=== PATIENT | male | born 1945 | race Caucasian/White ===

== ENCOUNTER → 2017-03-14 15:48 | Outpatient (POV) | payer MEDICARE, BC, SELFPAY | PROVIDERS: Family Provider Internal Medicine; Visit Provider Internal Medicine | DX: Z00.00 Encounter for general adult medical examination without abnormal findings (principal) ==

== ENCOUNTER 2017-03-29 03:33 | Emergency (ER) | payer MEDICARE, BC, SELFPAY ==
[2017-03-29 03:37] VITALS: BP 152/87; PULSE 91; RESP 24; TEMP 36.6; O2SAT 95; BMI 22.8
--- NOTE | 2017-03-29 03:47 | XR_ITS ---
XR chest portable HISTORY: Shortness of air ITS.REASON: SOA ORDERING PHYSICIAN: Fracisco Castro MD PATIENT AGE: 71 years COMPARISON: 01/16/2017 FINDINGS: The cardiomediastinal silhouette and pulmonary vascularity are within normal limits. Chronic obstructive pulmonary disease noted with chronic coarsening of bronchovascular markings. There is a vague 19 mm area of increased density in the left lower lobe laterally overlying eighth rib laterally. This could be due to summation artifact, developing nodule, patchy infiltrate, or sclerotic rib lesion. Follow-up upright PA and lateral chest suggested. The remaining lungs are clear. Previous chest CT does show some sclerosis of the rib at this area probably related to an old fracture. No lobar consolidation or collapse. IMPRESSION: 1. No acute finding. 2. Slight increased density left lung base laterally possibly related to an old rib fracture. Consider follow-up PA and lateral chest for confirmation
--- NOTE | 2017-03-29 04:00 | HMH.EDSOB ---
ED Disposition Clinical Impression: Acute exacerbation of chronic obstructive airways disease Disposition: Home, Self-Care Condition on Discharge: Good Instructions: DI for Chronic Obstructive Pulmonary Disease Additional Instructions: call pcp for follow up Prescriptions: predniSONE [Prednisone 20mg Tab] 20 mg PO DAILY #10 tab Referrals: Provider,Referral, [Primary Care Provider] - - Critical Care Critical Care Time: No Attestation: On 03/29/17, the high probability of a clinically significant, sudden or life threatening deterioration of the following system(s) required my full and direct attention, intervention and personal management. The time I documented below is in addition to time spent performing reported procedures but includes the following listed in this critical care notation. Medical Decision Making - Medical Records Medical records reviewed: Yes: I reviewed the patient's medical records. Vital Signs: 03/29/17 03:37 03/29/17 04:22 03/29/17 04:23 Temperature 97.8 F Temperature Source Oral Pulse Rate 83 88 Pulse Rate [Right Brachial] 91 H Respiratory Rate 24 Blood Pressure [Right Arm] 152/87 Blood Pressure Mean [Right Arm] 108 Blood Pressure Source [Right Arm] Automatic Cuff Blood Pressure Position [Right Arm] Sitting 02 Sat by Pulse Oximetry 95 Oxygen Delivery Method Nasal Cannula Oxygen Flow Rate (LPM) 2 03/29/17 05:20 Temperature Temperature Source Pulse Rate Pulse Rate [Right Brachial] 92 H Respiratory Rate 18 Blood Pressure [Right Arm] 140/88 Blood Pressure Mean [Right Arm] 105 Blood Pressure Source [Right Arm] Blood Pressure Position [Right Arm] 02 Sat by Pulse Oximetry 97 Oxygen Delivery Method Nasal Cannula Oxygen Flow Rate (LPM) 2 - Lab Data Lab results reviewed: Yes: I reviewed the patient's lab results. Lab Results 03/29/17 03:55: WBC 10.8, RBC 4.85, Hgb 13.3 L, Hct 41.0 L, MCV 84.6, MCH 27.4, MCHC 32.4, RDW 15.0, Plt Count 232, MPV 6.5 L, Neut % (Auto) 80.3 H, Lymph % (Auto) 11.1, [place] % (Auto) 7.4, Eos % (Auto) 1.2, Baso % (Auto) 0.1, Neut # (Auto) 8.7 H, Lymph # (Auto) 1.2, [place] # (Auto) 0.8, Eos # (Auto) 0.1, Baso # (Auto) 0.0 03/29/17 03:55: Sodium 142, Potassium 3.6, Chloride 104, Carbon Dioxide 31, Anion Gap 10.6, BUN 25 H, Creatinine 1.20, Estimated Creat Clear 51, Estimated GFR 60, Est GFR ( Amer) 72, Glucose 106, Calcium 8.4 L, Total Bilirubin 0.2, AST 13 L, ALT 23, Alkaline Phosphatase 118 H, Total Creatine Kinase 87, CK-MB (CK-2) 3.4, CK-MB (CK-2) Rel Index 3.9, Troponin I < 0.02, Total Protein 5.9 L, Albumin 3.2 L, Globulin 2.7, Albumin/Globulin Ratio 1.2 03/29/17 04:10: ABG pH 7.42, ABG pCO2 47.1 H, ABG pO2 92.8, ABG HCO3 30.1 H, ABG Total CO2 31.5 H, ABG O2 Saturation 97, ABG Base Excess 5.6 H Result diagrams: 03/29/17 03:55 03/29/17 03:55 Orders (Tests/Meds): ED MEDICATIONS Discontinued Medications Generic Name Dose Route Start Last Admin Trade Name Freq PRN Reason Stop Dose Admin Methylprednisolone Sodium Succinate 125 mg 03/29/17 04:17 03/29/17 04:20 Solu-Medrol 125mg/2ml Vial IV 03/29/17 04:18 125 mg ONCE ONE Administration ORDERS Category Date Time Status ABG [Arterial Blood Gas] Stat RT 03/29/17 03:59 Ordered ABG [Arterial Blood Gas] Stat RT 03/29/17 04:01 Ordered 12-lead EKG Request [ECG Request by /Aramis] Stat Y 03/29/17 03:49 Ordered - Radiology Data #1 Image(s): Chest Image Reviewed: Yes I reviewed the patient's radiology image Preliminary Findings: Abnormal (patchy changes ) - ECG Data Tracing #1 I reviewed this ECG and interpreted as documented below: Normal Sinus Rhythm: Yes Ischemic changes: non-specific ST-T wave changes - Jermain Inquiry Pt receiving controlled substance: No Resp/SOB HPI - General Chief Complaint: Shortness of Breath/Dyspnea Stated Complaint: SOA Time Seen by Provider: 03/29/17 04:00 Mode of Arrival: Ambulatory
--- NOTE | 2017-03-29 04:03 | ED_ITS ---
ED Disposition Clinical Impression: Acute exacerbation of chronic obstructive airways disease Disposition: Home, Self-Care Condition on Discharge: Good Instructions: DI for Chronic Obstructive Pulmonary Disease Additional Instructions: call pcp for follow up Prescriptions: predniSONE [Prednisone 20mg Tab] 20 mg PO DAILY #10 tab Referrals: Provider,Referral, [Primary Care Provider] - - Critical Care Critical Care Time: No Attestation: On 03/29/17, the high probability of a clinically significant, sudden or life threatening deterioration of the following system(s) required my full and direct attention, intervention and personal management. The time I documented below is in addition to time spent performing reported procedures but includes the following listed in this critical care notation. Medical Decision Making - Medical Records Medical records reviewed: Yes: I reviewed the patient's medical records. Vital Signs: 03/29/17 03:37 03/29/17 04:22 03/29/17 04:23 Temperature 97.8 F Temperature Source Oral Pulse Rate 83 88 Pulse Rate [Right Brachial] 91 H Respiratory Rate 24 Blood Pressure [Right Arm] 152/87 Blood Pressure Mean [Right Arm] 108 Blood Pressure Source [Right Arm] Automatic Cuff Blood Pressure Position [Right Arm] Sitting 02 Sat by Pulse Oximetry 95 Oxygen Delivery Method Nasal Cannula Oxygen Flow Rate (LPM) 2 03/29/17 05:20 Temperature Temperature Source Pulse Rate Pulse Rate [Right Brachial] 92 H Respiratory Rate 18 Blood Pressure [Right Arm] 140/88 Blood Pressure Mean [Right Arm] 105 Blood Pressure Source [Right Arm] Blood Pressure Position [Right Arm] 02 Sat by Pulse Oximetry 97 Oxygen Delivery Method Nasal Cannula Oxygen Flow Rate (LPM) 2 - Lab Data Lab results reviewed: Yes: I reviewed the patient's lab results. Lab Results 03/29/17 03:55: WBC 10.8, RBC 4.85, Hgb 13.3 L, Hct 41.0 L, MCV 84.6, MCH 27.4, MCHC 32.4, RDW 15.0, Plt Count 232, MPV 6.5 L, Neut % (Auto) 80.3 H, Lymph % ( Auto) 11.1, [place] % (Auto) 7.4, Eos % (Auto) 1.2, Baso % (Auto) 0.1, Neut # (Auto ) 8.7 H, Lymph # (Auto) 1.2, [place] # (Auto) 0.8, Eos # (Auto) 0.1, Baso # (Auto) 0.0 03/29/17 03:55: Sodium 142, Potassium 3.6, Chloride 104, Carbon Dioxide 31, Anion Gap 10.6, BUN 25 H, Creatinine 1.20, Estimated Creat Clear 51, Estimated GFR 60, Est GFR ( Amer) 72, Glucose 106, Calcium 8.4 L, Total Bilirubin 0.2, AST 13 L, ALT 23, Alkaline Phosphatase 118 H, Total Creatine Kinase 87, CK- MB (CK-2) 3.4, CK-MB (CK-2) Rel Index 3.9, Troponin I < 0.02, Total Protein 5.9 L, Albumin 3.2 L, Globulin 2.7, Albumin/Globulin Ratio 1.2 03/29/17 04:10: ABG pH 7.42, ABG pCO2 47.1 H, ABG pO2 92.8, ABG HCO3 30.1 H, ABG Total CO2 31.5 H, ABG O2 Saturation 97, ABG Base Excess 5.6 H Result diagrams: 03/29/17 03:55 03/29/17 03:55 Orders (Tests/Meds): ED MEDICATIONS Discontinued Medications Generic Name Dose Route Start Last Admin Trade Name Freq PRN Reason Stop Dose Admin Methylprednisolone Sodium Succinate 125 mg 03/29/17 04:17 03/29/17 04:20 Solu-Medrol 125mg/2ml Vial IV 03/29/17 04:18 125 mg ONCE ONE Administration ORDERS Category Date Time Status ABG [Arterial Blood Gas] Stat RT
[2017-03-29 04:07] LABS: Basophils % 0.1 % (0.1-2.0); Eosinophils # 0.1 K/mm3 (0.0-0.4); Eosinophils % 1.2 % (0.1-12.0); Hemoglobin 13.3 g/dL (14.1-18.0); Lymphocytes # 1.2 K/mm3 (0.7-4.5); Lymphocytes % 11.1 K/mm3 (10-50); Mean Corpuscular HGB Conc 32.4 g/dL (31.8-35.4); Mean Corpuscular Hemoglobin 27.4 pg (27.0-31.2); Mean Corpuscular Volume 84.6 fl (80-94); Mean Platelet Volume 6.5 fl (7.4-10.4); Monocytes # 0.8 K/mm3 (0.1-1.0); Monocytes % 7.4 % (1.7-9.3); Neutrophils # 8.7 K/mm3 (1.8-7.8); Neutrophils % 80.3 % (37.0-80.0); Platelet Count 232 K/mm3 (142-424); Red Blood Count 4.85 M/mm3 (4.60-6.20); White Blood Count 10.8 K/mm3 (4.8-10.8)
[2017-03-29 04:12] LABS: ABG Base Excess 5.6 mmol/L (-2.4-2.3); ABG HCO3 30.1 mmhg (22.0-26.0); ABG Oxygen Saturation 97 % (90-100); ABG PCO2 47.1 mmhg (35.0-45.0); ABG PH 7.42 mmol/L (7.35-7.45); ABG PO2 92.8 mmhg (80-100); ABG TCO2 31.5 mmhg (23-27)
[2017-03-29 04:22] VITALS: PULSE 83
[2017-03-29 04:23] VITALS: PULSE 88
[2017-03-29 04:44] LABS: Alanine Aminotransferase 23 U/L (12-78); Albumin Level 3.2 gm/dL (3.4-5.0); Albumin/Globulin Ratio 1.2 (1.1-1.8); Alkaline Phosphatase 118 U/L (46-116); Anion Gap 10.6 mEq/L (5-15); Aspartate Amino Transferase 13 U/L (15-37); Bilirubin,Total 0.2 mg/dL (0.2-1.0); Blood Urea Nitrogen 25 mg/dL (7-18); CKMB Relative Index 3.9 U/L (0-4.0); Calcium 8.4 mg/dL (8.5-10.1); Carbon Dioxide 31 mmol/L (21.0-32.0); Chloride 104 mmol/L (98-107); Creatine Kinase 87 U/L (39-308); Creatine Kinase MB 3.4 mg/ml (0.0-3.6); Creatinine Clearance Estimated 51 mL/min (0-300); Estimated Glomerular Filt Rate 60 ml/min (>60); GFR (African American) 72 ML/MIN (>60); Globulin 2.7 gm/dl (1.3-3.2); Glucose 106 mg/dL (74-106); Potassium 3.6 mmoL/L (3.5-5.1); Sodium 142 mmol/L (136-145); Total Protein,Serum 5.9 gm/dL (6.4-8.2); Troponin I < 0.02 ng/ml (0.00-0.06)
[2017-03-29 05:20] VITALS: BP 140/88; PULSE 92; RESP 18; O2SAT 97
[2017-03-29 06:17] VITALS: BP 140/88; PULSE 92; RESP 18; TEMP 36.6
== END 2017-03-29 06:18 | disposition home or self-care (01) ==
PROVIDERS: Emergency Provider Emergency Medicine; Family Provider Internal Medicine
DX: J44.1 Chronic obstructive pulmonary disease with (acute) exacerbation (principal); Z79.899 Other long term (current) drug therapy
CPT/HCPCS: 71045; 80053; 82550; 82553; 82803; 84484; 85025; 93005; 93041; 96374; 99284

== ENCOUNTER → 2017-09-19 10:40 | Outpatient (POV) | payer MEDICARE, BC, SELFPAY | PROVIDERS: Family Provider Internal Medicine; PCP Internal Medicine; Visit Provider Internal Medicine | DX: Z00.00 Encounter for general adult medical examination without abnormal findings (principal) ==

== ENCOUNTER → 2017-12-01 09:58 | Outpatient (CLI) | payer MEDICARE, BC, SELFPAY ==
[2017-12-01 10:29] LABS: Troponin I < 0.02 ng/ml (0.00-0.06)
== END ==
PROVIDERS: PCP Internal Medicine; Visit Provider Internal Medicine
DX: R07.9 Chest pain, unspecified (principal); I25.10 Atherosclerotic heart disease of native coronary artery without angina pectoris
CPT/HCPCS: 36415; 84484; 93005

== ENCOUNTER → 2017-12-15 08:48 | Outpatient (CLI) | payer MEDICARE, BC, SELFPAY ==
--- NOTE | 2017-12-15 08:50 | CA_ITS ---
PROCEDURE: 2-D M-mode and color Doppler study INDICATIONS FOR THE TEST: Chest pain+ COPD+ Heart Murmur Tobacco Smoking Palpitations Fatigue+ Syncope Edema+ Hypertension+Diabetes Mellitus Rheumatic Fever SOB+TIM+Obesity Hyperlipidemia+ Family History HD Additional History cad, angina, karen,hx stents 2016 PATIENT INFORMATION HEIGHT: 66 WEIGHT:139 GENDER: Male B/P:130/73 2-D/M-MODE INTERPRETATION: 2-D MEASUREMENTS OBSERVED VALUES IN CMS Right Ventricular Dimension (RVDd) 1.5 Interventricular Septum (Thickness)(IVsd) 0.6 Left Ventricular Internal Dimensions(LVIDd) 5.0 Left Ventricular Posterior Wall (Thickness)(LVPWd) 1.0 Aortic Root 2.1 Aortic Cusp Separation 1.4 Left Atrial Dimensions (LAD) 2.2 2D 1. Left atrium is mildly enlarged, left ventricle is normal size, mild concentric left ventricular hypertrophy, visually estimated ejection fraction 55% with no regional wall motion abnormality. 2. The right atrium and right ventricle are normal size and contractility. 3. The aortic valve is minimally thickened and fibrosed. 4. The mitral valve has mitral annular calcification, there is no mitral stenosis. 5. The tricuspid valve is grossly normal 6. The pulmonic valve is poorly visualized. 7. No significant pericardial effusion noted. DOPPLER INTERROGATION: Doppler interrogation of the aortic, mitral and tricuspid valvular presence of mild mitral and tricuspid regurgitation, tricuspid regurgitation jet velocity is inadequate for calculation of the right ventricular systolic pressure, grade 1 diastolic dysfunction seen without tissue Doppler evidence of raised left atrial pressure, inferior vena cava is normal size with normal contractility. CONCLUSION: 1. Mildly enlarged left atrium, normal left ventricular size, mild concentric left ventricular hypertrophy, visually estimated ejection fraction 55% with no regional wall motion abnormality, grade 1 diastolic dysfunction seen without tissue Doppler evidence of raised left atrial pressure. 2. Mild mitral and tricuspid regurgitation 3. No significant pericardial effusion noted.
== END ==
PROVIDERS: PCP Internal Medicine; Visit Provider Internal Medicine
DX: R06.02 Shortness of breath
CPT/HCPCS: 93306

== ENCOUNTER → 2017-12-26 09:36 | Outpatient (CLI) | payer MEDICARE, BC, SELFPAY ==
--- NOTE | 2017-12-26 09:39 | CI_ITS ---
Cerebrovascular Exam Indications: 780.4 Dizziness and giddiness. IMPRESSIONS 1. The bilateral vertebral arteries are patent with normal antegrade flow. 2. Study suggests less than 20% stenosis involving the right internal carotid artery. No change from the study of 27-Dec-2003. 3. Study suggests less than 20% stenosis involving the left internal carotid artery. No change from the study of 27-Dec-2003. Carotid duplex study. Complete study and Doppler flow study including spectral analysis, color and sarmiento scale imaging. Height: Height: 167.6cm. Height: 66in. Weight: Weight: 62.6kg. Weight: 137.7lb. Body mass index: BMI: 22.3kg/m^2. Body surface area: BSA: 1.71m^2. Location: Vascular laboratory. Patient status: Outpatient. Tables: Arterial flow: + +--------+--------+ Location V sys V ed + +--------+--------+ Right CCA - proximal 95.1cm/s 19.6cm/s + +--------+--------+ Right CCA - distal 85.6cm/s 19.6cm/s + +--------+--------+ Right ECA 83.3cm/s 15.7cm/s + +--------+--------+ Right ICA - proximal 68.4cm/s 19.6cm/s + +--------+--------+ Right ICA - mid 90.4cm/s 29.9cm/s + +--------+--------+ Right ICA - distal 102cm/s 31.4cm/s + +--------+--------+ Right vertebral 47.9cm/s 11.8cm/s + +--------+--------+ Left CCA - proximal 87.2cm/s 21.2cm/s + +--------+--------+ Left CCA - distal 99cm/s 26.7cm/s + +--------+--------+ Left ECA 77.8cm/s 13.4cm/s + +--------+--------+ Left ICA - proximal 74.6cm/s 21.2cm/s + +--------+--------+ Left ICA - mid 95.1cm/s 30.6cm/s + +--------+--------+ Left ICA - distal 93.5cm/s 30.6cm/s + +--------+--------+ Left vertebral 39.3cm/s 11cm/s + +--------+--------+ Velocity ratios: + + + + + + Right, V sys Right, V ed Left, V sys Left, V ed + + + + + + Max ICA/dist CCA 1.19 1.6 0.96 1.15 + + + + + + (Report amended ) Electronically signed by: Jamarcus Iraheta [id number]
[2017-12-26 11:00] LABS: Alanine Aminotransferase 22 U/L (12-78); Albumin Level 3.5 gm/dL (3.4-5.0); Alkaline Phosphatase 136 U/L (46-116); Anion Gap 10.2 mEq/L (5-15); Aspartate Amino Transferase 14 U/L (15-37); Bilirubin,Direct 0.1 mg/dL (0.0-0.2); Bilirubin,Indirect 0.2 mg/dL (0.0-0.9); Bilirubin,Total 0.3 mg/dL (0.2-1.0); Blood Urea Nitrogen 20 mg/dL (7-18); Calcium 8.6 mg/dL (8.5-10.1); Carbon Dioxide 33 mmol/L (21.0-32.0); Chloride 101 mmol/L (98-107); Creatinine,Serum 1.08 mg/dL (0.70-1.30); Estimated Glomerular Filt Rate 67 ml/min (>60); GFR (African American) 81 ML/MIN (>60); Glucose 144 mg/dL (74-106); Potassium 4.2 mmoL/L (3.5-5.1); Sodium 140 mmol/L (136-145)
--- NOTE | 2017-12-26 11:05 | CT_ITS ---
CT head/brain wo/w con HISTORY: Ataxia, dizziness, lightheaded ITS.REASON: dizziness, blurry vision, off balance ORDERING PHYSICIAN: CIARRA Broderick PATIENT AGE: 72 years COMPARISON: 05/06/2015 TECHNIQUE: Axial images obtained without contrast. Brain and bone windows reviewed. All CT scans at the facility use one or more dose reduction, viz: automated exposure control, ma/kV adjustment per patient size (including targeted exams where dose is matched to indication, i.e. head), or iterative reconstruction technique. FINDINGS: No midline shift, mass effect, intracranial hemorrhage, hydrocephalus, or extra-axial fluid collection is evident. No enhancing lesions are evident. No evidence of cortical infarction The calvarium has an unremarkable appearance. No mastoid effusion. There is moderate opacification of the ethmoid air cells on both sides, opacification in the left frontal sinus, and mucosal thickening of the maxillary sinuses. Minimal mucosal thickening involves the sphenoid sinus.. IMPRESSION: 1. No acute intracranial findings. 2. Sinusitis
== END ==
PROVIDERS: Urology; PCP Internal Medicine; Visit Provider Physician Assistant
DX: G47.33 Obstructive sleep apnea (adult) (pediatric) (principal); H53.8 Other visual disturbances; I11.9 Hypertensive heart disease without heart failure; I25.10 Atherosclerotic heart disease of native coronary artery without angina pectoris; J43.9 Emphysema, unspecified; R06.02 Shortness of breath; R42 Dizziness and giddiness; Z87.891 Personal history of nicotine dependence; Z99.89 Dependence on other enabling machines and devices
CPT/HCPCS: 36415; 70470; 80048; 80076; 93880

== ENCOUNTER → 2017-12-26 10:18 | Outpatient (CLI) | payer MEDICARE, BC, SELFPAY | PROVIDERS: Visit Provider Urology | DX: R42 Dizziness and giddiness; R06.02 Shortness of breath; I25.10 Atherosclerotic heart disease of native coronary artery without angina pectoris; I11.9 Hypertensive heart disease without heart failure; E78.49 Other hyperlipidemia; J43.9 Emphysema, unspecified; H53.8 Other visual disturbances; Z87.891 Personal history of nicotine dependence; Z99.89 Dependence on other enabling machines and devices | CPT/HCPCS: 36415; 70470; 80048; 80076; 93880 ==

== ENCOUNTER → 2018-01-05 07:08 | Outpatient (CLI) | payer MEDICARE, BC, SELFPAY ==
--- NOTE | 2018-01-05 07:11 | NM_ITS ---
History and Indications: Coronary artery disease, he, family history, chest pain, shortness of breath, palpitations and fatigue Procedure: Patient received a 0.4 mg of intravenous Lexiscan, resting heart rate was 76 bpm, resting blood pressure 123/78, with Lexiscan maximum heart rate achieved was 97 bpm which is less than 85% of the maximum predicted heart rate and a blood pressure was 130/79. With Lexiscan patient, shortness of breath and lightheadedness. Electrocardiogram: Resting electrocardiogram showed sinus rhythm, with Lexiscan there is less than 1.[address] segment depression from the baseline EKG. The EKG portion of the Lexiscan Myoview is nondiagnostic. Cardiac stress and resting SPECT images: Cardiac stress and rest SPECT images were obtained using technetium 99 Myoview 32.4 mCi stress and 10.9. Millicuries at rest. Gated SPECT further analysis of segmental wall motion and calculation of ejection cardiac stress and rest SPECT images show a fixed defect involving the inferior wall with normal contractility in the gated SPECT is likely secondary to soft tissue attenuation from diaphragm, no reversible ischemia seen. Computer derived ejection fraction is over 65% with no regional wall motion abnormality, right ventricle is normal size and contractility. Conclusion: 1. The EKG portion of the Lexiscan Myoview is nondiagnostic. 2. No scintigraphic evidence of reversible ischemia seen, computer derived ejection fraction is over 65% with no regional wall motion abnormality, right ventricle is normal size and contractility. 3. Normal Lexiscan Myoview study.
--- NOTE | 2018-01-05 09:49 | HMH.ITSHM ---
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 []atorvastatin amoxicillin phenyton ferrous amlodipine pantoprazole trazodone prednisone aSA CARVEDILOL
== END ==
PROVIDERS: PCP Internal Medicine; Visit Provider Internal Medicine Cardiovascular Disease
DX: I20.8 Other forms of angina pectoris; R06.00 Dyspnea, unspecified; E78.49 Other hyperlipidemia; G47.33 Obstructive sleep apnea (adult) (pediatric); H53.8 Other visual disturbances; I11.9 Hypertensive heart disease without heart failure; J43.9 Emphysema, unspecified; R42 Dizziness and giddiness; Z87.891 Personal history of nicotine dependence; Z99.89 Dependence on other enabling machines and devices
CPT/HCPCS: 78452; 93017; A9502; J2785

== ENCOUNTER → 2018-02-26 09:42 | Outpatient (CLI) | payer MEDICARE, BC, SELFPAY ==
[2018-02-26 11:15] VITALS: PULSE 79; PULSE 82
== END ==
PROVIDERS: PCP Internal Medicine; Visit Provider Thoracic Surgery (Cardiothoracic Vascular Surgery)
DX: J43.9 Emphysema, unspecified (principal); R06.02 Shortness of breath
CPT/HCPCS: 94060; 94640; 94727; 94729

== ENCOUNTER → 2018-04-10 08:46 | Outpatient (POV) | payer MEDICARE, BC, SELFPAY | PROVIDERS: Visit Provider Internal Medicine | DX: Z00.00 Encounter for general adult medical examination without abnormal findings (principal) ==

== ENCOUNTER 2018-05-22 09:48 | Outpatient (RCR) | payer MEDICARE, BC, SELFPAY | END 2018-06-25 12:51 | disposition home or self-care (01) | LOC: PT 09:48 | PROVIDERS: Visit Provider Thoracic Surgery (Cardiothoracic Vascular Surgery) | DX: Z95.1 Presence of aortocoronary bypass graft (principal) ==

== ENCOUNTER 2018-06-05 10:52 | Outpatient (CLI) | payer MEDICARE, BC, SELFPAY ==
[2018-06-05 13:22] LABS: PHA INR Fingerstick 2.4 (0.9-1.1)
== END 2018-06-05 13:38 | disposition home or self-care (01) ==
PROVIDERS: PCP Internal Medicine; Visit Provider Internal Medicine
DX: Z51.81 Encounter for therapeutic drug level monitoring (principal); Z79.01 Long term (current) use of anticoagulants
CPT/HCPCS: 85610; 99211; G0463

== ENCOUNTER 2018-06-12 10:36 | Outpatient (CLI) | payer MEDICARE, BC, SELFPAY ==
[2018-06-12 11:32] LABS: PHA INR Fingerstick 3.6 (0.9-1.1)
== END 2018-06-12 12:02 | disposition home or self-care (01) ==
LOC: ACC 10:37
PROVIDERS: PCP Internal Medicine; Visit Provider Internal Medicine
DX: Z51.81 Encounter for therapeutic drug level monitoring (principal); Z79.01 Long term (current) use of anticoagulants; I82.409 Acute embolism and thrombosis of unspecified deep veins of unspecified lower extremity
CPT/HCPCS: 85610; 99211; G0463

== ENCOUNTER 2018-06-22 10:20 | Outpatient (CLI) | payer MEDICARE, BC, SELFPAY ==
[2018-06-22 11:38] LABS: Prothrombin Time 48.2 seconds (9.4-11.8)
[2018-06-22 16:08] LABS: PHA INR Fingerstick 4.5 (0.9-1.1)
== END 2018-06-22 16:11 | disposition home or self-care (01) ==
LOC: ACC 10:22
PROVIDERS: PCP Internal Medicine; Visit Provider Internal Medicine
DX: Z51.81 Encounter for therapeutic drug level monitoring (principal); Z79.01 Long term (current) use of anticoagulants; I82.409 Acute embolism and thrombosis of unspecified deep veins of unspecified lower extremity
CPT/HCPCS: 36415; 85610; 99211; G0463

== ENCOUNTER 2018-07-04 10:59 | Outpatient (CLI) | payer MEDICARE, BC, SELFPAY ==
[2018-07-05 13:59] LABS: PHA INR Fingerstick 1.8 (0.9-1.1)
== END 2018-07-04 15:10 | disposition home or self-care (01) ==
PROVIDERS: PCP Internal Medicine; Visit Provider Internal Medicine
DX: Z51.81 Encounter for therapeutic drug level monitoring (principal); Z79.01 Long term (current) use of anticoagulants; I82.409 Acute embolism and thrombosis of unspecified deep veins of unspecified lower extremity
CPT/HCPCS: 85610; 99211; G0463

== ENCOUNTER 2018-07-13 10:15 | Outpatient (CLI) | payer MEDICARE, BC, SELFPAY ==
[2018-07-13 14:10] LABS: PHA INR Fingerstick 2.2 (0.9-1.1)
== END 2018-07-13 14:12 | disposition home or self-care (01) ==
LOC: ACC 10:16
PROVIDERS: PCP Internal Medicine; Visit Provider Internal Medicine
DX: Z79.01 Long term (current) use of anticoagulants (principal)
CPT/HCPCS: 85610

== ENCOUNTER → 2018-07-17 10:32 | Outpatient (POV) | payer MEDICARE, BC, SELFPAY | PROVIDERS: Visit Provider Internal Medicine | DX: Z00.00 Encounter for general adult medical examination without abnormal findings (principal) ==

== ENCOUNTER 2018-08-03 09:34 | Outpatient (CLI) | payer MEDICARE, BC, SELFPAY ==
[2018-08-03 11:03] LABS: PHA INR Fingerstick 2.9 (0.9-1.1)
== END 2018-08-03 11:20 | disposition home or self-care (01) ==
LOC: ACC 09:35
PROVIDERS: PCP Internal Medicine; Visit Provider Internal Medicine
DX: Z51.81 Encounter for therapeutic drug level monitoring (principal); Z79.01 Long term (current) use of anticoagulants
CPT/HCPCS: 85610; 99211; G0463

== ENCOUNTER 2018-08-22 09:24 | Outpatient (CLI) | payer MEDICARE, BC, SELFPAY ==
[2018-08-22 12:05] LABS: PHA INR Fingerstick 1.8 (0.9-1.1)
== END 2018-08-22 12:11 | disposition home or self-care (01) ==
LOC: ACC 09:25
PROVIDERS: PCP Internal Medicine; Visit Provider Internal Medicine
DX: Z51.81 Encounter for therapeutic drug level monitoring (principal); Z79.01 Long term (current) use of anticoagulants
CPT/HCPCS: 85610; 99211; G0463

== ENCOUNTER 2018-09-24 10:11 | Outpatient (CLI) | payer MEDICARE, BC, SELFPAY ==
[2018-09-24 11:58] LABS: PHA INR Fingerstick 1.5 (0.9-1.1)
== END 2018-09-24 12:25 | disposition home or self-care (01) ==
LOC: ACC 10:12
PROVIDERS: PCP Internal Medicine; Visit Provider Internal Medicine
DX: Z79.01 Long term (current) use of anticoagulants (principal)
CPT/HCPCS: 85610; 99211; G0463

== ENCOUNTER → 2018-09-24 14:02 | Outpatient (CLI) | payer MEDICARE, BC, SELFPAY ==
--- NOTE | 2018-09-24 14:09 | US_ITS ---
US Arterial Lower Ext Rest History: Claudication, previous smoker ORDERING PHYSICIAN: CIARRA Broderick PATIENT AGE: 73 years TECHNIQUE: Segmental pressures obtained of both right and left leg. These are compared to brachial blood pressure to yield index at each level sampled including summary FARHAD. The data sheets from the procedure are available in PACS FINDINGS Rest study only performed today No prior studies available for comparison. Blood pressures reported are in millimeters mercury. RIGHT LEG FARHAD = 1.2. RIGHT LEG TBI=.9 Brachial BP: 110 Thigh BP: 127 Calf BP: 134 Ankle PT: 133 Ankle DP : 128 Digit =100 LEFT LEG FARHAD = 1.2 LEFT LEG TBI= .9 Brachial BPD: 112 Thigh BP: 145 Calf BP: 127 Ankle PT:133 Ankle DP: 130 Digit = 97 Pulses and waveforms: Normal IMPRESSION: The ABIs as reported above are within normal limits. Waveforms and pulses are also unremarkable.
== END ==
PROVIDERS: Visit Provider Physician Assistant
DX: I70.213 Atherosclerosis of native arteries of extremities with intermittent claudication, bilateral legs (principal)
CPT/HCPCS: 85610; 93923; 99211; G0463

== ENCOUNTER 2018-10-15 08:50 | Outpatient (CLI) | payer MEDICARE, BC, SELFPAY | END 2018-10-15 11:27 | disposition home or self-care (01) | LOC: ACC 08:51 | PROVIDERS: PCP Internal Medicine; Visit Provider Internal Medicine | DX: Z51.81 Encounter for therapeutic drug level monitoring (principal); Z79.01 Long term (current) use of anticoagulants | CPT/HCPCS: 85610; 99211; G0463 ==

== ENCOUNTER → 2018-11-06 09:42 | Outpatient (POV) | payer MEDICARE, BC, SELFPAY ==
--- NOTE | 2018-11-06 10:31 | XR_ITS ---
PROCEDURE: XR LUMBAR SPINE MIN 4V CLINICAL INDICATION: LOW BACK PAIN COMPARISON: [id number] LUMBAR SPINE-2 TO 3 VIEWS from 09/12/2014 FINDINGS: There is chronic wedge compression changes involving L1 with mild retropulsion of the posterior inferior aspect of L1 by approximately 4 mm not significantly changed. Degenerative disc disease is present at T12-L1 and L1-L2. No acute fracture or dislocation is evident. There is a fusiform abdominal aortic aneurysm which on the lateral view measures [address] a of the abdomen for more thorough evaluation. There is diffuse vascular calcification. IMPRESSION: 1. Chronic compression changes of L1 2. Abdominal aortic aneurysm measuring 5 cm on the lateral view. CTA of the abdomen suggested for further evaluation Dictated by: Jamarcus Iraheta MD 11/06/2018 10:45 Electronically signed by Jamarcus Iraheta MD in [place] 11/06/2018 10:45
== END ==
LOC: SC 09:47 → RAD 10:27
PROVIDERS: PCP Internal Medicine; Visit Provider Internal Medicine
DX: M54.5 Low back pain (principal)
CPT/HCPCS: 72110

== ENCOUNTER 2018-11-26 08:52 | Outpatient (CLI) | payer MEDICARE, BC, SELFPAY ==
[2018-11-26 14:55] LABS: PHA INR Fingerstick 1.5 (0.9-1.1)
== END 2018-11-26 14:59 | disposition home or self-care (01) ==
LOC: ACC 08:53
PROVIDERS: PCP Internal Medicine; Visit Provider Internal Medicine
DX: Z51.81 Encounter for therapeutic drug level monitoring (principal); Z79.01 Long term (current) use of anticoagulants
CPT/HCPCS: 85610; 99211; G0463

== ENCOUNTER → 2018-11-29 08:30 | Outpatient (CLI) | payer MEDICARE, BC, SELFPAY ==
[2018-11-29 08:52] LABS: Blood Urea Nitrogen 21 mg/dL (7-18); Creatinine,Serum 1.01 mg/dL (0.70-1.30); Estimated Glomerular Filt Rate 72 ml/min (>60); GFR (African American) 88 ML/MIN (>60)
--- NOTE | 2018-11-29 10:32 | CT_ITS ---
Procedure: CT ANGIO ABDOMEN CLINICAL HISTORY: AAA Abdominal aortic aneurysm COMPARISON: ABDPELW/O CT ABD PELVIS W/O CONTRAST from 11/15/2013 TECHNIQUE: IV Contrast: 100ml Optiray 350 Axial images obtained with sagittal and coronal reformats. All CT scans at the facility use one or more dose reduction, viz: automated exposure control, ma/kV adjustment per patient size (including targeted exams where dose is matched to indication, i.e. head), or iterative reconstruction technique. FINDINGS: There is a fusiform infrarenal abdominal aortic aneurysm. The aneurysm begins 2.4 cm below the level of the renal arteries and contains a moderate amount of intramural thrombus and measures up to 4.4 cm AP and 4.1 cm transverse. The aneurysm ends just above the bifurcation. The aneurysm does not involve the iliac arteries. There is no evidence of retroperitoneal hemorrhage. Mild atheromatous changes are present within the renal arteries without significant stenosis there 1 renal artery to each kidney. Calcific plaque is present at the ostium of the celiac artery a with approximately 50 percent stenosis suspected. The SMA has an unremarkable appearance. The inferior mesenteric artery is patent. Non angiographic prior CABG with COPD. There is some increased density of the gallbladder which could be related to vicarious excretion of contrast. There is gallstone present. The small liver, spleen, adrenal glands, pancreas, and kidneys have an unremarkable appearance. No intestinal obstruction or free air. Unremarkable appendix. There are scattered diverticula within the sigmoid colon but no evidence of diverticulitis. There wedge compression changes involving L1 with loss of height centrally of greater than 50 percent and mild bowing of the posterior aspect of the L1 vertebral body. This was present on the previous study. IMPRESSION: 1. Infrarenal abdominal aortic aneurysm measuring 4.4 x 4.1 cm previously measuring 3.4 x 3.4 cm on 11/15/2013. There is moderate intramural thrombus. Please see above for detailed description. No evidence of retroperitoneal hemorrhage 2. Cholelithiasis Dictated by: Jamarcus Iraheta MD 11/30/2018 07:09 Electronically signed by Jamarcus Iraheta MD in [place] 12/01/2018 05:32
== END ==
PROVIDERS: PCP Internal Medicine; Visit Provider Internal Medicine
DX: I71.4 Abdominal aortic aneurysm, without rupture (principal)
CPT/HCPCS: 36415; 74175; 82565; 84520; Q9967

== ENCOUNTER 2018-12-31 08:54 | Outpatient (CLI) | payer MEDICARE, BC, SELFPAY ==
[2018-12-31 09:51] LABS: PHA INR Fingerstick 1.7 (0.9-1.1)
== END 2018-12-31 09:52 | disposition home or self-care (01) ==
LOC: ACC 08:55
PROVIDERS: PCP Internal Medicine; Visit Provider Internal Medicine
DX: Z51.81 Encounter for therapeutic drug level monitoring (principal); Z79.01 Long term (current) use of anticoagulants
CPT/HCPCS: 85610; 99211; G0463

== ENCOUNTER 2019-02-15 12:00 | Emergency (ER) | payer MEDICARE, BC, SELFPAY ==
[2019-02-15 12:32] VITALS: BMI 25.8
--- NOTE | 2019-02-15 12:33 | XR_ITS ---
PROCEDURE: XR CHEST 2V CLINICAL HISTORY: soa COMPARISON: [facility] CT CHEST W/O CONTRAST from 09/20/2016 CXR1VP XR chest portable from 03/29/2017 CXR1VP XR chest portable from 08/06/2017 XR CHEST 2V from 02/13/2019 FINDINGS: The cardiomediastinal silhouette and pulmonary vascularity are within normal limits. There is a retrocardiac 3 millimeter benign calcified nodule. Lung borrero are otherwise clear. There is no pleural effusion or pneumothorax. No acute bony abnormalities. IMPRESSION: No acute findings. Dictated by: Juan José Henry 02/15/2019 16:17 Electronically signed by Juan José Henry in [place] 02/15/2019 16:17
[2019-02-15 12:34] VITALS: BP 132/89; PULSE 89; RESP 20; TEMP 37.2; O2SAT 96; BMI 25.8
--- NOTE | 2019-02-15 12:48 | HMH.EDSOB ---
ED Disposition Clinical Impression: COPD exacerbation, Dehydration Disposition: Home, Self-Care Condition on Discharge: Fair Instructions: DI for Chronic Obstructive Pulmonary Disease Additional Instructions: Follow-up with your primary care provider on Monday morning for reevaluation. Return to the emergency department immediately if symptoms are worse. Prescriptions: Ipratropium/Albuterol Sulfate [Duoneb 3mL neb] 3 ml IH Q4H 3 Days #20 neb Transmission Status: Pending to [id number] levoFLOXacin [Levaquin 500mg tab] 500 mg PO DAILY #7 tab Transmission Status: Pending to [id number] Referrals: Ham Weldon [Primary Care Provider] - Time of Disposition: 16:49 - Critical Care Critical Care Time: No Attestation: On 02/15/19, the high probability of a clinically significant, sudden or life threatening deterioration of the following system(s) required my full and direct attention, intervention and personal management. The time I documented below is in addition to time spent performing reported procedures but includes the following listed in this critical care notation. Medical Decision Making - Medical Records Medical records reviewed: Yes: I reviewed the patient's medical records. - Jermain Inquiry Pt receiving controlled substance: No Vital Signs: 02/15/19 12:34 02/15/19 13:46 Temperature 98.9 F Temperature Source Oral Pulse Rate [Right Radial] 89 Respiratory Rate 20 Blood Pressure [Right Arm] 132/89 Blood Pressure Mean [Right Arm] 103 Blood Pressure Source [Right Arm] Automatic Cuff Blood Pressure Position [Right Arm] Sitting 02 Sat by Pulse Oximetry 96 Oxygen Delivery Method Nasal Cannula Nasal Cannula Oxygen Flow Rate (LPM) 2 2 - Lab Data Lab results reviewed: Yes: I reviewed the patient's lab results. Lab Results 02/15/19 12:36: WBC 9.7, RBC 5.30, Hgb 15.6, Hct 47.3, MCV 89.3, MCH 29.4, MCHC 32.9, RDW 15.3, Plt Count 201, MPV 7.5, Neut % (Auto) 89.7 H, Lymph % (Auto) 3.8 L, [place] % (Auto) 5.2, Eos % (Auto) 1.1, Baso % (Auto) 0.2, Neut # (Auto) 8.7 H, Lymph # (Auto) 0.4 L, [place] # (Auto) 0.5, Eos # (Auto) 0.1, Baso # (Auto) 0.0, Total Counted 100, Neutrophils % (Manual) 78 H, Band Neutrophils % 5.0, Lymphocytes % (Manual) 10, Monocytes % (Manual) 6, Eosinophils % (Manual) 1, Platelet Estimate Normal, RBC Morphology Normal 02/15/19 12:36: Lactate 1.6 02/15/19 12:36: Influenza Type A Ag Negative, Influenza Type B Ag Negative 02/15/19 12:57: Sodium 135 L, Potassium 4.1, Chloride 96 L, Carbon Dioxide 32, Anion Gap 11.1, BUN 55 H D, Creatinine 1.07, Estimated Creat Clear 69, Estimated GFR 68, Est GFR ( Amer) 82, Glucose 189 H, Calcium 8.5, Total Bilirubin 0.6, AST 13 L D, ALT 41 D, Alkaline Phosphatase 100, Total Protein 6.0 L, Albumin 2.6 L, Globulin 3.4 H, Albumin/Globulin Ratio 0.8 L 02/15/19 12:57: Troponin I < 0.02 02/15/19 12:57: B-Natriuretic Peptide 150 H 02/15/19 13:20: Specimen Source Right radial, O2 % 2lpm nc, ABG pH 7.45, ABG pCO2 44.5, ABG pO2 101.9 H, ABG HCO3 30.2 H, ABG Total CO2 31.5 H, ABG O2 Saturation 98, ABG Base Excess 6.2 H, Jamarcus Test Acceptable Result diagrams: 02/15/19 12:36 02/15/19 12:57 Orders (Tests/Meds): ED MEDICATIONS Discontinued Medications Generic Name Dose Route Start Last Admin Trade Name Freq PRN Reason Stop Dose Admin Albuterol/Ipratropium 3 ml 02/15/19 12:54 02/15/19 13:45 Duoneb 3ml [facility] 02/15/19 12:55 3 ml ONCE ONE Administration Albuterol/Ipratropium 3 ml 02/15/19 12:55 02/15/19 13:45 Duoneb 3ml Neb 02/15/19 12:56 3 ml ONCE ONE Administration Albuterol/Ipratropium 3 ml 02/15/19 12:55 02/15/19 13:45 Duoneb 3ml Neb [facility] 02/15/19 12:56 3 ml ONCE ONE Administration Levofloxacin/Dextrose 750 mg in 150 mls @ 100 mls/hr 02/15/19 12:56 02/15/19 13:29 Levofloxacin 750mg/150ml Premix IV 02/15/19 14:25 100 mls/hr ONCE ONE Administration Protocol Methylprednisol
[2019-02-15 12:51] LABS: Basophils % 0.2 % (0.1-2.0); Eosinophils # 0.1 K/mm3 (0.0-0.4); Eosinophils % 1.1 % (0.1-12.0); Hematocrit 47.3 % (42.0-52.0); Hemoglobin 15.6 g/dL (14.1-18.0); Lymphocytes # 0.4 K/mm3 (0.7-4.5); Lymphocytes % 3.8 % (10-50); Mean Corpuscular HGB Conc 32.9 g/dL (31.8-35.4); Mean Corpuscular Hemoglobin 29.4 pg (27.0-31.2); Mean Corpuscular Volume 89.3 fl (80-94); Mean Platelet Volume 7.5 fl (7.4-10.4); Monocytes # 0.5 K/mm3 (0.1-1.0); Monocytes % 5.2 % (1.7-9.3); Neutrophils # 8.7 K/mm3 (1.8-7.8); Neutrophils % 89.7 % (37.0-80.0); Platelet Count 201 K/mm3 (142-424); Red Cell Distribution Width 15.3 % (11.5-17.5); White Blood Count 9.7 K/mm3 (4.8-10.8)
[2019-02-15 12:55] LABS: MANUAL DIFFERENTIAL MANUAL DIFFERENTIAL (MANUAL DIFF)
[2019-02-15 13:06] LABS: Lactic Acid 1.6 mmol/L (0.4-2.0)
[2019-02-15 13:10] LABS: Eosinophils % 1 % (0-3); Lymphocytes % 10 % (10-50); Monocytes % 6 % (2-9); Neutrophils % 78 % (42-76); Total Cells Counted 100
[2019-02-15 13:11] LABS: Platelet Estimate Normal; RBC Morphology Normal
[2019-02-15 13:23] LABS: Alanine Aminotransferase 41 U/L (12-78); Albumin Level 2.6 gm/dL (3.4-5.0); Albumin/Globulin Ratio 0.8 (1.1-1.8); Alkaline Phosphatase 100 U/L (46-116); Anion Gap 11.1 mEq/L (5-15); Aspartate Amino Transferase 13 U/L (15-37); Bilirubin,Total 0.6 mg/dL (0.2-1.0); Blood Urea Nitrogen 55 mg/dL (7-18); Calcium 8.5 mg/dL (8.5-10.1); Carbon Dioxide 32 mmol/L (21.0-32.0); Chloride 96 mmol/L (98-107); Creatinine Clearance Estimated 69 mL/min (50-200); Creatinine,Serum 1.07 mg/dL (0.70-1.30); Estimated Glomerular Filt Rate 68 ml/min (>60); GFR (African American) 82 ML/MIN (>60); Globulin 3.4 gm/dl (1.3-3.2); Glucose 189 mg/dL (74-106); Potassium 4.1 mmoL/L (3.5-5.1); Sodium 135 mmol/L (136-145)
--- NOTE | 2019-02-15 13:24 | PC.NURSE ---
rt at bedside
[2019-02-15 13:25] LABS: Troponin I < 0.02 ng/ml (0.00-0.06)
[2019-02-15 13:42] LABS: ABG Base Excess 6.2 mmol/L (-2.4-2.3); ABG HCO3 30.2 mmhg (22.0-26.0); ABG Oxygen Saturation 98 % (90-100); ABG PCO2 44.5 mmhg (35.0-45.0); ABG PH 7.45 mmol/L (7.35-7.45); ABG PO2 101.9 mmhg (80-100); ABG TCO2 31.5 mmhg (23-27)
[2019-02-15 13:44] LABS: Allen's Test Acceptable; Oxygen 2LPM NC %; Source Right Radial
[2019-02-15 17:21] VITALS: BP 128/76; PULSE 92; RESP 18; TEMP 37.1; O2SAT 97
== END 2019-02-15 17:29 | disposition home or self-care (01) ==
PROVIDERS: Emergency Provider Emergency Medicine; PCP Internal Medicine
DX: J44.1 Chronic obstructive pulmonary disease with (acute) exacerbation (principal); E86.0 Dehydration; R73.9 Hyperglycemia, unspecified; Z95.1 Presence of aortocoronary bypass graft; Z95.5 Presence of coronary angioplasty implant and graft; Z99.81 Dependence on supplemental oxygen
CPT/HCPCS: 71046; 80053; 82803; 83605; 83880; 84484; 85007; 85025; 87040; 87275; 87276; 96365; 96375; 99283; 99284; J1956

== ENCOUNTER → 2019-02-18 14:56 | Outpatient (CLI) | payer MEDICARE, BC, SELFPAY ==
--- NOTE | 2019-02-18 15:03 | XR_ITS ---
PROCEDURE: XR LUMBAR SPINE MIN 4V CLINICAL INDICATION: LOW BACK PAIN,COPD, COMPARISON: XR LUMBAR SPINE MIN 4V from 11/06/2018 FINDINGS: There is some straightening of normal curvature in the thoracolumbar region. Again noted is a compression fracture of L1 which is basically stable. There is mild diffuse retropulsion of the posterior aspect of the vertebral body and if symptoms have worsened suggest a follow-up CT scan lumbar spine to better evaluate the degree of spinal canal compromise. The remaining lumbar vertebrae all appear intact and disc spaces are well maintained. The diffuse saccular aortic aneurysm is basically stable unchanged in size and appearance from the previous study. IMPRESSION: Basically stable L1 compression fracture and stable infrarenal diffuse fusiform aortic aneurysm but if back pain symptoms have worsened suggest a follow-up CT scan as described above. Dictated by: Dr. Francisco Patterson MD 02/18/2019 15:[address] Francisco Patterson MD in [place] 02/18/2019 15:46
[2019-02-18 15:22] LABS: Microscopic, Urine URINE MICROSCOPIC (MICROSCOPIC)
[2019-02-18 15:43] LABS: Anion Gap 11.3 mEq/L (5-15); Blood Urea Nitrogen 26 mg/dL (7-18); Calcium 8.3 mg/dL (8.5-10.1); Carbon Dioxide 33 mmol/L (21.0-32.0); Chloride 98 mmol/L (98-107); Estimated Glomerular Filt Rate 59 ml/min (>60); GFR (African American) 72 ML/MIN (>60); Glucose 194 mg/dL (74-106); Potassium 4.3 mmoL/L (3.5-5.1); Sodium 138 mmol/L (136-145)
[2019-02-18 15:47] LABS: Appearance,Urine CLEAR (Clear); Bilirubin,Urine Negative (Negative); Blood, Urine 2+ (Negative); Color,Urine YELLOW (Yellow); Glucose,Urine (UA) Negative (Negative); Ketones,Urine Negative (Negative); Leukocyte Esterase,Urine Negative (Negative); Nitrate,Urine Negative (Negative); PH,Urine 6.5 (5.0-8.5); Protein,Urine Negative (Negative); Urobilinogen,Urine 0.2 EU/dl (0.2)
[2019-02-18 16:16] LABS: Bacteria,Urine Trace /lpf; RBC,Urine Occasional #/hpf (0-3); Squamous Epithelial Cell,Urine Occasional #/hpf (0-5)
== END ==
PROVIDERS: PCP Internal Medicine; Visit Provider Internal Medicine
DX: M54.5 Low back pain (principal); J44.1 Chronic obstructive pulmonary disease with (acute) exacerbation; E86.0 Dehydration
CPT/HCPCS: 36415; 72110; 80048; 81001

== ENCOUNTER → 2019-03-07 13:21 | Outpatient (CLI) | payer MEDICARE, BC, SELFPAY ==
--- NOTE | 2019-03-07 13:27 | CT_ITS ---
PROCEDURE: CT LUMBAR SPINE WO CON CLINICAL HISTORY: LBP , COMPRESSION FX L1 Low back pain COMPARISON: CT ANGIO ABDOMEN from 11/29/2018 XR LUMBAR SPINE MIN 4V from 02/18/2019 TECHNIQUE: Axial images obtained with sagittal and coronal reformats. All CT scans at the facility use one or more dose reduction, viz: automated exposure control, ma/kV adjustment per patient size (including targeted exams where dose is matched to indication, i.e. head), or iterative reconstruction technique. FINDINGS: There is normal alignment. There is moderate to severe compressive changes involving the central aspect of the L1 vertebral body. There is buckling of the dorsal cortex superiorly the extending into the canal by approximately 5 mm. This did have a similar appearance on 11/29/2018 CT scan. There is canal stenosis at the L1 level of 10 mm. L2-L3: Unremarkable. L3-L4: Unremarkable. L4-5: Minimal bulging disc with facet ligamentum hypertrophy with moderate bilateral foraminal narrowing. L5-S1: Mild concentric bulging disc with facet ligamentum hypertrophy There is mild sclerosis of the SI joint on the left. There is an infrarenal fusiform abdominal aortic aneurysm measuring 4.4 cm in AP dimension not significantly changed. Fibrotic changes are present in the lung bases. IMPRESSION: 1. There is moderate to severe compressive changes involving the central aspect of the L1 vertebral body. There is buckling of the dorsal cortex superiorly the extending into the canal by approximately 5 mm. This did have a similar appearance on 11/29/2018 CT scan. There is canal stenosis at the L1 level of 10 mm 2. Mild degenerative changes L4-5 and L5-S1 with sclerosis of the left SI joint. 3. No change in the infrarenal 4.4 cm abdominal aortic aneurysm Dictated by: Jamarcus Iraheta MD 03/07/2019 18:22 Electronically signed by Jamarcus Iraheta MD in [place] 03/07/2019 18:22
== END ==
PROVIDERS: PCP Internal Medicine; Visit Provider Internal Medicine
DX: M54.5 Low back pain (principal); S32.010A Wedge compression fracture of first lumbar vertebra, initial encounter for closed fracture
CPT/HCPCS: 72131

== ENCOUNTER → 2019-04-16 10:53 | Outpatient (POV) | payer MEDICARE, BC, SELFPAY ==
[2019-04-16 11:10] VITALS: BP 135/78; PULSE 91; RESP 18; O2SAT 99; BMI 23.3
--- NOTE | 2019-04-16 11:52 | HMH.PMCON ---
Assessment and Plan (1) Compression fracture Problem details: acute pathological compression fracture Status: Acute Category: Medical (2) Degenerative disc disease Status: Chronic Category: Medical (3) Lumbar radiculopathy Status: Chronic Category: Medical Code(s): M54.16 - Radiculopathy, lumbar region - Assessment and plan all Dx Assessment and Plan for all problems:: We will set up an L1-L2 lumbar epidural steroid injection for the patient. We will also prescribe a back brace to help with instability and weakness in muscles. I will follow-up with him after his injection reassess his symptoms at that time he has been instructed to call the office if he has any issues prior to his next appointment. Dr. Husain has reviewed this note and agrees with this plan of care. This note was dictated using voice recognition software and may contain errors or omissions HPI - Data of Consult Consult date: 04/16/19 Requesting Physician: Meagan Peters APRN Primary Care Provider: Ham Weldon - Consult Narrative Reason for consult: Back pain History of present illness: Mr. Piper is a 74 year old male presents today for consultation regards to his low back pain. Patient has an old chronic compression fracture to L1. Patient and I discussed the treatment for this. Patient and I discussed conservative bracing along with epidural injections. He would like to move forward with this. He is not on any anticoagulation therapy. He rates his pain an 5 out of 10. He is having difficulty with activities of daily living. Patient states that the pain does not radiate . CC: Meagan Peters APRN [facility] History I have reviewed the patient's past medical history: Yes Medical History: Reports:: Asthma, Chronic Obstructive Pulmonary Disease (COPD), Coronary Artery Disease, Home Oxygen, Hyperlipidemia, Hypertension Denies:: Diabetes Mellitus Type 1, Diabetes Mellitus Type 2, Internal Pacemaker, Seizures *Have you ever received a pneumonia vaccine?: Yes *Have you received a flu vaccine this season?: Yes Other Surgeries: Yes: No Previous Surgery, CABG, Cardiac Catheterization, Coronary Stent, Other. No: Pacemaker - *Social History Smoking Status: Never smoker Tobacco Type: cigarettes Alcohol Intake: never Alcohol Intake Frequency:: other Substance Use Type: denies use *Occupational Status:: other Housing: house Household Members: other *Travel in the last 8 weeks: None Family Hx:: Unable to obtain Review of Systems - Review of Systems ROS General: no recent weight change, no fever, no sleep disturbances Respiratory: no cough, no shortness of air, no recurring pulmonary infections, on home O2 Cardiovascular/Peripheral Vascular: No chest pain, No palpitations, no edema, no shortness of breath. Gastrointestinal: no new onset incontinence, normal bowel movements reported Genitourinary: no new onset incontinence Musculoskeletal: Back pain Psychiatric: normal mood/ affect, Neurological: [denies new onset weakness in extremities], [denies new onset balance issues] Meds Home Medications Medication Instructions Recorded Confirmed Type albuterol sulfate 0.63 mg/3 mL 0.63 mg INHALATION ONCE 05/16/17 04/26/19 History solution for nebulization aspirin 81 mg tablet,delayed 81 mg PO DAILY tab 05/16/17 04/26/19 History release ferrous sulfate 325 mg (65 mg 325 mg PO BID tab 05/16/17 04/26/19 History iron) tablet fluticasone propionate 50 1 spray INTRANASAL BID PRN 05/16/17 04/26/19 History mcg/actuation nasal spray,suspension nitroglycerin 0.4 mg sublingual 0.4 mg SUBLINGUAL Q5M PRN 05/16/17 04/26/19 History tablet trazodone 50 mg tablet 50 mg PO QHS PRN 05/16/17 04/26/19 History fluticasone 250 mcg-salmeterol 50 1 inh INHALATION BID 09/05/17 04/26/19 History mcg/dose blistr powdr for inhalation tiotropium bromide 2.5 2 inh INHALATION DAILY g 09/05/17 04/26/19 History mcg/a
== END ==
PROVIDERS: PCP Internal Medicine; Visit Provider Clinical Nurse Specialist Family Health
DX: M48.56XD Collapsed vertebra, not elsewhere classified, lumbar region, subsequent encounter for fracture with routine healing; M51.16 Intervertebral disc disorders with radiculopathy, lumbar region
CPT/HCPCS: 99202

== ENCOUNTER → 2019-05-27 08:45 | Outpatient (POV) | payer MEDICARE, BC, SELFPAY ==
[2019-05-27 09:28] VITALS: BP 142/89; PULSE 68; RESP 18; O2SAT 98; BMI 23.3
--- NOTE | 2019-05-27 09:49 | HMH.PAINSOAP ---
[facility] Pain Management SOAP Note Subjective:: Patient is a pleasant 74-year-old white male who we are treating for a chronic compression fracture of the L1 vertebral body. Patient comes in wearing his back brace today. Patient is following up after a epidural steroid injection at the L1-L2 level. Patient states that it helped significantly for the first couple days and is still helping somewhat however he can tell that it has worn out off. Patient rates his pain today a 6 out of 10. He presents today on home oxygen. Patient and I discussed continuing with injective therapy until he has finished his 3 epidural series. He is interested in pursuing this. He is not on any blood thinners. We will set him up for this after we began elective procedures again. ROS General: no recent weight change, no fever, no sleep disturbances Respiratory: On home oxygen Cardiovascular/Peripheral Vascular: No chest pain, No palpitations, no edema, no shortness of breath. Gastrointestinal: no new onset incontinence, normal bowel movements reported Genitourinary: no new onset incontinence Musculoskeletal: Back pain Psychiatric: normal mood/ affect Neurological: [denies new onset weakness in extremities], [denies new onset balance issues] Objective:: Physical Exam General: Alert and oriented x3, no acute distress, pleasant and cooperative, on home oxygen Lungs: Resps E/U, Symmetrical chest expansion, Eyes: PERRL Musculoskeletal: Flexion and extension of lumbar spine somewhat guarded secondary to pain, deep tendon reflexes normal, strength in upper and lower extremities [5/5], [abnormal gait noted] Neurological: speech clear, 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 Patient is going to continue wearing his back brace until then. We specifically discussed risk factors for Covid-19 including age, heart or lung disease, diabetes, immunosuppression and travel. We also discussed that NSAIDs may worsen Covid-19 infection symptoms and that they should not be used to treat Covid-19 symptoms. Patient was also informed that corticosteroids in any form oral or injectable will decrease immune response and may increase risk of Covid-[address] Husain has reviewed this patient's chart and this note and agrees with plan of care. Patient has been instructed to call the office if they have any issues prior to the next appointment. [facility] History I have reviewed the patient's past medical history: Yes Medical History: Reports:: Aneurysm (abdominal), Asthma, Chronic Obstructive Pulmonary Disease (COPD), Coronary Artery Disease, Home Oxygen, Hyperlipidemia, Hypertension, Seizures Denies:: Cancer, Diabetes Mellitus Type 1, Diabetes Mellitus Type 2, Internal Pacemaker, MRSA *Have you ever received a pneumonia vaccine?: Yes *Have you received a flu vaccine this season?: Yes Other Medical History: Reports: Arthritis Other Surgeries: Yes: No Previous Surgery, CABG, Cardiac Catheterization, Coronary Stent, Other. No: Pacemaker - *Social History Smoking Status: Never smoker Tobacco Type: cigarettes Alcohol Intake: never Alcohol Intake Frequency:: other Substance Use Type: denies use *Occupational Status:: other Housing: house Household Members: other *Travel in the last 8 weeks: None Family Hx:: Unable to obtain
== END ==
PROVIDERS: PCP Internal Medicine; Visit Provider Clinical Nurse Specialist Family Health
DX: M51.16 Intervertebral disc disorders with radiculopathy, lumbar region (principal); M48.56XD Collapsed vertebra, not elsewhere classified, lumbar region, subsequent encounter for fracture with routine healing
CPT/HCPCS: 99212

== ENCOUNTER 2019-05-31 09:32 | Day surgery (SDC) | payer MEDICARE, BC, SELFPAY ==
[2019-05-31 09:49] VITALS: BP 159/89; PULSE 71; RESP 18; TEMP 36.2; O2SAT 100; BMI 22.8
[2019-05-31 10:15] VITALS: BP 145/89; PULSE 79; RESP 18; O2SAT 98
[2019-05-31 10:16] VITALS: BP 148/89; PULSE 79; RESP 18; O2SAT 99
--- NOTE | 2019-05-31 10:18 | P.PCN_ITS ---
- Procedure Date: 05/31/19 Time: 10:18 Anesthesiologist:: Alberto Husain MD Complications:: None Pre-procedure Diagnosis:: Chronic compression fracture of the L1 vertebral body with degenerative disc disease of lumbar spine lumbar radiculopathy symptoms Post-procedure Diagnosis:: Same Indications for Procedure:: The patient is a pleasant 74-year-old white male who we are treating for low back pain with lumbar radicular symptoms and increasing back pain with a chronic L1 compression fracture. He does have a brace. His pain is increased substantially. This is affecting activities of daily living. It is affecting his functionality. In order to keep him out of the emergency room and off oral opioids we will plan on a lumbar epidural steroid injection today to see if this helps with his pain symptoms. Procedure Details:: Lumbar epidural steroid injection under fluoroscopy Informed consent was obtained and the risk and benefits of the procedure was ex plained to the patient. The patient was taken to the procedure room. The patient was placed prone on the procedure table. The patient was prepped and draped in sterile fashion. C-arm fluoroscopy was used to view the lumbar spine. Skin and subcutaneous tissues were anesthetized using lidocaine. I placed an 18-gauge epidural needle and advanced into the L1-L2 interspace using fluoroscopic guidance and [id number] to air. After confirmation of needle placement in the epidural space with dye I injected 2 mL of lidocaine 1.5% with Depo-Medrol 80 mg. Patient tolerated the procedure well with no complications. Plan and Disposition:: He is to continue wearing his brace. We will follow-up with him in 2 weeks.
[2019-05-31 10:28] VITALS: BP 169/97; PULSE 79; RESP 18; O2SAT 97
== END 2019-05-31 10:29 | disposition home or self-care (01) ==
LOC: SC.PAINP 09:34
PROVIDERS: PCP Internal Medicine; Visit Provider Anesthesiology
DX: M48.56XA Collapsed vertebra, not elsewhere classified, lumbar region, initial encounter for fracture (principal); M51.16 Intervertebral disc disorders with radiculopathy, lumbar region; Z79.899 Other long term (current) drug therapy; Z79.82 Long term (current) use of aspirin; I10 Essential (primary) hypertension; J44.9 Chronic obstructive pulmonary disease, unspecified
CPT/HCPCS: 62323; J1040; Q9966

== ENCOUNTER → 2019-06-11 09:15 | Outpatient (CLI) | payer MEDICARE, BC, SELFPAY ==
--- NOTE | 2019-06-11 09:17 | CA_ITS ---
APPROVED REPORT EXAM: Comprehensive 2D, Doppler, and color-flow Echocardiogram Fitting Supervisor: Malathi Gomez RVT Ht: 5 ft 6 in Wt: 142lbs BSA: 1.73 BP: 122/89 mmHg Indications: SOA,EDEMA,HOME O2,CABG,SATURNINO,ABN EKG,HTN,HLD TDS-OVERLAYING LUNG,DECREASED WINDOWS 2D Dimensions LVOT 1.77 cm (M/F) 1.5-2.5 M-Mode Dimensions LVDd 4.07 cm (3.5-5.7) LVDs 2.85 cm (3.5-5.7) IVSd 0.27 cm (0.6-1.1) PWd 0.80 cm (0.6-1.1) EF (Teich) 57.60% FS 30.00% EDV (Teich) 72.90 mL ESV (Teich) 30.90 mL LV Diastology E/A Ratio 0.58 Mitral Valve MV A Velocity 72.00 (40-130 cm/s) Left Ventricle Left atrium is mildly enlarged, left ventricle is normal size, mild concentric left ventricular hypertrophy, visually estimated ejection fraction approximately 40 to 45%, there is marked hypokinesis involving mid to distal septum, anterior and anterior apical wall. Grade 1 diastolic dysfunction seen without tissue Doppler evidence of raise left atrial pressure. Right Ventricle Right atrium and right ventricle are mildly enlarged with normal contractility. Aortic Valve Aortic valve is thickened and calcified leaflet chordae display good mobility, there is no aortic stenosis or aortic insufficiency. Mitral Valve Mitral valve is minimally thickened, there is mild mitral regurgitation. Tricuspid Valve Tricuspid valve is grossly normal, there is mild tricuspid regurgitation. Pulmonic Valve Pulmonic valve is poorly visualized. Great Vessels Aortic root is normal size. Pericardium No significant pericardial effusion noted. Conclusion 1. Biatrial enlargement, normal left ventricular size, mild concentric left ventricular hypertrophy, visually estimated ejection fraction 40 to 45% with segmental wall motion abnormality described above, grade 1 diastolic dysfunction seen without tissue Doppler evidence of raise left atrial pressure. 2. Mildly enlarged right ventricle with normal contractility. 3. Mild mitral and tricuspid regurgitation. 4. No significant pericardial effusion noted. Electronically signed by : Galen Adams, 06/11/2019 20:12:05
== END ==
PROVIDERS: PCP Internal Medicine; Visit Provider Urology
DX: R06.00 Dyspnea, unspecified (principal); R06.01 Orthopnea; R06.02 Shortness of breath
CPT/HCPCS: 93306

== ENCOUNTER → 2019-06-17 11:24 | Outpatient (POV) | payer MEDICARE, BC, SELFPAY ==
[2019-06-17 11:33] VITALS: BP 137/88; PULSE 75; RESP 18; TEMP 36.6; O2SAT 97; BMI 23.1
--- NOTE | 2019-06-17 11:55 | P.CONS_ITS ---
[facility] Pain Management SOAP Note Subjective:: Patient is a pleasant 74-year-old white male who presents today for follow-up after his second lumbar epidural steroid injection. He is doing well in his low back however he is having myofascial pain with palpable trigger points in his right scapular region. Patient and I discussed trigger point injections he would like to move forward with this. He rates that pain a 10 out of 10. ROS General: no recent weight change, no fever, no sleep disturbances Respiratory: no cough, no shortness of air, no recurring pulmonary infections Cardiovascular/Peripheral Vascular: No chest pain, No palpitations, no edema, no shortness of breath. Gastrointestinal: no new onset incontinence, normal bowel movements reported Genitourinary: no new onset incontinence Musculoskeletal: Back pain, right scapular pain Psychiatric: normal mood/ affect Neurological: [denies new onset weakness in extremities], [denies new onset balance issues] Objective:: Physical Exam General: Alert and oriented x3, no acute distress, pleasant and cooperative, on oxygen Lungs: Resps E/U, Symmetrical chest expansion, Eyes: PERRL Musculoskeletal: Flexion and extension of cervical and lumbar spine somewhat guarded secondary to pain, deep tendon reflexes normal, strength in upper and lower extremities [5/5], [abnormal gait noted] Neurological: speech clear, 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 We specifically discussed risk factors for Covid-19 including age, heart or lung disease, diabetes, immunosuppression and travel. We also discussed that NSAIDs may worsen Covid-19 infection symptoms and that they should not be used to treat Covid-19 symptoms. Patient was also informed that corticosteroids in any form oral or injectable will decrease immune response and may increase risk of Covid-[address] Husain has reviewed this patient's chart and this note and agrees with plan of care. Patient has been instructed to call the office if they have any issues prior to the next appointment. [facility] History I have reviewed the patient's past medical history: Yes Medical History: Reports:: Aneurysm (abdominal), Asthma, Chronic Obstructive Pulmonary Disease (COPD), Coronary Artery Disease, Home Oxygen, Hyperlipidemia, Hypertension Denies:: Cancer, Diabetes Mellitus Type 1, Diabetes Mellitus Type 2, Internal Pacemaker, MRSA, Seizures *Have you ever received a pneumonia vaccine?: Yes *Have you received a flu vaccine this season?: Yes Other Medical History: Reports: Arthritis Other Surgeries: Yes: No Previous Surgery, CABG, Cardiac Catheterization, Coronary Stent, Other. No: Pacemaker - *Social History Smoking Status: Former smoker Tobacco Type: cigarettes Alcohol Intake: never Alcohol Intake Frequency:: other Substance Use Type: denies use *Occupational Status:: other Housing: house Household Members: other *Travel in the last 8 weeks: None Family Hx:: Unable to obtain
== END ==
PROVIDERS: PCP Internal Medicine; Visit Provider Clinical Nurse Specialist Family Health
DX: M48.56XD Collapsed vertebra, not elsewhere classified, lumbar region, subsequent encounter for fracture with routine healing (principal); M79.18 Myalgia, other site
CPT/HCPCS: 99212

== ENCOUNTER → 2019-06-18 10:26 | Outpatient (CLI) | payer MEDICARE, BC, SELFPAY ==
[2019-06-18 10:50] LABS: Basophils % 0.4 % (0.1-2.0); Eosinophils # 0.1 K/mm3 (0.0-0.4); Eosinophils % 0.8 % (0.1-12.0); Hematocrit 47.5 % (42.0-52.0); Hemoglobin 15.2 g/dL (14.1-18.0); Lymphocytes # 1.3 K/mm3 (0.7-4.5); Lymphocytes % 11.5 % (10-50); Mean Corpuscular Hemoglobin 28.8 pg (27.0-31.2); Mean Corpuscular Volume 90.1 fl (80-94); Mean Platelet Volume 7.7 fl (7.4-10.4); Monocytes # 0.7 K/mm3 (0.1-1.0); Neutrophils # 8.9 K/mm3 (1.8-7.8); Neutrophils % 81.3 % (37.0-80.0); Platelet Count 232 K/mm3 (142-424); Red Blood Count 5.28 M/mm3 (4.60-6.20); White Blood Count 10.9 K/mm3 (4.8-10.8)
[2019-06-18 11:19] LABS: Chloride 95 mmol/L (98-107); Potassium 4.1 mmoL/L (3.5-5.1); Sodium 140 mmol/L (136-145)
[2019-06-18 11:21] LABS: Bilirubin,Unconjugated 0.4 mg/dL (0.0-1.1); Blood Urea Nitrogen 23 mg/dl (9-20); Estimated Glomerular Filt Rate 73 ml/min (>60); GFR (African American) 88 ML/MIN (>60)
[2019-06-18 11:22] LABS: Alanine Aminotransferase 24 U/L (12-78); Albumin Level 4.2 g/dl (3.5-5.0); Alkaline Phosphatase 130 U/L (38-126); Anion Gap 10.1 mEq/L (5-15); Aspartate Amino Transferase 22 U/L (17-59); Bilirubin,Indirect 0.4 mg/dL (0.0-0.9); Bilirubin,Total 0.4 mg/dl (0.2-1.3); Calcium 9.9 mg/dl (8.4-10.2); Carbon Dioxide 39 mmol/L (22.0-30.0); Chol/HDL Ratio 3.9 (1-3.5); Cholesterol 262 mg/dl (140-200); Glucose 121 mg/dl (74-100); HDL Cholesterol 67 mg/dl (40-60); Total Protein,Serum 6.6 g/dl (6.3-8.2); Triglycerides 255 mg/dl (30-150); VLDL Cholesterol 51 mg/dL (0-40)
[2019-06-18 11:30] LABS: NT Pro Brain Natriuretic Pep. 363 pg/mL (0-125)
[2019-06-18 11:33] LABS: Direct LDL Cholesterol 188.81 mg/dL (100-129)
== END ==
PROVIDERS: Visit Provider Physician Assistant
DX: G47.33 Obstructive sleep apnea (adult) (pediatric); I11.9 Hypertensive heart disease without heart failure; I42.9 Cardiomyopathy, unspecified; I73.9 Peripheral vascular disease, unspecified; J43.9 Emphysema, unspecified; R06.02 Shortness of breath; Z87.891 Personal history of nicotine dependence; Z95.1 Presence of aortocoronary bypass graft; Z99.89 Dependence on other enabling machines and devices; I20.8 Other forms of angina pectoris; E78.49 Other hyperlipidemia
CPT/HCPCS: 36415; 80048; 80061; 80076; 83880; 85025

== ENCOUNTER → 2019-06-24 10:37 | Outpatient (CLI) | payer MEDICARE, BC, SELFPAY ==
[2019-06-25 08:52] LABS: Covid-19 Nasal PCR Sendout Lex NOT DETECTED
--- NOTE | 2019-06-25 10:22 | PC.NURSE ---
0941-pt and Smooth TEE notified of negative COVID 19 results.
== END ==
PROVIDERS: Visit Provider Anesthesiology
DX: Z03.818 Encounter for observation for suspected exposure to other biological agents ruled out (principal)
CPT/HCPCS: U0003

== ENCOUNTER 2019-06-26 08:59 | Day surgery (SDC) | payer MEDICARE, BC, SELFPAY ==
[2019-06-26 09:15] VITALS: BP 135/79; PULSE 55; RESP 20; O2SAT 100; BMI 22.8
[2019-06-26 09:27] VITALS: BP 122/70; PULSE 70; RESP 20; O2SAT 100
[2019-06-26 09:30] VITALS: BP 125/71; PULSE 65; RESP 20; O2SAT 100
[2019-06-26 09:40] VITALS: BP 135/79; PULSE 60; RESP 18; O2SAT 100
--- NOTE | 2019-06-26 09:44 | HMH.PMPROC ---
- Procedure Date: 06/26/19 Time: 09:44 Anesthesiologist:: Alberto Husain MD Complications:: None Pre-procedure Diagnosis:: Myofascial pain neck and shoulders over the right upper trapezius muscle Post-procedure Diagnosis:: Same Indications for Procedure:: This patient is a pleasant 74-year-old white male who we have been treating for low back pain with multiple compression fractures. He has had an epidural steroid injection which is helped him tremendously. He is now having some increasing neck pain with radiation to the right shoulder. Most of this pain is over the right upper trapezius muscle. We will plan on trigger point injections to the right upper trapezius muscles today. Procedure Details:: Trigger point injections x4 to right upper trapezius area Informed consent was obtained risk and benefits of the procedure were explained to the patient. Patient was taken to the procedure room. The right neck and shoulders were prepped using ChloraPrep. A 25-gauge needle was used and we injected 4 trigger points over the right upper trapezius using bupivacaine 0.25% 3 MLS and Depo-Medrol 10 mg for each trigger point. We used a total of 40 mg Depo-Medrol for all 4 trigger points. Patient tolerated the procedure well with no complications. Plan and Disposition:: We will follow-up with him in 2 weeks. Will reevaluate his symptoms at that time.
== END 2019-06-26 09:40 | disposition home or self-care (01) ==
LOC: SC.PAINP 08:59
PROVIDERS: PCP Internal Medicine; Visit Provider Anesthesiology
DX: M79.18 Myalgia, other site (principal)
CPT/HCPCS: 20552; J1040

== ENCOUNTER 2019-06-27 08:47 | Day surgery (SDC) | payer MEDICARE, BC, SELFPAY ==
[2019-06-27] VITALS (12 sets, daily range): BP systolic 94–149; BP diastolic 57–97; PULSE 76–90; RESP 16–20; TEMP 36.6; O2SAT 87–97; BMI 22.8
--- NOTE | 2019-06-27 09:00 | IR_ITS ---
APPROVED REPORT Patient Location: Outpatient Travel Accommodations Rater: JUMANA Shook RT (R) PROCEDURES Right heart catheterization Left heart catheterization Left ventriculogram Selective coronary angiogram Left internal mammary angiography Selective adjacent to the saphenous vein graft to the right coronary Catheter placement in the ascending aorta Ascending aortography INDICATION Coronary disease, History of coronary bypass surgery, Pulmonary hypertension, Class III-IV congestive heart failure symptoms Informed consent was obtained prior to the procedure. COMPLICATIONS NONE Estimated Blood Loss: LESS THAN 10 ML TECHNIQUE One percent lidocaine was used to anesthetize the right groin. The right femoral artery was accessed via the Seldinger technique. A 4-Ethiopian and 7 syriac sheath was placed in the right femoral artery and vein respectfully. A 7 Ethiopian sheath was introduced and a [place]-Ezequiel catheter was floated using hemodynamic waveforms in the pulmonary artery, right ventricle , and right atrium. Saturations were obtained in the pulmonary artery and the right atrium. The JR-4 and JL-4 catheter was also used to perform left heart catheterization, left ventriculography and selective coronary angiogram. The JR4 catheter was used to intubate the saphenous vein graft to the right coronary artery as well as perform nonselective left internal mammary angiography. Pigtail catheter was placed in the ascending aorta and ascending aortography was performed in order to look for grafts given the absence of a graft marker. At the end of the procedure the patient was transferred to the post-op holding area in stable condition for arterial sheath removal. ANGIOGRAPHIC RESULTS The left main artery Has a distal 40% stenosis The left anterior descending artery Has proximal 90% stenosis then occluded. The circumflex artery Is a small nondominant vessel and has 20 to 30% stenosis and a proximal small to medium sized first obtuse marginal artery The right coronary artery Is a dominant vessel and has ostial proximal 8090% stenosis complex mid vessel 80% hazy stenosis. The vessel has severe diffuse disease with a thrombus or calcification throughout the mid right coronary artery. There is competitive flow from a vein graft into the posterior descending artery The MORELOS ventriculogram reveals Mild left ventricular dilatation mid anterior apical and inferior apical akinesis with evidence of a organized thrombus at the apex. Estimated ejection fraction is 40% The left ventricular end-diastolic pressure 15 mmHg The left internal mammary artery is a small graft it is patent and supplies a severely diffusely diseased and small caliber LAD Saphenous vein graft to the right coronary artery is a very large graft with slow flow but does supply antegrade flow to the posterior descending artery Ascending aorta demonstrates mild ascending aortic dilatation with only 1 patent vein graft being the saphenous to the right coronary Right atrial pressure 8 mmHg Pulmonary artery pressure 32/17 mmHg Pulmonary occlusion pressure 15 mmHg Right atrial saturation 77% Pulmonary desaturation 77% IMPRESSION Severely diffusely diseased LAD with a patent small BROOKS graft Patent saphenous vein graft to a a small caliber posterior descending artery Coronary disease as described above Mid anterior apical and inferoapical akinesis with angiographic suggestion of a organized thrombus in the apex Mild pulmonary hypertension Mildly elevated left-sided filling pressures PLAN 1. Medical management for coronary disease. Nothing surgical nor percutaneous can improve patient's coronary artery status. 2. Echocardiogram and possibly CAROLYN to
[2019-06-27 09:27] LABS: Basophils # 0.1 K/mm3 (0-0.2); Basophils % 0.9 % (0.1-2.0); Eosinophils # 0.1 K/mm3 (0.0-0.4); Eosinophils % 0.4 % (0.1-12.0); Hematocrit 41.4 % (42.0-52.0); Hemoglobin 14.2 g/dL (14.1-18.0); Lymphocytes # 0.6 K/mm3 (0.7-4.5); Lymphocytes % 4.8 % (10-50); Mean Corpuscular HGB Conc 34.2 g/dL (31.8-35.4); Mean Corpuscular Hemoglobin 29.5 pg (27.0-31.2); Mean Corpuscular Volume 86.1 fl (80-94); Mean Platelet Volume 7.5 fl (7.4-10.4); Monocytes # 0.4 K/mm3 (0.1-1.0); Monocytes % 3.5 % (1.7-9.3); Neutrophils # 11.1 K/mm3 (1.8-7.8); Neutrophils % 90.4 % (37.0-80.0); Platelet Count 272 K/mm3 (142-424); Red Blood Count 4.81 M/mm3 (4.60-6.20); Red Cell Distribution Width 14.8 % (11.5-17.5); White Blood Count 12.3 K/mm3 (4.8-10.8)
[2019-06-27 09:31] LABS: Anion Gap 11.2 mEq/L (5-15); Blood Urea Nitrogen 24 mg/dl (9-20); Calcium 9.3 mg/dl (8.4-10.2); Carbon Dioxide 32 mmol/L (22.0-30.0); Chloride 96 mmol/L (98-107); Creatinine Clearance Estimated 59 mL/min (50-200); Estimated Glomerular Filt Rate 73 ml/min (>60); GFR (African American) 88 ML/MIN (>60); Glucose 140 mg/dl (74-100); Potassium 4.2 mmoL/L (3.5-5.1); Sodium 135 mmol/L (136-145)
[2019-06-27 09:39] LABS: MANUAL DIFFERENTIAL MANUAL DIFFERENTIAL (MANUAL DIFF)
[2019-06-27 09:49] LABS: Lymphocytes % 7 % (10-50); Monocytes % 1 % (2-9); Neutrophils % 92 % (42-76); Platelet Estimate Normal; Total Cells Counted 100
[2019-06-27 09:50] LABS: RBC Morphology Normal
[2019-06-27 12:59] LABS: CATHL Arterial O2 SAT 77.2 % (90-100); CATHL Venous O2 SAT 77.1 % (75-80)
== END 2019-06-27 14:58 | disposition home or self-care (01) ==
LOC: CATHLAB 08:47
PROVIDERS: PCP Internal Medicine; Visit Provider Internal Medicine
DX: I25.118 Atherosclerotic heart disease of native coronary artery with other forms of angina pectoris; I25.729 Atherosclerosis of autologous artery coronary artery bypass graft(s) with unspecified angina pectoris; I27.20 Pulmonary hypertension, unspecified; I42.9 Cardiomyopathy, unspecified; Z95.1 Presence of aortocoronary bypass graft; G47.33 Obstructive sleep apnea (adult) (pediatric); I50.20 Unspecified systolic (congestive) heart failure; I11.0 Hypertensive heart disease with heart failure; J43.9 Emphysema, unspecified; R06.02 Shortness of breath; Z99.81 Dependence on supplemental oxygen; Z87.891 Personal history of nicotine dependence; Z79.82 Long term (current) use of aspirin; Z79.899 Other long term (current) drug therapy; Z79.51 Long term (current) use of inhaled steroids; Z79.52 Long term (current) use of systemic steroids
CPT/HCPCS: 80048; 82810; 85007; 85025; 93461; 99152; 99153; C1725; C1751; C1769; C1894; J1644; Q9967

== ENCOUNTER → 2019-07-04 14:56 | Outpatient (CLI) | payer MEDICARE, BC, SELFPAY ==
--- NOTE | 2019-07-04 14:56 | CT_ITS ---
PROCEDURE: CT CHEST WO CON CLINICAL INDICATION: SOA Increased dyspnea, heart disease, coronary artery disease, shortness of air COMPARISON: [facility] CT CHEST W/O CONTRAST from 09/20/2016 CT ANGIO ABDOMEN from 11/29/2018 TECHNIQUE: Axial images obtained with sagittal and coronal reformats. All CT scans at the facility use one or more dose reduction, viz: automated exposure control, ma/kV adjustment per patient size (including targeted exams where dose is matched to indication, i.e. head), or iterative reconstruction technique. FINDINGS: HEART AND MEDIASTINAL STRUCTURES: Prior CABG. There is extensive coronary artery calcification. LUNGS AND PLEURAL SPACES: Centrilobular and paraseptal emphysematous changes with scattered areas of scarring. Previously noted parenchymal opacity in the right upper lobe centrally has shown some improvement. There is a new parenchymal opacity in the right upper lobe posteriorly and laterally series 3, image 33. This measures approximately 5 mm with some surrounding ground-glass density. Atelectatic changes are present in the right lung base posterior medially and has developed since the previous exam. There are atelectatic changes in the left upper lobe posteriorly. Previously there was a small pneumatocele at this region which has resolved. Calcified granuloma is present in the left lower lobe with some mild fibrotic changes in the left lung base. BONY STRUCTURES: Severe wedge compression changes involve the L1 vertebral body with mild retropulsion of the posterior aspect of L1 by approximately 7 mm. New wedge compression changes are present at T8 vertebral body with sclerosis of the inferior endplate with loss of height centrally of 40 percent and minimal retropulsion of the posterior inferior aspect of the vertebral body by 4 mm. Chronic severe wedge compression changes are present at T7. There is loss of height centrally and anteriorly of greater than 50 percent. Mild wedging also involves the T6 vertebral body which has developed in the interval with loss of height of approximately 30 percent. UPPER ABDOMEN: Slight hyperdensity of the gallbladder with at least 1 gallstone noted at 10 mm. There is an infrarenal abdominal aortic aneurysm. The aneurysm is not completely imaged on this exam. ADDITIONAL FINDINGS: No other significant abnormalities. IMPRESSION: 1. Centrilobular and paraseptal emphysema with COPD with scattered parenchymal opacities and atelectasis as described above. Right upper lobe central opacity has shown some improvement with new opacity in the right upper lobe posteriorly the with some new areas of atelectasis. Findings could be related to sequela from cryptogenic organizing pneumonia. Suggest six-month follow-up to confirm stability 2. New wedge compression changes have developed at T8 and T6 compared to the previous exam. Old wedge compression changes are noted at T7 and L1. MRI may provide further evaluation to determine the age of the fractures which have developed in the interval. 3. Cholelithiasis with hyperdense gallbladder suggesting sludge Dictated by: Jamarcus Iraheta MD 07/05/2019 08:08 Electronically signed by Jamarcus Iraheta MD in [place] 07/05/2019 08:08
== END ==
PROVIDERS: PCP Internal Medicine; Visit Provider Physician Assistant
DX: I27.20 Pulmonary hypertension, unspecified (principal)
CPT/HCPCS: 71250

== ENCOUNTER → 2019-07-09 09:03 | Outpatient (POV) | payer MEDICARE, BC, SELFPAY ==
[2019-07-09 09:13] VITALS: BP 142/82; PULSE 85; RESP 18; TEMP 36.6; O2SAT 99; BMI 22.8
--- NOTE | 2019-07-09 09:17 | HMH.PAINSOAP ---
[facility] Pain Management SOAP Note Subjective:: Patient is a pleasant 74-year-old white male who we are treating for back pain and myofascial pain. He is following up after trigger point injections and doing extremely well. Patient rates his pain between a 2 and a 3 out of 10. Patient has had epidural injections and trigger point injections. Patient does not need anything at this time. He would like to follow-up in a couple months. ROS General: no recent weight change, no fever, no sleep disturbances Respiratory: no cough, no shortness of air, no recurring pulmonary infections Cardiovascular/Peripheral Vascular: No chest pain, No palpitations, no edema, no shortness of breath. Gastrointestinal: no new onset incontinence, normal bowel movements reported Genitourinary: no new onset incontinence Musculoskeletal: Back pain, myofascial pain Psychiatric: normal mood/ affect Neurological: [denies new onset weakness in extremities], [denies new onset balance issues] Objective:: Physical Exam General: Alert and oriented x3, no acute distress, pleasant and cooperative, on O2 Lungs: Resps E/U, Symmetrical chest expansion, Eyes: PERRL Musculoskeletal: Flexion and extension of lumbar spine somewhat guarded secondary to pain, deep tendon reflexes normal, strength in upper and lower extremities [5/5], [abnormal gait noted] Neurological: speech clear, classroom aide 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 Dr. Husain has reviewed this note and agrees with this plan of care. This note was dictated using voice recognition software and may contain errors or omissions [facility] History I have reviewed the patient's past medical history: Yes Medical History: Reports:: Aneurysm, Asthma, Chronic Obstructive Pulmonary Disease (COPD), Coronary Artery Disease, Home Oxygen, Hyperlipidemia, Hypertension Denies:: Cancer, Diabetes Mellitus Type 1, Diabetes Mellitus Type 2, Internal Pacemaker, MRSA, Seizures *Have you ever received a pneumonia vaccine?: Yes *Have you received a flu vaccine this season?: Yes Other Medical History: Reports: Arthritis Other Surgeries: Yes: No Previous Surgery, CABG, Cardiac Catheterization, Coronary Stent, Other. No: Pacemaker Amputation: No Fractures: No - *Social History Smoking Status: Former smoker Tobacco Type: cigarettes Alcohol Intake: never Alcohol Intake Frequency:: other Substance Use Type: denies use *Occupational Status:: other Housing: house Household Members: none *Travel in the last 8 weeks: None Family Hx:: Unable to obtain
== END ==
PROVIDERS: PCP Internal Medicine; Visit Provider Clinical Nurse Specialist Family Health
DX: M79.18 Myalgia, other site (principal); M48.56XD Collapsed vertebra, not elsewhere classified, lumbar region, subsequent encounter for fracture with routine healing
CPT/HCPCS: 99212

== ENCOUNTER → 2019-07-18 12:08 | Outpatient (CLI) | payer MEDICARE, BC, SELFPAY ==
--- NOTE | 2019-07-18 12:14 | CA_ITS ---
APPROVED REPORT EXAM: Comprehensive 2D, Doppler, and color-flow Echocardiogram Ceramic Chemist: Janee Maharaj RDCS Ht: 5 ft 6 in Wt: 142lbs BSA: 1.73 BP: 122/89 mmHg Indications: DEFINITY TO R/O APICAL TROMBUS Left Ventricle Left atrium is mildly enlarged, left ventricle is normal size, mild concentric left ventricular hypertrophy, visually estimated ejection fraction 45%, there is marked hypo-to akinesis involving the distal septum and apical wall. Definity contrast was utilized to delineate the endocardial surface, there is no obvious left ventricular apical thrombus seen. Right Ventricle Right atrium and right ventricle mildly enlarged with normal contractility. Aortic Valve Aortic valve is minimally thickened and fibrosed. Mitral Valve Mitral valve grossly normal. Tricuspid Valve Tricuspid valve is grossly normal. Pulmonic Valve Pulmonic valve not well visualized. Great Vessels Aortic root is normal size. Pericardium No significant pericardial effusion noted. Conclusion 1. Limited study performed. 2. Normal left ventricular size, mild concentric left ventricular hypertrophy, visually estimated ejection fraction approximately 45% with segmental wall motion abnormalities as described above, Definity contrast was utilized to delineate the endocardial surfaces, there is no left ventricular thrombus seen. 3. No significant pericardial effusion noted. Electronically signed by : Galen Adams, 07/18/2019 13:34:32
== END ==
PROVIDERS: PCP Internal Medicine; Visit Provider Internal Medicine Cardiovascular Disease
DX: I51.3 Intracardiac thrombosis, not elsewhere classified (principal); I11.9 Hypertensive heart disease without heart failure; I42.9 Cardiomyopathy, unspecified; I20.9 Angina pectoris, unspecified; R06.00 Dyspnea, unspecified; Z99.89 Dependence on other enabling machines and devices
CPT/HCPCS: 93308; Q9957

== ENCOUNTER → 2019-08-30 07:26 | Outpatient (CLI) | payer MEDICARE, BC, SELFPAY ==
--- NOTE | 2019-08-30 07:29 | US_ITS ---
PROCEDURE: US AORTA CLINICAL INDICATION: AORTIC ANEURSYM 6 MONTH FOLLOW UP COMPARISON: CT ANGIO ABDOMEN from 11/29/2018 FINDINGS: There is mild fusiform aneurysmal dilatation of the mid abdominal aorta at 4.5 x 4.4 cm. These measurements are similar compared to a previous CT scan of 11/29/2018. Proximal common iliacs have an unremarkable appearance IMPRESSION: 4.5 cm infrarenal abdominal aortic aneurysm Dictated by: Jamarcus Iraheta MD 08/30/2019 18:41 Electronically signed by Jamarcus Iraheta MD in [place] 08/30/2019 18:41
== END ==
PROVIDERS: PCP Internal Medicine; Visit Provider Internal Medicine
DX: I71.4 Abdominal aortic aneurysm, without rupture (principal)
CPT/HCPCS: 76770

== ENCOUNTER → 2019-10-07 10:37 | Outpatient (POV) | payer MEDICARE, BC, SELFPAY ==
[2019-10-07 10:47] VITALS: BP 152/78; PULSE 85; RESP 18; TEMP 36.8; O2SAT 99; BMI 21.9
--- NOTE | 2019-10-07 11:17 | P.CONS_ITS ---
[facility] Pain Management SOAP Note Subjective:: A pleasant 74-year-old white male who we are treating for low back pain. Patient is doing well however his pain is beginning to return. He had relief from his lumbar epidural for 3 months. He rates his pain a 6 out of 10. He would like to repeat his lumbar epidural steroid injection because he got over 80% relief with this. He is still doing well after trigger point injections. he is not on any anticoagulation therapy. ROS General: no recent weight change, no fever, no sleep disturbances Respiratory: no cough, no shortness of air, no recurring pulmonary infections Cardiovascular/Peripheral Vascular: No chest pain, No palpitations, no edema, no shortness of breath. Gastrointestinal: no new onset incontinence, normal bowel movements reported Genitourinary: no new onset incontinence Musculoskeletal: Back pain Psychiatric: normal mood/ affect Neurological: [denies new onset weakness in extremities], [denies new onset balance issues] Objective:: Physical Exam General: Alert and oriented x3, no acute distress, pleasant and cooperative, on O2 Lungs: Resps E/U, Symmetrical chest expansion, Eyes: PERRL Musculoskeletal: Flexion and extension of lumbar spine somewhat guarded secondary to pain, deep tendon reflexes normal, strength in upper and lower extremities [5/5], [abnormal gait noted] Neurological: speech clear, 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 Given the efficacy of this in the past I do believe it would benefit him. I will follow- up with him afterwards reassess his symptoms at that time he has been instructed to call the office if he has any issues prior to his next appointment. Dr. Husain has reviewed this note and agrees with this plan of care. This note was dictated using voice recognition software and may contain errors or omissions [facility] History I have reviewed the patient's past medical history: Yes Medical History: Reports:: Aneurysm, Asthma, Chronic Obstructive Pulmonary Disease (COPD), Coronary Artery Disease, Home Oxygen, Hyperlipidemia, Hypertension Denies:: Cancer, Diabetes Mellitus Type 1, Diabetes Mellitus Type 2, Internal Pacemaker, MRSA, Seizures *Have you ever received a pneumonia vaccine?: Yes *Have you received a flu vaccine this season?: Yes Other Medical History: Reports: Arthritis Other Surgeries: Yes: No Previous Surgery, CABG, Cardiac Catheterization, Coronary Stent, Other. No: Pacemaker Amputation: No Fractures: No - *Social History Smoking Status: Former smoker Tobacco Type: cigarettes Alcohol Intake: never Alcohol Intake Frequency:: other Substance Use Type: denies use *Occupational Status:: other Housing: house Household Members: none *Travel in the last 8 weeks: None Family Hx:: Unable to obtain
== END ==
PROVIDERS: PCP Internal Medicine; Visit Provider Clinical Nurse Specialist Family Health
DX: M51.16 Intervertebral disc disorders with radiculopathy, lumbar region (principal); M48.56XD Collapsed vertebra, not elsewhere classified, lumbar region, subsequent encounter for fracture with routine healing
CPT/HCPCS: 99212

== ENCOUNTER 2019-10-11 14:11 | Day surgery (SDC) | payer MEDICARE, BC, SELFPAY ==
[2019-10-11 14:35] VITALS: BP 95/70; PULSE 54; RESP 18; TEMP 37.6; O2SAT 100; BMI 21.9
[2019-10-11 14:58] VITALS: BP 142/78; PULSE 74; RESP 18; O2SAT 99
[2019-10-11 14:59] VITALS: BP 132/77; PULSE 74; RESP 18; O2SAT 98
--- NOTE | 2019-10-11 15:01 | P.PCN_ITS ---
- Procedure Date: 10/11/19 Time: 15:01 Anesthesiologist:: Alberto Husain MD Complications:: None Pre-procedure Diagnosis:: Degenerative disc disease of lumbar spine with lumbar radiculopathy symptoms Post-procedure Diagnosis:: Same Indications for Procedure:: This patient is a pleasant 74-year-old white male who we are treating for low back pain with lumbar radiculopathy symptoms. He is done well with previous epidural steroid injections. He is gotten up to 3 months relief from previous injections. His pain is now just turning to return. We will do repeat lumbar epidural steroid injection under fluoroscopy today. Procedure Details:: Lumbar epidural steroid injection under fluoroscopy Informed consent was obtained and the risk and benefits of the procedure was explained to the patient. The patient was taken to the procedure room. The patient was placed prone on the procedure table. The patient was prepped and draped in sterile fashion. C-arm fluoroscopy was used to view the lumbar spine. Skin and subcutaneous tissues were anesthetized using lidocaine. I placed an 18-gauge epidural needle and advanced into the L4-L5 interspace using fluor oscopic guidance and [id number] to air. After confirmation of needle placement in the epidural space with dye I injected 2 mL of lidocaine 1.5% with Depo-Medrol 80 mg. Patient tolerated the procedure well with no complications. Plan and Disposition:: We will follow-up with him in 2 weeks. Will reevaluate his symptoms at that time.
[2019-10-11 15:08] VITALS: BP 107/71; PULSE 77; RESP 20; O2SAT 100
== END 2019-10-11 15:10 | disposition home or self-care (01) ==
LOC: SC.PAINP 14:12
PROVIDERS: PCP Internal Medicine; Visit Provider Anesthesiology
DX: M51.16 Intervertebral disc disorders with radiculopathy, lumbar region (principal); J44.9 Chronic obstructive pulmonary disease, unspecified; I27.20 Pulmonary hypertension, unspecified; I73.9 Peripheral vascular disease, unspecified; R56.9 Unspecified convulsions; E78.5 Hyperlipidemia, unspecified; I25.10 Atherosclerotic heart disease of native coronary artery without angina pectoris; Z99.81 Dependence on supplemental oxygen; Z82.49 Family history of ischemic heart disease and other diseases of the circulatory system; Z86.79 Personal history of other diseases of the circulatory system; Z87.891 Personal history of nicotine dependence; Z79.899 Other long term (current) drug therapy
CPT/HCPCS: 62323; J1040; Q9966

== ENCOUNTER → 2019-11-07 10:46 | Outpatient (POV) | payer MEDICARE, BC, SELFPAY ==
[2019-11-07 10:55] VITALS: BP 132/74; PULSE 85; RESP 18; O2SAT 98; BMI 21.3
--- NOTE | 2019-11-07 11:01 | HMH.PAINSOAP ---
[facility] Pain Management SOAP Note Subjective:: Patient is a 74-year-old white male who presents today for follow-up after a lumbar epidural steroid injection. He has been treated for chronic low back pain with lumbar radiculopathy symptoms. Patient says he got 80% relief following the injection, however, now his pain is primarily at his bilateral low back area with radiation into his bilateral groin. Patient says the pain is worse on the right side. Patient thought he had a pulled muscle in the groin . He says the pain is worse with walking and standing and going up embankment. Patient says that he feels the pain to be worse when he is walking up from his basement area. He does rate his pain a 4 out of 10 today. Patient is on chronic home O2. Review of Systems General: No recent weight changes, no fever, no sleep disturbances Respiratory: No cough, no shortness of air, no recurring pulmonary infections Cardiovascular/peripheral vascular: No chest pain, no palpitations, no edema, no shortness of breath Gastrointestinal: No new onset incontinence, normal bowel movements reported Genitourinary: No new onset incontinence Musculoskeletal: Low back pain with radiation into bilateral groin Psychiatric: Normal mood/affect Neurological: [Denies weakness in extremities], [denies balance issues] Objective:: Physical exam General: Alert and oriented x3, no acute distress, pleasant and cooperative, chronic O2 use Lungs: Respirations even and unlabored, symmetrical chest expansion Eyes: PERRL Musculoskeletal: Flexion and extension of bar spine somewhat guarded secondary to pain, deep tendon reflexes normal, strength in upper and lower extremities [5/5], [abnormal gait noted] positive [place]'s test, positive Cata's test, positive distraction test Neurological: Speech clear, 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 He does have tenderness over bilateral SI joints and a positive Alexey, Cata's, distraction test. We will plan to see him back after his injections to reassess his symptoms. Patient has been instructed to contact the clinic if he has any concerns before his next appointment. The patient and I specifically discussed risk factors for COVID19. These risks include, but are not limited to age greater than 60, heart or lung disease, diabetes, immunosuppression, and travel. We also discussed NSAIDs may worsen COVID19 infection or symptoms. Patient should not use NSAIDs to treat COVID19 signs or symptoms. Patient was also informed that any type of corticosteroid of any form (oral or injection) will decrease the patient's immune system response and may increase the likelihood of COVID19 infection [address] symptoms[address]. Husain has reviewed this note and agrees with this plan of care. This note was dictated using voice recognition software and make contain errors or omissions. [facility] History I have reviewed the patient's past medical history: Yes Medical History: Reports:: Aneurysm, Asthma, Chronic Obstructive Pulmonary Disease (COPD), Coronary Artery Disease, Home Oxygen, Hyperlipidemia, Hypertension, Seizures Denies:: Cancer, Diabetes Mellitus Type 1, Diabetes Mellitus Type 2, Internal Pacemaker, MRSA *Have you ever received a pneumonia vaccine?: Yes *Have you received a flu vaccine this season?: Yes Other Medical History: Reports: Arthritis Other Surgeries: Yes: No Previous Surgery, CABG, Cardiac Catheterization, Coronary Stent, Open Heart Surgery, Other. No: Pacemaker Amputation: No Fractures: No - *Social History Smoking Status: Former smoker Tobacco Type: cigarettes Alcohol Intake: never Alcohol Intake Frequency:: other Substance Use Type: denies use *Occupational Status:: retired Housing: house Household Members: none *Travel in the last 8 weeks: None Famil
== END ==
PROVIDERS: PCP Internal Medicine; Visit Provider Clinical Nurse Specialist Family Health
DX: M51.16 Intervertebral disc disorders with radiculopathy, lumbar region (principal); M46.1 Sacroiliitis, not elsewhere classified
CPT/HCPCS: 99212

== ENCOUNTER 2019-11-15 14:34 | Day surgery (SDC) | payer MEDICARE, BC, SELFPAY ==
[2019-11-15 14:55] VITALS: BP 121/67; PULSE 73; RESP 18; TEMP 36.7; O2SAT 98; BMI 21.3
[2019-11-15 15:00] VITALS: BP 125/55; PULSE 74; RESP 18
[2019-11-15 15:01] VITALS: BP 128/88; PULSE 74; RESP 18; O2SAT 99
[2019-11-15 15:07] VITALS: BP 140/75; PULSE 77; RESP 18; O2SAT 98
--- NOTE | 2019-11-15 15:41 | P.PCN_ITS ---
- Procedure Date: 11/15/19 Time: 15:41 Anesthesiologist:: Alberto Husain MD Complications:: None Pre-procedure Diagnosis:: Degenerative disc disease of lumbar spine with lumbar radiculopathy symptoms and sacroiliitis Post-procedure Diagnosis:: Same Indications for Procedure:: This patient is a pleasant 74-year-old white male who we are treating for low back pain with lumbar colopathy symptoms and bilateral sacroiliitis. He got 80% relief after his lumbar epidural steroid injection. He now has pain over both SI joints. He is tender over both SI joints. Is positive Cata's test bila terally. He is positive Homans test bilaterally. We will do bilateral SI joint injections under fluoroscopy today to help him with his pain symptoms. Procedure Details:: B/L SI joint injection under fluoroscopy Informed consent was obtained and the risks and benefits of the procedure was explained to the patient. The patient was taken to the procedure room and placed prone on the procedure table. The patient was prepped using ChloraPrep. The skin and subcutaneous tissues overlying the SI joints were anesthetized using lidocaine. I placed a 22-gauge needle first in the left SI joint and second in the right SI joint. Needle placement was confirmed with dye. After this we injected 5 mL bupivacaine 0.25% and Depo-Medrol 40 mg into each SI joint. Patient tolerated the procedure well with no complication. Plan and Disposition:: We will follow-up with him in 2 weeks. Will reevaluate symptoms at that time.
== END 2019-11-15 15:08 | disposition home or self-care (01) ==
LOC: SC.PAINP 14:34
PROVIDERS: PCP Internal Medicine; Visit Provider Anesthesiology
DX: M51.16 Intervertebral disc disorders with radiculopathy, lumbar region (principal); M46.1 Sacroiliitis, not elsewhere classified; I10 Essential (primary) hypertension; I25.10 Atherosclerotic heart disease of native coronary artery without angina pectoris; J44.9 Chronic obstructive pulmonary disease, unspecified; Z99.81 Dependence on supplemental oxygen; Z82.49 Family history of ischemic heart disease and other diseases of the circulatory system; Z95.1 Presence of aortocoronary bypass graft; E78.5 Hyperlipidemia, unspecified; Z79.899 Other long term (current) drug therapy; Z79.82 Long term (current) use of aspirin; Z79.51 Long term (current) use of inhaled steroids
CPT/HCPCS: 27096; G0260; J1030; Q9966

== ENCOUNTER → 2019-12-12 10:13 | Outpatient (POV) | payer MEDICARE, BC, SELFPAY ==
[2019-12-12 10:29] VITALS: BP 135/85; PULSE 85; RESP 18; TEMP 36.8; O2SAT 98; BMI 23.6
--- NOTE | 2019-12-12 12:28 | HMH.PAINSOAP ---
[facility] Pain Management SOAP Note Subjective:: Patient is a 74-year-old white male who presents today for follow-up after bilateral SI joint injections. Patient is being treated for chronic low back pain with lumbar radiculopathy symptoms and sacroiliitis. Patient says that he got approximately 75% relief with the injections. He rates his pain a 4 out of 10 today. He says he is much more functional and is able to walk with less pain. He does still have some tenderness over his bilateral SI joints, however, he says the pain is much better prior to having the injections. The patient has had lumbar epidural steroid injections in the past, as well as bilateral SI joint injections. He feels that the SI injections have given him relief of the pain to his low back area that he did not get when he had the epidural steroid injections. The patient does continue with a limited home stretching program. He also continues with ice and heat therapies. Review of Systems General: No recent weight changes, no fever, no sleep disturbances Respiratory: No cough, no shortness of air, no recurring pulmonary infections Cardiovascular/peripheral vascular: No chest pain, no palpitations, no edema, no shortness of breath Gastrointestinal: No new onset incontinence, normal bowel movements reported Genitourinary: No new onset incontinence Musculoskeletal: Intermittent low back pain with radiation into bilateral buttock and hips Psychiatric: Normal mood/affect Neurological: [Denies weakness in extremities], [denies balance issues] Objective:: Physical exam General: Alert and oriented x3, no acute distress, pleasant and cooperative, [on room air] Lungs: Respirations even and unlabored, symmetrical chest expansion Eyes: PERRL Musculoskeletal: Flexion and extension of lumbar spine somewhat guarded secondary to pain, deep tendon reflexes normal, strength in upper and lower extremities [5/5], [abnormal gait noted], positive compression test, positive distraction test, positive Cata's test Neurological: Speech clear, 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 The patient I did discuss if his pain does return, he may need to undergo a diagnostic SI injection to see if he is a correlate candidate in the future. For now we will follow-up with the patient in a month to reassess his symptoms. He will continue with home stretching program and ice and heat therapies. He has been instructed to contact the clinic if he has any concerns before his next appointment. The patient and I specifically discussed risk factors for COVID19. These risks include, but are not limited to age greater than 60, heart or lung disease, diabetes, immunosuppression, and travel. We also discussed NSAIDs may worsen COVID19 infection or symptoms. Patient should not use NSAIDs to treat COVID19 signs or symptoms. Patient was also informed that any type of corticosteroid of any form (oral or injection) will decrease the patient's immune system response and may increase the likelihood of COVID19 infection [address] symptoms[address] Husain has reviewed this note and agrees with this plan of care. This note was dictated using voice recognition software and make contain errors or omissions. [facility] History I have reviewed the patient's past medical history: Yes Medical History: Reports:: Aneurysm, Asthma, Chronic Obstructive Pulmonary Disease (COPD), Coronary Artery Disease, Home Oxygen, Hyperlipidemia, Hypertension Denies:: Cancer, Diabetes Mellitus Type 1, Diabetes Mellitus Type 2, Internal Pacemaker, MRSA, Seizures *Have you ever received a pneumonia vaccine?: Yes *Have you received a flu vaccine this season?: Yes Other Medical History: Reports: Arthritis. Denies: Blood Transfusion Reaction Other Surgeries: Yes: N
== END ==
PROVIDERS: PCP Internal Medicine; Visit Provider Clinical Nurse Specialist Family Health
DX: M46.1 Sacroiliitis, not elsewhere classified (principal); M51.16 Intervertebral disc disorders with radiculopathy, lumbar region
CPT/HCPCS: 99212

== ENCOUNTER → 2020-01-09 10:36 | Outpatient (POV) | payer MEDICARE, BC, SELFPAY ==
--- NOTE | 2020-01-09 10:57 | HMH.PAINSOAP ---
[facility] Pain Management SOAP Note Subjective:: Patient is a 74-year-old white male who presents today for follow-up after bilateral SI joint injections. Patient did get approximately 75% relief after his previous injection. He is here today to discuss if he wants to proceed with repeat injections to see if he is a candidate for corner lock procedure. Patient says that he is continuing to have low back pain that radiates into his bilateral buttock and hips. He does have some tenderness over bilateral SI joints. He has had lumbar epidural steroid injections in the past as well as bilateral SI joint injections. He feels the SI injections have given him more relief his low back area than he got with the epidural steroid injections. He does do a continued home stretching program and uses ice and heat therapies. He rates his pain a 6 out of 10 today. Review of Systems General: No recent weight changes, no fever, no sleep disturbances Respiratory: No cough, no shortness of air, no recurring pulmonary infections Cardiovascular/peripheral vascular: No chest pain, no palpitations, no edema, no shortness of breath Gastrointestinal: No new onset incontinence, normal bowel movements reported Genitourinary: No new onset incontinence Musculoskeletal: Low back pain with radiation into bilateral buttock and hips Psychiatric: Normal mood/affect Neurological: [Denies weakness in extremities], [denies balance issues] Objective:: Physical exam General: Alert and oriented x3, no acute distress, pleasant and cooperative, [on room air] Lungs: Respirations even and unlabored, symmetrical chest expansion Eyes: PERRL Musculoskeletal: Flexion and extension of lumbar spine somewhat guarded secondary to pain, deep tendon reflexes normal, strength in upper and lower extremities [5/5], [abnormal gait noted], positive Caat's test, positive distraction test, positive compression test Neurological: Speech clear, research and 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 He did discuss corner lock procedure in detail with providers in the past. If he does get relief greater than 60% with the injections, we will proceed with a corner lock. He has tried conservative therapies of home stretching and physical therapy for greater than 6 weeks. He will continue with ice and heat therapies. He has had lumbar epidural steroid injections, but did get better relief with the SI injections. We will see him back after his diagnostic bilateral SI joint injections to reevaluate his symptoms and see if he does want to proceed with the corner lock procedure. He has been instructed to contact the clinic if he has any concerns before his next appointment. The patient and I specifically discussed risk factors for COVID19. These risks include, but are not limited to age greater than 60, heart or lung disease, diabetes, immunosuppression, and travel. We also discussed NSAIDs may worsen COVID19 infection or symptoms. Patient should not use NSAIDs to treat COVID19 signs or symptoms. Patient was also informed that any type of corticosteroid of any form (oral or injection) will decrease the patient's immune system response and may increase the likelihood of COVID19 infection [address] symptoms[address]. Husain has reviewed this note and agrees with this plan of care. This note was dictated using voice recognition software and make contain errors or omissions. [facility] History I have reviewed the patient's past medical history: Yes Medical History: Reports:: Aneurysm, Asthma, Chronic Obstructive Pulmonary Disease (COPD), Coronary Artery Disease, Home Oxygen, Hyperlipidemia, Hypertension Denies:: Cancer, Diabetes Mellitus Type 1, Diabetes Mellitus Type 2, Internal Pacemaker, MRSA, Seizures *Have you ever received a pneumonia vaccine
[2020-01-09 10:58] VITALS: BP 108/68; PULSE 74; RESP 18; TEMP 36.6; O2SAT 98; BMI 22.8
--- NOTE | 2020-01-09 12:00 | HMH.PAINSOAP ---
[facility] Pain Management SOAP Note Subjective:: Patient is a 74-year-old white female who presents today for follow-up after right SI joint injection. She has been treated for chronic right sacroiliitis. Patient has had the injections twice. She got approximately 100% relief for about a week. She says that she has not felt this well in many years. She has had a history of kyphoplasty x2 with Dr. Gennaro diaz in [facility]. Following her kyphoplasty's, Dr. Parikh that did want to perform a right SI stabilization procedure on her at that time, however, the patient was concerned with the extensiveness of the procedure. As result, she postpone any surgical procedure. She states she did have a hard time with kyphoplasty with Dr. Gennaro diaz. Patient says that during the week following her injection, she was able to paint her entire den by herself. She says that her pain did return shortly after that. She rates her pain a 3 out of 10 today. Her pain is worse with standing and walking. Skin right low back area, right hip, and right lateral thigh area. She has tried conservative therapies of physical therapy, home stretching, and anti-inflammatories for greater than 6 weeks. Ice and heat therapies have not worked for her. The injections have been the only thing that have taken the pain away for a short time. Review of Systems General: No recent weight changes, no fever, no sleep disturbances Respiratory: No cough, no shortness of air, no recurring pulmonary infections Cardiovascular/peripheral vascular: No chest pain, no palpitations, no edema, no shortness of breath Gastrointestinal: No new onset incontinence, normal bowel movements reported Genitourinary: No new onset incontinence Musculoskeletal: Right low back pain, right hip pain, right lateral thigh numbness and tingling Psychiatric: Normal mood/affect Neurological: [Denies weakness in extremities], [denies balance issues] Objective:: Physical exam General: Alert and oriented x3, no acute distress, pleasant and cooperative, [on room air] Lungs: Respirations even and unlabored, symmetrical chest expansion Eyes: PERRL Musculoskeletal: Flexion and extension of bar spine somewhat guarded secondary to pain, deep tendon reflexes normal, strength in upper and lower extremities [5/5], [abnormal gait noted], positive Cata's test, positive compression test, positive distraction test Neurological: Speech clear, 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 She got up to 800% relief. She would like to proceed with a diagnostic injection to the right side once again. We will schedule her for right SI joint injection diagnostically to see if she is a correlate candidate. I did give her information regarding corner lock procedure. Dr. Gennaro diaz did want to perform a right SI stabilization procedure in the past for her, however, she declined. She is very interested in the corner lock procedure. We will see her back in the clinic after injection to reassess her symptoms. She has been instructed to contact clinic if she has any concerns before next appointment. The patient and I specifically discussed risk factors for COVID19. These risks include, but are not limited to age greater than 60, heart or lung disease, diabetes, immunosuppression, and travel. We also discussed NSAIDs may worsen COVID19 infection or symptoms. Patient should not use NSAIDs to treat COVID19 signs or symptoms. Patient was also informed that any type of corticosteroid of any form (oral or injection) will decrease the patient's immune system response and may increase the likelihood of COVID19 infection [address] symptoms[address] Husain has reviewed this note and agrees with this plan of care. This note was dictated using voice recognition software and make contain errors or omissions. [facility] History I have r
== END ==
PROVIDERS: PCP Internal Medicine; Visit Provider Clinical Nurse Specialist Family Health
DX: M46.1 Sacroiliitis, not elsewhere classified (principal); M51.16 Intervertebral disc disorders with radiculopathy, lumbar region
CPT/HCPCS: 99212

== ENCOUNTER → 2020-01-09 11:29 | Outpatient (CLI) | payer MEDICARE, BC, SELFPAY ==
[2020-01-09 12:01] LABS: Blood Urea Nitrogen 29 mg/dl (9-20); Estimated Glomerular Filt Rate 73 ml/min (>60); GFR (African American) 88 ML/MIN (>60)
--- NOTE | 2020-01-09 13:38 | CT_ITS ---
PROCEDURE: CT CHEST W CON CLINCAL INDICATION: MULTIPLE PULMONARY NODULES shortness of breath for 3 months, multiple pulmonary nodules. former smoker, quit 2001. CABG. COMPARISON: CT CT CHEST WO CON from 07/04/2019 TECHNIQUE: IV Contrast: 75ml Isovue 370 Axial images obtained with sagittal and coronal reformats. All CT scans at the facility use one or more dose reduction, viz: automated exposure control, ma/kV adjustment per patient size (including targeted exams where dose is matched to indication, i.e. head), or iterative reconstruction technique. FINDINGS: HEART AND MEDIASTINAL STRUCTURES: Extensive coronary artery calcification is noted. There has been a prior CABG. No mediastinal or hilar mass or adenopathy. LUNGS AND PLEURAL SPACES: COPD with centrilobular and paraseptal emphysema with biapical scarring previously noted parenchymal opacity in the right upper lobe is no longer apparent. Subpleural nodular opacity is present in the left upper lobe anteriorly image 30 at 4 mm unchanged. No new suspicious nodules are evident. There is some scarring in the lung bases and there is evidence of old granulomatous disease. The BONY STRUCTURES: There are old bilateral rib fractures. UPPER ABDOMEN: Hyperdensity is present in the gallbladder may be due to vicarious excretion of contrast. Within the central aspect of the gallbladder there is a 12 mm hypodensity consistent with a gallstone. There are multiple wedge compression changes of the thoracic spine once again noted overall not significantly changed. There is diffuse osteopenia. Severe wedge compression changes are present at L1, T7, and T8 as well as mild wedging of T6 all unchanged. ADDITIONAL FINDINGS: No other significant abnormalities. IMPRESSION: 1. COPD with centrilobular and paraseptal emphysema. Previously noted right upper lobe nodule is no longer apparent. No suspicious pulmonary nodules are evident at this time. 2. No change in the multiple wedge compression fractures of the thoracic spine and L1. The Dictated by: Jamarcus Iraheta MD 01/10/2020 08:36 Jamarcus Iraheta MD in [place] 01/10/2020 08:36
== END ==
PROVIDERS: PCP Internal Medicine; Visit Provider Nurse Practitioner Family
DX: R91.8 Other nonspecific abnormal finding of lung field (principal)
CPT/HCPCS: 36415; 71260; 82565; 84520; 99212; Q9967

== ENCOUNTER 2020-01-10 11:49 | Day surgery (SDC) | payer MEDICARE, BC, SELFPAY ==
[2020-01-10 11:58] VITALS: BP 133/69; PULSE 70; RESP 20; TEMP 36.8; O2SAT 98; BMI 21.3
[2020-01-10 12:17] VITALS: BP 118/65; PULSE 89; RESP 18; O2SAT 95
[2020-01-10 12:19] VITALS: BP 119/79; PULSE 85; RESP 18; O2SAT 94
--- NOTE | 2020-01-10 12:24 | HMH.PMPROC ---
- Procedure Date: 01/10/20 Time: 12:24 Anesthesiologist:: Alberto Husain MD Complications:: None Pre-procedure Diagnosis:: Sacroiliitis Post-procedure Diagnosis:: Same Indications for Procedure:: This patient is a pleasant 74-year-old white male who we are treating for bilateral hip pain. He is tender over both SI joints. He did get bilateral SI joint injections with 75% relief of his pain symptoms. He still has some residual pain. We will do repeat bilateral SI joint injections under fluoroscopy today. He has tenderness over both SI joints. Is positive SI joint compression test bilaterally. He has a positive Alexey test bilaterally. He has a positive Cata's test bilaterally. Is positive distraction test bilaterally. We will do bilateral SI joint injections today. Procedure Details:: B/L SI joint injection under fluoroscopy Informed consent was obtained and the risks and benefits of the procedure was explained to the patient. The patient was taken to the procedure room and placed prone on the procedure table. The patient was prepped using ChloraPrep. The skin and subcutaneous tissues overlying the SI joints were anesthetized using lidocaine. I placed a 22-gauge needle first in the left SI joint and second in the right SI joint. Needle placement was confirmed with dye. After this we injected 5 mL bupivacaine 0.25% and Depo-Medrol 40 mg into each SI joint. Patient tolerated the procedure well with no complication. Plan and Disposition:: We will follow-up with him in 2 weeks. Will reevaluate symptoms at that time. If he does not get long-term relief from these injections he may be a candidate for SI joint stabilization.
[2020-01-10 12:28] VITALS: BP 140/77; PULSE 69; RESP 20; O2SAT 98
== END 2020-01-10 12:29 | disposition home or self-care (01) ==
LOC: SC.PAINP 11:50
PROVIDERS: PCP Internal Medicine; Visit Provider Anesthesiology
DX: M46.1 Sacroiliitis, not elsewhere classified (principal)
CPT/HCPCS: 27096; G0260; J1030; Q9966

== ENCOUNTER → 2020-01-30 14:13 | Outpatient (POV) | payer MEDICARE, BC, SELFPAY ==
[2020-01-30 14:33] VITALS: BP 129/95; PULSE 79; RESP 22; TEMP 36.6; O2SAT 100; BMI 22.8
--- NOTE | 2020-01-30 14:38 | P.CONS_ITS ---
[facility] Pain Management SOAP Note Subjective:: Patient is a pleasant 74-year-old white male who presents today for follow-up after bilateral SI joint injections. Patient got 80% relief of his pain symptoms. Patient has had 2 rounds of diagnostic SI joint injections with 80% relief. Patient is interested in moving forward with an SI joint stabilization. He has got a positive SI joint compression test, Alexey test, Cata's test, distraction test on the left side. He would like to start with the left side. Patient had this pain for over 6 months and failed other conservative therapies including physical therapy, injections, medications. ROS General: no recent weight change, no fever, no sleep disturbances Respiratory: no cough, no shortness of air, no recurring pulmonary infections Cardiovascular/Peripheral Vascular: No chest pain, No palpitations, no edema, no shortness of breath. Gastrointestinal: no new onset incontinence, normal bowel movements reported Genitourinary: no new onset incontinence Musculoskeletal: Left SI joint pain Psychiatric: normal mood/ affect Neurological: [denies new onset weakness in extremities], [denies new onset balance issues] Objective:: Physical Exam General: Alert and oriented x3, no acute distress, pleasant and cooperative, on O2 Lungs: Resps E/U, Symmetrical chest expansion, Eyes: PERRL Musculoskeletal: Flexion and extension of lumbar spine somewhat guarded secondary to pain, deep tendon reflexes normal, strength in upper and lower extremities [5/5], [abnormal gait noted] Neurological: speech clear, gear 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 I will follow up with the patient after this reassess his symptoms at that time. I discussed the procedure with him and also answered all of his questions. He has been instructed to call the office if he has any issues prior to his next appointment. Dr. Husain has reviewed this note and agrees with this plan of care. This note was dictated using voice recognition software and may contain errors or omissions [facility] History I have reviewed the patient's past medical history: Yes Medical History: Reports:: Aneurysm, Asthma, Chronic Obstructive Pulmonary Disease (COPD), Coronary Artery Disease, Home Oxygen, Hyperlipidemia, Hypertension, Seizures Denies:: Cancer, Diabetes Mellitus Type 1, Diabetes Mellitus Type 2, Internal Pacemaker, MRSA *Have you ever received a pneumonia vaccine?: Yes *Have you received a flu vaccine this season?: Yes Other Medical History: Reports: Arthritis. Denies: Blood Transfusion Reaction Other Surgeries: Yes: No Previous Surgery, CABG, Cardiac Catheterization, Coronary Stent, Open Heart Surgery, Other (ankle surgery (left?)). No: Pacemaker Amputation: No Fractures: Yes (ankle) - *Social History Smoking Status: Former smoker Tobacco Type: cigarettes Alcohol Intake: never Alcohol Intake Frequency:: other Substance Use Type: denies use *Occupational Status:: retired Housing: house Household Members: significant other *Travel in the last 8 weeks: None Family Hx:: Unable to obtain
== END ==
PROVIDERS: PCP Internal Medicine; Visit Provider Clinical Nurse Specialist Family Health
DX: M46.1 Sacroiliitis, not elsewhere classified (principal)
CPT/HCPCS: 99212

== ENCOUNTER → 2020-03-12 15:01 | Outpatient (CLI) | payer MEDICARE, BC, SELFPAY ==
[2020-03-12 15:35] LABS: Basophils % 0.2 % (0.1-2.0); Eosinophils % 0.1 % (0.1-12.0); Hematocrit 42.2 % (42.0-52.0); Lymphocytes # 0.7 K/mm3 (0.7-4.5); Lymphocytes % 4.9 % (10-50); Mean Corpuscular HGB Conc 33.2 g/dL (31.8-35.4); Mean Corpuscular Volume 87.2 fl (80-94); Mean Platelet Volume 7.1 fl (7.4-10.4); Monocytes # 0.3 K/mm3 (0.1-1.0); Neutrophils # 12.5 K/mm3 (1.8-7.8); Neutrophils % 92.8 % (37.0-80.0); Platelet Count 259 K/mm3 (142-424); Red Blood Count 4.84 M/mm3 (4.60-6.20); White Blood Count 13.5 K/mm3 (4.8-10.8)
[2020-03-12 15:37] LABS: MANUAL DIFFERENTIAL MANUAL DIFFERENTIAL (MANUAL DIFF)
[2020-03-12 17:12] LABS: Anion Gap 12.5 mEq/L (5-15); Blood Urea Nitrogen 22 mg/dl (9-20); Calcium 9.4 mg/dl (8.4-10.2); Carbon Dioxide 31 mmol/L (22.0-30.0); Chloride 97 mmol/L (98-107); Estimated Glomerular Filt Rate 73 ml/min (>60); GFR (African American) 88 ML/MIN (>60); Glucose 225 mg/dl (74-100); Potassium 4.5 mmoL/L (3.5-5.1); Sodium 136 mmol/L (136-145)
[2020-03-12 17:24] LABS: Lymphocytes % 6 % (10-50); Monocytes % 2 % (2-9); Neutrophils % 92 % (42-76); Platelet Estimate Normal; RBC Morphology Normal; Total Cells Counted 100
[2020-03-12 19:15] LABS: Coronavirus 19 IgG Antibody Negative (Negative); Coronavirus 19 IgM Antibody Negative (Negative)
== END ==
PROVIDERS: Visit Provider Anesthesiology
DX: Z01.812 Encounter for preprocedural laboratory examination (principal); M53.3 Sacrococcygeal disorders, not elsewhere classified; Z20.822 Contact with and (suspected) exposure to COVID-19
CPT/HCPCS: 36415; 80048; 85007; 85025; 86328

== ENCOUNTER 2020-03-13 11:26 | Day surgery (SDC) | payer MEDICARE, BC, SELFPAY ==
[2020-02-25 11:17] VITALS: BMI 21.3
[2020-03-10 12:19] VITALS: BMI 21.3
[2020-03-13] VITALS (13 sets, daily range): BP systolic 109–153; BP diastolic 71–118; PULSE 69–106; RESP 12–20; TEMP 36.3–36.6; O2SAT 94–100
--- NOTE | 2020-03-13 12:22 | SUR.PREOP ---
0600-Tanisha notified of pts 13.5 WBC. She will notify Dr Husain. 0800-Okay to proceed with procedure as long as pts VSS
--- NOTE | 2020-03-13 12:49 | P.PN_ITS ---
[facility] Anesthesia Checklist - Patient Identification Patient Identification: Arm Band, Verbal (Name & ) - Structural Data Admitted From: Home Planned Operative Procedure/s: ileosacral joint fusion Consent for Planned Operative Procedure(s) Verified: Yes Verified Documents: History and Physical - NPO Status Verified Time NPO: 00:00 - Chart Verification Results Verified: CBC, BMP - Additional verifications Patient : No Anesthesia Reactions: No Hx Blood Transfusions: No Blood Transfusion Reaction: No Cephalosporin Allergy: No Previous Colonoscopy: No - Cardiovascular Assessment Heart Sounds: S1 & S2 Pulse Strength: Baseline Pulse Rhythm: Regular Peripheral Edema: Yes - Airway Assessment C-Spine Mobility Assessed: Yes TMJ Mobility Assessed: Yes Dentition: Edentulous - Neurological Assessment Level of Consciousness: Awake, Alert, Appropriate Hx Seizures: No Numbness or tingling in extremities: No - Anesthesia Plan Anesthesia Risk discussed: Yes Anesthesia Plan: Verified ASA Class: III Anesthesia Type: General [facility] History I have reviewed the patient's past medical history: Yes Medical History: Reports:: Aneurysm, Asthma, Chronic Obstructive Pulmonary Disease (COPD), Coronary Artery Disease, Home Oxygen, Hyperlipidemia, Hypertension, Seizures Denies:: Cancer, Diabetes Mellitus Type 1, Diabetes Mellitus Type 2, Internal Pacemaker, MRSA *Have you ever received a pneumonia vaccine?: Yes *Have you received a flu vaccine this season?: Yes Other Medical History: Reports: Arthritis. Denies: Blood Transfusion Reaction Anesthesia experience/problems:: none Other Surgeries: Yes: No Previous Surgery, CABG, Cardiac Catheterization, Coronary Stent, Open Heart Surgery, Other (ankle surgery (left?)). No: Pacemaker Amputation: No Fractures: Yes (ankle) - *Social History Last grade of school completed: 9th or 10th Smoking Status: Former smoker Tobacco Type: cigarettes Alcohol Intake: never Alcohol Intake Frequency:: other Substance Use Type: denies use *Occupational Status:: disabled Housing: house Household Members: significant other *Travel in the last 8 weeks: None Family Hx:: Unable to obtain
--- NOTE | 2020-03-13 13:53 | P.OP_ITS ---
Date of procedure: 03/13/20 Pre-op Diagnosis:: Sacroiliitis Post-op Diagnosis:: Same Procedure performed:: Left SI joint stabilization Surgeon:: Alberto Husain MD PHLEBOTOMY SERVICES REPRESENTATIVE:: Danielito Mcmanus Anesthesia: GETA Estimated blood loss (mL): 100 Clinical Note:: Patient is a pleasant 74-year-old white male who we have been treating for chronic sacroiliitis. He is done well with previous SI joint injections giving him significant pain relief for up to 8 weeks. His pain does return. Worse side is on the left. He has failed all previous conservative therapy including physical therapy, oral medications and he is not a surgical candidate. He presents for left SI joint stabilization today. Operative findings:: None Operative note:: Informed consent was obtained and the risk and benefits of the procedure was explained to the patient. Patient was taken to the operating room placed prone on the procedure table. Patient was prepped and draped in sterile fashion. A lateral view of the sacrum with C-arm was taken to make sure it was out of anteversion. We then did an oblique view of the left sacroiliac joint. We lined up the anterior and posterior sides of the joint to achieve a Agu[place] . A line was drawn on the skin with the SI joint. The superior and inferior aspect of the joint were anesthetized using lidocaine. The superior and inferior aspect of the joint were marked off. 1 cm medial and 1 cm superiorly into the upper quadrant and 1 cm medial and 1 cm distal a 1 1/2 cm longitudinal incisions were made through the skin and subcutaneous tissues. Guidepins were then placed superior and inferior at a 90 degree angle to each other under C-arm guidance through the incision was made into the superior third and inferior third of the SI joint. Lateral C-arm view was then taken to check the depth of the pins into the SI joint. On the lateral view the joint finder was placed over the guidepin into the appropriate position. The working cannula retractor was then placed over the joint finder into the SI joint into the appropriate position and depth. The joint finder and guidepin were removed. The SI joint was drilled to remove cartilage and to get into the subchondral bone of the sacrum and ilium. The broach was then used to prepare a triangular groove into both the sacrum and ilium for insertion of stabilization grafts. A collagen spine was then placed into the prepared space and the stabilization graft was placed. This was done both superiorly inferiorly into the SI joint. The cannulated retractor was removed. The incisions were then closed with christopher and 2-0 Vicryl followed by 4-0 nylon. Dressings were placed and the patient was taken recovery in stable condition. Patient tolerated the procedure well with no complications. Patient was discharged home neurologically intact with good relief of pain symptoms. He was put on [place] 5 mg every 4 to 6 hours for postoperative pain symptoms and Bactrim DS twice a day for an antibiotic for 5 days. Plan and disposition: We will follow-up with him in 1 week for wound check. We will follow-up in 2 weeks for suture and staple removal. Condition: stable Disposition: PACU Complications:: None
--- NOTE | 2020-03-13 15:00 | P.PN_ITS ---
[facility] Anesthesia Record Part I Intake, IV Amount: 750 Estimated blood loss (mL): 25 Urine output (mL): 0 Blood Products used (#): none Blood Pressure: 124/71 SaO2: 99 Pulse Rate: 75 Respiratory Rate: 20 Temperature: 97.3 F Patient is:: Drowsy, Nasal O2, Stable Stable to PACU at:: 14:54
--- NOTE | 2020-03-13 15:30 | ECG_ITS ---
APPROVED REPORT Exam: Resting ECG HR:73 bpm ECG Measurements Heart Rate 73 AXES AL 156 P 41 QRSd 78 QRS 60 QT 402 T 51 QTc 442 Conclusion Normal sinus rhythm Nonspecific ST abnormality Abnormal ECG Electronically signed by : Danielito Golden, 03/13/2020 18:00:23
--- NOTE | 2020-03-13 16:36 | SUR.PHASEI ---
1530: Called Miguelangel Mcmanus CRNA to confer that I was reading his EKG strip correctly and all looked like NSR, verified VSS, no change in anything, but heavy feeling, like someone sitting on my chest feeling. Ordered 12-lead EKG and breathing treatment per WATCHSTANDER. Respiratory in PACU immediately, EKG normal, patient stated breathing treatment helped relieve some of the heaviness feeling. 1537: Dr Husain into PACU to check on patient, he read patient's EKG and found it to be normal, releasing patient to home. 1540: Patient to post op. Patient's daughter retrieved from waiting area. Patient's daughter expressed disappointment that she was not taken back to pre op before patient was taken to surgery. Multiple apologies given as RN's in post op did not know about this situation. Relayed information in front of patient, with his consent, that he had chest pain in PACU, he had received a 12-lead EKG and a breathing treatment. I also said Dr Husain had seen the patient in PACU, read the EKG and agreed it was normal. Patient's daughter stated patient has an abdominal aortic aneurism that developed when he had his bypass surgery. This information was not given to Dr Husain, as it was not in his history and physical. A note was discovered in the chart stating the patient requests that his daughter not come back while he was in pre op.
[2020-03-16 06:14] LABS: POC Glucose,Bedside 174 (70-110)
--- NOTE | 2020-03-16 07:44 | HMH.ANESII ---
[facility] Anesthesia Record Part II Discharge Time: 15:24 Destination: Surgical Day Care (OP Surgery) PACU nurse assessment reviewed?: Yes Patient Condition:: Good Anesthesia Complications:: None Swallowing reflex intact?: Yes Cyanosis?: No Blood Pressure: 138/72 Pulse Rate: 77 Temperature: 97.9 F Mental Status: Alert & Oriented Pain level:: 0 Nausea and/or vomitting:: None Intake, IV Amount: 50
[2020-03-16 07:46] VITALS: BP 138/72; PULSE 77; TEMP 36.6
== END 2020-03-13 16:28 | disposition home or self-care (01) ==
LOC: OR 11:27
PROVIDERS: PCP Internal Medicine; Visit Provider Anesthesiology
PROC: (CPT 27280; principal; 2020-03-13 13:00)
DX: M46.1 Sacroiliitis, not elsewhere classified (principal); J44.9 Chronic obstructive pulmonary disease, unspecified; I25.10 Atherosclerotic heart disease of native coronary artery without angina pectoris; E78.5 Hyperlipidemia, unspecified; M19.90 Unspecified osteoarthritis, unspecified site; I27.20 Pulmonary hypertension, unspecified; G47.33 Obstructive sleep apnea (adult) (pediatric); Z95.1 Presence of aortocoronary bypass graft; Z99.81 Dependence on supplemental oxygen; Z87.891 Personal history of nicotine dependence; Z79.82 Long term (current) use of aspirin; Z79.899 Other long term (current) drug therapy
CPT/HCPCS: 27280; 82962; 93005; 94640; 96374; C1713; J2405; J2710; J3370

== ENCOUNTER → 2020-03-16 10:15 | Outpatient (POV) | payer MEDICARE, BC, SELFPAY ==
[2020-03-16 10:50] VITALS: BP 133/76; PULSE 76; RESP 20; TEMP 36.8; O2SAT 92; BMI 23.6
--- NOTE | 2020-03-16 11:27 | P.CONS_ITS ---
[facility] Pain Management SOAP Note Subjective:: Patient is a pleasant 74-year-old white male who presents today for follow-up after corner lock procedure. Patient is doing extremely well stating that his only pain is incisional he rates this an 8 out of 10. He states that he is able to move much easier. He still in the healing process. He has been taking his antibiotics there is no sign symptoms of infection. ROS General: no recent weight change, no fever, no sleep disturbances Respiratory: no cough, no shortness of air, no recurring pulmonary infections Cardiovascular/Peripheral Vascular: No chest pain, No palpitations, no edema, no shortness of breath. Gastrointestinal: no new onset incontinence, normal bowel movements reported Genitourinary: no new onset incontinence Musculoskeletal: Low back pain Psychiatric: normal mood/ affect Neurological: [denies new onset weakness in extremities], [denies new onset balance issues] Objective:: Physical Exam General: Alert and oriented x3, no acute distress, pleasant and cooperative, on home oxygen Lungs: Resps E/U, Symmetrical chest expansion, Eyes: PERRL Musculoskeletal: Flexion and extension of lumbar spine somewhat guarded secondary to pain, deep tendon reflexes normal, strength in upper and lower extremities [5/5], [abnormal gait noted] Neurological: speech clear, 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 He has been instructed to call the office if he has any issues prior to his next appointment. Dr. Husain has reviewed this note and agrees with this plan of care. This note was dictated using voice recognition software and may contain errors or omissions [facility] History I have reviewed the patient's past medical history: Yes Medical History: Reports:: Aneurysm, Asthma, Chronic Obstructive Pulmonary Disease (COPD), Coronary Artery Disease, Home Oxygen, Hyperlipidemia, Hypertension Denies:: Cancer, Diabetes Mellitus Type 1, Diabetes Mellitus Type 2, Internal Pacemaker, MRSA, Seizures *Have you ever received a pneumonia vaccine?: Yes *Have you received a flu vaccine this season?: Yes Other Medical History: Reports: Arthritis. Denies: Blood Transfusion Reaction Other Surgeries: Yes: No Previous Surgery, CABG, Cardiac Catheterization, Coronary Stent, Open Heart Surgery, Other (ankle surgery (left?)). No: Pacemaker Amputation: No Fractures: Yes (ankle) - *Social History Smoking Status: Former smoker Tobacco Type: cigarettes Alcohol Intake: never Alcohol Intake Frequency:: other Substance Use Type: denies use *Occupational Status:: retired Housing: house Household Members: significant other *Travel in the last 8 weeks: None Family Hx:: Unable to obtain
== END ==
PROVIDERS: Visit Provider Clinical Nurse Specialist Family Health
DX: M46.1 Sacroiliitis, not elsewhere classified (principal)
CPT/HCPCS: 99212; G0463

== ENCOUNTER → 2020-03-26 11:39 | Outpatient (POV) | payer MEDICARE, BC, SELFPAY ==
--- NOTE | 2020-03-26 12:03 | P.CONS_ITS ---
[facility] Pain Management SOAP Note Subjective:: Patient is a pleasant 74-year-old white male who presents today for follow-up after corner lock procedure. Patient is doing extremely well rating his pain a 0 out of 10 he is having much easier time with mobility. Patient states he is starting to exercise. Patient stitches have been removed no sign symptoms of infection. Patient overall doing well ROS General: no recent weight change, no fever, no sleep disturbances Respiratory: no cough, no shortness of air, no recurring pulmonary infections Cardiovascular/Peripheral Vascular: No chest pain, No palpitations, no edema, no shortness of breath. Gastrointestinal: no new onset incontinence, normal bowel movements reported Genitourinary: no new onset incontinence Musculoskeletal: SI joint pain at times Psychiatric: normal mood/ affect Neurological: [denies new onset weakness in extremities], [denies new onset balance issues] Objective:: Physical Exam General: Alert and oriented x3, no acute distress, pleasant and cooperative, on oxygen Lungs: Resps E/U, Symmetrical chest expansion, Eyes: PERRL Musculoskeletal: Flexion and extension of lumbar spine somewhat guarded secondary to pain, deep tendon reflexes normal, strength in upper and lower extremities [5/5], slightly antalgic gait noted Neurological: speech clear, 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 Dr. Husain has reviewed this note and agrees with this plan of care. This note was dictated using voice recognition software and may contain errors or omissions [facility] History I have reviewed the patient's past medical history: Yes Medical History: Reports:: Aneurysm, Asthma, Chronic Obstructive Pulmonary Disease (COPD), Coronary Artery Disease, Home Oxygen, Hyperlipidemia, Hypertension Denies:: Cancer, Diabetes Mellitus Type 1, Diabetes Mellitus Type 2, Internal Pacemaker, MRSA, Seizures *Have you ever received a pneumonia vaccine?: Yes *Have you received a flu vaccine this season?: Yes Other Medical History: Reports: Arthritis. Denies: Blood Transfusion Reaction Other Surgeries: Yes: No Previous Surgery, CABG, Cardiac Catheterization, Coronary Stent, Open Heart Surgery, Other (ankle surgery (left?)). No: Pacemaker Amputation: No Fractures: Yes (ankle) - *Social History Smoking Status: Former smoker Tobacco Type: cigarettes Alcohol Intake: never Alcohol Intake Frequency:: other Substance Use Type: denies use *Occupational Status:: retired Housing: house Household Members: significant other *Travel in the last 8 weeks: None Family Hx:: Unable to obtain
[2020-03-26 12:19] VITALS: BP 128/88; PULSE 74; RESP 18; TEMP 36.4; O2SAT 98; BMI 23.3
== END ==
PROVIDERS: PCP Internal Medicine; Visit Provider Clinical Nurse Specialist Family Health
DX: M46.1 Sacroiliitis, not elsewhere classified (principal)
CPT/HCPCS: 99212; G0463

== ENCOUNTER → 2020-04-10 12:53 | Outpatient (CLI) | payer MEDICARE, BC, SELFPAY ==
[2020-04-10 13:40] VITALS: PULSE 82; PULSE 88
--- NOTE | 2020-04-10 14:34 | CT_ITS ---
PROCEDURE: CT CHEST WO CON CLINICAL INDICATION: Pulmonary nodule Shortness of air, follow-up lung nodule COMPARISON: CT CT LUMBAR SPINE WO CON from 03/07/[address] CHEST W CON from 01/09/2020 TECHNIQUE: Axial images obtained with sagittal and coronal reformats. All CT scans at the facility use one or more dose reduction, viz: automated exposure control, ma/kV adjustment per patient size (including targeted exams where dose is matched to indication, i.e. head), or iterative reconstruction technique. FINDINGS: There is diffuse emphysematous change. Patient has had prior median sternotomy and CABG procedure. Abandoned epicardial leads are present. There has been no change in the left upper lobe pleural based 4 millimeter nodular density visible on image 30 of the current and prior exam. There is scattered areas of unchanged architectural distortion. There are no new nodules or masses. There is left posterior lower lobe pleural parenchymal scarring. There are no pleural effusions. There is no suspicious thoracic adenopathy. There are extensive atherosclerotic calcifications throughout the coronary arteries. Gallbladder appearance suggests dense bile and contains one gallstone. There is partial visualization of known abdominal aortic aneurysm. There are scattered atherosclerotic calcifications throughout the vasculature. There are 3 old mid thoracic compression fractures unchanged compared with prior CT. There is an old T11 central compression fracture there is focal narrowing of the thoracic spinal canal. Thoracic spine CT or MRI is recommended for further evaluation. IMPRESSION: 1. Emphysema. 2. Unchanged 4 millimeter pulmonary nodule. No further imaging follow-up needed. 3. Severe coronary atherosclerosis. 4. At least moderate narrowing of the thoracic spinal canal. Thoracic spine CT or MRI is suggested. 5. Cholelithiasis with a large amount of sludge. 6. Other skeletal, minor, and chronic findings as described above. Dictated by: Gauri Walker MD 04/10/2020 19:17 Gauri Walker MD in [place] 04/10/2020 19:17
== END ==
PROVIDERS: PCP Internal Medicine; Visit Provider Internal Medicine Pulmonary Disease
DX: R91.1 Solitary pulmonary nodule
CPT/HCPCS: 71250; 94060; 94618; 94640; 94726; 94729

== ENCOUNTER 2020-04-14 20:12 | Emergency (ER) | payer MEDICARE, BC, SELFPAY ==
[2020-04-14 20:21] VITALS: BP 147/88; PULSE 63; RESP 22; TEMP 36.9; O2SAT 97; BMI 22.8
--- NOTE | 2020-04-14 20:35 | CT_ITS ---
PROCEDURE: CT ABDOMEN PELVIS W CON CLINICAL INDICATION: Blood in urine Hematuria COMPARISON: CT CT ANGIO ABDOMEN from 11/29/2018 TECHNIQUE: IV Contrast: 75ML Isovue 370 Oral Contrast None Axial images obtained with sagittal and coronal reformats. All CT scans at the facility use one or more dose reduction, viz: automated exposure control, ma/kV adjustment per patient size (including targeted exams where dose is matched to indication, i.e. head), or iterative reconstruction technique. FINDINGS: LOWER THORAX: Emphysematous changes are present in the lung bases with scattered areas of scarring. Coronary artery calcifications are present. ABDOMEN & PELVIS: The liver has an unremarkable appearance. The gallbladder is hydropic with an 8 mm cholesterol stone in the gallbladder fundus and 1.3 cm area of decreased density within the neck of the gallbladder which may be due to a cholesterol stone as well. This may result in obstruction of the gallbladder. Spleen, adrenal glands, and pancreas have an unremarkable appearance. 2 mm nonobstructing stone is present in the upper pole of the right kidney. There is a mild amount of retained colonic feces. No evidence of appendicitis. No intestinal obstruction or free air. There is colonic diverticulosis but no evidence of diverticulitis. Urinary bladder is distended. There is a submucosal area of increased density along the left aspect of the urinary bladder wall measuring 16 by 22 mm suspicious for a neoplasm. Mild prominence of the prostate. There is an infrarenal abdominal aortic aneurysm measuring 4.6 cm transverse and 4.8 cm AP previously measuring 4.1 by 4.4 cm. There is moderate amount of eccentric mural thrombus. The aneurysm is partially fusion of form and partially saccular. The aneurysm ends just proximal to the aortic bifurcation. Atheromatous changes are present in the common and external and internal iliac arteries. Chronic wedge compression changes involve the L1 vertebral body with mild buckling of the posterior cortex similar to the previous exam. There is loss of height centrally of greater than 50 percent with a biconcave appearance IMPRESSION: 1. Hydropic gallbladder with cholesterol stone in the fundus and also suspected cholesterol stone at the neck of the gallbladder which may be causing the hydropic appearance. 2. Complex partially saccular and partially fusiform infrarenal abdominal aortic aneurysm at 4.8 x 4.6 cm slightly increased in size with a moderate amount of eccentric mural thrombus 3. Colonic diverticulosis without diverticulitis. 4. Irregular wall thickening involving the left aspect of the urinary bladder suspicious for neoplasm. Dictated by: Jamarcus Iraheta MD 04/15/2020 10:39 Jamarcus Iraheta MD in [place] 04/15/2020 10:39
[2020-04-14 21:02] LABS: Basophils % 0.1 % (0.1-2.0); Eosinophils % 0.1 % (0.1-12.0); Hematocrit 39.2 % (42.0-52.0); Hemoglobin 12.9 g/dL (14.1-18.0); Lymphocytes # 1.1 K/mm3 (0.7-4.5); Lymphocytes % 6.6 % (10-50); Mean Corpuscular HGB Conc 32.9 g/dL (31.8-35.4); Mean Corpuscular Hemoglobin 28.5 pg (27.0-31.2); Mean Corpuscular Volume 86.8 fl (80-94); Mean Platelet Volume 6.7 fl (7.4-10.4); Monocytes # 0.7 K/mm3 (0.1-1.0); Monocytes % 4.4 % (1.7-9.3); Neutrophils # 14.4 K/mm3 (1.8-7.8); Neutrophils % 88.7 % (37.0-80.0); Platelet Count 189 K/mm3 (142-424); Red Blood Count 4.52 M/mm3 (4.60-6.20); Red Cell Distribution Width 15.6 % (11.5-17.5); White Blood Count 16.3 K/mm3 (4.8-10.8)
[2020-04-14 21:05] LABS: Chloride 98 mmol/L (98-107); Potassium 3.7 mmoL/L (3.5-5.1); Sodium 136 mmol/L (136-145)
[2020-04-14 21:08] LABS: Alanine Aminotransferase 14 U/L (12-78); Albumin Level 3.8 g/dl (3.5-5.0); Albumin/Globulin Ratio 1.4 (1.1-1.8); Alkaline Phosphatase 149 U/L (38-126); Anion Gap 8.7 mEq/L (5-15); Aspartate Amino Transferase 18 U/L (17-59); Bilirubin,Total 0.3 mg/dl (0.2-1.3); Blood Urea Nitrogen 22 mg/dl (9-20); Carbon Dioxide 33 mmol/L (22.0-30.0); Creatinine Clearance Estimated 58 mL/min (50-200); Estimated Glomerular Filt Rate 82 ml/min (>60); GFR (African American) 100 ML/MIN (>60); Globulin 2.7 g/dL (1.3-3.2); Total Protein,Serum 6.5 g/dl (6.3-8.2)
[2020-04-14 21:09] LABS: Calcium 9.1 mg/dl (8.4-10.2); Glucose 182 mg/dl (74-100)
[2020-04-14 21:14] LABS: C-Reactive Protein 8.6 mg/L (0-4)
[2020-04-14 21:19] LABS: MANUAL DIFFERENTIAL MANUAL DIFFERENTIAL (MANUAL DIFF)
--- NOTE | 2020-04-14 21:47 | HMH.EDUROGM ---
ED Disposition Clinical Impression: Bladder mass Hematuria Qualifiers: Hematuria type: gross Qualified Code(s): R31.0 - Gross hematuria AAA (abdominal aortic aneurysm) Qualifiers: Presence of rupture: without rupture Qualified Code(s): I71.4 - Abdominal aortic aneurysm, without rupture Cholelithiasis Qualifiers: Cholelithiasis location: gallbladder Cholecystitis presence: without cholecystitis Biliary obstruction: without biliary obstruction Qualified Code(s): K80.20 - Calculus of gallbladder without cholecystitis without obstruction Disposition: Home, Self-Care Condition on Discharge: Serious Instructions: DI for Hematuria Additional Instructions: call pcp in am for close follow up and refer to surg vascular and urology Referrals: Ham Weldon [Primary Care Provider] - Allen Saxena MD [Staff Physician] - - Critical Care Critical Care Time: No Attestation: On 04/14/20, the high probability of a clinically significant, sudden or life threatening deterioration of the following system(s) required my full and direct attention, intervention and personal management. The time I documented below is in addition to time spent performing reported procedures but includes the following listed in this critical care notation. Medical Decision Making - Medical Records Medical records reviewed: Yes: I reviewed the patient's medical records. - Jermain Inquiry Pt receiving controlled substance: No Vital Signs: 04/14/20 20:21 Temperature 98.4 F Temperature Source Oral Pulse Rate [Right] 63 Respiratory Rate 22 Blood Pressure [Right Arm] 147/88 H Blood Pressure Mean [Right Arm] 107 Blood Pressure Source [Right Arm] Automatic Cuff Blood Pressure Position [Right Arm] Sitting 02 Sat by Pulse Oximetry 97 Oxygen Delivery Method Nasal Cannula Oxygen Flow Rate (LPM) 2 - Lab Data Lab results reviewed: Yes: I reviewed the patient's lab results. Lab Results 04/14/20 20:40: WBC 16.3 H, RBC 4.52 L, Hgb 12.9 L, Hct 39.2 L, MCV 86.8, MCH 28.5, MCHC 32.9, RDW 15.6, Plt Count 189, MPV 6.7 L, Neut % (Auto) 88.7 H, Lymph % (Auto) 6.6 L, [place] % (Auto) 4.4, Eos % (Auto) 0.1, Baso % (Auto) 0.1, Neut # (Auto) 14.4 H, Lymph # (Auto) 1.1, [place] # (Auto) 0.7, Eos # (Auto) 0.0, Baso # (Auto) 0.0, Total Counted 100, Neutrophils % (Manual) 90 H, Lymphocytes % (Manual) 9 L, Monocytes % (Manual) 1 L, Platelet Estimate Normal, RBC Morphology Normal, ESR 21 H 04/14/20 20:40: Sodium 136, Potassium 3.7, Chloride 98, Carbon Dioxide 33 H, Anion Gap 8.7, BUN 22 H, Creatinine 0.90, Estimated Creat Clear 58, Estimated GFR 82, Est GFR ( Amer) 100, Glucose 182 H, Calcium 9.1, Total Bilirubin 0.3, AST 18, ALT 14, Alkaline Phosphatase 149 H, C-Reactive Protein 8.6 H, Total Protein 6.5, Albumin 3.8, Globulin 2.7, Albumin/Globulin Ratio 1.4, Procalcitonin 0.080 04/14/20 22:43: Urine Color Yellow, Urine Appearance Clear, Urine pH 7.5, Ur Specific [place] 1.010, Urine Protein Negative, Urine Glucose (UA) Trace, Urine Ketones Negative, Urine Blood 3+, Urine Nitrate Negative, Urine Bilirubin Negative, Urine Urobilinogen 0.2, Ur Leukocyte Esterase Negative, Urine RBC Tntc, Urine Bacteria 1+ Result diagrams: 04/14/20 20:40 04/14/20 20:40 Orders (Tests/Meds): ED MEDICATIONS Generic Name Dose Route Start Last Admin Trade Name Freq PRN Reason Stop Dose Admin Sodium Chloride 1,000 mls @ 999 mls/hr 04/14/20 20:45 04/14/20 22:23 Sod Chlor 0.9% 1000ml Bag IV 04/14/20 21:45 999 mls/hr .[id number] DIMAS Administration Discontinued Medications Generic Name Dose Route Start Last Admin Trade Name Freq PRN Reason Stop Dose Admin Iopamidol 75 ml 04/14/20 22:19 04/14/20 22:20 Iopamidol-370 (76%);100ml Bottle IV 04/14/20 22:20 75 ml ONCE ONE Administration Sodium Chloride 10 ml 04/14/20 22:19 04/14/20 22:20 Sodium Chloride 0.9% 10ml Syr (Rad Only) IV 04/14/20 22:20 10 ml ONCE ONE Administration ORDERS Category Date Time Status
[2020-04-14 22:13] LABS: Erythrocyte Sedimentation Rate 21 mm/hr (0-20)
[2020-04-14 22:32] LABS: Lymphocytes % 9 % (10-50); Monocytes % 1 % (2-9); Neutrophils % 90 % (42-76); Platelet Estimate Normal; RBC Morphology Normal; Total Cells Counted 100
[2020-04-14 22:51] LABS: Microscopic, Urine URINE MICROSCOPIC (MICROSCOPIC)
[2020-04-14 22:53] LABS: Appearance,Urine CLEAR (Clear); Bilirubin,Urine Negative (Negative); Blood, Urine 3+ (Negative); Color,Urine YELLOW (Yellow); Glucose,Urine (UA) TRACE (Negative); Ketones,Urine Negative (Negative); Leukocyte Esterase,Urine Negative (Negative); Nitrate,Urine Negative (Negative); PH,Urine 7.5 (5.0-8.5); Protein,Urine Negative (Negative); Urobilinogen,Urine 0.2 EU/dl (0.2)
[2020-04-14 23:19] LABS: Bacteria,Urine 1+ /lpf; RBC,Urine TNTC #/hpf (0-3)
--- NOTE | 2020-04-14 23:59 | PC.NURSE ---
Addendum entered by Catie Graham RN 04/15/20 00:18: on phone with Caitlyn Original Note: Gainry on phone with Fort[place] from [facility]
[2020-04-15 01:02] VITALS: BP 148/76; PULSE 60; RESP 14; TEMP 36.9; O2SAT 96
== END 2020-04-15 01:05 | disposition home or self-care (01) ==
PROVIDERS: Emergency Provider Emergency Medicine; PCP Internal Medicine
DX: N32.89 Other specified disorders of bladder (principal); R31.0 Gross hematuria; K80.20 Calculus of gallbladder without cholecystitis without obstruction; I71.4 Abdominal aortic aneurysm, without rupture; J44.9 Chronic obstructive pulmonary disease, unspecified; I25.10 Atherosclerotic heart disease of native coronary artery without angina pectoris; E78.5 Hyperlipidemia, unspecified; I10 Essential (primary) hypertension; Z87.891 Personal history of nicotine dependence; Z79.899 Other long term (current) drug therapy
CPT/HCPCS: 74177; 80053; 81001; 84145; 85007; 85025; 85651; 86140; 96365; 99283; Q9967

== ENCOUNTER → 2020-04-16 07:46 | Outpatient (CLI) | payer MEDICARE, BC, SELFPAY ==
--- NOTE | 2020-04-16 07:51 | US_ITS ---
PROCEDURE: US ABDOMEN COMPLETE CLINICAL INDICATION: HYDROPIC GB,ABD PAIN COMPARISON: US GB US GALLBLADDER (ABD LTD) from 11/15/[address] ABDOMEN PELVIS W CON from 04/14/2020 FINDINGS: PANCREAS: Unremarkable. No obvious mass or abnormal fluid collection. No ductal dilatation LIVER: No focal liver lesions demonstrated. Homogeneous echogenicity. No intrahepatic biliary ductal dilatation evident. There is appropriate direction of blood flow within a non dilated portal vein RIGHT KIDNEY: Unremarkable. Normal size and echogenicity. No hydronephrosis LEFT KIDNEY: Unremarkable. Normal size and echogenicity. No hydronephrosis GALLBLADDER: The gallbladder is distended. There is an adherent stone in the fundus of the gallbladder. The gallbladder is filled with sludge with specular echoes within the sludge suggesting tiny stones or echogenic sludge. There was a suggestion of a stone within the cystic duct on the CT scan. This is not confirmed by ultrasound however, this areas somewhat difficult to visualize with ultrasound. Consider MRCP with MRI for further evaluation. The common bile duct is normal at 4 mm. Some is AORTA: Abdominal aortic aneurysm is present measuring up to 4.3 cm AP. SPLEEN: Unremarkable. Normal size and echogenicity ASCITES: None demonstrated. IMPRESSION: Hydropic gallbladder with cholelithiasis and gallbladder sludge with echogenic sludge versus tiny stones dispersed throughout the sludge. CT scan suggested a stone within the cystic duct which is not well delineated on ultrasound. Consider MRI with MRCP for further evaluation. Fusiform abdominal aortic aneurysm at 4.3 cm Dictated by: Jamarcus Iraheta MD 04/16/2020 13:18 Jamarcus Iraheta MD in [place] 04/16/2020 13:18
== END ==
PROVIDERS: PCP Internal Medicine; Visit Provider Internal Medicine
DX: R10.11 Right upper quadrant pain (principal); K82.1 Hydrops of gallbladder
CPT/HCPCS: 76700

== ENCOUNTER → 2020-04-18 07:56 | Outpatient (CLI) | payer MEDICARE, BC, SELFPAY ==
--- NOTE | 2020-04-18 08:00 | MR_ITS ---
PROCEDURE: MR ABDOMEN WO CON CLINICAL INDICATION: ENLARGED GB ON US Cholelithiasis, evaluate for possible cystic duct stone COMPARISON: CT CT ABDOMEN PELVIS W CON from 04/14/2020 TECHNIQUE: Routine multiplanar multi echo sequences are performed without gadolinium enhancement. MRCP images also performed. FINDINGS: There is mild gallbladder distention as before. There is an adherent stone at the fundus of the gallbladder measuring approximately 10 mm. No other stones are evident. A cystic duct stone is not identified. The common bile duct and pancreatic duct have an unremarkable appearance. The liver and spleen have an unremarkable appearance. There are small bilateral renal cortical cyst. No hydronephrosis. A tiny cystic areas present in the preaortic region at the level the renal vein measuring approximately 7 mm. There is an infrarenal abdominal aortic aneurysm as described on the abdomen CT measuring up to 4.7 cm transverse. There are chronic wedge compression changes of L1. This is better demonstrated on the CT scan. IMPRESSION: 1. Mild gallbladder distention with cholelithiasis. 2. No definite cystic duct stone. No common duct stone. 3. Other nonacute findings as described above including a 4.7 cm abdominal aortic aneurysm Dictated by: Jamracus Iraheta MD 04/20/2020 07:02 Jamarcus Iraheta MD in [place] 04/20/2020 07:02
== END ==
PROVIDERS: PCP Internal Medicine; Visit Provider Internal Medicine
DX: K82.1 Hydrops of gallbladder (principal)
CPT/HCPCS: 74181; 76376

== ENCOUNTER → 2020-05-08 08:24 | Outpatient (CLI) | payer MEDICARE, BC, SELFPAY ==
[2020-05-08 08:44] LABS: Basophils % 0.1 % (0.1-2.0); Eosinophils # 0.2 K/mm3 (0.0-0.4); Eosinophils % 1.1 % (0.1-12.0); Hematocrit 46.5 % (42.0-52.0); Hemoglobin 15.4 g/dL (14.1-18.0); Lymphocytes # 1.1 K/mm3 (0.7-4.5); Lymphocytes % 6.8 % (10-50); Mean Corpuscular HGB Conc 33.1 g/dL (31.8-35.4); Mean Corpuscular Volume 87.5 fl (80-94); Mean Platelet Volume 7.3 fl (7.4-10.4); Monocytes # 0.5 K/mm3 (0.1-1.0); Monocytes % 2.9 % (1.7-9.3); Neutrophils % 89.1 % (37.0-80.0); Platelet Count 202 K/mm3 (142-424); Red Blood Count 5.31 M/mm3 (4.60-6.20); Red Cell Distribution Width 15.4 % (11.5-17.5); White Blood Count 15.8 K/mm3 (4.8-10.8)
[2020-05-08 08:54] LABS: MANUAL DIFFERENTIAL MANUAL DIFFERENTIAL (MANUAL DIFF)
[2020-05-08 09:33] LABS: Anion Gap 12.9 mEq/L (5-15); Blood Urea Nitrogen 25 mg/dl (9-20); Calcium 10.2 mg/dl (8.4-10.2); Carbon Dioxide 35 mmol/L (22.0-30.0); Chloride 98 mmol/L (98-107); Coronavirus 19 IgG Antibody Positive (Negative); Coronavirus 19 IgM Antibody Negative (Negative); Estimated Glomerular Filt Rate 65 ml/min (>60); GFR (African American) 79 ML/MIN (>60); Glucose 171 mg/dl (74-100); Potassium 4.9 mmoL/L (3.5-5.1); Sodium 141 mmol/L (136-145)
[2020-05-08 09:55] LABS: Eosinophils % 2 % (0-3); Lymphocytes % 5 % (10-50); Monocytes % 3 % (2-9); Neutrophils % 90 % (42-76); Platelet Estimate Normal; Total Cells Counted 100
[2020-05-08 09:56] LABS: RBC Morphology Normal
== END ==
PROVIDERS: Visit Provider Urology
DX: R31.9 Hematuria, unspecified (principal); Z01.818 Encounter for other preprocedural examination; Z20.822 Contact with and (suspected) exposure to COVID-19
CPT/HCPCS: 36415; 80048; 85007; 85025; 86328

== ENCOUNTER 2020-05-08 11:53 | Inpatient (IN) | payer MEDICARE, BC, SELFPAY ==
[2020-05-07 11:19] VITALS: BMI 23.8
[2020-05-08] VITALS (27 sets, daily range): BP systolic 122–173; BP diastolic 75–107; PULSE 68–92; RESP 16–20; TEMP 36.3–37.2; O2SAT 94–99; BMI 24.1
--- NOTE | 2020-05-08 10:26 | HMH.ANESCL ---
[facility] Anesthesia Checklist - Patient Identification Patient Identification: Arm Band - Structural Data Admitted From: Home Planned Operative Procedure/s: TURBT Consent for Planned Operative Procedure(s) Verified: Yes Verified Documents: Surgical Consent, History and Physical - NPO Status Verified Time NPO: 00:00 - Additional verifications Anesthesia Reactions: No Hx Blood Transfusions: No Blood Transfusion Reaction: No - Airway Assessment C-Spine Mobility Assessed: Yes (mp2) TMJ Mobility Assessed: Yes Dentition: Edentulous - Neurological Assessment Level of Consciousness: Awake, Alert - Anesthesia Plan Anesthesia Risk discussed: Yes Anesthesia Plan: Verified ASA Class: III Anesthesia Type: General [facility] History I have reviewed the patient's past medical history: Yes Medical History: Reports:: Aneurysm, Asthma, Cancer (bladder tumor), Chronic Obstructive Pulmonary Disease (COPD), Coronary Artery Disease, Home Oxygen, Hyperlipidemia, Hypertension Denies:: Diabetes Mellitus Type 1, Diabetes Mellitus Type 2, Internal Pacemaker, MRSA, Seizures *Have you ever received a pneumonia vaccine?: Yes *Have you received a flu vaccine this season?: Yes Other Medical History: Reports: Arthritis. Denies: Blood Transfusion Reaction Anesthesia experience/problems:: nac Laterality Cases: Left: Arthroscopy Hip, Bilateral: Cataract Other Surgeries: Yes: CABG, Cardiac Catheterization, Colonoscopy, Coronary Stent, Open Heart Surgery, Other (ankle surgery (left?)). No: Pacemaker Amputation: No Fractures: Yes (L ankle) - *Social History Last grade of school completed: 9th or 10th Smoking Status: Never smoker Tobacco Type: cigarettes # Packs/Day (cigarettes): 3 #Yrs smoked (if former smoker): 30 Alcohol Intake: never Alcohol Intake Frequency:: other Substance Use Type: denies use *Occupational Status:: retired Housing: house Household Members: none *Travel in the last 8 weeks: None Family Hx:: Asthma, Diabetes, Hypertension
[2020-05-08 12:20] LABS: Adenovirus,PCR Not Detected (NotDetected); Bordetella Pertussis Not Detected (NotDetected); Chlamydophila Pneumoniae, PCR Not Detected (NotDetected); Coronavirus 19, PCR Not Detected (NotDetected); Coronavirus 229E Not Detected (NotDetected); Coronavirus NL63 Not Detected (NotDetected); Coronavirus OC43 Not Detected (NotDetected); Coronovirus HKU1,PCR Not Detected (NotDetected); Human Metapneumovirus Not Detected (NotDetected); Influenza A, PCR Not Detected (NotDetected); Influenza AH1, 2009 Not Detected (NotDetected); Influenza AH1, PCR Not Detected (NotDetected); Influenza AH3,PCR Not Detected (NotDetected); Influenza B, PCR Not Detected (NotDetected); Mycoplasma Pneumoniae, PCR Not Detected (NotDetected); Parainfluenza 1, PCR Not Detected (NotDetected); Parainfluenza 2, PCR Not Detected (NotDetected); Parainfluenza 3, PCR Not Detected (NotDetected); Parainfluenza 4, PCR Not Detected (NotDetected); Respiratory Syncytial Virus Not Detected (NotDetected); Rhinovirus/Enterovirus Not Detected (NotDetected)
--- NOTE | 2020-05-08 12:39 | P.PN_ITS ---
[facility] Anesthesia Record Part I Intake, IV Amount: 800 Estimated blood loss (mL): 0 Urine output (mL): 0 Blood Pressure: 164/107 SaO2: 96 Pulse Rate: 82 Respiratory Rate: 16 Temperature: 98.2 F Patient is:: Drowsy Stable to PACU at:: 12:11
--- NOTE | 2020-05-08 14:10 | HMH.PHAINT ---
verified home medication list using list from [facility]
--- NOTE | 2020-05-08 14:10 | HMH.PHAVTE ---
[facility] Pharmacy VTE Monitoring - Patient Demographics Admission date: 05/08/20 Report Date: 05/08/20 Time: 14:10 Allergies/Adverse Reactions: Patient Allergies No Known Allergies Allergy (Verified 05/08/20 09:13) Height: 1.68 m Weight: 67.132 kg - VTE Risk Clinical Trial Participant: No - Prophylaxis VTE Prophylaxis Ordered?: Yes Types of VTE Prophylaxis: IPCS Knee High (post procedurre)
--- NOTE | 2020-05-08 15:30 | HMH.ANESII ---
[facility] Anesthesia Record Part II Discharge Time: 13:45 Destination: Medical Surgical Department PACU nurse assessment reviewed?: Yes Patient Condition:: Good Anesthesia Complications:: None Swallowing reflex intact?: Yes Cyanosis?: No Blood Pressure: 141/93 Pulse Rate: 80 Temperature: 97.6 F Mental Status: Alert & Oriented Pain level:: 0 Nausea and/or vomitting:: None Intake, IV Amount: 0
--- NOTE | 2020-05-08 16:37 | HMH.OPNOTE ---
Date of procedure: 05/08/20 Pre-op Diagnosis:: Left-sided bladder tumor Post-op Diagnosis:: Left bladder tumor, 5 cm in total Procedure performed:: Cystoscopy with transurethral resection of bladder tumor, 5 cm Surgeon:: Allen Saxena MD LOAN CONSULTANT:: Other (dalton real) Anesthesia: GETA Estimated blood loss (mL): 0 Clinical Note:: With recent hematuria noted to have a left-sided bladder tumor on recent cystoscopy. He presents today for urologic management. 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 Operative note:: Patient taken to the operating room after informed consent was obtained. He was placed on the operating table in the supine position and general anesthesia administered. Preoperative antibiotics and sequential compression devices placed. He was then placed into the dorsal lithotomy position and prepped and draped in the standard surgical fashion. The 22 Shailesh passed into the urethra and into the bladder. Again of note was the left-sided bladder tumor which was papillary in nature and extended from the 1 o'clock position to the 5 o'clock position the left ureteral orifice was visualized and was not involved. The cystoscope removed and our 26 Belarusian resectoscope sheath passed into the bladder and the loop was used to resect the bladder tumor from superior to the base of the tumor. All tumor was resected and the base of the tumor bed was fulgurated. There was some tumor that stretched into the bladder neck and portion of the bladder neck was resected. After all tumor was resected and fulgurated the bladder tumor fragments were irrigated free and sent off as a specimen. The scope then removed and a 22 Belarusian three-way Valenzuela passed into the bladder and three-way irrigation instituted. The urine was clear. Patient tolerated the procedure well there are no complications. Condition: stable Disposition: PACU Specimens:: Bladder tumor Complications:: None
--- NOTE | 2020-05-08 16:43 | HMH.HP ---
*Admission Date: 05/08/20 *Chief complaint: Status post TURBT today. *History of present illness: Patient is a 75-year-old white male status post a TURBT of a 5 cm left-sided bladder tumor earlier today. He is admitted for observation and bladder irrigation overnight due to the extensive size of the tumor and involvement of the bladder neck. [facility] History Medical History: Reports:: Aneurysm, Asthma, Chronic Obstructive Pulmonary Disease (COPD), Coronary Artery Disease, Home Oxygen, Hyperlipidemia, Hypertension Denies:: Cancer, Diabetes Mellitus Type 1, Diabetes Mellitus Type 2, Internal Pacemaker, MRSA, Seizures *Have you ever received a pneumonia vaccine?: Yes *Have you received a flu vaccine this season?: Yes Other Medical History: Reports: Arthritis, Cataracts. Denies: Blood Transfusion Reaction Anesthesia experience/problems:: nac Laterality Cases: Left: Arthroscopy Hip, Bilateral: Cataract Other Surgeries: Yes: No Previous Surgery, CABG, Cardiac Catheterization, Colonoscopy, Coronary Stent, Open Heart Surgery, Other (ankle surgery (left?)). No: Pacemaker Amputation: No Fractures: Yes (L ankle) - *Social History Last grade of school completed: 9th or 10th Smoking Status: Former smoker Tobacco Type: cigarettes # Packs/Day (cigarettes): 3 #Yrs smoked (if former smoker): 30 Alcohol Intake: never Alcohol Intake Frequency:: other Substance Use Type: denies use *Occupational Status:: retired Housing: house Household Members: children *Travel in the last 8 weeks: None Family Hx:: Asthma, Diabetes, Hypertension Review of Systems - Review of Systems Review of systems:: pertinent systems reviewed and negative unless documented below Meds Home Medications Medication Instructions Recorded Confirmed Type aspirin 81 mg tablet,delayed 81 mg PO DAILY tab 05/16/17 05/08/20 History release ferrous sulfate 325 mg (65 mg 325 mg PO BID tab 05/16/17 05/08/20 History iron) tablet fluticasone propionate 50 1 spray INTRANASAL BID PRN 05/16/17 05/08/20 History mcg/actuation nasal spray,suspension nitroglycerin 0.4 mg sublingual 0.4 mg SUBLINGUAL Q5M PRN 05/16/17 05/08/20 History tablet trazodone 50 mg tablet 50 mg PO HSP PRN 05/16/17 05/08/20 History alendronate 70 mg tablet 70 mg PO WEEKLY 09/18/18 05/08/20 History metoprolol tartrate 25 mg tablet 25 mg PO BID 09/18/18 05/08/20 History phenytoin sodium extended 100 mg 500 mg PO MOWEFR cap 09/18/18 05/08/20 History capsule potassium chloride 10 mEq 20 meq PO DAILY cap 09/18/18 05/08/20 History capsule,extended release predniSONE [Prednisone 20mg 20 mg PO DAILY 01/03/19 05/08/20 History Tab] diltiazem HCl 240 mg 240 mg PO DAILY cap 06/18/19 05/08/20 History capsule,extended release 24 hr meclizine 12.5 mg tablet 6.25 - 12.5 mg PO TIDP PRN 06/18/19 05/08/20 History furosemide 40 mg tablet 40 mg PO DAILY tab 10/10/19 05/08/20 History Atorvastatin Calcium [Lipitor 40mg 40 mg PO HS 01/10/20 05/08/20 History Tab] ipratropium 0.5 mg-albuterol 3 mg 3 ml INHALATION Q6H PRN #180 ml 04/16/20 05/08/20 Rx (2.5 mg base)/3 mL nebulization soln Tiotropium [place] [Spiriva with 1 cap INHALATION DAILY 05/07/20 05/08/20 History HandiHaler] Albuterol Sulfate [Albuterol 2 puff IH QID 05/08/20 05/08/20 History Sulfate Hfa] Fluticasone Propion/Salmeterol 1 each IH DAILY 05/08/20 05/08/20 History [Wixela 500-50 Inhub] Phenytoin Sodium Extended 400 mg PO SUTUTHSA 05/08/20 05/08/20 History [Dilantin 100mg Capsule] Allergies Allergy/AdvReac Type Severity Reaction Status Date / Time No Known Allergies Allergy Verified 05/08/20 09:13 Exam Vital signs and Labs for Last 24 Hours: Temp Pulse Resp BP Pulse Ox 98.1 F 86 16 132/92 H 96 05/08/20 16:00 05/08/20 16:00 05/08/20 16:00 05/08/20 16:00 05/08/20 16:00 Laboratory Results - last 24 hr 05/08/20 12:15: Chlamy pneumoniae PCR Not detected, Adenovirus (PCR) Not dete
--- NOTE | 2020-05-08 17:40 | PC.NURSE ---
pt RA stat is 94%. placed back on 2L NC.
--- NOTE | 2020-05-08 18:12 | PC.NURSE ---
PT IS RESTING IN BED. CBI. PT HAS BEEN ALERT AND ORIENTED X4 SINCE ARRIVING TO THE FLOOR. POST OP VSS. LUNG SOUNDS CLEAR. ABDOMEN SOFT/NON TENDER WITH HYPOACTIVE BOWEL SOUNDS. EATING AN DRINKING WELL.NO SWELLING NOTED. WILL CONTINUE TO MONITOR.
[2020-05-09] VITALS (19 sets, daily range): BP systolic 96–154; BP diastolic 62–106; PULSE 71–104; RESP 16–18; TEMP 36.4–37.2; O2SAT 95–99; BMI 24.0
--- NOTE | 2020-05-09 03:39 | PC.NURSE ---
PT is A&O x4 and has slept well through the night. Lungs have expiratory rhonchi throughout, on 2L NC. Pt is draining light pink urine via oneill, bladder irrigation is present and draining. I&Os are in chart. Pt has not c/o pain. IV patent, NS @75. Bowel sounds x4, abd soft and nontender. VSS, call light in reach, no concerns at this time.
[2020-05-09 07:16] LABS: Basophils % 0.2 % (0.1-2.0)
[2020-05-09 07:35] LABS: Eosinophils # 0.1 K/mm3 (0.0-0.4); Eosinophils % 0.3 % (0.1-12.0); Hematocrit 39.7 % (42.0-52.0); Lymphocytes # 1.3 K/mm3 (0.7-4.5); Lymphocytes % 7.8 % (10-50); Mean Corpuscular Hemoglobin 28.6 pg (27.0-31.2); Mean Platelet Volume 6.9 fl (7.4-10.4); Monocytes # 0.8 K/mm3 (0.1-1.0); Monocytes % 4.6 % (1.7-9.3); Neutrophils # 14.9 K/mm3 (1.8-7.8); Neutrophils % 87.1 % (37.0-80.0); Platelet Count 176 K/mm3 (142-424); Red Blood Count 4.72 M/mm3 (4.60-6.20); Red Cell Distribution Width 16.1 % (11.5-17.5); White Blood Count 17.1 K/mm3 (4.8-10.8)
[2020-05-09 07:36] LABS: Anion Gap 9.8 mEq/L (5-15); Blood Urea Nitrogen 23 mg/dl (9-20); Carbon Dioxide 31 mmol/L (22.0-30.0); Chloride 98 mmol/L (98-107); Creatinine Clearance Estimated 61 mL/min (50-200); Estimated Glomerular Filt Rate 82 ml/min (>60); GFR (African American) 100 ML/MIN (>60); Glucose 161 mg/dl (74-100); Potassium 3.8 mmoL/L (3.5-5.1); Sodium 135 mmol/L (136-145)
[2020-05-09 08:10] LABS: MANUAL DIFFERENTIAL MANUAL DIFFERENTIAL (MANUAL DIFF)
--- NOTE | 2020-05-09 08:36 | CT_ITS ---
PROCEDURE: CT ABDOMEN PELVIS WO CON CLINICAL INDICATION: ABDOMINAL TENDERNESS Abdominal pain and tenderness following recent cystoscopy COMPARISON: CT CT ABDOMEN PELVIS W CON from 04/14/2020 TECHNIQUE: Axial images obtained with sagittal and coronal reformats. All CT scans at the facility use one or more dose reduction, viz: automated exposure control, ma/kV adjustment per patient size (including targeted exams where dose is matched to indication, i.e. head), or iterative reconstruction technique. FINDINGS: CT cystogram was performed.. Unenhanced images demonstrates a Valenzuela catheter in place with thickening of the urinary bladder wall. Fluid collection is present anterior to the urinary bladder and extends cephalad for a length of approximately 8 cm. Full bladder images demonstrates air and contrast within the urinary bladder. There is extravasation of contrast anterior to the urinary bladder into the area of previously described collection. This is consistent with extraperitoneal extravasation. Air and contrast are present within the collection. Extravasation appears to extend from the lower and anterior aspect of the urinary bladder. Contrast does not surround the small-bowel loops. There is no evidence of intraperitoneal extravasation. There is reflux of contrast into the right renal collecting system all the way to the right pelvicaliceal system without dilatation. There is minimal reflux into the left distal ureter. There is also some extravasation of contrast into the perivesicular soft tissues. Other findings include mild bibasilar atelectasis with trace bilateral effusions, vicarious excretion of contrast within the gallbladder with a gallstone, mild calcification of the left ventricular wall inferiorly which could be due to prior infarction, infrarenal abdominal aortic aneurysm at 4.9 cm, scattered mildly prominent small bowel loops with small air-fluid levels which could be due to ileus or enteritis. IMPRESSION: Findings are compatible with extraperitoneal bladder rupture. Grade 2 right vesicoureteral reflux and grade 1 left vesicoureteral reflux Other nonacute findings as described above Dictated by: Jamarcus Iraheta MD 05/09/2020 12:37 Jamarcus Iraheta MD in OV 05/09/2020 12:37
[2020-05-09 08:39] LABS: Lymphocytes % 13 % (10-50); Monocytes % 2 % (2-9); Neutrophils % 85 % (42-76); Platelet Estimate Normal; RBC Morphology Normal; Total Cells Counted 100
--- NOTE | 2020-05-09 08:43 | PC.NURSE ---
CALLED AND STATED TO STOP THE CBI AND ALLOW PT TO AMBULATE. DURING ASSESSMENT THIS MORNING PT IS HAVING EXTREME TENDERNESS IN HIS RIGHT AND LEFT LOWER ABDOMEN WITH PALPATION. NOTIFIED AND HE WANTED PT TO HAVE A CT OF THE ABDOMEN AND PELVIS W/O CONTRAST. RADIOLOGY NOTIFIED OF THE STAT ORDER.
[2020-05-09 08:59] LABS: Calcium 8.6 mg/dl (8.4-10.2)
[2020-05-09 09:35] LABS: Hemoglobin 13.5 g/dL (14.1-18.0)
--- NOTE | 2020-05-09 13:09 | SUR.OPER ---
pt pelvic and abdominal are clipped per Sulaiman TEE. Skin noted to be very dry and flaky.
--- NOTE | 2020-05-09 15:11 | HMH.ANESI ---
[facility] Anesthesia Record Part I Intake, IV Amount: 2,000 Estimated blood loss (mL): 200 Urine output (mL): 200 Blood Pressure: 115/82 SaO2: 95 Pulse Rate: 97 Respiratory Rate: 16 Temperature: 98.2 F Patient is:: Drowsy, Stable Stable to PACU at:: 15:00
--- NOTE | 2020-05-09 15:21 | HMH.OPNOTE ---
Date of procedure: 05/09/20 Pre-op Diagnosis:: Abdominal distention, bladder extravasation Post-op Diagnosis:: Abdominal distention, extraperitoneal bladder perforation Procedure performed:: Abdominal and pelvic exploration with cystotomy and oversewing of bladder wall thinning. Surgeon:: Allen Saxena MD Iron Worker Apprentice(s):: leandra malik EKG MONITOR:: Khari Bauman Anesthesia: GETA Estimated blood loss (mL): 200 Clinical Note:: Patient is a 75-year-old white male who underwent transurethral resection of a bladder tumor yesterday. Three-way catheter was placed to continuous bladder irrigation and he did well until 4 AM this morning when he began having some abdominal pain. On exam he has some abdominal tenderness and distention. A CT scan with cystogram was performed showing some contrast into the lower anterior abdominal tissues anterior to the bladder but there is no evidence of any extravasation into the peritoneal cavity. Patient is in some significant discomfort and I discussed taking him to the operating room for exploration and evacuation of fluid and possible closure of any bladder defects. Operative findings:: There was significant amount of fluid in the pelvic cavity. Scarce fluid noted in the abdominal cavity. No obvious intraperitoneal or extraperitoneal bladder defect was noted with instillation of methylene blue. The bladder wall anteriorly was thinned however but no extravasation of fluid noted with filling of the bladder. Fluid was evacuated a cystotomy was performed and oversewing of the bladder stenting was performed with pelvic drain placement and closure of the abdomen. Operative note:: Patient taken to the operating room after informed consent was obtained. He was placed on the operating table in the supine position and general anesthesia administered. Sequential compression devices administered. He had been on antibiotics preoperatively. He was prepped draped in the standard surgical fashion. Valenzuela catheter that had been placed after his TURBT was removed and after prep and drape a new 22 Bengali coud? tip catheter was placed into the bladder. A lower midline incision was then made from below the umbilicus to the pubis. Bovie was used to incise through the fascial layer and a significant amount of fluid was noted in the pelvic cavity. This was suctioned out from the pelvic region and the abdominal cavity was then opened and no significant amounts of fluid were noted in the abdominal cavity. Exploration of the pelvic region was then performed dissecting the anterior bladder. Once the bladder was then good view we we placed some methylene blue through the Valenzuela catheter and into the bladder. The bladder was filled gently with about 120 cc in no obvious leak was noted intraperitoneally or extraperitoneally. There was some thinning of the anterior bladder and with more filling a small defect was noted anteriorly. There was very little anterior serosal tissue and peritoneal tissue present. I decided to open the bladder up and the close the thinned area with a 2-0 chromic. We then filled the bladder again gently in the small leak was noted distally and anteriorly and another layer suture was performed over the 2-0 chromic using a 2-0 Vicryl and trying to bring some of the the serosal and peritoneal tissue over the defect this also included the bladder wall externally. We then tested the bladder again with gentle instillation and no leak was noted. Hemostasis was achieved the peritoneotomy was closed with a running 2-[address] Isaac. We then placed a 10 flat ALYSSA drain into the pelvic region and brought it out through the right lower quadrant irrigation was performed of the pelvic cavity and the fascia was closed with a running #1 Vicryl and the skin closed with christopher. Patient tolerated procedure well there is about 200 cc of blood loss. Condition: stable Disposition: PACU Specimens:: None Complications:: None
--- NOTE | 2020-05-09 15:47 | SUR.PHASEI ---
1500- pt to pacu via bed. Very restless moving back and forth in the bed. Dilaudid given per Anisa SHERIDAN. 1510-Pt resting very comfortably at this time. No longer restless. Cathether reinforced to leg with tap. Pt stable. 1530-Pt transported via bed to 2nd floor per Sulaiman TEE and Anisa SHERIDAN. Pt left in care of Alexandra TEE. Bed locked and lowered in lowest position. Call huntley within reach. VSS.
--- NOTE | 2020-05-09 16:57 | PC.NURSE ---
PT IS RESTING IN BED. AWAKENS EASILY. MIDLINE INCISION NOTED TO THE ABDOMEN WITH TELFA/TEGADERM DRESSING. ALYSSA DRAIN NOTED TO THE RT SIDE OF THE ABDOMEN. ABDOMEN IS STILL DISTENDED BUT NOT TENDER IT WAS BEFORE SURGERY. SKUDS NOTED TO BLE. PT IS ABLE TO MOVE ALL 4 EXTREMITIES W/O DIFFICULTY. CALLED AND STATED TO MONITOR PT'S I&O'S. HE STATED THAT IF PT IS NOT MAKING ANY URINE THEN IT WOULD BE OKAY TO IRRIGATE CATHETER WITH BULB SYRINGE VERY GENTLY AND IF THERE IS NO DRAW BACK THEN HE WANTS TO BE NOTIFIED. KEEP VERY ACCURATE RECORD OF ALL DRAINS. INCREASE PT'S IVF'S TO 100 ML/HR AND PT WILL NEED TO TO BE NPO. WAS CONSULTED FOR MEDICATION MANAGEMENT.
--- NOTE | 2020-05-09 18:40 | HMH.CONS ---
*Admission Date: 05/08/20 *Reason for consult:: Medical management *History of present illness: Asked by Dr. Saxena to follow along with Mr. Piper care for medical management given his complex medical problems and multiple medications postoperatively. Briefly, patient was admitted for complications of swelling and pain after a transurethral bladder tumor resection, had pelvic swelling and was taken back to the operating room yesterday where transbladder migration of bladder irrigation fluid was noted in the lower pelvis but not in the peritoneal cavity. Extensive evaluation was done and oversewing of thin spots and patient seems to be doing well. I evaluated him this evening in the second floor MedSurg unit. He currently has no complaints of breathing issues, upper abdominal pain, notes that he has incisional pain but feels much better after return to the OR this morning. [facility] History Medical History: Reports:: Aneurysm, Asthma, Chronic Obstructive Pulmonary Disease (COPD), Coronary Artery Disease, Home Oxygen, Hyperlipidemia, Hypertension Denies:: Cancer, Diabetes Mellitus Type 1, Diabetes Mellitus Type 2, Internal Pacemaker, MRSA, Seizures *Have you ever received a pneumonia vaccine?: Yes *Have you received a flu vaccine this season?: Yes Other Medical History: Reports: Arthritis, Cataracts, Other (History of syncope years ago. On dilantin.... EEGs nondiagnostic). Denies: Blood Transfusion Reaction Anesthesia experience/problems:: nac Laterality Cases: Left: Arthroscopy Hip, Bilateral: Cataract Other Surgeries: Yes: No Previous Surgery, CABG, Cardiac Catheterization, Colonoscopy, Coronary Stent, Open Heart Surgery, Other (ankle surgery (left?)). No: Pacemaker Amputation: No Fractures: Yes (L ankle) - *Social History Last grade of school completed: 9th or 10th Smoking Status: Former smoker Tobacco Type: cigarettes # Packs/Day (cigarettes): 3 #Yrs smoked (if former smoker): 30 Alcohol Intake: never Alcohol Intake Frequency:: other Substance Use Type: denies use *Occupational Status:: retired Housing: house Household Members: children *Travel in the last 8 weeks: None Family Hx:: Asthma, Diabetes, Hypertension Review of Systems - Review of Systems Review of systems:: pertinent systems reviewed and negative unless documented below Abdominal pain as noted. Denies chest pain. Denies shortness of air but is at rest. Denies extremity discomfort or pain, denies mental status clouding. Denies ENT problems. Meds Home Medications Medication Instructions Recorded Confirmed Type aspirin 81 mg tablet,delayed 81 mg PO DAILY tab 05/16/17 05/08/20 History release ferrous sulfate 325 mg (65 mg 325 mg PO BID tab 05/16/17 05/08/20 History iron) tablet fluticasone propionate 50 1 spray INTRANASAL BID PRN 05/16/17 05/08/20 History mcg/actuation nasal spray,suspension nitroglycerin 0.4 mg sublingual 0.4 mg SUBLINGUAL Q5M PRN 05/16/17 05/08/20 History tablet trazodone 50 mg tablet 50 mg PO HSP PRN 05/16/17 05/08/20 History alendronate 70 mg tablet 70 mg PO WEEKLY 09/18/18 05/08/20 History metoprolol tartrate 25 mg tablet 25 mg PO BID 09/18/18 05/08/20 History phenytoin sodium extended 100 mg 500 mg PO MOWEFR cap 09/18/18 05/08/20 History capsule potassium chloride 10 mEq 20 meq PO DAILY cap 09/18/18 05/08/20 History capsule,extended release predniSONE [Prednisone 20mg 20 mg PO DAILY 01/03/19 05/08/20 History Tab] diltiazem HCl 240 mg 240 mg PO DAILY cap 06/18/19 05/08/20 History capsule,extended release 24 hr meclizine 12.5 mg tablet 6.25 - 12.5 mg PO TIDP PRN 06/18/19 05/08/20 History furosemide 40 mg tablet 40 mg PO DAILY tab 10/10/19 05/08/20 History Atorvastatin Calcium [Lipitor 40mg 40 mg PO HS 01/10/20 05/08/20 History Tab] ipratropium 0.5 mg-albuterol 3 mg 3 ml INHALATION Q6H PRN #180 ml 04/16/20 05/08/20 Rx (2.5 mg base)/3 mL nebulization soln Tiotropium [place] [Spiri
[2020-05-10] VITALS (11 sets, daily range): BP systolic 87–121; BP diastolic 53–74; PULSE 72–96; RESP 14–19; TEMP 36.5–36.9; O2SAT 94–98
--- NOTE | 2020-05-10 03:32 | PC.NURSE ---
PT is A&O x4. Pt has midline incision covered with telfa and tegaderm, drsg is CDI. PT has c/o of soreness around the incision but states that he is not in pain. Morphine was given x1 per mar with desired effects, pt has not requested any more pain medication. ALYSSA drain is in place and draining serosanguineous fluid. Pt has had out 650ml via oneill so far, approx 70ml/hr. urine is violetta colored. I&Os have been monitored and are in chart. Pt abd is firm but pt reports no pain when palpating, only soreness. Pt has had sips and chips with meds. IV patent, NS @ 100. Lungs have expiratory wheezes, pt on 2L NC. VSS, call light in reach, no concerns at this time.
--- NOTE | 2020-05-10 05:05 | PC.NURSE ---
unable to obtain weight due to the fact patient is not ambulatory at this time and not in a weigh bed. RN Aware.
[2020-05-10 06:31] LABS: Basophils % 0.1 % (0.1-2.0); Eosinophils % 0.1 % (0.1-12.0); Lymphocytes # 1.6 K/mm3 (0.7-4.5); Lymphocytes % 9.6 % (10-50); Mean Corpuscular HGB Conc 33.6 g/dL (31.8-35.4); Mean Corpuscular Hemoglobin 29.4 pg (27.0-31.2); Mean Corpuscular Volume 87.3 fl (80-94); Mean Platelet Volume 6.9 fl (7.4-10.4); Monocytes # 0.7 K/mm3 (0.1-1.0); Monocytes % 4.3 % (1.7-9.3); Neutrophils # 14.6 K/mm3 (1.8-7.8); Platelet Count 151 K/mm3 (142-424); Red Blood Count 3.35 M/mm3 (4.60-6.20)
[2020-05-10 06:38] LABS: Hematocrit 29.2 % (42.0-52.0); Hemoglobin 9.8 g/dL (14.1-18.0)
[2020-05-10 06:39] LABS: Chloride 104 mmol/L (98-107); MANUAL DIFFERENTIAL MANUAL DIFFERENTIAL (MANUAL DIFF); Potassium 4.1 mmoL/L (3.5-5.1); Sodium 135 mmol/L (136-145)
[2020-05-10 06:42] LABS: Blood Urea Nitrogen 21 mg/dl (9-20); Creatinine Clearance Estimated 61 mL/min (50-200); Estimated Glomerular Filt Rate 94 ml/min (>60); GFR (African American) 114 ML/MIN (>60)
[2020-05-10 06:43] LABS: Anion Gap 4.1 mEq/L (5-15); Calcium 7.7 mg/dl (8.4-10.2); Carbon Dioxide 31 mmol/L (22.0-30.0); Glucose 141 mg/dl (74-100)
[2020-05-10 06:48] LABS: Lymphocytes % 11 % (10-50); Monocytes % 1 % (2-9); Neutrophils % 79 % (42-76); Total Cells Counted 100
[2020-05-10 06:49] LABS: Platelet Estimate Normal; RBC Morphology Normal
--- NOTE | 2020-05-10 08:33 | HMH.ACPN2 ---
Internal Medicine - PN: Subj *Date: 05/10/20 *Time: 08:33 Interval history: Internal medicine consult follow-up note: Patient rested well overnight. Tolerated p.o. metoprolol well. Blood pressure and pulse unremarkable. Exam Vital signs and Labs for Last 24 Hours: Temp Pulse Resp BP Pulse Ox 98.4 F 79 18 93/57 L 96 05/10/20 03:30 05/10/20 06:20 05/10/20 03:30 05/10/20 03:30 05/10/20 06:20 Laboratory Results - last 24 hr 05/09/20 06:30: Hgb 13.5 L D, Total Counted 100, Neutrophils % (Manual) 85 H, Lymphocytes % (Manual) 13, Monocytes % (Manual) 2, Platelet Estimate Normal, RBC Morphology Normal 05/09/20 06:30: Sodium 135 L, Potassium 3.8 D, Chloride 98, Carbon Dioxide 31 H, Anion Gap 9.8, BUN 23 H, Creatinine 0.90, Estimated Creat Clear 61, Estimated GFR 82, Est GFR ( Amer) 100 D, Glucose 161 H, Calcium 8.6 D 05/10/20 06:10: WBC 17.0 H, RBC 3.35 L D, Hgb 9.8 L D, Hct 29.2 L, MCV 87.3, MCH 29.4, MCHC 33.6, RDW 16.0, Plt Count 151, MPV 6.9 L, Neut % (Auto) 86.0 H, Lymph % (Auto) 9.6 L, Kay % (Auto) 4.3, Eos % (Auto) 0.1, Baso % (Auto) 0.1, Neut # (Auto) 14.6 H, Lymph # (Auto) 1.6, Kay # (Auto) 0.7, Eos # (Auto) 0.0, Baso # (Auto) 0.0, Total Counted 100, Neutrophils % (Manual) 79 H, Band Neutrophils % 9.0 H, Lymphocytes % (Manual) 11, Monocytes % (Manual) 1 L, Platelet Estimate Normal, RBC Morphology Normal 05/10/20 06:10: Sodium 135 L, Potassium 4.1, Chloride 104, Carbon Dioxide 31 H, Anion Gap 4.1 L, BUN 21 H, Creatinine 0.80, Estimated Creat Clear 61, Estimated GFR 94, Est GFR ( Amer) 114, Glucose 141 H, Calcium 7.7 L D I & O for Last 24 hours: Intake & Output 05/07/20 05/08/20 05/09/20 05/10/20 11:59 11:59 11:59 11:59 Intake Total 1450 / 1450 3269 / 3269 Output Total 2350 / 2350 1225 / 1225 Balance -900 / -900 4 / 204 Weight 148 lb 149 lb 14.629 oz Narrative: Patient is alert, oriented x3. Has minimal expiratory wheezing in all of his lung borrero but symmetric air entry. No tracheal deviation. I educated him on the incentive spirometer and he is able to pull about 1200 mL on the incentive spirometer with a little bit of cough and some upper abdominal pain. Heart rate regular. No distal pulse deficit. No edema. Old clubbing noted. Abdominal exam is not swollen, he is tender diffusely throughout the abdomen, mostly in both lower quadrants, about the same as yesterday's exam. Incision sites look great. Valenzuela catheter is draining yellow-colored urine appearing fluid. No blood clots noted. Assessment and Plan (1) Bladder cancer Status: Acute Category: Medical Code(s): C67.9 - Malignant neoplasm of bladder, unspecified (2) Pulmonary HTN Status: Acute Category: Medical Code(s): I27.20 - Pulmonary hypertension, unspecified (3) CAD (coronary artery disease) Status: Chronic Qualifiers: Coronary Disease-Associated Artery/Lesion type: [place] artery [place] vs. transplanted heart: [place] heart Associated angina: with other forms of angina Qualified Code(s): I25.118 - Atherosclerotic heart disease of [place] coronary artery with other forms of angina pectoris Category: Medical Code(s): I25.10 - Atherosclerotic heart disease of [place] coronary artery without angina pectoris (4) Chronic obstructive pulmonary disease Status: Chronic Qualifiers: COPD type: emphysema Emphysema type: unspecified Qualified Code(s): J43.9 - Emphysema, unspecified Category: Medical Code(s): J44.9 - Chronic obstructive pulmonary disease, unspecified - Assessment and plan all Dx Assessment and Plan for all problems:: 1. Medication management-continue to minimize p.o. medications given recent surgery. Continue p.o. metoprolol and Dilantin-although Dilantin may be not needed but given his metabolic stress I do not wish to stop it at this point. Blood pressure and pulse rates are well controlled on metoprolol, hold his diltiazem at this po
--- NOTE | 2020-05-10 10:21 | P.PN_ITS ---
[facility] Anesthesia Record Part II Discharge Time: 15:30 Destination: Medical Surgical Department PACU nurse assessment reviewed?: Yes Patient Condition:: Good Anesthesia Complications:: None Swallowing reflex intact?: Yes Cyanosis?: No Blood Pressure: 121/74 Pulse Rate: 96 Temperature: 98.2 F Mental Status: Alert & Oriented Pain level:: 0 Nausea and/or vomitting:: None Intake, IV Amount: 0
--- NOTE | 2020-05-10 10:29 | HMH.ACPN2 ---
Internal Medicine - PN: Subj *Date: 05/11/20 *Time: 09:09 Interval history: Patient feels better after exploration and evacuation of extravasated fluid from the pelvis. Vital signs are stable and he is afebrile. There is minimal ALYSSA output and good urine output. He is having some incisional tenderness in his abdomen is full. He remains n.p.o. other than sips with meds and half cup of ice chips. Exam Vital signs and Labs for Last 24 Hours: Temp Pulse Resp BP Pulse Ox 98.2 F 96 H 16 121/74 95 05/10/20 10:22 05/10/20 10:05/10/20 08:00 05/10/20 10:05/10/20 08:00 Laboratory Results - last 24 hr 05/10/20 06:10: WBC 17.0 H, RBC 3.35 L D, Hgb 9.8 L D, Hct 29.2 L, MCV 87.3, MCH 29.4, MCHC 33.6, RDW 16.0, Plt Count 151, MPV 6.9 L, Neut % (Auto) 86.0 H, Lymph % (Auto) 9.6 L, [place] % (Auto) 4.3, Eos % (Auto) 0.1, Baso % (Auto) 0.1, Neut # (Auto) 14.6 H, Lymph # (Auto) 1.6, [place] # (Auto) 0.7, Eos # (Auto) 0.0, Baso # (Auto) 0.0, Total Counted 100, Neutrophils % (Manual) 79 H, Band Neutrophils % 9.0 H, Lymphocytes % (Manual) 11, Monocytes % (Manual) 1 L, Platelet Estimate Normal, RBC Morphology Normal 05/10/20 06:10: Sodium 135 L, Potassium 4.1, Chloride 104, Carbon Dioxide 31 H, Anion Gap 4.1 L, BUN 21 H, Creatinine 0.80, Estimated Creat Clear 61, Estimated GFR 94, Est GFR ( Amer) 114, Glucose 141 H, Calcium 7.7 L D I & O for Last 24 hours: Intake & Output 05/07/20 05/08/20 05/09/20 05/10/20 23:59 23:59 23:59 23:59 Intake Total 1200 / 1200 2592 / 2970 927 / 927 Output Total 2250 / 2350 580 / 830 745 / 745 Balance -1050 / -1150 2011 182 / 182 Weight 67.132 kg 68.135 kg 68 kg Narrative: Patient in no apparent distress Pupils equal round reactive to light Head is normocephalic Neck is supple Normal respiratory effort Abdomen is full in the upper abdominal region, there is some mild tenderness to palpation, the dressing is clean dry and intact Alert and oriented x3 - Constitutional no acute distress - *Routine HEENT Exam Head: Present: normocephalic Eye: Present: EOMI, PERRL ENT: Present: mucous membranes moist - *Routine Neck Exam Absent: lymphadenopathy - Routine Chest/Breast/Axilla Exam Chest wall: Absent: tenderness - *Routine Respiratory Exam Absent: accessory muscle use - *Routine Cardiovascular Exam Absent: JVD - *Routine Abdominal Exam Present: tenderness Comments: abdomen is full, incisional tenderness. - *Routine Extremities Exam Absent: cyanosis, clubbing, edema - *Routine Skin Exam Present: warm. Absent: rash - *Routine Neurological Exam Present: alert, oriented X3 Assessment and Plan (1) Bladder cancer Status: Acute Category: Medical Code(s): C67.9 - Malignant neoplasm of bladder, unspecified Patient is postop day 2 from a transurethral resection of bladder tumor and postop day 1 from abdominal pelvic exploration with evacuation of extravasated fluid and oversewing of the bladder wall. His urine is clear and there is minimal ALYSSA output. He is taking minimal pain medicine and discussed with the nurse advised the patient to take pain medicine as he appears to be a bit tense. Will also add a Valium bid. We discussed taking only half cup of the ice chips per shift. We will advance diet once some bowel function returns. (2) Pulmonary HTN Status: Acute Category: Medical Code(s): I27.20 - Pulmonary hypertension, unspecified (3) CAD (coronary artery disease) Status: Chronic Qualifiers: Coronary Disease-Associated Artery/Lesion type: [place] artery [place] vs. transplanted heart: [place] heart Associated angina: with other forms of angina Qualified Code(s): I25.118 - Atherosclerotic heart disease of [place] coronary artery with other forms of angina pectoris Category: Medical Code(s): I25.10 - Atherosclerotic heart disease of [place] coronary artery without angina pectoris (4) Chronic obstructive pulmonary disease Statu
--- NOTE | 2020-05-10 14:15 | PC.NURSE ---
Addendum entered by Khadijah Tilley RN 05/10/20 16:29: PT IS NOW MORE AWAKE/ALERT/TALKATIVE. PT RECEIVED BATH AND LINEN CHANGE AND IS NOW SITTING UP IN THE CHAIR. 1 ASSIST TO GET PT OOB. Original Note: PT HAD A DOSE OF VALIUM 5 MG IV AT 1120 THIS SHIFT THAT ORDERED FOR PT TO HAVE BID TO KEEP PT RELAXED AND NOT SO TENSE. HE ALSO ORDERED FOR PT TO HAVE TORADOL 30 MG IV Q6H SCHEDULED. PT HAS NOT BEEN WANTING PAIN MEDICATION B/C HE DESCRIBES HIS PAIN JUST BEING SORE AND HE REALLY DOES NOT LIKE TO TAKE PAIN MEDICATION UNLESS HE ABSOLUTELY HAS TO. PT WAS OKAY WITH TAKING THE VALIUM IF IT WAS WHAT WANTED. WHILE GIVING THE VALIUM VERY SLOW IV PUSH PT WAS TALKING AND LAUGHING. AFTER IV WAS FLUSHED PT'S EYES WERE ROLLED BACK AND HE WAS BARELY RESPONDING TO A STERNAL RUB. BP WAS 83/53. IVF'S RATE WAS INCREASED AND WITHIN A FEW MINUTES PT STARTED TO TALK AND EVEN STATED HE WAS OKAY BUT WAS REALLY SLEEPY. NOTIFIED AND HE STATED TO CHANGE THE VALIUM DOSE TO 1 MG BID INSTEAD OF 5 MG. NOTIFIED AND HE STATED TO GIVE PT A 500 ML IVF BOLUS FOR HIS LOW BP AND TO HOLD PT'S METOPROLOL FOR TONIGHT. STATED HE WAS OKAY WITH THE VALIUM 1 MG BID. PT'S BP CONTINUES TO BE LOW (87/53) O2 SATURATION 97% ON 3 L NC. RESPIRATIONS 16. PT IS STILL VERY DROWSY BUT WILL RESPOND TO VERBAL STIMULUS. WILL CONTINUE TO MONITOR.
[2020-05-11] VITALS (7 sets, daily range): BP systolic 102–124; BP diastolic 58–70; PULSE 70–97; RESP 17–20; TEMP 36.6–36.8; O2SAT 96–98; BMI 24.0
--- NOTE | 2020-05-11 05:13 | PC.NURSE ---
unable to obtain weight due to the fact patient is not ambulatory at this time and not in a weigh bed. RN Aware.
--- NOTE | 2020-05-11 06:49 | PC.NURSE ---
Addendum entered by Chaparrita Padron RN 05/11/20 07:01: 0500- REPORT GIVEN TO Pk CLANCY RN Original Note: PT. DENIED PAIN. NO COMPLAINTS OF N/V/D, SOA OR DIZZINESS. DISTENDED NONTENDER ABD WITH HYPERACTIVE BOWEL SOUNDS. FC DRAINING DARK YELLOW URINE; 350 ML OUT FOR 12 HR SHIFT.
[2020-05-11 07:55] LABS: Basophils % 0.1 % (0.1-2.0); Hematocrit 26.7 % (42.0-52.0); Lymphocytes # 0.6 K/mm3 (0.7-4.5); Lymphocytes % 4.6 % (10-50); Mean Corpuscular HGB Conc 33.9 g/dL (31.8-35.4); Mean Corpuscular Hemoglobin 29.5 pg (27.0-31.2); Mean Corpuscular Volume 87.2 fl (80-94); Mean Platelet Volume 7.1 fl (7.4-10.4); Monocytes # 0.5 K/mm3 (0.1-1.0); Monocytes % 3.9 % (1.7-9.3); Neutrophils # 11.3 K/mm3 (1.8-7.8); Neutrophils % 91.4 % (37.0-80.0); Platelet Count 150 K/mm3 (142-424); Red Blood Count 3.06 M/mm3 (4.60-6.20); Red Cell Distribution Width 15.6 % (11.5-17.5); White Blood Count 12.4 K/mm3 (4.8-10.8)
[2020-05-11 08:04] LABS: MANUAL DIFFERENTIAL MANUAL DIFFERENTIAL (MANUAL DIFF)
[2020-05-11 08:06] LABS: Alanine Aminotransferase 17 U/L (12-78); Albumin Level 2.6 g/dl (3.5-5.0); Albumin/Globulin Ratio 1.1 (1.1-1.8); Alkaline Phosphatase 85 U/L (38-126); Anion Gap 8.2 mEq/L (5-15); Aspartate Amino Transferase 20 U/L (17-59); Bilirubin,Total 0.2 mg/dl (0.2-1.3); Blood Urea Nitrogen 25 mg/dl (9-20); Calcium 7.7 mg/dl (8.4-10.2); Carbon Dioxide 27 mmol/L (22.0-30.0); Chloride 106 mmol/L (98-107); Creatinine Clearance Estimated 61 mL/min (50-200); Estimated Glomerular Filt Rate 94 ml/min (>60); GFR (African American) 114 ML/MIN (>60); Globulin 2.3 g/dL (1.3-3.2); Glucose 150 mg/dl (74-100); Phenytoin (Dilantin) 12.8 ug/ml (10-20); Potassium 3.2 mmoL/L (3.5-5.1); Sodium 138 mmol/L (136-145); Total Protein,Serum 4.9 g/dl (6.3-8.2)
--- NOTE | 2020-05-11 08:35 | HMH.ACPN2 ---
Internal Medicine - PN: Subj *Date: 05/11/20 *Time: 08:35 Interval history: Follow-up medicine consult note: Patient did well overnight, breathing comfortably, less abdominal pain. Only complaint this morning is nasal stuffiness Exam Vital signs and Labs for Last 24 Hours: Temp Pulse Resp BP Pulse Ox 98.3 F 88 20 102/68 L 97 05/11/20 03:20 05/11/20 06:17 05/11/20 03:20 05/11/20 03:20 05/11/20 06:17 Laboratory Results - last 24 hr 05/11/20 07:15: WBC 12.4 H D, RBC 3.06 L, Hgb 9.0 L, Hct 26.7 L, MCV 87.2, MCH 29.5, MCHC 33.9, RDW 15.6, Plt Count 150, MPV 7.1 L, Neut % (Auto) 91.4 H, Lymph % (Auto) 4.6 L, [place] % (Auto) 3.9, Eos % (Auto) 0.0 L, Baso % (Auto) 0.1, Neut # (Auto) 11.3 H, Lymph # (Auto) 0.6 L, [place] # (Auto) 0.5, Eos # (Auto) 0.0, Baso # (Auto) 0.0 05/11/20 07:15: Sodium 138, Potassium 3.2 L D, Chloride 106, Carbon Dioxide 27, Anion Gap 8.2, BUN 25 H, Creatinine 0.80, Estimated Creat Clear 61, Estimated GFR 94, Est GFR ( Amer) 114, Glucose 150 H, Calcium 7.7 L, Total Bilirubin 0.2, AST 20, ALT 17, Alkaline Phosphatase 85, Total Protein 4.9 L, Albumin 2.6 L, Globulin 2.3, Albumin/Globulin Ratio 1.1, Phenytoin 12.8 I & O for Last 24 hours: Intake & Output 05/08/20 05/09/20 05/10/20 05/11/20 11:59 11:59 11:59 11:59 Intake Total 1450 / 1450 3269 / 3269 1465 / 1465 Output Total 2350 / 2350 1225 / 1225 1520 / 1520 Balance -900 / -900 2044 / 2044 -55 / -55 Weight 149 lb 14.629 oz Narrative: Abdomen soft in the upper abdominal area, positive bowel sounds. Lower abdominal exam still slightly tender, see urology notes. Lungs have better air entry, able to pull 1500 mL's on incentive spirometer, much less wheezing. Heart rate regular. Neurologic exam intact Assessment and Plan (1) Bladder cancer Status: Acute Category: Medical Code(s): C67.9 - Malignant neoplasm of bladder, unspecified (2) Pulmonary HTN Status: Acute Category: Medical Code(s): I27.20 - Pulmonary hypertension, unspecified (3) CAD (coronary artery disease) Status: Chronic Qualifiers: Coronary Disease-Associated Artery/Lesion type: [place] artery [place] vs. 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 Continue incentive spirometry, nebulizers, conversion of p.o. steroids to IV. Had a little bit of a sedated response to diazepam yesterday, dose has been adjusted lower. Patient seems to be much better with this. Continue his current medication therapy and beta-paulie.
[2020-05-11 09:03] LABS: Lymphocytes % 6 % (10-50); Monocytes % 3 % (2-9); Neutrophils % 91 % (42-76); RBC Morphology Normal; Total Cells Counted 100
[2020-05-11 09:04] LABS: Platelet Estimate Normal
--- NOTE | 2020-05-11 09:12 | HMH.ACPN2 ---
Internal Medicine - PN: Subj *Date: 05/11/20 *Time: 09:12 Interval history: Patient states he is feeling better this morning. Vital signs are stable. Afebrile. Urine is violet[place] and there is good urine output overnight. There is minimal ALYSSA output. His pathology is pending. Exam Vital signs and Labs for Last 24 Hours: Temp Pulse Resp BP Pulse Ox 97.9 F 91 H 17 124/65 97 05/11/20 08:00 05/11/20 08:00 05/11/20 08:00 05/11/20 08:00 05/11/20 08:00 Laboratory Results - last 24 hr 05/11/20 07:15: WBC 12.4 H D, RBC 3.06 L, Hgb 9.0 L, Hct 26.7 L, MCV 87.2, MCH 29.5, MCHC 33.9, RDW 15.6, Plt Count 150, MPV 7.1 L, Neut % (Auto) 91.4 H, Lymph % (Auto) 4.6 L, [place] % (Auto) 3.9, Eos % (Auto) 0.0 L, Baso % (Auto) 0.1, Neut # (Auto) 11.3 H, Lymph # (Auto) 0.6 L, [place] # (Auto) 0.5, Eos # (Auto) 0.0, Baso # (Auto) 0.0, Total Counted 100, Neutrophils % (Manual) 91 H, Lymphocytes % (Manual) 6 L, Monocytes % (Manual) 3, Platelet Estimate Normal, RBC Morphology Normal 05/11/20 07:15: Sodium 138, Potassium 3.2 L D, Chloride 106, Carbon Dioxide 27, Anion Gap 8.2, BUN 25 H, Creatinine 0.80, Estimated Creat Clear 61, Estimated GFR 94, Est GFR ( Amer) 114, Glucose 150 H, Calcium 7.7 L, Total Bilirubin 0.2, AST 20, ALT 17, Alkaline Phosphatase 85, Total Protein 4.9 L, Albumin 2.6 L, Globulin 2.3, Albumin/Globulin Ratio 1.1, Phenytoin 12.8 I & O for Last 24 hours: Intake & Output 05/08/20 05/09/20 05/10/20 05/11/20 23:59 23:59 23:59 23:59 Intake Total 1200 / 1200 2592 / 2970 2392 / 2392 0 / 0 Output Total 2250 / 2350 580 / 830 1905 / 1905 360 / 360 Balance -1050 / -1150 2011 487 / 487 -360 / -360 Weight 68.135 kg 68 kg - Constitutional no acute distress - *Routine HEENT Exam Head: Present: normocephalic Eye: Present: EOMI, PERRL ENT: Present: mucous membranes moist - *Routine Neck Exam Present: supple. Absent: lymphadenopathy - *Routine Respiratory Exam Absent: accessory muscle use - *Routine Abdominal Exam Present: soft, tenderness - *Routine Extremities Exam Absent: cyanosis, clubbing, edema - *Routine Skin Exam Present: warm. Absent: rash - *Routine Neurological Exam Present: alert, oriented X3 Assessment and Plan (1) Bladder cancer Status: Acute Category: Medical Code(s): C67.9 - Malignant neoplasm of bladder, unspecified Patient is postop day 3 from a TURBT and postop day 2 from abdominal and pelvic exploration with noted extraperitoneal extravasation of the fluid. He is feeling better and his abdomen is softer today. He appears much more comfortable. He is making good urine output and the ALYSSA fluid is minimal. We await bowel function. Patient to start ambulating today. (2) Pulmonary HTN Status: Acute Category: Medical Code(s): I27.20 - Pulmonary hypertension, unspecified (3) CAD (coronary artery disease) Status: Chronic Qualifiers: Coronary Disease-Associated Artery/Lesion type: [place] artery [place] vs. 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
--- NOTE | 2020-05-11 19:02 | PC.NURSE ---
RA SATS 92% RETURNED PT TO 2L
[2020-05-12] VITALS (7 sets, daily range): BP systolic 111–134; BP diastolic 69–84; PULSE 73–100; RESP 17–19; TEMP 36.3–37.5; O2SAT 95–98; BMI 24.0
--- NOTE | 2020-05-12 05:38 | PC.NURSE ---
Pt. has not c/o pain, n/v/d, dizziness this shift. Fc in place draining violetta urine, blood clot noted. Incision c/d/i with dsg in place. ALYSSA drain has minimal sanguineous drainage.
--- NOTE | 2020-05-12 06:35 | HMH.ACPN2 ---
Internal Medicine - PN: Subj *Date: 05/12/20 *Time: 08:45 Interval history: Follow-up medicine consult note: Patient did well overnight, breathing comfortably, continues to have interval improvement in abdominal pain. No SOA, CP, ROMANO, Nausea, emesis. Tolerating liquid PO intake, afebrile. passing gas, no BM yet. Exam Vital signs and Labs for Last 24 Hours: Temp Pulse Resp BP Pulse Ox 97.9 F 76 17 111/72 96 05/12/20 03:58 05/12/20 05:59 05/12/20 03:58 05/12/20 03:58 05/12/20 05:59 Laboratory Results - last 24 hr 05/11/20 07:15: WBC 12.4 H D, RBC 3.06 L, Hgb 9.0 L, Hct 26.7 L, MCV 87.2, MCH 29.5, MCHC 33.9, RDW 15.6, Plt Count 150, MPV 7.1 L, Neut % (Auto) 91.4 H, Lymph % (Auto) 4.6 L, [place] % (Auto) 3.9, Eos % (Auto) 0.0 L, Baso % (Auto) 0.1, Neut # (Auto) 11.3 H, Lymph # (Auto) 0.6 L, [place] # (Auto) 0.5, Eos # (Auto) 0.0, Baso # (Auto) 0.0, Total Counted 100, Neutrophils % (Manual) 91 H, Lymphocytes % (Manual) 6 L, Monocytes % (Manual) 3, Platelet Estimate Normal, RBC Morphology Normal 05/11/20 07:15: Sodium 138, Potassium 3.2 L D, Chloride 106, Carbon Dioxide 27, Anion Gap 8.2, BUN 25 H, Creatinine 0.80, Estimated Creat Clear 61, Estimated GFR 94, Est GFR ( Amer) 114, Glucose 150 H, Calcium 7.7 L, Total Bilirubin 0.2, AST 20, ALT 17, Alkaline Phosphatase 85, Total Protein 4.9 L, Albumin 2.6 L, Globulin 2.3, Albumin/Globulin Ratio 1.1, Phenytoin 12.8 I & O for Last 24 hours: Intake & Output 05/09/20 05/10/20 05/11/20 05/12/20 23:59 23:59 23:59 23:59 Intake Total 2592 / 2970 2392 / 2392 720 / 720 Output Total 580 / 830 1905 / 1905 880 / 880 1115 / 1115 Balance 2011 487 / 487 -160 / -160 -1115 / -1115 Weight 68 kg 68 kg 68 kg - Constitutional no acute distress, average body habitus - *Routine HEENT Exam Head: Present: normocephalic Eye: Present: EOMI, PERRL ENT: Present: mucous membranes moist - *Routine Neck Exam Present: supple. Absent: lymphadenopathy - *Routine Respiratory Exam Present: CTA bilaterally, prolonged expiratory phase, distant breath sounds. Absent: rhonchi, wheezes - *Routine Cardiovascular Exam Present: RRR - *Routine Abdominal Exam Present: soft, normoactive bowel sounds, tenderness (Mild around lower abdomen/surgical incision), distended Comments: Midline incision clean dry and intact, ALYSSA drain with scant bloody discharge - *Routine Extremities Exam Absent: cyanosis, clubbing, edema - *Routine Skin Exam Present: warm. Absent: rash - *Routine Neurological Exam Present: alert, oriented X3 Assessment and Plan (1) Bladder cancer Status: Acute Category: Medical Code(s): C67.9 - Malignant neoplasm of bladder, unspecified (2) Pulmonary HTN Status: Acute Category: Medical Code(s): I27.20 - Pulmonary hypertension, unspecified (3) CAD (coronary artery disease) Status: Chronic Qualifiers: Coronary Disease-Associated Artery/Lesion type: [place] artery [place] vs. 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 Continue incentive spirometry, nebulizers, steroids IV. Tolerating PO fluids. Advance diet to full liquids today. Continue his current medication therapy and beta-paulie.
[2020-05-12 07:30] LABS: Eosinophils % 0.2 % (0.1-12.0); Hematocrit 29.1 % (42.0-52.0); Hemoglobin 9.4 g/dL (14.1-18.0); Lymphocytes # 0.4 K/mm3 (0.7-4.5); Lymphocytes % 3.1 % (10-50); Mean Corpuscular HGB Conc 32.4 g/dL (31.8-35.4); Mean Corpuscular Volume 89.4 fl (80-94); Mean Platelet Volume 6.9 fl (7.4-10.4); Monocytes # 0.3 K/mm3 (0.1-1.0); Monocytes % 2.7 % (1.7-9.3); Neutrophils # 10.9 K/mm3 (1.8-7.8); Neutrophils % 94.1 % (37.0-80.0); Platelet Count 194 K/mm3 (142-424); Red Blood Count 3.26 M/mm3 (4.60-6.20); Red Cell Distribution Width 15.4 % (11.5-17.5); White Blood Count 11.6 K/mm3 (4.8-10.8)
[2020-05-12 07:35] LABS: MANUAL DIFFERENTIAL MANUAL DIFFERENTIAL (MANUAL DIFF)
[2020-05-12 07:36] LABS: Anion Gap 7.8 mEq/L (5-15); Blood Urea Nitrogen 23 mg/dl (9-20); Carbon Dioxide 25 mmol/L (22.0-30.0); Chloride 110 mmol/L (98-107); Creatinine Clearance Estimated 61 mL/min (50-200); Estimated Glomerular Filt Rate 110 ml/min (>60); GFR (African American) 133 ML/MIN (>60); Glucose 147 mg/dl (74-100); Potassium 3.8 mmoL/L (3.5-5.1); Sodium 139 mmol/L (136-145)
[2020-05-12 08:42] LABS: Lymphocytes % 5 % (10-50); Monocytes % 1 % (2-9); Neutrophils % 94 % (42-76); RBC Morphology Normal; Total Cells Counted 100
[2020-05-12 08:43] LABS: Platelet Estimate Normal
--- NOTE | 2020-05-12 12:00 | HMH.ACPN2 ---
Internal Medicine - PN: Subj *Date: 05/12/20 *Time: 12:00 Interval history: Patient is feeling well. Started on clear liquids yesterday and continues to pass gas. Vital signs are stable, afebrile. Good urine output. Minimal ALYSSA output. Exam Vital signs and Labs for Last 24 Hours: Temp Pulse Resp BP Pulse Ox 99.5 F 87 19 116/69 95 05/12/20 07:13 05/12/20 07:13 05/12/20 07:13 05/12/20 07:13 05/12/20 07:13 Laboratory Results - last 24 hr 05/12/20 07:15: WBC 11.6 H, RBC 3.26 L, Hgb 9.4 L, Hct 29.1 L, MCV 89.4, MCH 29.0, MCHC 32.4, RDW 15.4, Plt Count 194 D, MPV 6.9 L, Neut % (Auto) 94.1 H, Lymph % (Auto) 3.1 L, [place] % (Auto) 2.7, Eos % (Auto) 0.2, Baso % (Auto) 0.0 L, Neut # (Auto) 10.9 H, Lymph # (Auto) 0.4 L, [place] # (Auto) 0.3, Eos # (Auto) 0.0, Baso # (Auto) 0.0, Total Counted 100, Neutrophils % (Manual) 94 H, Lymphocytes % (Manual) 5 L, Monocytes % (Manual) 1 L, Platelet Estimate Normal, RBC Morphology Normal 05/12/20 07:15: Sodium 139, Potassium 3.8, Chloride 110 H, Carbon Dioxide 25, Anion Gap 7.8, BUN 23 H, Creatinine 0.70, Estimated Creat Clear 61, Estimated GFR 110, Est GFR ( Amer) 133, Glucose 147 H, Calcium 8.0 L I & O for Last 24 hours: Intake & Output 05/09/20 05/10/20 05/11/20 05/12/20 23:59 23:59 23:59 23:59 Intake Total 2592 / 2970 2392 / 2392 720 / 720 3918 / 3918 Output Total 580 / 830 1905 / 1905 880 / 880 1115 / 1115 Balance 2011 487 / 487 -160 / -160 2803 / 2803 Weight 68 kg 68 kg 68 kg - Constitutional no acute distress - *Routine HEENT Exam Head: Present: normocephalic Eye: Present: EOMI, PERRL ENT: Present: mucous membranes moist - *Routine Neck Exam Present: supple. Absent: lymphadenopathy - *Routine Respiratory Exam Absent: accessory muscle use - *Routine Cardiovascular Exam Absent: JVD - *Routine Abdominal Exam Present: soft, normoactive bowel sounds. Absent: tenderness - *Routine Extremities Exam Absent: cyanosis, clubbing, edema - *Routine Skin Exam Present: warm. Absent: rash - *Routine Neurological Exam Present: alert, oriented X3 Assessment and Plan (1) Bladder cancer Status: Acute Category: Medical Code(s): C67.9 - Malignant neoplasm of bladder, unspecified Postop day 4 status post TURBT and postop day 3 from a pelvic exploration and oversewing of bladder. Patient is feeling better and we have advanced his diet and he is tolerating well. His potassium has been corrected and his hemoglobin is stable. He is currently on full liquids and will plan on advancing diet tomorrow. Hopefully will be able to discharge home tomorrow. (2) Pulmonary HTN Status: Acute Category: Medical Code(s): I27.20 - Pulmonary hypertension, unspecified (3) CAD (coronary artery disease) Status: Chronic Qualifiers: Coronary Disease-Associated Artery/Lesion type: [place] artery [place] vs. 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
--- NOTE | 2020-05-12 19:34 | PC.NURSE ---
PATIENT A&O X4, LUNGS: WHEEZING HEARD, PULSES EQUAL. THIS RN EMPTIED 10ML OF SANGUINEOUS DRAINAGE FROM ALYSSA. PATIENT UP TO CHAIR FOR SEVERAL HOURS DURING THIS RN SHIFT. NO COMPLAINTS OF PAIN THRU THIS RN SHIFT. NO OTHER CONCERNS AT THIS TIME.
[2020-05-13 04:00] VITALS: BP 132/76; PULSE 74; RESP 17; TEMP 36.3; O2SAT 100
--- NOTE | 2020-05-13 04:27 | PC.NURSE ---
PT REMAINS A&O X4 THIS SHIFT. NO ACUTE CHANGES. REQUIRED 1 DOSE OF MORPHINE PRN PER MAR FOR PAIN CONTROL. HAS BEEN ABLE TO REST COMFORTABLY. EXPIRATORY WHEEZING NOTED. ADEQUATE OUTPUT OF YELLOW URINE, 1500ML THIS SHIFT. IV IS PATENT AND NS INFUSING WELL AT 75ML/HR. SCROTAL EDEMA UNCHANGED SINCE INITIAL ASSESSMENT. MIDLINE ABDOMINAL INCISION REMAINS UNCHANGED, AND NO DRAINAGE NOTED. ALYSSA DRAIN ON RIGHT SIDE OF ABDOMEN HAS DRAINED A VERY SMALL AMOUNT OF SANGUENOUS DRAINAGE. VSS AND PATIENT REMAINS AFEBRILE. VOIDS PER HOU CATHETER.
[2020-05-13 05:00] VITALS: BMI 24.0
[2020-05-13 06:00] VITALS: PULSE 77; PULSE 80; O2SAT 99
--- NOTE | 2020-05-13 06:42 | PC.NURSE ---
ALL CARE AND CHARTING UNDER MY SUPERVISION
[2020-05-13 07:34] VITALS: BP 123/81; PULSE 95; RESP 18; TEMP 36.5; O2SAT 98
--- NOTE | 2020-05-13 08:18 | P.PN_ITS ---
Internal Medicine - PN: Subj *Date: 05/13/20 *Time: 08:18 Interval history: Patient did well overnight, no complaints. Exam Vital signs and Labs for Last 24 Hours: Temp Pulse Resp BP Pulse Ox 97.7 F 95 H 18 123/81 98 05/13/20 07:34 05/13/20 07:34 05/13/20 07:34 05/13/20 07:34 05/13/20 07:34 Laboratory Results - last 24 hr 05/12/20 07:15: Total Counted 100, Neutrophils % (Manual) 94 H, Lymphocytes % (Manual) 5 L, Monocytes % (Manual) 1 L, Platelet Estimate Normal, RBC Morphology Normal I & O for Last 24 hours: Intake & Output 05/10/20 05/11/20 05/12/20 05/13/20 11:59 11:59 11:59 11:59 Intake Total 3269 / 3269 1465 / 1465 4638 / 4638 3298 / 3298 Output Total 1225 / 1225 1520 / 1520 1635 / 1635 2110 / 2110 Balance 2044 / 2044 -55 / -55 3003 / 3003 1188 / 1188 Weight 149 lb 14.629 oz 150 lb Narrative: Patient is pleasant, awake, some rhonchi in his lungs, minimal expiratory wheezing, oxygen requirement continues at baseline. Heart rate regular. Abdomen soft, Valenzuela catheter draining yellow urine. No distal edema or clubbing. Neurologically intact. Assessment and Plan (1) Bladder cancer Status: Acute Category: Medical Code(s): C67.9 - Malignant neoplasm of bladder, unspecified (2) Pulmonary HTN Status: Acute Category: Medical Code(s): I27.20 - Pulmonary hypertension, unspecified (3) CAD (coronary artery disease) Status: Chronic Qualifiers: Coronary Disease-Associated Artery/Lesion type: [place] artery [place] vs. 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 From my perspective may be discharged home with his regular medications.
--- NOTE | 2020-05-13 10:16 | XR_ITS ---
PROCEDURE: XR KUB CLINICAL INDICATION: post op Follow-up surgery, abdominal distension COMPARISON: CT CT ABDOMEN PELVIS WO CON from 05/09/2020 FINDINGS: There is a mild amount of retained colonic feces. Valenzuela catheter is present. Surgical clips are present along the anterior abdominal wall inferiorly. An additional catheter is curled in the right lower quadrant and may be due to a intra-abdominal drainage catheter. Postsurgical changes are present involving the left SI joint with sclerosis at that area. No evidence of intestinal obstruction. There is generalized vascular calcification. Abdominal aortic aneurysm noted which is partially calcified measuring approximately 5-6 cm. IMPRESSION: As above, postsurgical changes. No evidence of intestinal obstruction. Dictated by: Jamarcus Iraheta MD 05/13/2020 11:06 Jamarcus Iraheta MD in [facility] 05/13/2020 11:06
--- NOTE | 2020-05-13 10:16 | HMH.ACPN ---
Internal Medicine - PN: Subj *Date: 05/13/20 *Time: 10:16 Exam Vital signs and Labs for Last 24 Hours: Temp Pulse Resp BP Pulse Ox 97.7 F 95 H 18 123/81 98 05/13/20 07:34 05/13/20 07:34 05/13/20 07:34 05/13/20 07:34 05/13/20 07:34 I & O for Last 24 hours: Intake & Output 05/10/20 05/11/20 05/12/20 05/13/20 23:59 23:59 23:59 23:59 Intake Total 2392 / 2392 720 / 720 5925 / 5925 1291 / 1291 Output Total 1905 / 1905 880 / 880 1725 / 1725 1500 / 1500 Balance 487 / 487 -160 / -160 4200 / 4200 -209 / -209 Weight 68 kg 68 kg 68.039 kg Assessment and Plan (1) Bladder cancer Status: Acute Category: Medical Code(s): C67.9 - Malignant neoplasm of bladder, unspecified (2) Pulmonary HTN Status: Acute Category: Medical Code(s): I27.20 - Pulmonary hypertension, unspecified (3) CAD (coronary artery disease) Status: Chronic Qualifiers: Coronary Disease-Associated Artery/Lesion type: [place] artery [place] vs. transplanted heart: [place] heart Associated angina: with other forms of angina Qualified Code(s): I25.118 - Atherosclerotic heart disease of [place] coronary artery with other forms of angina pectoris Category: Medical Code(s): I25.10 - Atherosclerotic heart disease of [place] coronary artery without angina pectoris (4) Chronic obstructive pulmonary disease Status: Chronic Qualifiers: COPD type: emphysema Emphysema type: unspecified Qualified Code(s): J43.9 - Emphysema, unspecified Category: Medical Code(s): J44.9 - Chronic obstructive pulmonary disease, unspecified The patient's infection will respond to the chosen ABx?: Yes Is the patient receiving the right drug, dose, and route?: Yes Could a more targeted ABx be ordered?: No
--- NOTE | 2020-05-13 10:19 | HMH.ACPN2 ---
Internal Medicine - PN: Subj *Date: 05/13/20 *Time: 10:19 Interval history: Patient with no complaints overnight. Vital signs are stable, afebrile. Minimal ALYSSA output. Good urine output. Urine is violetta. Exam Vital signs and Labs for Last 24 Hours: Temp Pulse Resp BP Pulse Ox 97.7 F 95 H 18 123/81 98 05/13/20 07:34 05/13/20 07:34 05/13/20 07:34 05/13/20 07:34 05/13/20 07:34 I & O for Last 24 hours: Intake & Output 05/10/20 05/11/20 05/12/20 05/13/20 23:59 23:59 23:59 23:59 Intake Total 2392 / 2392 720 / 720 5925 / 5925 1291 / 1291 Output Total 1905 / 1905 880 / 880 1725 / 1725 1500 / 1500 Balance 487 / 487 -160 / -160 4200 / 4200 -209 / -209 Weight 68 kg 68 kg 68.039 kg - Constitutional no acute distress - *Routine HEENT Exam Head: Present: normocephalic Eye: Present: EOMI, PERRL ENT: Present: mucous membranes moist - *Routine Neck Exam Present: supple. Absent: lymphadenopathy - *Routine Respiratory Exam Absent: accessory muscle use - *Routine Cardiovascular Exam Absent: JVD - *Routine Abdominal Exam Absent: tenderness Comments: Upper abdomen is full, dressing is clean dry intact, minimal tenderness is noted - *Routine Extremities Exam Absent: cyanosis, clubbing, edema - *Routine Skin Exam Present: warm. Absent: rash - *Routine Neurological Exam Present: alert, oriented X3 Assessment and Plan (1) Bladder cancer Status: Acute Category: Medical Code(s): C67.9 - Malignant neoplasm of bladder, unspecified Postop day 5 from TURBT, postop day 4 from abdominal pelvic exploration and oversewing of the bladder. Patient is passing flatus and is tolerating full liquids. There is minimal ALYSSA output and good urine output. The urine color remains violetta. He does have some abdominal fullness and going to obtain a KUB today. If no evidence of ileus will consider discharge home today. (2) Pulmonary HTN Status: Acute Category: Medical Code(s): I27.20 - Pulmonary hypertension, unspecified (3) CAD (coronary artery disease) Status: Chronic Qualifiers: Coronary Disease-Associated Artery/Lesion type: [place] artery [place] vs. transplanted heart: [place] heart Associated angina: with other forms of angina Qualified Code(s): I25.118 - Atherosclerotic heart disease of [place] coronary artery with other forms of angina pectoris Category: Medical Code(s): I25.10 - Atherosclerotic heart disease of [place] coronary artery without angina pectoris (4) Chronic obstructive pulmonary disease Status: Chronic Qualifiers: COPD type: emphysema Emphysema type: unspecified Qualified Code(s): J43.9 - Emphysema, unspecified Category: Medical Code(s): J44.9 - Chronic obstructive pulmonary disease, unspecified
--- NOTE | 2020-05-13 11:38 | HMH.DCSUM ---
General - General Admission date:: 05/09/20 Discharge date: 05/13/20 HPI HPI: Patient was admitted to the hospital on May 08 and taken to the operating room for resection of a large left-sided bladder tumor. Due to the size of the tumor and possible risk for bleeding he was admitted overnight and continuous bladder irrigation running at a slow level as the urine was clear to pink. About 4 AM on postop day 1 he began having some abdominal and pelvic discomfort. Examination was notable for abdominal pain and distention. CT scan with cystogram was performed showing evidence of some fluid into the anterior pelvis but not into the peritoneal cavity. Due to the patient's discomfort he was taken to the operating room where abdominal and pelvic exploration was performed. There was large amount of fluid in the pelvic region that was evacuated. Exploration of the bladder was performed and instillation of methylene blue into the bladder through a Valenzuela catheter showed no obvious leak. There was some thinning of the anterior bladder wall. Cystotomy and closure with 2 layers of suture was performed for strengthening of the anterior bladder wall. He was transferred back to the floor postoperatively and the ALYSSA drain had minimal output during the ensuing hospital course. He began passing gas on postop day 3 and is diet was advanced to clear liquids and then on to full liquids. He was much more comfortable after the pelvic exploration. He was ambulating in the room on postop day 4. His hemoglobin was stable at 9.4 on postop day 4. Potassium was low on postop day 3 but had returned to normal with treatment on postop day 4. A KUB was obtained on May 13 and no ileus was noted. His ALYSSA drain was removed and discharge orders were made. I will see him back on May 25 for cystogram and removal of christopher and catheter at that time. His pathology from the TURBT showed high-grade superficial bladder cancer without evidence of invasion. Patient had some scrotal edema postoperatively and we discussed elevating his scrotum on the towel to allow the fluid to empty out of the scrotal sac. He is also to abstain from any strenuous activities. Prescriptions for cefdinir, [place] and Colace were given. Hospital Course Hospital Course: Due to the size of the tumor and possible risk for bleeding he was admitted overnight and continuous bladder irrigation running at a slow level as the urine was clear to pink. About 4 AM on postop day 1 he began having some abdominal and pelvic discomfort. Examination was notable for abdominal pain and distention. CT scan with cystogram was performed showing evidence of some fluid into the anterior pelvis but not into the peritoneal cavity. Due to the patient's discomfort he was taken to the operating room where abdominal and pelvic exploration was performed. There was large amount of fluid in the pelvic region that was evacuated. Exploration of the bladder was performed and instillation of methylene blue into the bladder through a Valenzuela catheter showed no obvious leak. There was some thinning of the anterior bladder wall. Cystotomy and closure with 2 layers of suture was performed for strengthening of the anterior bladder wall. He was transferred back to the floor postoperatively and the ALYSSA drain had minimal output during the ensuing hospital course. He began passing gas on postop day 3 and is diet was advanced to clear liquids and then on to full liquids. He was much more comfortable after the pelvic exploration. He was ambulating in the room on postop day 4. His hemoglobin was stable at 9.4 on postop day 4. Potassium was low on postop day 3 but had returned to normal with treatment on postop day 4. A KUB was obtained on May 13 and no ileus was noted. His ALYSSA drain was removed and discharge orders were made. I will see him back on May 25 for cystogram and removal of christopher and catheter at that time. His pathology from the TURBT
== END 2020-05-13 13:25 | disposition home or self-care (01) | DRG 654 ==
LOC: 2ND 11:53
PROVIDERS: Internal Medicine Adolescent Medicine; Admitting Provider Urology; PCP Internal Medicine; Visit Provider Urology
PROC: 0TBB8ZZ Excision of Bladder, Via Natural or Artificial Opening Endoscopic (ICD-10-PCS; CPT 52235; principal; 2020-05-08 10:45)
PROC: 0TQB0ZZ Repair Bladder, Open Approach (ICD-10-PCS; CPT 51865; principal; 2020-05-09 12:00)
DX: C67.4 Malignant neoplasm of posterior wall of bladder (principal); R39.0 Extravasation of urine; N99.89 Other postprocedural complications and disorders of genitourinary system; N32.9 Bladder disorder, unspecified; C67.5 Malignant neoplasm of bladder neck; I27.20 Pulmonary hypertension, unspecified; I25.10 Atherosclerotic heart disease of native coronary artery without angina pectoris; J44.9 Chronic obstructive pulmonary disease, unspecified; Z99.81 Dependence on supplemental oxygen; I10 Essential (primary) hypertension; Z95.0 Presence of cardiac pacemaker; Z95.1 Presence of aortocoronary bypass graft; Z79.51 Long term (current) use of inhaled steroids; Z79.899 Other long term (current) drug therapy; Z79.82 Long term (current) use of aspirin; Z87.891 Personal history of nicotine dependence
CPT/HCPCS: 52235; 51865; 36415; 74018; 74176; 80048; 80053; 80185; 85007; 85025; 86328; 87581; 87633; 87798; 88307; 94640; 94760; 94761; 96374; G0378; J0330; J2405; J2710; Q9967

== ENCOUNTER → 2020-05-20 15:07 | Outpatient (CLI) | payer MEDICARE, BC, SELFPAY ==
[2020-05-20 15:13] LABS: Microscopic, Urine URINE MICROSCOPIC (MICROSCOPIC)
[2020-05-20 15:30] LABS: Appearance,Urine CLEAR (Clear); Bilirubin,Urine Negative (Negative); Blood, Urine 3+ (Negative); Color,Urine YELLOW (Yellow); Glucose,Urine (UA) Negative (Negative); Ketones,Urine Negative (Negative); Leukocyte Esterase,Urine 2+ (Negative); Nitrate,Urine Negative (Negative); PH,Urine 6.5 (5.0-8.5); Protein,Urine 1+ (Negative); Urobilinogen,Urine 0.2 EU/dl (0.2)
[2020-05-20 15:35] LABS: Basophils % 0.2 % (0.1-2.0); Eosinophils % 0.1 % (0.1-12.0); Hematocrit 34.5 % (42.0-52.0); Hemoglobin 11.7 g/dL (14.1-18.0); Lymphocytes # 1.1 K/mm3 (0.7-4.5); Mean Corpuscular HGB Conc 33.8 g/dL (31.8-35.4); Mean Corpuscular Hemoglobin 29.2 pg (27.0-31.2); Mean Corpuscular Volume 86.4 fl (80-94); Monocytes # 0.4 K/mm3 (0.1-1.0); Monocytes % 2.2 % (1.7-9.3); Neutrophils # 16.9 K/mm3 (1.8-7.8); Neutrophils % 91.4 % (37.0-80.0); Platelet Count 411 K/mm3 (142-424); Red Blood Count 3.99 M/mm3 (4.60-6.20); Red Cell Distribution Width 15.7 % (11.5-17.5); White Blood Count 18.4 K/mm3 (4.8-10.8)
[2020-05-20 15:40] LABS: MANUAL DIFFERENTIAL MANUAL DIFFERENTIAL (MANUAL DIFF)
[2020-05-20 16:22] LABS: Chloride 97 mmol/L (98-107); Sodium 138 mmol/L (136-145)
[2020-05-20 16:26] LABS: Blood Urea Nitrogen 19 mg/dl (9-20); Calcium 9.2 mg/dl (8.4-10.2); Carbon Dioxide 33 mmol/L (22.0-30.0); Estimated Glomerular Filt Rate 65 ml/min (>60); GFR (African American) 79 ML/MIN (>60); Glucose 166 mg/dl (74-100)
[2020-05-20 17:03] LABS: Phenytoin (Dilantin) < 3.0 ug/ml (10-20)
[2020-05-20 17:32] LABS: Bacteria,Urine 1+ /lpf; Squamous Epithelial Cell,Urine Occasional #/hpf (0-5)
[2020-05-20 17:35] LABS: Lymphocytes % 8 % (10-50); Monocytes % 4 % (2-9); Neutrophils % 88 % (42-76); Platelet Estimate Normal; RBC Morphology Normal; Total Cells Counted 100
== END ==
PROVIDERS: Visit Provider Internal Medicine
DX: R30.0 Dysuria (principal); I10 Essential (primary) hypertension; G40.909 Epilepsy, unspecified, not intractable, without status epilepticus
CPT/HCPCS: 36415; 80048; 80185; 81001; 85007; 85025; 87086

== ENCOUNTER → 2020-05-28 13:23 | Outpatient (CLI) | payer MEDICARE, BC, SELFPAY ==
--- NOTE | 2020-05-28 13:23 | FL_ITS ---
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 A Valenzuela catheter is in place. There is extensive vascular calcification. Abdominal aortic aneurysm is noted measuring 6 cm on the AP view. Sister graft was instilled into the pre-existing Valenzuela catheter. The patient was only able to tolerate approximately 50 mL of contrast infusion without prominent pain. Reflux was noted into the distal ureters. There was no evidence of contrast extravasation. Post drainage image shows no evidence of contrast extravasation. There is trabeculation of the urinary bladder. IMPRESSION: 1. No evidence of contrast extravasation. 2. Trabeculated urinary bladder with bilateral ureteral reflux. Dictated by: Jamarcus Iraheta MD 05/28/2020 14:13 Jamarcus Iraheta MD in [facility] 05/28/2020 14:13
== END ==
PROVIDERS: PCP Internal Medicine; Visit Provider Urology
DX: N32.89 Other specified disorders of bladder (principal); C67.9 Malignant neoplasm of bladder, unspecified
CPT/HCPCS: 74430

== ENCOUNTER 2020-06-26 13:25 | Day surgery (SDC) | payer MEDICARE, BC, SELFPAY ==
[2020-06-26 13:54] VITALS: BP 129/86; PULSE 91; RESP 18; TEMP 36.5; O2SAT 98; BMI 21.3
[2020-06-26 14:16] VITALS: BP 149/78; PULSE 74; RESP 18; O2SAT 98
[2020-06-26 14:17] VITALS: BP 148/89; PULSE 74; RESP 18
--- NOTE | 2020-06-26 14:17 | HMH.PMPROC ---
- Procedure Date: 06/26/20 Time: 14:17 Anesthesiologist:: Alberto Husain MD Complications:: None Pre-procedure Diagnosis:: Mid back pain myofascial in origin Post-procedure Diagnosis:: Same Indications for Procedure:: The patient is a pleasant 74-year-old white male who we have been treating for bilateral hip pain. His hips are doing much better. He now has some new onset of mid back pain. Trigger points are identified in the right thoracic paraspinous muscles adjacent to the medial border of the scapula. We will plan on doing trigger point injections today to help with his pain symptoms. Procedure Details:: Trigger point injections x4 Informed consent was obtained and the risk and benefits of the procedure were explained to the patient. Patient was taken the procedure room. Back was prepped using ChloraPrep. Points were palpated marked. Each of these trigger points were injected with bupivacaine 0.25% and Depo-Medrol 10 mg. A total of 4 trigger points were injected using 40 mg Depo-Medrol. Patient tolerated the procedure well with no complications. Plan and Disposition:: We will follow-up with him in 2 weeks. Will reevaluate symptoms at that time.
[2020-06-26 14:33] VITALS: BP 139/88; PULSE 88; RESP 20; O2SAT 98
== END 2020-06-26 14:34 | disposition home or self-care (01) ==
LOC: SC.PAINP 13:59
PROVIDERS: PCP Internal Medicine; Visit Provider Anesthesiology
DX: M79.18 Myalgia, other site (principal); I10 Essential (primary) hypertension; J44.9 Chronic obstructive pulmonary disease, unspecified; Z99.81 Dependence on supplemental oxygen; I25.10 Atherosclerotic heart disease of native coronary artery without angina pectoris; E78.5 Hyperlipidemia, unspecified; I25.2 Old myocardial infarction; K21.9 Gastro-esophageal reflux disease without esophagitis; N28.9 Disorder of kidney and ureter, unspecified; Z95.818 Presence of other cardiac implants and grafts; Z79.899 Other long term (current) drug therapy
CPT/HCPCS: 20552; J1040

== ENCOUNTER → 2020-07-03 15:05 | Outpatient (CLI) | payer MEDICARE, BC, SELFPAY ==
--- NOTE | 2020-07-03 15:09 | XR_ITS ---
PROCEDURE: XR THORACIC SPINE 3V CLINICAL INDICATION: THORACIC BACK PAIN COMPARISON: CR TSP2 THORACIC SPINE AP LAT-2VIEW from 09/12/[address] ABDOMEN PELVIS WO CON from 05/09/2020 FINDINGS: Multilevel degenerative changes of the visualized thoracic spine. Wedge compression deformities of multiple midthoracic vertebral bodies are noted, worsened compared to the prior study. Generalized osteopenia is noted. Endplate sclerosis, and multilevel facet joint arthropathy is noted. Median sternotomy and mediastinal clips are noted. Redundant pacemaker wires are noted. Paravertebral soft tissues are otherwise unremarkable. IMPRESSION: Degenerative changes of the thoracic spine. Compression deformities of multiple vertebral bodies, some of which new compared to the prior study of September 12, 2014. Dictated by: An Burgess 07/03/2020 16:00 An Burgess in [facility] 07/03/2020 16:00
== END ==
PROVIDERS: PCP Internal Medicine; Visit Provider Internal Medicine
DX: M54.6 Pain in thoracic spine (principal)
CPT/HCPCS: 72072

== ENCOUNTER → 2020-07-16 13:50 | Outpatient (CLI) | payer MEDICARE, BC, SELFPAY ==
--- NOTE | 2020-07-16 14:11 | MR_ITS ---
PROCEDURE: MR THORACIC SPINE WO CON CLINICAL INDICATION: BACK PAIN Pain around rt shoulder blade. No trauma or surgery. Symptoms x4wks. Prior x-ray 07/03/20. COMPARISON: CR XR THORACIC SPINE 3V from 07/03/2020 TECHNIQUE: Routine multiplanar multi echo sequences are performed without gadolinium enhancement. FINDINGS: There is normal alignment. Multiple wedge compression deformities are present at T4, T5, T6, T7, T8, and L1. Decreased T1 and increased T2 signal involves the T4 vertebral body in the superior endplate of T5. There is loss of height centrally and anteriorly of T4 of approximately 40 percent and approximately 20 percent wedge compression changes of T5 and 40-50 percent wedge compression changes of T6. Greater than 50 percent wedge compression change of T7 and approximately 30 percent wedge compression changes T8 and 50 percent wedge compression changes of L1. The compression fractures at L1, T8, and T7 appear chronic. The wedge compression changes of T4 appears acute with increased T2 signal of the entire vertebral body. Superior endplate compression changes of T5 also appears acute with increased T2 signal superiorly. Compression changes at T6 appear chronic. No retropulsion at T4 T5 or T6. There is minimal retropulsion of the posterior aspect of T7 by approximately 3 mm and minimal retropulsion of the inferior endplate of T8 by 3 mm. These are without cord compression. There is a minimal right paracentral disc protrusion at T5-T6, minimal left paracentral disc protrusion at T6-T7 and borderline canal stenosis at T8-T9. Minimal left paracentral disc protrusion at T9-T10. Posterior central bony bridging noted at L1-L2 without impingement. IMPRESSION: Abnormal MRI of the thoracic spine. Multiple wedge compression changes are present and detailed above. Acute or subacute wedge compression changes noted at T4 and the superior endplate of T5 without retropulsion. Please see above for detailed description at multiple levels. Dictated by: Jamarcus Iraheta MD 07/17/2020 11:03 Jamarcus Iraheta MD in [place] 07/17/2020 11:03
== END ==
PROVIDERS: PCP Internal Medicine; Visit Provider Clinical Nurse Specialist Family Health
DX: R31.9 Hematuria, unspecified (principal); Z01.812 Encounter for preprocedural laboratory examination; Z20.822 Contact with and (suspected) exposure to COVID-19; M54.6 Pain in thoracic spine
CPT/HCPCS: 72146; U0003

== ENCOUNTER 2020-07-17 08:57 | Day surgery (SDC) | payer MEDICARE, BC, SELFPAY ==
[2020-07-15 13:05] VITALS: BMI 22.2
[2020-07-17 09:19] VITALS: BP 117/78; PULSE 65; RESP 16; TEMP 36.3; O2SAT 98
[2020-07-17 10:55] VITALS: BP 126/77; PULSE 81; RESP 18; TEMP 36.2; O2SAT 98
--- NOTE | 2020-07-17 12:49 | SUR.OPER ---
dermabond/telfa and tegaderm placed on pt for dressing.
--- NOTE | 2020-07-17 12:58 | SUR.OPER ---
1 hypo 2 blades 10 raytecs 2 suture Count performed and verified twice per Sulaiman TEE and Yobani
--- NOTE | 2020-07-17 14:20 | HMH.OPNOTE ---
Date of procedure: 07/17/20 Pre-op Diagnosis:: Abdominal stitch irritation Post-op Diagnosis:: Same Procedure performed:: Abdominal skin incision with revision of fascial knot/stitch Surgeon:: Allen Saxena MD Anesthesia: local Estimated blood loss (mL): 2 Clinical Note:: Patient is 75-year-old white male with history of bladder cancer. He underwent a pelvic exploration few months ago for extraperitoneal extravasation. His fascial layer was closed with a nonabsorbing Prolene he is having some stitch irritation at the superior end of the midline abdominal incision. He presents for revision. Operative findings:: The end of the stitch emanating from the 9 at the superior end of the incision is creating some irritation. The stitch was identified and cut shorter and the soft tissue around the knot was freed up and the knot was covered in the incision closed Operative note:: Patient taken to the treatment room and on the stretcher he was prepped and draped in the standard surgical fashion. Local anesthetic was placed at the superior end of the previous incision. The end of the stitch was palpable and poking anteriorly at the skin. An incision was made after adequate anesthesia. The knot was located and the end of the stitch was cut shorter. The soft tissue around the knot was freed up and brought together over the not to bury it. Hemostasis achieved and the subcutaneous layer was brought together with a 4-0 Monocryl in the skin was closed with a 4-0 Vicryl in a subcuticular fashion. Dermabond was applied afterwards and a sterile dressing applied. Patient tolerated well. Condition: stable Disposition: same day Specimens:: None Complications:: None
== END 2020-07-17 11:05 | disposition home or self-care (01) ==
LOC: OUTP 08:58
PROVIDERS: PCP Internal Medicine; Visit Provider Urology
DX: T83.84XA Pain due to genitourinary prosthetic devices, implants and grafts, initial encounter; G89.18 Other acute postprocedural pain; Z85.51 Personal history of malignant neoplasm of bladder; J44.9 Chronic obstructive pulmonary disease, unspecified; I25.10 Atherosclerotic heart disease of native coronary artery without angina pectoris; E78.5 Hyperlipidemia, unspecified; I10 Essential (primary) hypertension; I25.2 Old myocardial infarction; I72.9 Aneurysm of unspecified site; M19.90 Unspecified osteoarthritis, unspecified site; Z99.81 Dependence on supplemental oxygen; Z79.899 Other long term (current) drug therapy
CPT/HCPCS: 10121

== ENCOUNTER → 2020-07-23 12:55 | Outpatient (POV) | payer MEDICARE, BC, SELFPAY ==
[2020-07-23 13:06] VITALS: BP 153/80; PULSE 88; RESP 20; O2SAT 98; BMI 21.3
--- NOTE | 2020-07-23 14:26 | HMH.PAINSOAP ---
[facility] Pain Management SOAP Note Subjective:: Patient is a pleasant 75-year-old white male who presents today for MRI follow-up. Patient recently underwent trigger point injections x4 to his thoracic spine for myofascial pain. Patient says his pain has continued to worsen to the point he is unable to stand or walk for more than 2 to 3 minutes without having severe pain. He says at nighttime his pain is much worse when he is flat. He is on chronic home O2. He has had chronic steroid use over the years. Patient's MRI does report the patient to have multiple wedge compression deformities present at T4, T5, T6, T7, T8, and L1. According to the patient's MRI he does have an acute compression fracture at T4-T5. He is currently wearing a brace which he says is not giving him much relief. He does rate his pain an 8 out of 10 today. He is limited with mobility due to his pain. He is accompanied by his daughter today. Review of Systems General: No recent weight changes, no fever, no sleep disturbances Respiratory: No cough, chronic shortness of air, home O2, no recurring pulmonary infections Cardiovascular/peripheral vascular: No chest pain, no palpitations, no edema, chronic shortness of air Gastrointestinal: No new onset incontinence, normal bowel movements reported Genitourinary: No new onset incontinence Musculoskeletal: Had back pain worse with movement Psychiatric: Normal mood/affect Neurological: [Denies weakness in extremities], [denies balance issues] Objective:: Physical exam General: Alert and oriented x3, no acute distress, pleasant and cooperative, chronic oxygen?home O2 Lungs: Respirations even and unlabored, symmetrical chest expansion Eyes: PERRL Musculoskeletal: Flexion and extension of thoracic spine somewhat guarded secondary to pain, deep tendon reflexes normal, strength in upper and lower extremities [5/5], [abnormal gait noted] Neurological: Speech clear, yardage caller equal, no gross sensory deficit Assessment:: Compression fracture acute T4-T5 Plan:: Patient has multiple compression fracture history, per MRI report. It is noted per the report that the patient does have a T4-T5 compression fracture at this time. I did discuss the MRI with Dr. VIRY Nolasco. The patient would like to send the patient to Dr. Villar for surgical evaluation. We will order the patient tramadol 50 mg 1 tablet p.o. 4 times daily as needed pain. We will see him back in the clinic after his surgical evaluation. Risks and benefits of the medication have been explained in detail to the patient. The patient has been advised to consult with his/her primary care provider and pharmacist regarding drug-drug interaction of medications currently prescribed. Patient has been instructed to contact the clinic with any concerns before the next appointment. Dr. Husain has reviewed this note and agrees with this plan of care. This note was dictated using voice recognition software and make contain errors or omissions. Patient has been prescribed a controlled substance after being counseled on the medication, medication safety, and possible side effects. MONSERRAT report has been obtained and reviewed prior to prescription and found to be appropriate. Opioid contract was reviewed and signed by the patient, and that they have agreed to all of the terms set forth by our compliance program. [facility] History I have reviewed the patient's past medical history: Yes Medical History: Reports:: Aneurysm, Asthma, Cancer (bladder), Chronic Obstructive Pulmonary Disease (COPD), Coronary Artery Disease, Home Oxygen, Hyperlipidemia, Hypertension, Myocardial Infarction Denies:: Diabetes Mellitus Type 1, Diabetes Mellitus Type 2, Internal Pacemaker, MRSA, Seizures *Have you ever received a pneumonia vaccine?: Yes *Have you received a flu vaccine this season?: Yes Other Medical History: Reports: Arthritis, Cataracts, Other. Denies: Blood Transfusion Reaction Laterality Cases: Left: Arthr
== END ==
PROVIDERS: PCP Internal Medicine; Visit Provider Clinical Nurse Specialist Family Health
DX: M48.54XA Collapsed vertebra, not elsewhere classified, thoracic region, initial encounter for fracture
CPT/HCPCS: 99212; G0463

== ENCOUNTER 2020-08-04 22:22 | Emergency (ER) | payer MEDICARE, BC, SELFPAY ==
[2020-08-04 22:23] VITALS: BP 128/91; PULSE 92; RESP 22; TEMP 36.6; O2SAT 98; BMI 21.6
--- NOTE | 2020-08-04 23:10 | HMH.EDWNDL ---
ED Disposition Clinical Impression: Laceration of lower leg Qualifiers: Encounter type: initial encounter Laterality: left Qualified Code(s): S81.812A - Laceration without foreign body, left lower leg, initial encounter Disposition: Home, Self-Care Condition on Discharge: Good Instructions: DI for Laceration Repair Additional Instructions: sutures out 12 days and recheck if needed Referrals: Ham Weldon [Primary Care Provider] - - Critical Care Critical Care Time: No Attestation: On 08/04/20, the high probability of a clinically significant, sudden or life threatening deterioration of the following system(s) required my full and direct attention, intervention and personal management. The time I documented below is in addition to time spent performing reported procedures but includes the following listed in this critical care notation. Medical Decision Making - Medical Records Medical records reviewed: Yes: I reviewed the patient's medical records. - Jermain Inquiry Pt receiving controlled substance: No Vital Signs: 08/04/20 22:23 Temperature 97.8 F Temperature Source Oral Pulse Rate [Right] 92 H Respiratory Rate 22 Blood Pressure [Right Arm] 128/91 H Blood Pressure Mean [Right Arm] 103 02 Sat by Pulse Oximetry 98 Oxygen Delivery Method Nasal Cannula Oxygen Flow Rate (LPM) 2 Orders (Tests/Meds): ED MEDICATIONS Discontinued Medications Generic Name Dose Route Start Last Admin Trade Name Freq PRN Reason Stop Dose Admin Tetanus/Diphtheria Toxoids 0.5 ml 08/04/20 23:07 08/04/20 23:12 Tetanus-Diphth Toxoid, Adult 0.5ml Syr IM 08/04/20 23:08 Not Given .ONCE ONE Tetanus/Reduced Diphtheria/Acell Pertussis 0.5 ml 08/04/20 23:11 08/04/20 23:16 Tet/Diphth/Pert-Adult 0.5ml Syringe IM 08/04/20 23:12 0.5 ml .ONCE ONE Administration Wound/Laceration HPI - General Chief Complaint: Wound/Laceration Stated Complaint: AO 08/04/20 2200 laceration left leg Time Seen by Provider: 08/04/20 23:10 Mode of Arrival: Family Vehicle Source of Information: Patient, Relative, Medical Record Limitations: No Limitations Description of Symptoms (Recalled from ER Triage Doc. by RN): Pt c/o laceration to outside of LLE. He reports he bumped his left leg into a trunk (large wooden tote) this evening. Pt's jeans were covering his leg when the accident occured. His daughter wrapped leg in a clean towel d/t the amount of bleeding. Pt states he takes a daily low dose ASA. Pt states his last tetanus was about 1 yr ago. - History of Present Illness HPI narrative: lac to lt lower leg tonight Onset (ago): hour(s) Extremity Location: Left: lower leg Place: home Patient tetanus UTD: Yes Context: accidental Associated symptoms: none - Related Data Home Medications Medication Instructions Recorded Confirmed aspirin 81 mg tablet,delayed 81 mg PO DAILY tab 05/16/17 08/04/20 release ferrous sulfate 325 mg (65 mg 325 mg PO BID tab 05/16/17 08/04/20 iron) tablet fluticasone propionate 50 1 spray INTRANASAL BID PRN 05/16/17 08/04/20 mcg/actuation nasal spray,suspension nitroglycerin 0.4 mg sublingual 0.4 mg SUBLINGUAL Q5M PRN 05/16/17 08/04/20 tablet trazodone 50 mg tablet 50 mg PO HSP PRN 05/16/17 08/04/20 alendronate 70 mg tablet 70 mg PO WEEKLY 09/18/18 08/04/20 metoprolol tartrate 25 mg tablet 25 mg PO BID 09/18/18 08/04/20 potassium chloride 10 mEq 20 meq PO DAILY cap 09/18/18 08/04/20 capsule,extended release predniSONE [Prednisone 20mg 20 mg PO DAILY 01/03/19 08/04/20 Tab] diltiazem HCl 240 mg 240 mg PO DAILY cap 06/18/19 08/04/20 capsule,extended release 24 hr meclizine 12.5 mg tablet 6.25 - 12.5 mg PO TIDP PRN 06/18/19 08/04/20 furosemide 40 mg tablet 40 mg PO DAILY tab 10/10/19 08/04/20 Tiotropium [place] [Spiriva 1 cap INHALATION DAILY 05/07/20 08/04/20 18mcg/puff inhaler] Albuterol Sulfate [Albuterol 2 puff IH QID 05/08/20 08/04/20 Sulfate Hfa] F
--- NOTE | 2020-08-04 23:12 | PC.NURSE ---
Dr. Castro at bedside to repair LAC site.
[2020-08-04 23:57] VITALS: BP 129/89; PULSE 91; RESP 21; TEMP 36.6; O2SAT 98
== END 2020-08-05 00:11 | disposition home or self-care (01) ==
PROVIDERS: Emergency Provider Emergency Medicine; PCP Internal Medicine
DX: S81.812A Laceration without foreign body, left lower leg, initial encounter (principal); W22.8XXA Striking against or struck by other objects, initial encounter; Y92.89 Other specified places as the place of occurrence of the external cause; J44.9 Chronic obstructive pulmonary disease, unspecified; I25.10 Atherosclerotic heart disease of native coronary artery without angina pectoris; Z23 Encounter for immunization; I10 Essential (primary) hypertension; E78.5 Hyperlipidemia, unspecified; I25.2 Old myocardial infarction
CPT/HCPCS: 12004; 90471; 90715; 99282

== ENCOUNTER → 2020-09-03 18:33 | Outpatient (CLI) | payer MEDICARE, BC, SELFPAY | PROVIDERS: Visit Provider Urology | DX: C67.9 Malignant neoplasm of bladder, unspecified (principal); Z01.812 Encounter for preprocedural laboratory examination; Z20.822 Contact with and (suspected) exposure to COVID-19 | CPT/HCPCS: U0003 ==

== ENCOUNTER 2020-09-04 09:01 | Day surgery (SDC) | payer MEDICARE, BC, SELFPAY ==
[2020-09-02 12:34] VITALS: BMI 22.2
[2020-09-04 09:18] VITALS: BP 125/78; PULSE 88; RESP 20; TEMP 36.9; O2SAT 98
[2020-09-04 09:50] VITALS: BP 129/75; PULSE 94; RESP 18; TEMP 37; O2SAT 98
[2020-09-04 09:55] VITALS: BP 129/75; PULSE 94; RESP 18; O2SAT 98
--- NOTE | 2020-09-04 10:50 | HMH.OPNOTE ---
Date of procedure: 09/04/20 Pre-op Diagnosis:: History of bladder cancer Post-op Diagnosis:: History of bladder cancer without recurrence today Procedure performed:: Surveillance cystoscopy Surgeon:: Allen Saxena MD Anesthesia: local Estimated blood loss (mL): 0 Clinical Note:: 75-year-old white male with a history of bladder cancer returns for surveillance cystoscopy today. He denies any gross hematuria in the interim. Operative findings:: No evidence of recurrent bladder tumors today. Operative note:: Patient was taken to the cystoscopy suite after informed consent was obtained. On the stretcher he was prepped and draped in the standard surgical fashion and 2% lidocaine placed into the urethra and clamped for 5 minutes. After 5 minutes the flexible cystoscope introduced into the urethral meatus and passed to the prostatic urethra which showed no evidence of obstruction. The bladder was entered and examined in a systematic fashion. There is no evidence of recurrent bladder tumors. There is no evidence of any cellule or diverticular formation. The ureteral orifices in their normal anatomic position with clear efflux of urine. The scope was retroflexed showing a small median lobe. Scope removed the patient tolerated the procedure well and there are no complications. We discussed the findings today and we will see him back in 4 months with repeat cystoscopy. Condition: stable Disposition: same day Specimens:: None Complications:: None
== END 2020-09-04 09:55 | disposition home or self-care (01) ==
LOC: OUTP 09:02
PROVIDERS: PCP Internal Medicine; Visit Provider Urology
DX: Z08 Encounter for follow-up examination after completed treatment for malignant neoplasm (principal); Z85.51 Personal history of malignant neoplasm of bladder; Z90.6 Acquired absence of other parts of urinary tract; E78.5 Hyperlipidemia, unspecified; J44.9 Chronic obstructive pulmonary disease, unspecified; I42.9 Cardiomyopathy, unspecified; I73.9 Peripheral vascular disease, unspecified; I25.10 Atherosclerotic heart disease of native coronary artery without angina pectoris; Z95.1 Presence of aortocoronary bypass graft; Z87.891 Personal history of nicotine dependence; Z79.82 Long term (current) use of aspirin; Z79.899 Other long term (current) drug therapy
CPT/HCPCS: 52000

== ENCOUNTER → 2020-10-05 21:00 | Outpatient (CLI) | payer MEDICARE, BC, SELFPAY ==
[2020-10-05 21:39] LABS: Anion Gap 20.9 mEq/L (5-15); Blood Urea Nitrogen 29 mg/dl (9-20); Calcium 8.3 mg/dl (8.4-10.2); Carbon Dioxide 27 mmol/L (22.0-30.0); Chloride 82 mmol/L (98-107); Estimated Glomerular Filt Rate 59 ml/min (>60); GFR (African American) 71 ML/MIN (>60); Potassium 4.9 mmoL/L (3.5-5.1); Sodium 125 mmol/L (136-145)
[2020-10-05 23:41] LABS: Glucose 574 mg/dl (74-100)
== END ==
PROVIDERS: Visit Provider Internal Medicine
DX: I25.10 Atherosclerotic heart disease of native coronary artery without angina pectoris (principal); J44.9 Chronic obstructive pulmonary disease, unspecified; R60.9 Edema, unspecified
CPT/HCPCS: 80048

== ENCOUNTER 2020-10-27 13:53 | Inpatient (IN) | payer MEDICARE, BC, SELFPAY ==
--- NOTE | 2020-10-27 13:53 | ECG_ITS ---
APPROVED REPORT Exam: Resting ECG HR:99 bpm ECG Measurements Heart Rate 99 AXES SD 130 P 8 QRSd 72 QRS 86 QT 300 T 46 QTc 385 Conclusion Sinus rhythm with fusion complexes Otherwise normal ECG Electronically signed by : Danielito Golden MD 10/30/2020 10:57:23
[2020-10-27 13:55] VITALS: BP 147/87; PULSE 103; RESP 32; TEMP 36.8; O2SAT 100; BMI 22.2
--- NOTE | 2020-10-27 13:59 | HMH.EDCP ---
ED Disposition Clinical Impression: Chest pain Qualifiers: Chest pain type: chest pain on breathing Qualified Code(s): R07.1 - Chest pain on breathing Leucocytosis Qualifiers: Leukocytosis type: unspecified Qualified Code(s): D72.829 - Elevated white blood cell count, unspecified Disposition: Admitted as Observation Condition on Discharge: Fair - Critical Care Critical Care Time: No Attestation: On , the high probability of a clinically significant, sudden or life threatening deterioration of the following system(s) required my full and direct attention, intervention and personal management. The time I documented below is in addition to time spent performing reported procedures but includes the following listed in this critical care notation. Medical Decision Making - Medical Records Medical records reviewed: Yes: I reviewed the patient's medical records. - Jermain Inquiry Pt receiving controlled substance: No Vital Signs: 10/27/20 13:55 Temperature 98.3 F Temperature Source Oral Pulse Rate [Right] 103 H Respiratory Rate 32 H Blood Pressure [Right Arm] 147/87 H Blood Pressure Mean [Right Arm] 107 02 Sat by Pulse Oximetry 100 Oxygen Delivery Method Nasal Cannula Oxygen Flow Rate (LPM) 2 - Lab Data Lab results reviewed: Yes: I reviewed the patient's lab results. Lab Results 10/27/20 14:00: WBC 30.3 H*, RBC 4.59 L, Hgb 13.1 L, Hct 39.9 L, MCV 86.9, MCH 28.7, MCHC 33.0, RDW 16.5, Plt Count 286, MPV 7.4, Neut % (Auto) 91.9 H, Lymph % (Auto) 4.4 L, [place] % (Auto) 3.2, Eos % (Auto) 0.1, Baso % (Auto) 0.4, Neut # (Auto) 27.9 H, Lymph # (Auto) 1.4, [place] # (Auto) 1.0, Eos # (Auto) 0.0, Baso # (Auto) 0.1, Total Counted 100, Neutrophils % (Manual) 96 H, Lymphocytes % (Manual) 2 L, Monocytes % (Manual) 2, Platelet Estimate Normal, Anisocytosis 1+, Microcytosis 1+ 10/27/20 14:00: Sodium 120 L, Potassium 5.7 H, Chloride 85 L, Carbon Dioxide 28, Anion Gap 12.7, BUN 36 H, Creatinine 1.00, Estimated Creat Clear 57, Estimated GFR 73, Est GFR ( Amer) 88, Glucose 306 H, Calcium 8.9, Total Bilirubin 0.8, AST 24, ALT 26, Alkaline Phosphatase 150 H, Troponin I < 0.01, Total Protein 6.0 L, Albumin 3.4 L, Globulin 2.6, Albumin/Globulin Ratio 1.3 Result diagrams: 10/27/20 14:00 10/27/20 14:00 Orders (Tests/Meds): ED MEDICATIONS Discontinued Medications Generic Name Dose Route Start Last Admin Trade Name Blanka PRN Reason Stop Dose Admin Aspirin 324 mg 10/27/20 15:08 Aspirin 81mg Chewable Tablet PO 10/27/20 15:09 ONCE ONE ORDERS Category Date Time Status Troponin I Q3H Lab 10/27/20 17:15 Ordered ECG Request by /Aramis Stat Y 10/27/20 14:06 Ordered - ECG Data Tracing #1 I reviewed this ECG and interpreted as documented below: The patient had an EKG performed at 1350 4 PM. It shows a sinus rhythm with a rate of 99 bpm there is significant artifact present. There is no evidence of ischemia and/or dysrhythmia. - Physician Consults Physician Consulted: Whitney Time: 15:16 Reason -: Admission Comment/Response: Whitney has agreed to admit the patient to his service. He has requested cardiology consult. - Reevaluation(s) Time: 15:26 Reevaluation #1: The cardiology nurse practitioner is currently at the bedside evaluating the patient - ROSA Score for Non-Stemi Age of Patient: 70-79 years old Heart Rate: 90-109 bpm Systolic Blood Pressure: 140-159 mmHg Serum Creatinine: 0.80-1.19 mg/dl CHF Killip Class: I-No CHF Other Risk Factors: None Non-Stemi Risk Score: 121 Medical Decision Narrative: The patient presented to the emergency department today complaining of pleuritic right-sided chest pain. The patient's work-up in the emergency department revealed that he has an elevated white blood cell count of 30,000. I have reviewed prior records and it shows that the patient's last elevated white blood cell count was 18,000. This is worrisome for possible leukemia or infection. However,
[2020-10-27 14:06] VITALS: BMI 22.2
--- NOTE | 2020-10-27 14:06 | XR_ITS ---
PROCEDURE: XR CHEST PORTABLE CLINICAL HISTORY: CP Chest pain COMPARISON: CR CXR1VP XR chest portable from 08/06/2017 CR XR CHEST 2V from 02/13/2019 CR XR CHEST 2V from 02/15/[address] CHEST WO CON from 04/10/2020 FINDINGS: Prior CABG. COPD. Minimal fibrotic change in the lung base on the left. Clips noted over the left apex. Degenerative changes of the shoulders. Old left 7th and 8th rib fractures. Old right 8th rib fracture. No acute bony abnormalities. IMPRESSION: No acute findings. Dictated by: Jamarcus Iraheta MD 10/27/2020 14:15 Jamarcus Iraheta MD in [place] 10/27/2020 14:15
--- NOTE | 2020-10-27 14:09 | PC.NURSE ---
XR AT BEDSIDE.
[2020-10-27 14:20] LABS: Chloride 85 mmol/L (98-107); Potassium 5.7 mmoL/L (3.5-5.1); Sodium 120 mmol/L (136-145)
[2020-10-27 14:21] LABS: Basophils # 0.1 K/mm3 (0-0.2); Basophils % 0.4 % (0.1-2.0); Eosinophils % 0.1 % (0.1-12.0); Hematocrit 39.9 % (42.0-52.0); Hemoglobin 13.1 g/dL (14.1-18.0); Lymphocytes # 1.4 K/mm3 (0.7-4.5); Lymphocytes % 4.4 % (10-50); Mean Corpuscular Hemoglobin 28.7 pg (27.0-31.2); Mean Corpuscular Volume 86.9 fl (80-94); Mean Platelet Volume 7.4 fl (7.4-10.4); Monocytes % 3.2 % (1.7-9.3); Neutrophils # 27.9 K/mm3 (1.8-7.8); Neutrophils % 91.9 % (37.0-80.0); Platelet Count 286 K/mm3 (142-424); Red Blood Count 4.59 M/mm3 (4.60-6.20); Red Cell Distribution Width 16.5 % (11.5-17.5); White Blood Count 30.3 K/mm3 (4.8-10.8)
[2020-10-27 14:22] LABS: MANUAL DIFFERENTIAL MANUAL DIFFERENTIAL (MANUAL DIFF)
[2020-10-27 14:23] LABS: Alanine Aminotransferase 26 U/L (12-78); Albumin Level 3.4 g/dl (3.5-5.0); Albumin/Globulin Ratio 1.3 (1.1-1.8); Alkaline Phosphatase 150 U/L (38-126); Anion Gap 12.7 mEq/L (5-15); Aspartate Amino Transferase 24 U/L (17-59); Bilirubin,Total 0.8 mg/dl (0.2-1.3); Blood Urea Nitrogen 36 mg/dl (9-20); Calcium 8.9 mg/dl (8.4-10.2); Carbon Dioxide 28 mmol/L (22.0-30.0); Creatinine Clearance Estimated 57 mL/min (50-200); Estimated Glomerular Filt Rate 73 ml/min (>60); GFR (African American) 88 ML/MIN (>60); Globulin 2.6 g/dL (1.3-3.2); Glucose 306 mg/dl (74-100)
[2020-10-27 14:37] LABS: Anisocytosis 1+; Lymphocytes % 2 % (10-50); Microcytosis 1+; Monocytes % 2 % (2-9); Neutrophils % 96 % (42-76); Platelet Estimate Normal; Total Cells Counted 100
[2020-10-27 14:42] LABS: Troponin I < 0.01 ng/ml (0.00-0.034)
--- NOTE | 2020-10-27 15:33 | HMH.CNCARD ---
History of Present Illness Consult date: 10/27/20 Requesting physician: Surekha Covington Consult reason: chest pain, shortness of breath Chief complaint: chest pain History of present illness: 75-year-old male presented to ED with worsening shortness of breath and right-sided chest wall pain. Patient states the worsening shortness of breath and right-sided chest wall pain began a few days ago. Patient is on supplemental oxygen at 2 L continuously due to COPD. Patient states he just has not felt like doing his daily activities such as bathing due to weakness in the right sided chest pain. Patient states since arriving to the emergency room his shortness of breath has improved. Patient does complain of a productive cough with describing his sputum as green. Patient does deny fever or nausea. Patient is known to be a heavy smoker of 1 to 2 packs of cigarettes per day. Patient states he has smoked most of his life. Patient is noncompliant with medications. Patient does have history of coronary artery disease. History of CABG and April 2018. Last heart catheterization was in June 2019 which revealed severely diffusely diseased LAD with patent small BROOKS graft, mild pulmonary hypertension and mildly elevated left-sided filling pressures. At that time it was felt that he could have an organized thrombosis in his apex, this was later ruled out by limited echocardiogram which revealed no thrombosis and no pericardial effusion noted. Echocardiogram from June 2019 did reveal EF 45% with segmental wall motion abnormality. Patient denies swelling of the lower extremities. EKG reveals sinus rhythm with a heart rate of 99 bpm. Chest x-ray revealed no acute findings. Lab work did reveal WBCs greater than 30,000. Serial troponins have been drawn. Troponin x1 was negative. Patient noted to have hyperkalemia. This is being managed by PCP. 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 Mid abdominal aneurysm noted at 4.5 cm. This is being monitored by PCP. Patient of has history of PAD. Patient does have chronic claudication. Patient is currently on pain medications which is managed by pain management. Patient also is currently being treated by urology for possible bladder mass. CXR:Prior CABG.(11/10) COPD. Minimal fibrotic change in the lung base on the left. Clips noted over the left apex. Degenerative changes of the shoulders. Old left 7th and 8th rib fractures. Old right 8th rib fracture. No acute bony abnormalities. IMPRESSIONNo acute findings. [facility] IMPRESSION (06/2019) Severely diffusely diseased LAD with a patent small BROOKS graft Patent saphenous vein graft to a a small caliber posterior descending artery Coronary disease as described above Mid anterior apical and inferoapical akinesis with angiographic suggestion of a organized thrombus in the apex Mild pulmonary hypertension Mildly elevated left-sided filling pressures PLAN 1. Medical management for coronary disease. Nothing surgical nor percutaneous can improve patient's coronary artery status. 2. Echocardiogram and possibly CAROLYN to better determine if the thrombus is present in the apex. By LV gram it suggests this is organized and probably not in need of anticoagulation. A CAROLYN may provide better clarity 3. Standard therapy for systolic heart failure 4. Standard therapy for ischemic heart disease Echo:Conclusion (07/09) 1. Limited study performed. 2. Normal left ventricular size, mild concentric left ventricular hypertrophy, visually estimated ejection fraction approximately 45% with segmental wall motion abnormalities as described above, Definity contrast was utilized to delineate the endocardial surfaces, there is no left ventricular thrombus seen. 3. No significant pericardial effusion noted. Discussed plan of care with Dr. Velazquez. Orders and recommendations were received from Dr. Velazquez. Echocardiogram to
--- NOTE | 2020-10-27 16:00 | CA_ITS ---
APPROVED REPORT EXAM: Comprehensive 2D, Doppler, and color-flow Echocardiogram Weigher Operator: Janee Maharaj RDCS Ht: 5 ft 6 in Wt: 138lbs BSA: 1.71 BP: 147/87 mmHg Indications: CP, CAD, CABG, Known ef40-45% with LVH, Hx-wall motion abnormalities. Echo Enhancing Agent Comments: Technically limited due to body habitus and overlying lung structure. 2D Dimensions IVSd 1.01 cm M: 0.6-1.2 LVEF (Visual) 40.00 % PWd 1.26 cm M: 0.6 - 1.2 LA Volume 27.60 mL LVDd 3.80 cm M: 4.2 - 5.9 LA Volume Index [id number] mL/m2 (M/F) 16-34 LVDs 2.60 cm M: 2.5 - 4.0 Aortic Root 2.82 cm M: 3.1 - 3.7 Left Atrium 3.34 cm M: 3.0 - 4.0 LVOT 1.72 cm (M/F) 1.5-2.5 LV Diastology E Decel Time 165.00 (160-240 msec) E/A Ratio 0.6 MED E' 7.00 (< 7 cm/sec) MED A' 12.50 cm/s E'/MED E' Ratio 6.81 (>14) LAT E' 8.40 (<10 cm/sec) LAT A' 10.80 cm/s E/LAT E' Ratio 5.68 (>14) Aortic Valve LVOT Max 106.00 (70-110 cm/s) LVOT VTI 20.16 cm AoV Peak Benjie. 160.00 (50-130 cm/s) AO Peak GR. 10.30 mmHg AO Mean GR. 5.10 (<5 mmHg) AO VTI 24.33 (18-25 cm) CYNTHIA (VTI) 1.93 (2.5-4.5 cm2) Mitral Valve MV E Max Benjie. 48.00 (40-130 cm/s) MV A Velocity 78.00 (40-130 cm/s) E/A Ratio 0.61 MV Decel. Time 165.00 (160-240 ms) MV PHT 48.00 ms Tricuspid Valve TR P. Velocity 147.00 cm/s RAP Estimate 10.00 mmHg RVSP 18.70 mmHg Left Ventricle Left atrium is mildly enlarged, left ventricle is normal size, visually estimated ejection fraction approximately 45%, there is marked apical hypokinesis, grade 1 diastolic dysfunction seen without tissue Doppler evidence of raise left atrial pressure. Endocardial surfaces are poorly visualized. Right Ventricle Right atrium and right ventricle are normal size and contractility. Aortic Valve Aortic valve is minimally thickened and fibrosed, there is no aortic stenosis or aortic insufficiency. Mitral Valve Mitral valve is grossly normal, there is trace mitral regurgitation. Tricuspid Valve Tricuspid valve is grossly normal, there is trace tricuspid regurgitation, tricuspid regurgitation jet velocity is inadequate for calculation of the right ventricular systolic pressure. Pulmonic Valve Pulmonic valve is poorly visualized. Great Vessels Aortic root is normal size. Pericardium No significant pericardial effusion noted. Conclusion 1. Technically difficult study, mildly enlarged left atrium, normal left ventricular size, visually estimated ejection fraction 45% with segmental wall motion abnormality described above, grade 1 diastolic dysfunction seen without tissue Doppler evidence of raise left atrial pressure. 2. Trace mitral and tricuspid regurgitation. 3. No significant pericardial effusion noted. Electronically signed by : Galen Adams MD 10/27/2020 19:13:50
[2020-10-27 16:15] LABS: Coronavirus 19, PCR Not Detected (NotDetected); Influenza A, PCR Not Detected (NotDetected); Influenza B, PCR Not Detected (NotDetected)
--- NOTE | 2020-10-27 16:40 | PC.NURSE ---
cv lab staff at for echo
--- NOTE | 2020-10-27 16:53 | PC.NURSE ---
notified second floor pt covid swab is negative, received room assignment of 200, gave room assignment to registration staff.
[2020-10-27 18:04] LABS: Troponin I < 0.01 ng/ml (0.00-0.034)
--- NOTE | 2020-10-27 18:40 | PC.NURSE ---
REPORT GIVEN TO
[2020-10-27 18:41] VITALS: BP 108/77; PULSE 100; RESP 22; TEMP 36.8; O2SAT 98
--- NOTE | 2020-10-27 19:35 | PC.NURSE ---
PT ARRIVED TO [facility] W/C FROM ED W/STAFF AT 193
[2020-10-27 19:59] VITALS: BP 95/69; PULSE 95; RESP 20; TEMP 37.1; O2SAT 98
[2020-10-27 20:00] VITALS: O2SAT 96
--- NOTE | 2020-10-27 20:19 | HMH.HP ---
*Admission Date: 10/27/20 *Chief complaint: chest pain *History of present illness: Patient is a 75-year-old white male, patient of Dr. Weldon, who presented to the emergency room with right-sided chest pain, pleuritic in nature. It had the pain since about 8:00 this morning. Patient has a history of coronary artery disease, status post coronary bypass and stenting. He is actively followed by cardiology. He also has a known 4.5 cm abdominal aneurysm is followed with sequential ultrasounds. Patient had recent surgery for a bladder mass. He is actively followed by Dr. Saxena. Patient has longstanding COPD, is oxygen dependent at 2 L/min [id number]. Is prednisone dependent, currently on 20 mg daily. As a result of the prednisone he has osteoporosis, fragile skin, and sustained a significant calcaneal fracture. Patient had a significant elevated white count in the emergency room. No infiltrative process was noted in the chest. The etiology of his leukocytosis is likely peripheral demargination associated with long-term prednisone. Since daughter has been noticing elevations in blood sugar. This is also likely a prednisone effect. Patient has had a cough productive of yellow to green purulence. [facility] History Medical History: Reports:: Aneurysm, Asthma, Cancer (bladder), Chronic Obstructive Pulmonary Disease (COPD), Coronary Artery Disease, Home Oxygen, Hyperlipidemia, Hypertension, Myocardial Infarction Denies:: Diabetes Mellitus Type 1, Diabetes Mellitus Type 2, Internal Pacemaker, MRSA, Seizures *Have you ever received a pneumonia vaccine?: No *Have you received a flu vaccine this season?: No Other Medical History: Reports: Arthritis, Cataracts, Other. Denies: Blood Transfusion Reaction Laterality Cases: Left: Arthroscopy Hip Other Surgeries: Yes: No Previous Surgery, CABG, Cancer Surgery, Cardiac Catheterization, Cardiac Surgery, Colonoscopy, Coronary Stent, Open Heart Surgery, Other (ankle surgery (left?)). No: Pacemaker Amputation: No Fractures: Yes (L ankle) - *Social History Smoking Status: Former smoker Tobacco Type: cigarettes # Packs/Day (cigarettes): 3 #Yrs smoked (if former smoker): 30 Alcohol Intake: never Alcohol Intake Frequency:: other Substance Use Type: denies use *Occupational Status:: retired Housing: house Household Members: children *Travel in the last 8 weeks: Inside the [facility] Family Hx:: Asthma, Diabetes, Hypertension Review of Systems - Constitutional Reports weakness, Denies chills - Eyes Denies blurry vision, Denies change in vision - ENT Denies abnormal hearing - *Cardiovascular Reports chest pain - *Respiratory Reports change in phlegm color, Reports chest congestion, Reports cough, Reports shortness of breath, Reports wheezing - *Gastrointestinal Denies abdominal pain - *Genitourinary Reports blood in urine - *Musculoskeletal Reports decreased muscle mass, Reports muscle weakness - Integumentary/Breasts Denies rash - *Neurologic Reports weakness, Denies memory loss, Denies seizure-like activity - Psychiatric Denies behavioral changes - Endocrine Denies excessive sweating - Hematologic/Lymphatic Reports easy bruising - Allergic/Immunologic Reports seasonal runny nose, Denies wheezing Meds Home Medications Medication Instructions Recorded Confirmed Type aspirin 81 mg tablet,delayed 81 mg PO DAILY tab 05/16/17 09/04/20 History release ferrous sulfate 325 mg (65 mg 325 mg PO BID tab 05/16/17 09/04/20 History iron) tablet nitroglycerin 0.4 mg sublingual 0.4 mg SUBLINGUAL Q5M PRN 05/16/17 09/04/20 History tablet alendronate 70 mg tablet 70 mg PO WEEKLY 09/18/18 09/04/20 History potassium chloride 10 mEq 20 meq PO DAILY cap 09/18/18 09/04/20 History capsule,extended release predniSONE [Prednisone 20mg 20 mg PO DAILY 01/03/19 09/04/20 History Tab] diltiazem HCl 240 mg 240 mg PO DAILY cap 06/18/19 09/04/20 History capsule,ext
[2020-10-27 21:10] LABS: POC Glucose,Bedside 472 (70-110)
[2020-10-27 21:52] VITALS: PULSE 90
--- NOTE | 2020-10-27 22:55 | PC.NURSE ---
Pt is unaware of what meds he takes at home, states his daughter will be here in the morning with his med list and can confirm all meds at that time.
[2020-10-27 23:55] VITALS: PULSE 81; PULSE 83
[2020-10-28] VITALS (11 sets, daily range): BP systolic 96–114; BP diastolic 52–70; PULSE 62–129; RESP 16–22; TEMP 36.7–37; O2SAT 91–98
[2020-10-28 00:43] LABS: POC Glucose,Bedside 206 (70-110)
--- NOTE | 2020-10-28 03:18 | PC.NURSE ---
Addendum entered by Amy Stokes RN 10/28/20 04:04: At this time pt C/O of CP- EKG completed at @03:50, took to ER doctor with initial EKG, no acute changes. will continue to monitor. Original Note: Pt is A/O x4. Pt remains on 2L NC with stats >90%. Pt had a shower this shift and tolerated well. Pt denies any SOA or pain. Pt uses urinal, standby assist to bathroom. VSS, call light within reach, will continue to monitor.
[2020-10-28 05:40] LABS: POC Glucose,Bedside 213 (70-110)
--- NOTE | 2020-10-28 06:00 | XR_ITS ---
PROCEDURE INFORMATION: Exam: XR Chest Exam date and time: 10/28/2020 6:00 AM Age: 75 years old Clinical indication: Cough and shortness of breath; Chest pressure; Prior surgery; Surgery date: 6+ months; Surgery type: Open heart; Patient HX: Chest pain, HX of chest SX, SOA, cough, HX smoker, copd TECHNIQUE: Imaging protocol: XR of the chest. Views: 1 view. COMPARISON: CR XR CHEST PORTABLE 10/27/2020 2:10 PM FINDINGS: Tubes, catheters and devices: There are sternal wires consistent with previous sternotomy incision. Multiple surgical clips are present left apex, unchanged. Lungs: The lungs are hyperinflated with changes of COPD. Pleural spaces: Unremarkable. No pleural effusion. No pneumothorax. Heart/Mediastinum: Unremarkable. No cardiomegaly. Bones/joints: There are degenerative changes of the spine and shoulders. Redemonstrated remote left rib fractures. IMPRESSION: Stable chest.
--- NOTE | 2020-10-28 07:07 | PC.NURSE ---
Pt was c/o of CP and HR was 120-130's, ran another EKG, EKG showed sinus tach, read EKG and is in chart.
--- NOTE | 2020-10-28 07:26 | P.CONPHA_ITS ---
[facility] Pharmacy VTE Monitoring - Patient Demographics Admission date: 10/27/20 Report Date: 10/28/20 Time: 07:26 Allergies/Adverse Reactions: Patient Allergies No Known Allergies Allergy (Verified 10/27/20 16:44) Height: 1.68 m Weight: 62.596 kg Patient Problems: Current Active Problems AAA (abdominal aortic aneurysm) (Acute) Chest pain (Acute) Leucocytosis (Acute) Atypical angina (Acute) Cardiomyopathy (Acute) Dyspnea (Chronic) History of coronary artery bypass graft (Chronic) Chronic obstructive pulmonary disease (Chronic) Former smoker (Chronic) HHD (hypertensive heart disease) (Chronic) CAD (coronary artery disease) (Chronic) - VTE Risk Labs: VTE Related Lab Results Hgb 13.1 g/dL (14.1-18.0) L 10/27/20 14:00 Hct 39.9 % (42.0-52.0) L 10/27/20 14:00 Plt Count 286 K/mm3 (142-424) 10/27/20 14:00 BUN 36 mg/dl (9-20) H 10/27/20 14:00 Creatinine 1.00 mg/dl (0.66-1.25) 10/27/20 14:00 Estimated Creat Clear 57 mL/min (50-200) 10/27/20 14:00 Was VTE Risk Assessment Performed: Yes VTE Score: 4 VTE Risk Level: Low Risk - Prophylaxis VTE Prophylaxis Ordered?: Yes Types of VTE Prophylaxis: TEDS Knee High Location of Applied Device: Bilateral Lower Extremeties
[2020-10-28 07:28] LABS: Alanine Aminotransferase 29 U/L (12-78); Albumin Level 3.6 g/dl (3.5-5.0); Albumin/Globulin Ratio 1.3 (1.1-1.8); Alkaline Phosphatase 112 U/L (38-126); Anion Gap 14.6 mEq/L (5-15); Aspartate Amino Transferase 22 U/L (17-59); Bilirubin,Total 0.9 mg/dl (0.2-1.3); Blood Urea Nitrogen 33 mg/dl (9-20); Calcium 8.9 mg/dl (8.4-10.2); Carbon Dioxide 32 mmol/L (22.0-30.0); Chloride 85 mmol/L (98-107); Creatinine Clearance Estimated 57 mL/min (50-200); Estimated Glomerular Filt Rate 73 ml/min (>60); GFR (African American) 88 ML/MIN (>60); Globulin 2.8 g/dL (1.3-3.2); Glucose 105 mg/dl (74-100); Potassium 5.6 mmoL/L (3.5-5.1); Sodium 126 mmol/L (136-145); Total Protein,Serum 6.4 g/dl (6.3-8.2)
[2020-10-28 07:38] LABS: Basophils # 0.1 K/mm3 (0-0.2); Basophils % 0.2 % (0.1-2.0); Hematocrit 40.9 % (42.0-52.0); Hemoglobin 13.5 g/dL (14.1-18.0); Lymphocytes # 1.5 K/mm3 (0.7-4.5); Lymphocytes % 5.6 % (10-50); Mean Corpuscular HGB Conc 32.9 g/dL (31.8-35.4); Mean Corpuscular Hemoglobin 28.7 pg (27.0-31.2); Mean Corpuscular Volume 87.2 fl (80-94); Mean Platelet Volume 7.7 fl (7.4-10.4); Monocytes # 0.8 K/mm3 (0.1-1.0); Monocytes % 2.9 % (1.7-9.3); Neutrophils % 91.2 % (37.0-80.0); Platelet Count 302 K/mm3 (142-424); Red Blood Count 4.69 M/mm3 (4.60-6.20); Red Cell Distribution Width 16.5 % (11.5-17.5); White Blood Count 27.4 K/mm3 (4.8-10.8)
[2020-10-28 07:42] LABS: MANUAL DIFFERENTIAL MANUAL DIFFERENTIAL (MANUAL DIFF)
[2020-10-28 08:05] LABS: C-Reactive Protein 168.3 mg/L (0-4)
[2020-10-28 08:14] LABS: Erythrocyte Sedimentation Rate 56 mm/hr (0-20)
--- NOTE | 2020-10-28 08:15 | HMH.PNCARD ---
Subjective Date: 10/28/20 Time: 08:00 Principal diagnosis: chest pain Interval history: 75-year-old male admitted with worsening shortness of breath and right-sided chest wall pain. Patient states the worsening shortness of breath and right-sided chest wall pain began a few days ago. Patient is on supplemental oxygen at 2 L continuously due to COPD. Patient does complain of a productive cough with describing his sputum as green. Patient does deny fever or nausea. Patient discontinued complaining of right-sided chest pain which seems to be more pleuritic pain. Patient states the pain becomes worse when taking a deep breath. Patient denies swelling of the lower extremities. Denies palpitations or dizziness. jinriksha driver does reveal sinus tachycardia with a heart rate of 122 to 126 bpm. Significant other at bedside stated patient has not had his morning medications. Patient is on appropriate medications for systolic heart failure and ischemic heart disease. Lab work revealed leukocytosis. This is being managed by PCP. Serial troponins have been drawn. Troponin x2 was negative. Patient noted to have hyperkalemia. This is being managed by PCP. 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 Mid abdominal aneurysm noted at 4.5 cm. This is being monitored by PCP. Patient of has history of PAD. Patient does have chronic claudication. Patient is currently on pain medications which is managed by pain management. Patient also is currently being treated by urology for possible bladder mass. Patient states he is not feeling well this morning. Patient states he feels it is due to not having his morning medications. Echocardiogram revealed EF 45% with segmental wall motion abnormality, grade 1 diastolic dysfunction. Trace of mitral and tricuspid regurgitation. This is similar to the echocardiogram that was performed in June 2019. Blood pressure stable. Echo:Conclusion 1. Technically difficult study, mildly enlarged left atrium, normal left ventricular size, visually estimated ejection fraction 45% with segmental wall motion abnormality described above, grade 1 diastolic dysfunction seen without tissue Doppler evidence of raise left atrial pressure. 2. Trace mitral and tricuspid regurgitation. 3. No significant pericardial effusion noted. Discussed plan of care with Dr. Velazquez. Orders and recommendations were received from Dr. Velazquez. Patient noted with tachycardia this a.m. Patient has not had his morning medications. PCP is to restart home medications which includes diltiazem 240 mg p.o. If heart rate does not respond appropriately after starting home medications, we may then need to increase his diltiazem for better heart rate control. Continue to monitor patient status. Please notify cardiology of any changes in patient status. Thank you for allowing cardiology to participate in the care of this patient. Exam Vital signs and Labs for Last 24 Hours: Temp Pulse Resp BP Pulse Ox 98.3 F 112 H 16 100/62 L 97 10/28/20 00:00 10/28/20 05:39 10/28/20 00:00 10/28/20 00:00 10/28/20 05:39 Laboratory Results - last 24 hr 10/27/20 14:00: WBC 30.3 H*, RBC 4.59 L, Hgb 13.1 L, Hct 39.9 L, MCV 86.9, MCH 28.7, MCHC 33.0, RDW 16.5, Plt Count 286, MPV 7.4, Neut % (Auto) 91.9 H, Lymph % (Auto) 4.4 L, [place] % (Auto) 3.2, Eos % (Auto) 0.1, Baso % (Auto) 0.4, Neut # (Auto) 27.9 H, Lymph # (Auto) 1.4, [place] # (Auto) 1.0, Eos # (Auto) 0.0, Baso # (Auto) 0.1, Total Counted 100, Neutrophils % (Manual) 96 H, Lymphocytes % (Manual) 2 L, Monocytes % (Manual) 2, Platelet Estimate Normal, Anisocytosis 1+, Microcytosis 1+ 10/27/20 14:00: Sodium 120 L, Potassium 5.7 H, Chloride 85 L, Carbon Dioxide 28, Anion Gap 12.7, BUN 36 H, Creatinine 1.00, Estimated Creat Clear 57, Estimated GFR 73, Est GFR ( Amer) 88, Glucose 306 H, Calcium 8.9, Total Bilirubin 0.8, AST 24, ALT
[2020-10-28 08:40] LABS: Anisocytosis 1+; Lymphocytes % 4 % (10-50); Microcytosis 1+; Monocytes % 3 % (2-9); Neutrophils % 93 % (42-76); Platelet Estimate Normal; Total Cells Counted 100
--- NOTE | 2020-10-28 09:06 | CT_ITS ---
PROCEDURE: CT ANGIO CHEST PE PROTOCOL CLINCIAL INDICATION: r/o pe COMPARISON: CT CT CHEST WO CON from 04/10/2020 CR XR CHEST PORTABLE from 10/28/2020 TECHNIQUE: IV Contrast: 70ML Isovue 370 Axial images obtained with sagittal and coronal reformats. All CT scans at the facility use one or more dose reduction, viz: automated exposure control, ma/kV adjustment per patient size (including targeted exams where dose is matched to indication, i.e. head), or iterative reconstruction technique. FINDINGS: HEART AND MEDIASTINAL STRUCTURES: No evidence of pulmonary embolus, aortic aneurysm, or aortic dissection. LUNGS AND PLEURAL SPACES: COPD with panlobular and paraseptal emphysematous changes. There is consolidation involving the right upper lobe posteriorly consistent with pneumonia. There are numerous lucencies within the area of consolidation along the periphery consistent with air alveolar grams with emphysematous lung. There are atelectatic changes within the right lower lobe with a new parenchymal opacity in the central aspect of the right lower lobe measuring 11 mm image 3/50. This could be due to an area of focal pneumonia or interval development of a pulmonary nodule. A similar but smaller a nodule is present in the right lower lobe image 3/70 at 7 mm BONY STRUCTURES: Degenerative changes thoracic spine with multiple compression fractures at L1, T8, T7, T6, T5, and T4. The T4 and T5 compression changes have developed since the previous exam. The other compression changes are not significantly changed. There is diffuse osteopenia of the thoracic spine UPPER ABDOMEN: Mural thrombus is present posteriorly within the aorta at the L1 and L2 level. There is fatty liver. Hyperdensity noted in the gallbladder possibly due to vicarious excretion of contrast. A gallstone is present at 1 cm ADDITIONAL FINDINGS: No other significant abnormalities. IMPRESSION: 1. No evidence of pulmonary embolus. 2. Right upper lobe pneumonia in a back ground of COPD/emphysema 3. 11 mm and 7 mm nodular opacities in the right lower lobe which could be inflammatory/infectious or neoplastic not readily apparent previously 4. Multiple compression fractures of the thoracic spine. New compression changes noted at T4 and T5 without obvious retropulsion Dictated by: Jamarcus Iraheta MD 10/28/2020 11:00 Jamarcus Iraheta MD in [place] 10/28/2020 11:00
--- NOTE | 2020-10-28 09:09 | HMH.PHAINT ---
MEDICATION RECONCILIATION COMPLETED USING PATIENT INTERVIEW, PATIENT BROUGHT MEDICATION BOTTLES.
--- NOTE | 2020-10-28 11:37 | HMH.PULMCON ---
*Admission Date: 10/27/20 *Reason for consult:: COPD exacerbation *History of present illness: Mr. Iraheta is a 75-year-old male prior smoker greater than [id number] smoking cigars a diagnosis COPD on triple inhaler therapy along with chronic prednisone 20 mg, significant complicated osteoporosis and fractures even on this admission having multiple compression fractures of his thoracic spine presented to the hospital with right-sided pleuritic chest pain and pulmonary was called for further management. [facility] History Medical History: Reports:: Aneurysm, Asthma, Cancer (Colon Cancer), Chronic Obstructive Pulmonary Disease (COPD), Coronary Artery Disease, Diabetes Mellitus Type 2, Home Oxygen, Hyperlipidemia, Hypertension, Myocardial Infarction Denies:: Diabetes Mellitus Type 1, Internal Pacemaker, MRSA, Seizures *Have you ever received a pneumonia vaccine?: Yes *Have you received a flu vaccine this season?: Yes Other Medical History: Reports: Arthritis, Cataracts, Other. Denies: Blood Transfusion Reaction Laterality Cases: Left: Arthroscopy Hip Other Surgeries: Yes: No Previous Surgery, CABG, Cancer Surgery, Cardiac Catheterization, Cardiac Surgery, Colonoscopy, Coronary Stent, Open Heart Surgery, Other (ankle surgery (left?)). No: Pacemaker Amputation: No Fractures: Yes (L ankle) - *Social History Last grade of school completed: 9th or 10th Smoking Status: Former smoker Tobacco Type: cigarettes # Packs/Day (cigarettes): 3 #Yrs smoked (if former smoker): 30 Alcohol Intake: current Alcohol Intake Frequency:: a few times a month Substance Use Type: denies use *Occupational Status:: retired Housing: house Household Members: family *Travel in the last 8 weeks: None Family Hx:: No significant family history ROS - Cons Reports chills, Reports fatigue - ENT Reports abnormal hearing - Card Reports shortness of breath, Reports shortness of breath with activity - Resp Respiratory: Reports cough, Reports dyspnea, Reports dyspnea on exertion, Denies excessive phlegm production, Reports pain on inspiration, Reports pain with cough, Reports cough with sputum production - GI Gastrointestingal: Denies: abdominal pain - Psych Reports abnormal sleep pattern Meds Home Medications Medication Instructions Recorded Confirmed Type aspirin 81 mg tablet,delayed 81 mg PO DAILY tab 05/16/17 10/28/20 History release ferrous sulfate 325 mg (65 mg 325 mg PO BID tab 05/16/17 10/28/20 History iron) tablet alendronate 70 mg tablet 70 mg PO WEEKLY 09/18/18 10/28/20 History potassium chloride 10 mEq 20 meq PO DAILY cap 09/18/18 10/28/20 History capsule,extended release predniSONE [Prednisone 20mg 20 mg PO DAILY 01/03/19 10/28/20 History Tab] diltiazem HCl 240 mg 240 mg PO DAILY cap 06/18/19 10/28/20 History capsule,extended release 24 hr furosemide 40 mg tablet 40 mg PO DAILY tab 10/10/19 10/28/20 History ipratropium 0.5 mg-albuterol 3 mg 3 ml INHALATION Q6H PRN #180 ml 04/16/20 10/28/20 Rx (2.5 mg base)/3 mL nebulization soln Tiotropium [place] [Spiriva 1 cap INHALATION DAILY 05/07/20 10/28/20 History 18mcg/puff inhaler] Fluticasone Propion/Salmeterol 1 puff IH BID 05/08/20 10/28/20 History [Wixela 500-50 Inhub] Atorvastatin Calcium [Lipitor 40mg 40 mg PO DAILY 07/17/20 10/28/20 History Tab] Tramadol HCl [Tramadol 50mg 50 mg PO QID 08/04/20 10/28/20 History Tab] Finasteride [Proscar] 5 mg PO DAILY 09/04/20 10/28/20 History Tamsulosin HCl [Flomax 0.4mg 0.4 mg PO HS 09/04/20 10/28/20 History capsule] Cholecalciferol (Vitamin D3) 10 mcg PO DAILY 10/28/20 10/28/20 History [Vitamin D3] Fluticasone Propionate [24 Hour 1 spray NOSTRIL-B BID 10/28/20 10/28/20 History Allergy] Meclizine HCl 25 mg PO DAILY 10/28/20 10/28/20 History Spironolactone [Spironolactone 25 mg PO DAILY 10/28/20 10/28/20 History 25mg Tablet] Allergies Allergy/AdvReac Type Severity Reaction Status
[2020-10-28 12:40] LABS: POC Glucose,Bedside 221 (70-110)
--- NOTE | 2020-10-28 12:55 | HMH.ACPN2 ---
Internal Medicine - PN: Subj *Date: 10/28/20 *Time: 08:00 Exam Vital signs and Labs for Last 24 Hours: Temp Pulse Resp BP Pulse Ox 98.4 F 121 H 20 96/65 L 97 10/28/20 11:52 10/28/20 12:00 10/28/20 11:52 10/28/20 11:52 10/28/20 11:52 Laboratory Results - last 24 hr 10/27/20 14:00: WBC 30.3 H*, RBC 4.59 L, Hgb 13.1 L, Hct 39.9 L, MCV 86.9, MCH 28.7, MCHC 33.0, RDW 16.5, Plt Count 286, MPV 7.4, Neut % (Auto) 91.9 H, Lymph % (Auto) 4.4 L, [place] % (Auto) 3.2, Eos % (Auto) 0.1, Baso % (Auto) 0.4, Neut # (Auto) 27.9 H, Lymph # (Auto) 1.4, [place] # (Auto) 1.0, Eos # (Auto) 0.0, Baso # (Auto) 0.1, Total Counted 100, Neutrophils % (Manual) 96 H, Lymphocytes % (Manual) 2 L, Monocytes % (Manual) 2, Platelet Estimate Normal, Anisocytosis 1+, Microcytosis 1+ 10/27/20 14:00: Sodium 120 L, Potassium 5.7 H, Chloride 85 L, Carbon Dioxide 28, Anion Gap 12.7, BUN 36 H, Creatinine 1.00, Estimated Creat Clear 57, Estimated GFR 73, Est GFR ( Amer) 88, Glucose 306 H, Calcium 8.9, Total Bilirubin 0.8, AST 24, ALT 26, Alkaline Phosphatase 150 H, Troponin I < 0.01, Total Protein 6.0 L, Albumin 3.4 L, Globulin 2.6, Albumin/Globulin Ratio 1.3 10/27/20 16:08: SARS-CoV-2 (PCR) Not detected, Influenza A Untype (PCR) Not detected, Influenza Type B (PCR) Not detected 10/27/20 17:25: Troponin I < 0.01 10/27/20 20:55: POC Glucose 472 H* 10/28/20 00:36: POC Glucose 206 H 10/28/20 05:09: POC Glucose 213 H 10/28/20 06:20: WBC 27.4 H*, RBC 4.69, Hgb 13.5 L, Hct 40.9 L, MCV 87.2, MCH 28.7, MCHC 32.9, RDW 16.5, Plt Count 302, MPV 7.7, Neut % (Auto) 91.2 H, Lymph % (Auto) 5.6 L, [place] % (Auto) 2.9, Eos % (Auto) 0.0 L, Baso % (Auto) 0.2, Neut # (Auto) 25.0 H, Lymph # (Auto) 1.5, [place] # (Auto) 0.8, Eos # (Auto) 0.0, Baso # (Auto) 0.1, Total Counted 100, Neutrophils % (Manual) 93 H, Lymphocytes % (Manual) 4 L, Monocytes % (Manual) 3, Platelet Estimate Normal, Anisocytosis 1+, Microcytosis 1+ 10/28/20 06:20: Sodium 126 L, Potassium 5.6 H, Chloride 85 L, Carbon Dioxide 32 H, Anion Gap 14.6, BUN 33 H, Creatinine 1.00, Estimated Creat Clear 57, Estimated GFR 73, Est GFR ( Amer) 88, Glucose 105 H D, Calcium 8.9, Total Bilirubin 0.9, AST 22, ALT 29, Alkaline Phosphatase 112, Total Protein 6.4, Albumin 3.6, Globulin 2.8, Albumin/Globulin Ratio 1.3, TSH 1.00 10/28/20 06:20: ESR 56 H 10/28/20 06:20: C-Reactive Protein 168.3 H 10/28/20 12:13: POC Glucose 221 H I & O for Last 24 hours: Intake & Output 10/26/20 10/27/20 10/28/20 10/29/20 11:59 11:59 11:59 11:59 Intake Total 730 / 730 Output Total 300 / 300 Balance 430 / 430 Weight 138 lb - Constitutional no acute distress - *Routine HEENT Exam Head: Present: normocephalic Eye: Present: PERRL ENT: Present: mucous membranes moist - *Routine Neck Exam Present: supple. Absent: lymphadenopathy - *Routine Respiratory Exam Present: decreased breath sounds, wheezes - *Routine Cardiovascular Exam Present: RRR, tachycardia - *Routine Abdominal Exam Present: soft, normoactive bowel sounds. Absent: tenderness - *Routine Extremities Exam Present: normal capillary refill. Absent: cyanosis, clubbing, edema - *Routine Skin Exam Present: warm. Absent: rash - *Routine Neurological Exam Present: alert, oriented X3 - Routine Psychiatric Exam Present: normal affect Assessment and Plan (1) Chest pain Status: Acute Qualifiers: Chest pain type: chest pain on breathing Qualified Code(s): R07.1 - Chest pain on breathing Category: Medical Code(s): R07.9 - Chest pain, unspecified (2) Leucocytosis Status: Acute Qualifiers: Leukocytosis type: unspecified Qualified Code(s): D72.829 - Elevated white blood cell count, unspecified Category: Medical Code(s): D72.829 - Elevated white blood cell count, unspecified (3) AAA (abdominal aortic aneurysm) Status: Acute Qualifiers: Presence of rupture: without rupture Qualified Code(s): I71.4 - Abdominal aortic aneur
[2020-10-28 17:08] LABS: POC Glucose,Bedside 265 (70-110)
--- NOTE | 2020-10-28 17:37 | PC.NURSE ---
Pt has been pleasant and cooperative this shift. A&O X4. No complaints of pain or SOA. Pt is currently receiving O2 via NC @ 2 LPM with sats. >90%. Lung sounds reveal expiratory wheezing. No edema noted. Skin is C/D/I. Telemetry reveals NSR/ST. Pt uses the urinal to void clear, dark-yellow urine without issue. No BM thus far this shift. Pt has not been OOB today and reports that he doesn't feel strong enough yet . Pt has been encouraged to turn/reposition frequently and has been cooperating fully. Pt has also been instructed to provide a sputum sample and a specimen cup has been placed at bedside. 20 G peripheral IV in the RT forearm is patent and SL. VSS. Call light within reach. Will continue to monitor.
[2020-10-28 22:27] LABS: Glucose,Random 541 mg/dL (74-100)
[2020-10-28 22:54] LABS: POC Glucose,Bedside 500 (70-110)
[2020-10-29] VITALS (15 sets, daily range): BP systolic 102–138; BP diastolic 61–81; PULSE 68–110; RESP 17–24; TEMP 36.2–36.9; O2SAT 92–98; BMI 20.1
[2020-10-29 05:14] LABS: POC Glucose,Bedside 191 (70-110)
[2020-10-29 05:51] LABS: POC Glucose,Bedside 296 (70-110)
--- NOTE | 2020-10-29 06:31 | PC.NURSE ---
At HS elevated FSBG 500 and asymptomatic; spoke to airport location manager physician received v.o. to d/c low intensity sliding scale and start high intensity sliding scale. No s/s of acute distress noted, call light within reach, bed at lowest level; will continue to monitor.
[2020-10-29 06:49] LABS: Basophils # 0.1 K/mm3 (0-0.2); Basophils % 0.2 % (0.1-2.0); Hematocrit 35.8 % (42.0-52.0); Lymphocytes # 0.4 K/mm3 (0.7-4.5); Lymphocytes % 1.4 % (10-50); Mean Corpuscular HGB Conc 33.1 g/dL (31.8-35.4); Mean Corpuscular Hemoglobin 28.9 pg (27.0-31.2); Mean Corpuscular Volume 87.2 fl (80-94); Mean Platelet Volume 7.6 fl (7.4-10.4); Monocytes # 0.5 K/mm3 (0.1-1.0); Monocytes % 1.7 % (1.7-9.3); Neutrophils % 96.7 % (37.0-80.0); Platelet Count 246 K/mm3 (142-424); Red Blood Count 4.11 M/mm3 (4.60-6.20); Red Cell Distribution Width 16.4 % (11.5-17.5)
[2020-10-29 06:52] LABS: MANUAL DIFFERENTIAL MANUAL DIFFERENTIAL (MANUAL DIFF)
[2020-10-29 06:56] LABS: Hemoglobin 11.9 g/dL (14.1-18.0)
[2020-10-29 07:09] LABS: Anisocytosis 1+; Microcytosis 1+; Monocytes % 1 % (2-9); Neutrophils % 99 % (42-76); Platelet Estimate Normal; Total Cells Counted 100
[2020-10-29 07:20] LABS: Potassium 5.4 mmoL/L (3.5-5.1)
[2020-10-29 07:23] LABS: Anion Gap 18.4 mEq/L (5-15); Blood Urea Nitrogen 38 mg/dl (9-20); Calcium 8.2 mg/dl (8.4-10.2); Carbon Dioxide 30 mmol/L (22.0-30.0); Chloride 85 mmol/L (98-107); Creatinine Clearance Estimated 37 mL/min (50-200); Estimated Glomerular Filt Rate 49 ml/min (>60); GFR (African American) 60 ML/MIN (>60); Glucose 227 mg/dl (74-100); Sodium 128 mmol/L (136-145)
--- NOTE | 2020-10-29 08:49 | HMH.PNCARD ---
Subjective Date: 10/29/20 Time: 08:00 Principal diagnosis: chest pain Interval history: 75-year-old male admitted with worsening shortness of breath and right-sided chest wall pain 2 days go. Patient states he is feeling much better. Patient states his shortness of breath has improved since being on steroids and antibiotics. This is being managed per pulmonary and PCP. Patient denies chest pain, tightness or pressure. Patient does continue to main on 2 L of O2 by nasal cannula. Patient does deny fever or nausea. Denies palpitations or dizziness. 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 Heart rate does increase with movement. Patient is currently on diltiazem 240 mg p.o. for heart rate and blood pressure control. Unable to start a beta-paulie on this patient due to his severe COPD and wheezing at this time. If heart rate continues to increase, we can increase the diltiazem to 360 mg p.o. daily. Echocardiogram revealed EF 45% with segmental wall motion abnormality, grade 1 diastolic dysfunction. Trace of mitral and tricuspid regurgitation. This is similar to the echocardiogram that was performed in June 2019. Blood pressure stable. Echo:Conclusion 1. Technically difficult study, mildly enlarged left atrium, normal left ventricular size, visually estimated ejection fraction 45% with segmental wall motion abnormality described above, grade 1 diastolic dysfunction seen without tissue Doppler evidence of raise left atrial pressure. 2. Trace mitral and tricuspid regurgitation. 3. No significant pericardial effusion noted. Discussed plan of care with Dr. Velazquez. Orders and recommendations were received from Dr. Velazquez. cutlet maker pork reveals tachycardia this a.m. in the 109-112bpm. Unable to start beta-paulie due to patient's severe COPD and wheezing. If heart rate continues to increase, we may increase diltiazem to 360 mg p.o. daily. Overall patient states he is feeling much better. Follow-up with cardiology in 1 to 2 weeks after discharge from hospital. Please notify cardiology of any changes in patient status. Exam Vital signs and Labs for Last 24 Hours: Temp Pulse Resp BP Pulse Ox 98.5 F 68 24 126/75 94 L 10/29/20 07:20 10/29/20 07:20 10/29/20 07:20 10/29/20 07:20 10/29/20 07:20 Laboratory Results - last 24 hr 10/28/20 12:13: POC Glucose 221 H 10/28/20 16:56: POC Glucose 265 H 10/28/20 21:49: POC Glucose 500 H* 10/28/20 22:00: Random Glucose 541 H* 10/29/20 02:49: POC Glucose 191 H 10/29/20 05:44: POC Glucose 296 H 10/29/20 06:13: WBC 31.0 H*, RBC 4.11 L, Hgb 11.9 L D, Hct 35.8 L, MCV 87.2, MCH 28.9, MCHC 33.1, RDW 16.4, Plt Count 246, MPV 7.6, Neut % (Auto) 96.7 H, Lymph % (Auto) 1.4 L, [place] % (Auto) 1.7, Eos % (Auto) 0.0 L, Baso % (Auto) 0.2, Neut # (Auto) 30.0 H, Lymph # (Auto) 0.4 L, [place] # (Auto) 0.5, Eos # (Auto) 0.0, Baso # (Auto) 0.1, Total Counted 100, Neutrophils % (Manual) 99 H, Monocytes % (Manual) 1 L, Platelet Estimate Normal, RBC Morphology Not Reportable, Anisocytosis 1+, Microcytosis 1+ 10/29/20 06:13: Sodium 128 L, Potassium 5.4 H, Chloride 85 L, Carbon Dioxide 30, Anion Gap 18.4 H, BUN 38 H, Creatinine 1.40 H D, Estimated Creat Clear 37, Estimated GFR 49 L, Est GFR ( Amer) 60 D, Glucose 227 H D, Calcium 8.2 L I & O for Last 24 hours: Intake & Output 10/26/20 10/27/20 10/28/20 10/29/20 23:59 23:59 23:59 23:59 Intake Total 1740 / 1740 850 / 850 Output Total 500 / 500 600 / 600 Balance 1240 / 1240 250 / 250 Weight 138 lb 125 lb 8 oz - Constitutional mild distress, average body habitus, cooperative - *Routine HEENT Exam Head: Present: normocephalic ENT: Present: mucous membranes moist - *Routine Neck Exam Present: supple, full ROM, normal carotid upstroke. Absent: JVD, carotid bruit, lymphadenopathy - *Routine Respiratory Exam Present: wheezes Comments: 2 L of supplemental oxygen. - *Rou
--- NOTE | 2020-10-29 09:48 | HMH.ACPN2 ---
Internal Medicine - PN: Subj *Date: 10/29/20 *Time: 20:38 Interval history: 75-year-old male patient sitting up on side of the bed, daughter is in room. Current oxygenation is 94% on 2 L, patient reports he is breathing easier today than yesterday but still appears short of breath during conversation. Exam Vital signs and Labs for Last 24 Hours: Temp Pulse Resp BP Pulse Ox 98.5 F 108 H 24 126/75 94 L 10/29/20 07:20 10/29/20 08:33 10/29/20 07:20 10/29/20 07:20 10/29/20 07:20 Laboratory Results - last 24 hr 10/28/20 12:13: POC Glucose 221 H 10/28/20 16:56: POC Glucose 265 H 10/28/20 21:49: POC Glucose 500 H* 10/28/20 22:00: Random Glucose 541 H* 10/29/20 02:49: POC Glucose 191 H 10/29/20 05:44: POC Glucose 296 H 10/29/20 06:13: WBC 31.0 H*, RBC 4.11 L, Hgb 11.9 L D, Hct 35.8 L, MCV 87.2, MCH 28.9, MCHC 33.1, RDW 16.4, Plt Count 246, MPV 7.6, Neut % (Auto) 96.7 H, Lymph % (Auto) 1.4 L, [place] % (Auto) 1.7, Eos % (Auto) 0.0 L, Baso % (Auto) 0.2, Neut # (Auto) 30.0 H, Lymph # (Auto) 0.4 L, [place] # (Auto) 0.5, Eos # (Auto) 0.0, Baso # (Auto) 0.1, Total Counted 100, Neutrophils % (Manual) 99 H, Monocytes % (Manual) 1 L, Platelet Estimate Normal, RBC Morphology Not Reportable, Anisocytosis 1+, Microcytosis 1+ 10/29/20 06:13: Sodium 128 L, Potassium 5.4 H, Chloride 85 L, Carbon Dioxide 30, Anion Gap 18.4 H, BUN 38 H, Creatinine 1.40 H D, Estimated Creat Clear 37, Estimated GFR 49 L, Est GFR ( Amer) 60 D, Glucose 227 H D, Calcium 8.2 L I & O for Last 24 hours: Intake & Output 10/26/20 10/27/20 10/28/20 10/29/20 23:59 23:59 23:59 23:59 Intake Total 1740 / 1740 850 / 850 Output Total 500 / 500 600 / 600 Balance 1240 / 1240 250 / 250 Weight 138 lb 125 lb 8 oz - Constitutional mild distress, thin - *Routine HEENT Exam Head: Present: normocephalic Eye: Present: EOMI ENT: Present: mucous membranes moist - *Routine Neck Exam Present: trachea midline. Absent: tracheal deviation - *Routine Respiratory Exam Present: crackles. Absent: accessory muscle use - *Routine Cardiovascular Exam Present: RRR, tachycardia - *Routine Abdominal Exam Present: soft, normoactive bowel sounds. Absent: tenderness, firm - *Routine Extremities Exam Present: full ROM, pulses intact. Absent: cyanosis, clubbing, edema, calf tenderness - *Routine Skin Exam Present: intact, dry, warm. Absent: cyanosis, erythema - *Routine Neurological Exam Present: alert, oriented X3. Absent: motor deficit, altered mental status - Routine Psychiatric Exam Present: normal affect, normal thought process. Absent: homicidal ideation, auditory hallucinations Assessment and Plan (1) Chest pain Status: Acute Qualifiers: Chest pain type: chest pain on breathing Qualified Code(s): R07.1 - Chest pain on breathing Category: Medical Code(s): R07.9 - Chest pain, unspecified (2) Leucocytosis Status: Acute Qualifiers: Leukocytosis type: unspecified Qualified Code(s): D72.829 - Elevated white blood cell count, unspecified Category: Medical Code(s): D72.829 - Elevated white blood cell count, unspecified (3) AAA (abdominal aortic aneurysm) Status: Acute Qualifiers: Presence of rupture: without rupture Qualified Code(s): I71.4 - Abdominal aortic aneurysm, without rupture Category: Medical Code(s): I71.4 - Abdominal aortic aneurysm, without rupture (4) Atypical angina Status: Acute Category: Medical Code(s): I20.8 - Other forms of angina pectoris (5) Cardiomyopathy Status: Acute Qualifiers: Cardiomyopathy type: unspecified Qualified Code(s): I42.9 - Cardiomyopathy, unspecified Category: Medical Code(s): I42.9 - Cardiomyopathy, unspecified (6) CAD (coronary artery disease) Status: Chronic Qualifiers: Coronary Disease-Associated Artery/Lesion type: [place] artery [place] vs. transplanted heart: [place] heart Associated angina: with other forms of angina
--- NOTE | 2020-10-29 10:45 | PC.NURSE ---
IV noted to be leaking, dressing removed, and IV tubing noted to be loose on catheter, tightened, and Catheter position adjusted. 2x2 placed under catheter /tubing connections to help stabilize. IV noted to flush without leaking and flash back of blood noted. New dressing placed. Pt. tolerated well, will continue to monitor.
--- NOTE | 2020-10-29 10:46 | HMH.PULMPN ---
Internal Medicine - PN: Subj *Date: 10/29/20 *Time: 10:46 Interval history: No acute respiratory events overnight. Patient admits slight improvement in his respirations. Denies any improvement in his pain. Exam - Constitutional Constitutional:: Present: no acute distress, comfortable - HENMT Exam HENMT: Present: normocephalic, atraumatic - Eye Exam Eyes:: Present: normal appearance both eyes and related structures - Neck Exam Neck:: Present: normal visual inspection - Respiratory Exam Respiratory:: Present: able to speak in complete sentences, no respiratory distress, rales. Absent: wheezing - Cardiovascular Exam Cardiac:: Present: S1, S2 - GI Exam GI:: Present: soft, distended - Skin Exam Skin: Present: warm, no rash - Neurological Exam Neurological: Present: alert, awake, normal cognition - Extremities Exam Extremities: Present: no cyanosis, no clubbing, no edema Assessment and Plan (1) Chest pain Status: Acute Qualifiers: Chest pain type: chest pain on breathing Qualified Code(s): R07.1 - Chest pain on breathing Category: Medical Code(s): R07.9 - Chest pain, unspecified (2) Leucocytosis Status: Acute Qualifiers: Leukocytosis type: unspecified Qualified Code(s): D72.829 - Elevated white blood cell count, unspecified Category: Medical Code(s): D72.829 - Elevated white blood cell count, unspecified (3) AAA (abdominal aortic aneurysm) Status: Acute Qualifiers: Presence of rupture: without rupture Qualified Code(s): I71.4 - Abdominal aortic aneurysm, without rupture Category: Medical Code(s): I71.4 - Abdominal aortic aneurysm, without rupture (4) Atypical angina Status: Acute Category: Medical Code(s): I20.8 - Other forms of angina pectoris (5) Cardiomyopathy Status: Acute Qualifiers: Cardiomyopathy type: unspecified Qualified Code(s): I42.9 - Cardiomyopathy, unspecified Category: Medical Code(s): I42.9 - Cardiomyopathy, unspecified (6) CAD (coronary artery disease) Status: Chronic Qualifiers: Coronary Disease-Associated Artery/Lesion type: [place] artery [place] vs. 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 Emphysema type: unspecified Qualified Code(s): J43.9 - Emphysema, unspecified Category: Medical Code(s): J44.9 - Chronic obstructive pulmonary disease, unspecified (8) Dyspnea Status: Chronic Qualifiers: Dyspnea type: shortness of breath Qualified Code(s): R06.02 - Shortness of breath; R06.00 - Dyspnea, unspecified; R06.01 - Orthopnea Category: Medical Code(s): R06.00 - Dyspnea, unspecified (9) Former smoker Status: Chronic Category: Social Hx Code(s): Z87.891 - Personal history of nicotine dependence (10) HHD (hypertensive heart disease) Status: Chronic Qualifiers: Heart failure presence: without heart failure Qualified Code(s): I11.9 - Hypertensive heart disease without heart failure Category: Medical Code(s): I11.9 - Hypertensive heart disease without heart failure (11) History of coronary artery bypass graft Status: Chronic Category: Surgical Code(s): Z95.1 - Presence of aortocoronary bypass graft (12) Compression fracture Status: Acute Category: Medical (13) Pneumonia Status: Acute Category: Medical Code(s): J18.9 - Pneumonia, unspecified organism (14) COPD (chronic obstructive pulmonary disease) Status: Acute Category: Medical Code(s): J44.9 - Chronic obstructive pulmonary disease, unspecified (15) Serum potassium elevated Status: Acute Cat
[2020-10-29 11:19] LABS: POC Glucose,Bedside 246 (70-110)
[2020-10-29 16:53] LABS: POC Glucose,Bedside 196 (70-110)
--- NOTE | 2020-10-29 16:55 | PC.NURSE ---
Routine reassessment completed. Pt. eating dinner. Left lung sounds with wheezes throughout. Right lung sounds diminished. Audible wheezes noted. Pt. reports wheezing increases around meal times, and with movements. FSBS at 196, 5 units insulin given. Pt. tolerated well. No further changes noted from previous assessment. Pt. denies needs, Will continue to monitor.
--- NOTE | 2020-10-29 19:15 | PC.NURSE ---
Report given to Ellie Rey RN.
[2020-10-29 20:49] LABS: POC Glucose,Bedside 164 (70-110)
--- NOTE | 2020-10-29 23:14 | PC.NURSE ---
Entered pt room to find patient sitting up on side of bed. Pt was anxious and stated he felt as though he was having difficulty breathing. O2 Saturation noted to be 89%. Pt stated he was having a hard time relaxing. Lights dimmed, pt repositioned in bed with an extra pillow, and warm blankets applied. Pt stated he was feeling more relaxed, o2 saturation 93 at this time. Will continue to monitor.
[2020-10-30] VITALS (16 sets, daily range): BP systolic 93–149; BP diastolic 56–74; PULSE 70–136; RESP 16–24; TEMP 36.4–36.8; O2SAT 90–98; BMI 22.1
--- NOTE | 2020-10-30 00:10 | PC.NURSE ---
PT SLEEPING, NO DISTRESS NOTED.
--- NOTE | 2020-10-30 03:59 | PC.NURSE ---
PT LAYING IN BED, WATCHING TV. PT STATES HE HAS RESTED WELL. NO ACUTE CHANGES NOTED THIS SHIFT, VS REMAIN STABLE CHARTED. O2 REMAINS IN PLACE VIA NC AT 2.5L. WILL CONTINUE TO MONITOR.
[2020-10-30 06:08] LABS: POC Glucose,Bedside 212 (70-110)
--- NOTE | 2020-10-30 06:16 | PC.NURSE ---
PT'S ABDOMEN HAS BEEN DISTENDED THIS SHIFT, PT STATES HE HAS NOT HAD A BM IN 3 DAYS. PT TYPICALLY HAS A BOWEL MOVEMENT EVERYDAY. PT WAS OFFERED PRUNE JUICE (HE STATES THIS HELPS HIM AT HOME), BUT DECLINED. PT IS FEARFUL OF NOT BEING ABLE TO REACH THE BATHROOM IN TIME. I ALSO OFFERED PT BSC AT THIS TIME AND HE REFUSED. PT WAS REASSURED THAT PRIVACY WOULD BE RESPECTED. RESPIRATORY THERAPIST ALSO AT BEDSIDE AND OFFERED LONGER O2 TUBING. PT CONTINUES TO DECLINE AT THIS TIME.
[2020-10-30 07:06] LABS: Hematocrit 32.2 % (42.0-52.0); Lymphocytes # 0.2 K/mm3 (0.7-4.5); Mean Corpuscular HGB Conc 32.1 g/dL (31.8-35.4); Mean Corpuscular Hemoglobin 28.5 pg (27.0-31.2); Mean Corpuscular Volume 88.9 fl (80-94); Mean Platelet Volume 7.1 fl (7.4-10.4); Monocytes # 0.6 K/mm3 (0.1-1.0); Monocytes % 2.6 % (1.7-9.3); Neutrophils # 21.1 K/mm3 (1.8-7.8); Neutrophils % 96.3 % (37.0-80.0); Platelet Count 253 K/mm3 (142-424); Red Blood Count 3.62 M/mm3 (4.60-6.20); Red Cell Distribution Width 16.3 % (11.5-17.5); White Blood Count 21.9 K/mm3 (4.8-10.8)
[2020-10-30 07:08] LABS: Hemoglobin 10.3 g/dL (14.1-18.0); MANUAL DIFFERENTIAL MANUAL DIFFERENTIAL (MANUAL DIFF)
[2020-10-30 07:19] LABS: Anion Gap 16.5 mEq/L (5-15); Blood Urea Nitrogen 52 mg/dl (9-20); Calcium 7.8 mg/dl (8.4-10.2); Carbon Dioxide 26 mmol/L (22.0-30.0); Chloride 87 mmol/L (98-107); Creatinine Clearance Estimated 43 mL/min (50-200); Estimated Glomerular Filt Rate 54 ml/min (>60); GFR (African American) 65 ML/MIN (>60); Glucose 194 mg/dl (74-100); Potassium 4.5 mmoL/L (3.5-5.1); Sodium 125 mmol/L (136-145)
[2020-10-30 07:22] LABS: Eosinophils % 1 % (0-3); Lymphocytes % 3 % (10-50); Monocytes % 2 % (2-9); Neutrophils % 94 % (42-76); Platelet Estimate Normal; RBC Morphology Normal; Total Cells Counted 100
--- NOTE | 2020-10-30 08:05 | PC.NURSE ---
Report received from Laura Lopez in lab, Pt. verified by name and birthdate, MRSA NARES swab positive for MRSA.
--- NOTE | 2020-10-30 08:10 | PC.NURSE ---
Dr. Castro notified of MRSA in [place].
[2020-10-30 11:07] LABS: POC Glucose,Bedside 226 (70-110)
--- NOTE | 2020-10-30 11:34 | HMH.PULMPN ---
Internal Medicine - PN: Subj *Date: 10/30/20 *Time: 11:34 Interval history: No acute respiratory vents overnight. Patient denies any respiratory complaints but admits slight improvement in his symptoms. Exam - Constitutional Constitutional:: Present: no acute distress, comfortable - HENMT Exam HENMT: Present: normocephalic, atraumatic - Eye Exam Eyes:: Present: normal appearance both eyes and related structures - Neck Exam Neck:: Present: normal visual inspection - Respiratory Exam Respiratory:: Present: able to speak in complete sentences, respiratory distress, crackles, wheezing - Cardiovascular Exam Cardiac:: Present: S1, S2 - GI Exam GI:: Present: soft - Skin Exam Skin: Present: warm, no rash - Neurological Exam Neurological: Present: alert, awake, normal cognition - Extremities Exam Extremities: Present: no cyanosis, no clubbing, no edema Assessment and Plan (1) Chest pain Status: Acute Qualifiers: Chest pain type: chest pain on breathing Qualified Code(s): R07.1 - Chest pain on breathing Category: Medical Code(s): R07.9 - Chest pain, unspecified (2) Leucocytosis Status: Acute Qualifiers: Leukocytosis type: unspecified Qualified Code(s): D72.829 - Elevated white blood cell count, unspecified Category: Medical Code(s): D72.829 - Elevated white blood cell count, unspecified (3) AAA (abdominal aortic aneurysm) Status: Acute Qualifiers: Presence of rupture: without rupture Qualified Code(s): I71.4 - Abdominal aortic aneurysm, without rupture Category: Medical Code(s): I71.4 - Abdominal aortic aneurysm, without rupture (4) Atypical angina Status: Acute Category: Medical Code(s): I20.8 - Other forms of angina pectoris (5) Cardiomyopathy Status: Acute Qualifiers: Cardiomyopathy type: unspecified Qualified Code(s): I42.9 - Cardiomyopathy, unspecified Category: Medical Code(s): I42.9 - Cardiomyopathy, unspecified (6) CAD (coronary artery disease) Status: Chronic Qualifiers: Coronary Disease-Associated Artery/Lesion type: [place] artery [place] vs. 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: COPD type: emphysema Emphysema type: unspecified Qualified Code(s): J43.9 - Emphysema, unspecified Category: Medical Code(s): J44.9 - Chronic obstructive pulmonary disease, unspecified (8) Dyspnea Status: Chronic Qualifiers: Dyspnea type: shortness of breath Qualified Code(s): R06.02 - Shortness of breath; R06.00 - Dyspnea, unspecified; R06.01 - Orthopnea Category: Medical Code(s): R06.00 - Dyspnea, unspecified (9) Former smoker Status: Chronic Category: Social Hx Code(s): Z87.891 - Personal history of nicotine dependence (10) HHD (hypertensive heart disease) Status: Chronic Qualifiers: Heart failure presence: without heart failure Qualified Code(s): I11.9 - Hypertensive heart disease without heart failure Category: Medical Code(s): I11.9 - Hypertensive heart disease without heart failure (11) History of coronary artery bypass graft Status: Chronic Category: Surgical Code(s): Z95.1 - Presence of aortocoronary bypass graft (12) Compression fracture Status: Acute Category: Medical (13) Pneumonia Status: Acute Category: Medical Code(s): J18.9 - Pneumonia, unspecified organism (14) COPD (chronic obstructive pulmonary disease) Status: Acute Category: Medical Code(s): J44.9 - Chronic obstructive pulmonary disease, unspecified (15) Serum potassium elevated Status: Acute Category: Medical Code(s)
--- NOTE | 2020-10-30 13:07 | HMH.ACPN2 ---
Internal Medicine - PN: Subj *Date: 10/30/20 *Time: 08:00 Interval history: pt sitting up on side of bed, states feeling better but still soa Exam Vital signs and Labs for Last 24 Hours: Temp Pulse Resp BP Pulse Ox 97.8 F 92 H 24 102/60 L 96 10/30/20 08:00 10/30/20 11:29 10/30/20 11:29 10/30/20 11:29 10/30/20 11:29 Laboratory Results - last 24 hr 10/29/20 16:45: POC Glucose 196 H 10/29/20 20:43: POC Glucose 164 H 10/30/20 05:49: POC Glucose 212 H 10/30/20 06:12: WBC 21.9 H* D, RBC 3.62 L, Hgb 10.3 L D, Hct 32.2 L, MCV 88.9, MCH 28.5, MCHC 32.1, RDW 16.3, Plt Count 253, MPV 7.1 L, Neut % (Auto) 96.3 H, Lymph % (Auto) 1.0 L, [place] % (Auto) 2.6, Eos % (Auto) 0.0 L, Baso % (Auto) 0.0 L, Neut # (Auto) 21.1 H, Lymph # (Auto) 0.2 L, [place] # (Auto) 0.6, Eos # (Auto) 0.0, Baso # (Auto) 0.0, Total Counted 100, Neutrophils % (Manual) 94 H, Lymphocytes % (Manual) 3 L, Monocytes % (Manual) 2, Eosinophils % (Manual) 1, Platelet Estimate Normal, RBC Morphology Normal 10/30/20 06:12: Sodium 125 L, Potassium 4.5, Chloride 87 L, Carbon Dioxide 26, Anion Gap 16.5 H, BUN 52 H D, Creatinine 1.30 H, Estimated Creat Clear 43, Estimated GFR 54 L, Est GFR ( Amer) 65, Glucose 194 H, Calcium 7.8 L 10/30/20 10:59: POC Glucose 226 H I & O for Last 24 hours: Intake & Output 10/28/20 10/29/20 10/30/20 10/31/20 11:59 11:59 11:59 11:59 Intake Total 730 / 730 1860 / 1860 2890 / 2890 Output Total 500 / 500 600 / 600 825 / 825 Balance 230 / 230 1260 / 1260 2065 / 2065 Weight 138 lb 125 lb 8 oz 137 lb 9.095 oz Microbiology Reports for the Last 24 Hours: Microbiology 10/29/20 12:50 Sputum - Expectorated Sputum Gram Stain - Final 10/29/20 12:50 Sputum - Expectorated Sputum Sputum Culture - Preliminary 10/28/20 14:50 Nose - Nasal MRSA Culture - Final - Constitutional chronically ill appearing - *Routine HEENT Exam Head: Present: normocephalic Eye: Present: PERRL ENT: Present: mucous membranes moist - *Routine Neck Exam Present: supple. Absent: lymphadenopathy - *Routine Respiratory Exam Present: wheezes - *Routine Cardiovascular Exam Present: tachycardia - *Routine Abdominal Exam Present: soft, normoactive bowel sounds. Absent: tenderness - *Routine Extremities Exam Present: normal capillary refill. Absent: cyanosis, clubbing, edema - *Routine Skin Exam Present: warm. Absent: rash - *Routine Neurological Exam Present: alert, oriented X3 - Routine Psychiatric Exam Present: normal affect Assessment and Plan (1) Chest pain Status: Acute Qualifiers: Chest pain type: chest pain on breathing Qualified Code(s): R07.1 - Chest pain on breathing Category: Medical Code(s): R07.9 - Chest pain, unspecified (2) Leucocytosis Status: Acute Qualifiers: Leukocytosis type: unspecified Qualified Code(s): D72.829 - Elevated white blood cell count, unspecified Category: Medical Code(s): D72.829 - Elevated white blood cell count, unspecified (3) AAA (abdominal aortic aneurysm) Status: Acute Qualifiers: Presence of rupture: without rupture Qualified Code(s): I71.4 - Abdominal aortic aneurysm, without rupture Category: Medical Code(s): I71.4 - Abdominal aortic aneurysm, without rupture (4) Atypical angina Status: Acute Category: Medical Code(s): I20.8 - Other forms of angina pectoris (5) Cardiomyopathy Status: Acute Qualifiers: Cardiomyopathy type: unspecified Qualified Code(s): I42.9 - Cardiomyopathy, unspecified Category: Medical Code(s): I42.9 - Cardiomyopathy, unspecified (6) CAD (coronary artery disease) Status: Chronic Qualifiers: Coronary Disease-Associated Artery/Lesion type: [place] artery [place] vs. transplanted heart: [place] heart Associated angina: with other forms of angina Qualified Code(s): I25.118 - Atherosclerotic heart disease of [place] coronary artery with other forms of angina pectoris
--- NOTE | 2020-10-30 16:05 | PC.NURSE ---
O2 increased to 3L NC per pt's request. Stating that he's having a little more trouble breathing. RT therapy notified. BK.
--- NOTE | 2020-10-30 16:10 | PC.NURSE ---
RT notified of need for breathing tx. V/U.
--- NOTE | 2020-10-30 17:00 | PC.NURSE ---
Called RT and requested breathing treatment be done (2nd time)
[2020-10-30 17:08] LABS: POC Glucose,Bedside 112 (70-110)
--- NOTE | 2020-10-30 17:30 | PC.NURSE ---
Pt has remained SOA today. Audible insp / exsp wheezes noted. O2 now increased to 3L NC.
--- NOTE | 2020-10-30 18:22 | PC.NURSE ---
RT therapy at bs to do breathing treatment.
[2020-10-31] VITALS (15 sets, daily range): BP systolic 99–135; BP diastolic 61–78; PULSE 50–102; RESP 18–26; TEMP 36.5–36.7; O2SAT 90–94; BMI 22.6
[2020-10-31 01:38] LABS: POC Glucose,Bedside 199 (70-110)
--- NOTE | 2020-10-31 04:22 | PC.NURSE ---
Patient is alert and oriented x4. Patient has bilateral pitting edema to his lower extremities. VSS, call light within reach, will continue to monitor.
[2020-10-31 07:05] LABS: POC Glucose,Bedside 137 (70-110)
[2020-10-31 08:04] LABS: Hematocrit 28.1 % (42.0-52.0); Hemoglobin 8.9 g/dL (14.1-18.0); Lymphocytes # 0.2 K/mm3 (0.7-4.5); Lymphocytes % 1.2 % (10-50); Mean Corpuscular HGB Conc 31.6 g/dL (31.8-35.4); Mean Corpuscular Hemoglobin 28.5 pg (27.0-31.2); Mean Corpuscular Volume 90.2 fl (80-94); Mean Platelet Volume 6.8 fl (7.4-10.4); Monocytes # 0.8 K/mm3 (0.1-1.0); Monocytes % 4.7 % (1.7-9.3); Neutrophils # 16.4 K/mm3 (1.8-7.8); Platelet Count 205 K/mm3 (142-424); Red Blood Count 3.12 M/mm3 (4.60-6.20); Red Cell Distribution Width 15.7 % (11.5-17.5); White Blood Count 17.4 K/mm3 (4.8-10.8)
[2020-10-31 08:08] LABS: MANUAL DIFFERENTIAL MANUAL DIFFERENTIAL (MANUAL DIFF)
[2020-10-31 08:13] LABS: Anion Gap 18.3 mEq/L (5-15); Blood Urea Nitrogen 69 mg/dl (9-20); Calcium 7.8 mg/dl (8.4-10.2); Carbon Dioxide 22 mmol/L (22.0-30.0); Chloride 96 mmol/L (98-107); Creatinine Clearance Estimated 34 mL/min (50-200); Estimated Glomerular Filt Rate 39 ml/min (>60); Glucose 139 mg/dl (74-100); Potassium 5.3 mmoL/L (3.5-5.1); Sodium 131 mmol/L (136-145)
[2020-10-31 08:14] LABS: GFR (African American) 3 ML/MIN (>60)
[2020-10-31 09:10] LABS: Lymphocytes % 4 % (10-50); Monocytes % 4 % (2-9); Neutrophils % 88 % (42-76); Platelet Estimate Normal; RBC Morphology Normal; Total Cells Counted 100
--- NOTE | 2020-10-31 09:16 | XR_ITS ---
PROCEDURE INFORMATION: Exam: XR Complete Acute Abdomen Series Including Chest Exam date and time: 10/31/2020 9:16 AM Age: 75 years old Clinical indication: Bloating; Patient HX: HX of cancer (not sure type), open heart SX; Additional info: Abd distention TECHNIQUE: Imaging protocol: XR complete acute abdomen series, including 2 or more views of the abdomen and a single view chest. COMPARISON: CR XR CHEST PORTABLE 10/28/2020 4:46 AM FINDINGS: Lungs: Developing patchy infiltration within the right upper lobe and right perihilar region since prior examination. There are chronic parenchymal changes within both lung borrero. Pleural spaces: There is now blunting of the right lateral costophrenic angle. This raises the possibility of a developing right basilar parapneumonic effusion since prior examination. Heart/Mediastinum: Median sternotomy and cardiac surgery has been performed. No cardiomegaly. Gastrointestinal tract: Colonic fecal stasis. The abdominal bowel gas pattern is otherwise nonspecific. Two radiopaque bodies projecting over the left sacral wing, probably representing ingested tablets. Intraperitoneal space: Normal. No free air. Bones/joints: Prominent degenerative changes noted within the spine and shoulders. There is osteopenia of visualized bones. Soft tissues: Atheromatous calcification of the aorta and visceral arteries noted. IMPRESSION: 1. Developing patchy infiltrate within the right upper lobe and right perihilar region since prior examination. 2. There is blunting of the right lateral costophrenic angle suggesting interval development of a small right parapneumonic effusion since prior examination. 3. Colonic fecal stasis. The abdominal bowel gas pattern is otherwise nonspecific. No evidence of soft tissue mass within the abdomen or free air.
--- NOTE | 2020-10-31 09:18 | HMH.ACPN2 ---
Internal Medicine - PN: Subj *Date: 10/31/20 *Time: 09:18 Interval history: does not feel well this am with episode of coughing blood - also has distended abd with constipation - will obtain xray and add meds - stress ulcer - Exam Vital signs and Labs for Last 24 Hours: Temp Pulse Resp BP Pulse Ox 97.7 F 94 H 26 H 99/63 L 91 L 10/31/20 07:40 10/31/20 07:40 10/31/20 07:40 10/31/20 07:40 10/31/20 07:40 Laboratory Results - last 24 hr 10/30/20 10:59: POC Glucose 226 H 10/30/20 16:15: POC Glucose 112 H 10/30/20 21:05: POC Glucose 199 H 10/31/20 05:39: POC Glucose 137 H 10/31/20 07:35: WBC 17.4 H, RBC 3.12 L, Hgb 8.9 L, Hct 28.1 L, MCV 90.2, MCH 28.5, MCHC 31.6 L, RDW 15.7, Plt Count 205, MPV 6.8 L, Neut % (Auto) 94.0 H, Lymph % (Auto) 1.2 L, [place] % (Auto) 4.7, Eos % (Auto) 0.0 L, Baso % (Auto) 0.0 L, Neut # (Auto) 16.4 H, Lymph # (Auto) 0.2 L, [place] # (Auto) 0.8, Eos # (Auto) 0.0, Baso # (Auto) 0.0, Total Counted 100, Neutrophils % (Manual) 88 H, Band Neutrophils % 4.0, Lymphocytes % (Manual) 4 L, Monocytes % (Manual) 4, Platelet Estimate Normal, RBC Morphology Normal 10/31/20 07:35: Sodium 131 L, Potassium 5.3 H, Chloride 96 L, Carbon Dioxide 22, Anion Gap 18.3 H, BUN 69 H D, Creatinine 1.70 H D, Estimated Creat Clear 34, Estimated GFR 39 L, Est GFR ( Amer) 3 L* D, Glucose 139 H, Calcium 7.8 L I & O for Last 24 hours: Intake & Output 09/08/21 09/09/21 09/10/21 09/11/21 11:59 11:59 11:59 11:59 Intake Total 730 / 730 1860 / 1860 2890 / 2890 1787 / 1787 Output Total 500 / 500 600 / 600 825 / 825 325 / 325 Balance 230 / 230 1260 / 1260 2065 / 2065 1462 / 1462 Weight 138 lb 125 lb 8 oz 137 lb 9.095 oz 140 lb 8 oz Microbiology Reports for the Last 24 Hours: Microbiology 10/29/20 12:50 Sputum - Expectorated Sputum Gram Stain - Final 10/29/20 12:50 Sputum - Expectorated Sputum Sputum Culture - Preliminary Gram Negative Rods Gram Negative Rods#2 10/28/20 14:50 Nose - Nasal MRSA Culture - Final - Constitutional no acute distress - *Routine HEENT Exam Head: Present: normocephalic Eye: Present: EOMI, PERRL ENT: Present: mucous membranes dry - *Routine Neck Exam Absent: JVD - *Routine Respiratory Exam Present: decreased breath sounds - *Routine Cardiovascular Exam Present: tachycardia - *Routine Abdominal Exam Present: distended - *Routine Extremities Exam Present: pulses intact - *Routine Skin Exam Present: intact - *Routine Neurological Exam Present: alert, oriented X3, CN II-XII intact - Routine Psychiatric Exam Present: normal affect Assessment and Plan (1) Chest pain Status: Acute Qualifiers: Chest pain type: chest pain on breathing Qualified Code(s): R07.1 - Chest pain on breathing Category: Medical Code(s): R07.9 - Chest pain, unspecified (2) Leucocytosis Status: Acute Qualifiers: Leukocytosis type: unspecified Qualified Code(s): D72.829 - Elevated white blood cell count, unspecified Category: Medical Code(s): D72.829 - Elevated white blood cell count, unspecified (3) AAA (abdominal aortic aneurysm) Status: Acute Qualifiers: Presence of rupture: without rupture Qualified Code(s): I71.4 - Abdominal aortic aneurysm, without rupture Category: Medical Code(s): I71.4 - Abdominal aortic aneurysm, without rupture (4) Atypical angina Status: Acute Category: Medical Code(s): I20.8 - Other forms of angina pectoris (5) Cardiomyopathy Status: Acute Qualifiers: Cardiomyopathy type: unspecified Qualified Code(s): I42.9 - Cardiomyopathy, unspecified Category: Medical Code(s): I42.9 - Cardiomyopathy, unspecified (6) CAD (coronary artery disease) Status: Chronic Qualifiers: Coronary Disease-Associated Artery/Lesion type: [place] artery [place] vs. transplanted heart: [place] heart Associated angina: with other forms of angina
--- NOTE | 2020-10-31 10:27 | HMH.GSCON ---
*Admission Date: 10/27/20 *Reason for consult:: Hematemesis *History of present illness: This is a 75-year-old gentleman seen in consultation from Drs. Castro and Whitney for evaluation of hematemesis. He reports hematemesis and possible coughing but this morning. Forwarded from admission H&P: Patient is a 75-year-old white male, patient of Dr. Weldon, who presented to the emergency room with right-sided chest pain, pleuritic in nature. It had the pain since about 8:00 this morning. Patient has a history of coronary artery disease, status post coronary bypass and stenting. He is actively followed by cardiology. He also has a known 4.5 cm abdominal aneurysm is followed with sequential ultrasounds. Patient had recent surgery for a bladder mass. He is actively followed by Dr. Saxena. Patient has longstanding COPD, is oxygen dependent at 2 L/min [id number]. Is prednisone dependent, currently on 20 mg daily. As a result of the prednisone he has osteoporosis, fragile skin, and sustained a significant calcaneal fracture. Patient had a significant elevated white count in the emergency room. No infiltrative process was noted in the chest. The etiology of his leukocytosis is likely peripheral demargination associated with long-term prednisone. Since daughter has been noticing elevations in blood sugar. This is also likely a prednisone effect. Patient has had a cough productive of yellow to green purulence. Forwarded from pulmonology consultation: Mr. Iraheta (sic) is a 75-year-old male prior smoker greater than [id number] smoking cigars a diagnosis COPD on triple inhaler therapy along with chronic prednisone 20 mg, significant complicated osteoporosis and fractures even on this admission having multiple compression fractures of his thoracic spine presented to the hospital with right-sided pleuritic chest pain and pulmonary was called for further management. Forwarded from cardiology evaluation: 75-year-old male admitted with worsening shortness of breath and right-sided chest wall pain 2 days go. Patient states he is feeling much better. Patient states his shortness of breath has improved since being on steroids and antibiotics. This is being managed per pulmonary and PCP. Patient denies chest pain, tightness or pressure. Patient does continue to main on 2 L of O2 by nasal cannula. Patient does deny fever or nausea. Denies palpitations or dizziness. awake overnight monitor does reveal sinus tachycardia with a heart rate of 109-112bpm. Heart rate does increase with movement. Patient is currently on diltiazem 240 mg p.o. for heart rate and blood pressure control. Unable to start a beta-paulie on this patient due to his severe COPD and wheezing at this time. If heart rate continues to increase, we can increase the diltiazem to 360 mg p.o. daily. Echocardiogram revealed EF 45% with segmental wall motion abnormality, grade 1 diastolic dysfunction. Trace of mitral and tricuspid regurgitation. This is similar to the echocardiogram that was performed in June 2019. Blood pressure stable. Echo:Conclusion 1. Technically difficult study, mildly enlarged left atrium, normal left ventricular size, visually estimated ejection fraction 45% with segmental wall motion abnormality described above, grade 1 diastolic dysfunction seen without tissue Doppler evidence of raise left atrial pressure. 2. Trace mitral and tricuspid regurgitation. 3. No significant pericardial effusion noted. Discussed plan of care with Dr. Velazquez. Orders and recommendations were received from Dr. Velazquez. awake overnight monitor reveals tachycardia this a.m. in the 109-112bpm. Unable to start beta-paulie due t
[2020-10-31 11:32] LABS: POC Glucose,Bedside 194 (70-110)
[2020-10-31 16:55] LABS: POC Glucose,Bedside 141 (70-110)
[2020-10-31 16:58] LABS: Hematocrit 27.5 % (42.0-52.0); Hemoglobin 8.9 g/dL (14.1-18.0)
[2020-10-31 23:10] LABS: POC Glucose,Bedside 126 (70-110)
[2020-11-01] VITALS (24 sets, daily range): BP systolic 82–164; BP diastolic 50–97; PULSE 67–115; RESP 12–24; TEMP 36.1–36.8; O2SAT 89–98; BMI 22.6
--- NOTE | 2020-11-01 06:24 | PC.NURSE ---
Patient is A&Ox4. Patient has remained on 3LNC and oxygen saturation has been maintained 95% or above. Patient has not had a BM this shift, patient has had a fleet enema and a dulcolax suppository. Patient's abdomen is still very hard, round and distended. Patient has had incontinent episodes this shift. Patient has been NPO since midnight. VSS, call light within reach, will continue to monitor.
--- NOTE | 2020-11-01 06:50 | PC.NURSE ---
Deya from lab called at 0630 with a sputum culture positive with MRSA Name and verified x2 Notified Ellie Parker RN in ED of result to Dr. Castro.
[2020-11-01 07:17] LABS: Eosinophils % 0.1 % (0.1-12.0); Hematocrit 29.4 % (42.0-52.0); Lymphocytes # 0.2 K/mm3 (0.7-4.5); Lymphocytes % 1.5 % (10-50); Mean Corpuscular HGB Conc 30.6 g/dL (31.8-35.4); Mean Corpuscular Hemoglobin 27.9 pg (27.0-31.2); Mean Corpuscular Volume 91.3 fl (80-94); Mean Platelet Volume 6.8 fl (7.4-10.4); Monocytes # 0.6 K/mm3 (0.1-1.0); Neutrophils # 14.5 K/mm3 (1.8-7.8); Neutrophils % 94.5 % (37.0-80.0); Platelet Count 229 K/mm3 (142-424); Red Blood Count 3.21 M/mm3 (4.60-6.20); Red Cell Distribution Width 15.8 % (11.5-17.5); White Blood Count 15.3 K/mm3 (4.8-10.8)
[2020-11-01 07:24] LABS: Anion Gap 23.9 mEq/L (5-15); Blood Urea Nitrogen 78 mg/dl (9-20); Calcium 7.5 mg/dl (8.4-10.2); Carbon Dioxide 17 mmol/L (22.0-30.0); Chloride 99 mmol/L (98-107); Creatinine Clearance Estimated 30 mL/min (50-200); Estimated Glomerular Filt Rate 35 ml/min (>60); GFR (African American) 42 ML/MIN (>60); Glucose 88 mg/dl (74-100); Potassium 4.9 mmoL/L (3.5-5.1); Sodium 135 mmol/L (136-145)
--- NOTE | 2020-11-01 07:27 | HMH.ANESCL ---
[facility] Anesthesia Checklist - Structural Data Admitted From: Inpatient Planned Operative Procedure/s: egd Consent for Planned Operative Procedure(s) Verified: Yes - Additional verifications Anesthesia Reactions: No Hx Blood Transfusions: No Blood Transfusion Reaction: No - Airway Assessment C-Spine Mobility Assessed: Yes TMJ Mobility Assessed: Yes Dentition: Edentulous - Neurological Assessment Level of Consciousness: Awake, Alert, Appropriate - Anesthesia Plan Anesthesia Risk discussed: Yes Anesthesia Plan: Verified ASA Class: IV Anesthesia Type: [facility] History I have reviewed the patient's past medical history: Yes Medical History: Reports:: Aneurysm, Asthma, Cancer (Colon Cancer), Chronic Obstructive Pulmonary Disease (COPD), Coronary Artery Disease, Diabetes Mellitus Type 2, Home Oxygen, Hyperlipidemia, Hypertension, Myocardial Infarction Denies:: Diabetes Mellitus Type 1, Internal Pacemaker, MRSA, Seizures *Have you ever received a pneumonia vaccine?: Yes *Have you received a flu vaccine this season?: Yes Other Medical History: Reports: Arthritis, Cataracts, Other. Denies: Blood Transfusion Reaction Anesthesia experience/problems:: none Laterality Cases: Left: Arthroscopy Hip Other Surgeries: Yes: No Previous Surgery, CABG, Cancer Surgery, Cardiac Catheterization, Cardiac Surgery, Colonoscopy, Coronary Stent, Open Heart Surgery, Other (ankle surgery (left?)). No: Pacemaker Amputation: No Fractures: Yes (L ankle) - *Social History Last grade of school completed: 9th or 10th Smoking Status: Former smoker Tobacco Type: cigarettes # Packs/Day (cigarettes): 3 #Yrs smoked (if former smoker): 30 Alcohol Intake: current Alcohol Intake Frequency:: a few times a month Substance Use Type: denies use *Occupational Status:: retired Housing: house Household Members: family *Travel in the last 8 weeks: None Family Hx:: No significant family history
--- NOTE | 2020-11-01 07:28 | HMH.GSPN ---
Subjective Narrative: He states that he did not rest well overnight. With regard to nausea he claims that is much better today . Progress Note: A&P (1) Chest pain Status: Acute (2) Leucocytosis Status: Acute (3) AAA (abdominal aortic aneurysm) Status: Acute (4) Atypical angina Status: Acute (5) Cardiomyopathy Status: Acute (6) CAD (coronary artery disease) Status: Chronic (7) Chronic obstructive pulmonary disease Status: Chronic (8) Dyspnea Status: Chronic (9) Former smoker Status: Chronic (10) HHD (hypertensive heart disease) Status: Chronic (11) History of coronary artery bypass graft Status: Chronic (12) Compression fracture Status: Acute (13) Pneumonia Status: Acute (14) COPD (chronic obstructive pulmonary disease) Status: Acute (15) Serum potassium elevated Status: Acute (16) Low sodium levels Status: Acute (17) Gastritis Status: Acute (18) Hematemesis Status: Acute Assessment and plan: No additional episodes reported. Esophagogastroduodenoscopy this morning Exam Vital signs and Labs for Last 24 Hours: Temp Pulse Resp BP Pulse Ox 98 F 85 22 144/72 H 97 11/01/20 04:00 11/01/20 05:00 11/01/20 04:00 11/01/20 04:00 11/01/20 05:00 Laboratory Results - last 24 hr 10/31/20 07:35: WBC 17.4 H, RBC 3.12 L, Hgb 8.9 L, Hct 28.1 L, MCV 90.2, MCH 28.5, MCHC 31.6 L, RDW 15.7, Plt Count 205, MPV 6.8 L, Neut % (Auto) 94.0 H, Lymph % (Auto) 1.2 L, [place] % (Auto) 4.7, Eos % (Auto) 0.0 L, Baso % (Auto) 0.0 L, Neut # (Auto) 16.4 H, Lymph # (Auto) 0.2 L, [place] # (Auto) 0.8, Eos # (Auto) 0.0, Baso # (Auto) 0.0, Total Counted 100, Neutrophils % (Manual) 88 H, Band Neutrophils % 4.0, Lymphocytes % (Manual) 4 L, Monocytes % (Manual) 4, Platelet Estimate Normal, RBC Morphology Normal 10/31/20 07:35: Sodium 131 L, Potassium 5.3 H, Chloride 96 L, Carbon Dioxide 22, Anion Gap 18.3 H, BUN 69 H D, Creatinine 1.70 H D, Estimated Creat Clear 34, Estimated GFR 39 L, Est GFR ( Amer) 3 L* D, Glucose 139 H, Calcium 7.8 L 10/31/20 11:20: POC Glucose 194 H 10/31/20 16:43: POC Glucose 141 H 10/31/20 16:45: Hgb 8.9 L, Hct 27.5 L 10/31/20 22:24: POC Glucose 126 H 11/01/20 06:20: Sodium 135 L, Potassium 4.9, Chloride 99, Carbon Dioxide 17 L, Anion Gap 23.9 H, BUN 78 H, Creatinine 1.90 H, Estimated Creat Clear 30, Estimated GFR 35 L, Est GFR ( Amer) 42 L D, Glucose 88 D, Calcium 7.5 L I & O for Last 24 hours: Intake & Output 10/29/20 10/30/20 10/31/20 11/01/20 11:59 11:59 11:59 11:59 Intake Total 1860 / 1860 2890 / 2890 1787 / 1787 2405 / 2405 Output Total 600 / 600 825 / 825 325 / 325 Balance 1260 / 1260 2065 / 2065 1462 / 1462 2405 / 2405 Weight 125 lb 8 oz 137 lb 9.095 oz 140 lb 8 oz 141 lb Microbiology Reports for the Last 24 Hours: Microbiology 10/29/20 12:50 Sputum - Expectorated Sputum Gram Stain - Final 10/29/20 12:50 Sputum - Expectorated Sputum Sputum Culture - Final Pseudomonas aeruginosa Enterobacter aerogenes Staphylococcus aureus 10/29/20 10:30 Blood Blood Culture - Preliminary NO GROWTH AFTER 48 HOURS 10/29/20 10:30 Blood Blood Culture - Preliminary NO GROWTH AFTER 48 HOURS - Constitutional no acute distress - *Routine Respiratory Exam Absent: respiratory distress - *Routine Cardiovascular Exam Absent: tachycardia - *Routine Neurological Exam Present: alert
--- NOTE | 2020-11-01 08:15 | HMH.SCOPE ---
- Procedure: Date: 11/01/20 Patient Date of :: 1945 Procedure Performed:: Esophagogastroduodenoscopy with biopsy Indications:: Hematemesis Performing Provider:: Harrison Shane MD Referring Provider:: Drs. Castro and Whitney Sedation:: Monitored anesthesia care Procedure:: After informed consent was obtained the patient was taken to the endoscopy suite. Sedation ensued after the patient was transferred to the left lateral decubitus position. Pulse, blood pressure, and oxygen saturation were monitored throughout the procedure. The endoscope was advanced beyond the duodenal bulb. Retroflexion within the gastric lumen was accomplished. The gastroscope was carefully removed and the patient was transferred to recovery in stable condition. Please see findings and specimens below for detail. Findings:: Candidal esophagitis Food particles limiting visualization in stomach and small bowel Focal inflammation/small ulceration at GE junction with tiny adherent clot No sign of active bleeding Patchy gastritis Lobulated linear ulceration of duodenal sweep Specimens:: Antral biopsy Biopsy of duodenal sweep inflammation/linear ulceration GE junction biopsy Recommendations:: Continue proton pump inhibition Carafate ordered Diflucan ordered Repeat EGD in 6-8 weeks Complications:: No immediate Estimated blood obtained (mL): 1
[2020-11-01 08:17] LABS: MANUAL DIFFERENTIAL MANUAL DIFFERENTIAL (MANUAL DIFF)
[2020-11-01 08:55] LABS: POC Glucose,Bedside 100 (70-110)
[2020-11-01 09:10] LABS: Lymphocytes % 2 % (10-50); Monocytes % 4 % (2-9); Neutrophils % 93 % (42-76); Platelet Estimate Normal; RBC Morphology Normal; Total Cells Counted 100
--- NOTE | 2020-11-01 09:12 | HMH.ACPN2 ---
Internal Medicine - PN: Subj *Date: 11/01/20 *Time: 09:38 Interval history: Patient underwent EGD this morning, kindly performed by Dr. Isaac. Findings are noted. Will start on Diflucan. Razia esophagitis was noted. She has not had a bowel movement since last Monday. Constipation is common for him. Try a bottle of mag citrate today. His abdomen is somewhat distended but none focal, nontender. Bowel sounds are hypoactive. Patient has longstanding COPD, O2 dependence, prednisone dependence. Preliminary sputum culture suggest presence of staph. Will add vancomycin to his regimen. Renal insufficiency as noted, creatinine today is 1.9. Exam Vital signs and Labs for Last 24 Hours: Temp Pulse Resp BP Pulse Ox 97.1 F L 90 20 96/69 L 96 11/01/20 08:01 11/01/20 08:21 11/01/20 08:21 11/01/20 08:21 11/01/20 08:21 Laboratory Results - last 24 hr 10/31/20 11:20: POC Glucose 194 H 10/31/20 16:43: POC Glucose 141 H 10/31/20 16:45: Hgb 8.9 L, Hct 27.5 L 10/31/20 22:24: POC Glucose 126 H 11/01/20 06:20: WBC 15.3 H, RBC 3.21 L, Hgb 9.0 L, Hct 29.4 L, MCV 91.3, MCH 27.9, MCHC 30.6 L, RDW 15.8, Plt Count 229, MPV 6.8 L, Neut % (Auto) 94.5 H, Lymph % (Auto) 1.5 L, [place] % (Auto) 4.0, Eos % (Auto) 0.1, Baso % (Auto) 0.0 L, Neut # (Auto) 14.5 H, Lymph # (Auto) 0.2 L, [place] # (Auto) 0.6, Eos # (Auto) 0.0, Baso # (Auto) 0.0, Total Counted 100, Neutrophils % (Manual) 93 H, Band Neutrophils % 1.0, Lymphocytes % (Manual) 2 L, Monocytes % (Manual) 4, Platelet Estimate Normal, RBC Morphology Normal 11/01/20 06:20: Sodium 135 L, Potassium 4.9, Chloride 99, Carbon Dioxide 17 L, Anion Gap 23.9 H, BUN 78 H, Creatinine 1.90 H, Estimated Creat Clear 30, Estimated GFR 35 L, Est GFR ( Amer) 42 L D, Glucose 88 D, Calcium 7.5 L 11/01/20 08:42: POC Glucose 100 I & O for Last 24 hours: Intake & Output 10/29/20 10/30/20 10/31/20 11/01/20 23:59 23:59 23:59 23:59 Intake Total 1270 / 1270 3310 / 3310 1367 / 1727 1984 Output Total 1075 / 1075 675 / 675 Balance 195 / 195 2635 / 2635 1367 / 1727 1984 Weight 125 lb 8 oz 137 lb 9.095 oz 140 lb 8 oz 141 lb Microbiology Reports for the Last 24 Hours: Microbiology 10/29/20 12:50 Sputum - Expectorated Sputum Gram Stain - Final 10/29/20 12:50 Sputum - Expectorated Sputum Sputum Culture - Final Pseudomonas aeruginosa Enterobacter aerogenes Staphylococcus aureus 10/29/20 10:30 Blood Blood Culture - Preliminary NO GROWTH AFTER 48 HOURS 10/29/20 10:30 Blood Blood Culture - Preliminary NO GROWTH AFTER 48 HOURS - Constitutional no acute distress, chronically ill appearing - *Routine HEENT Exam Head: Present: normocephalic Eye: Present: EOMI, PERRL ENT: Present: mucous membranes moist - *Routine Neck Exam Present: supple. Absent: lymphadenopathy - *Routine Respiratory Exam Present: rhonchi, diminished air movement. Absent: accessory muscle use, respiratory distress - *Routine Cardiovascular Exam Present: RRR, tachycardia - *Routine Abdominal Exam Present: distended. Absent: tenderness, rebound, guarding, organomegaly - *Routine Extremities Exam Absent: cyanosis, clubbing, edema - *Routine Skin Exam Present: warm. Absent: rash - *Routine Neurological Exam Present: alert, oriented X3 Assessment and Plan (1) Chest pain Status: Acute Qualifiers: Chest pain type: chest pain on breathing Qualified Code(s): R07.1 - Chest pain on breathing Category: Medical Code(s): R07.9 - Chest pain, unspecified (2) Leucocytosis Status: Acute Qualifiers: Leukocytosis type: unspecified Qualified Code(s): D72.829 - Elevated white blood cell count, unspecified Category: Medical Code(s): D72.829 - Elevated white blood cell count, unspecified (3) AAA (abdominal aortic aneurysm) Sta
--- NOTE | 2020-11-01 09:18 | HMH.PHACONS ---
- Pharmacy Consult Date: 11/01/20 Time: 09:18 Referring provider: SHEA Reason for Consult:: VANCOMYCIN DOSING Allergies and ADEs:: Allergies Allergy/AdvReac Type Severity Reaction Status Date / Time No Known Allergies Allergy Verified 10/27/20 16:44 Home Medications:: Home Medications Medication Instructions Recorded Confirmed Type aspirin 81 mg tablet,delayed 81 mg PO DAILY tab 05/16/17 10/28/20 History release ferrous sulfate 325 mg (65 mg 325 mg PO BID tab 05/16/17 10/28/20 History iron) tablet alendronate 70 mg tablet 70 mg PO WEEKLY 09/18/18 10/28/20 History potassium chloride 10 mEq 20 meq PO DAILY cap 09/18/18 10/28/20 History capsule,extended release predniSONE [Prednisone 20mg 20 mg PO DAILY 01/03/19 10/28/20 History Tab] diltiazem HCl 240 mg 240 mg PO DAILY cap 06/18/19 10/28/20 History capsule,extended release 24 hr furosemide 40 mg tablet 40 mg PO DAILY tab 10/10/19 10/28/20 History ipratropium 0.5 mg-albuterol 3 mg 3 ml INHALATION Q6H PRN #180 ml 04/16/20 10/28/20 Rx (2.5 mg base)/3 mL nebulization soln Tiotropium Horner [Spiriva 1 cap INHALATION DAILY 05/07/20 10/28/20 History 18mcg/puff inhaler] Fluticasone Propion/Salmeterol 1 puff IH BID 05/08/20 10/28/20 History [Wixela 500-50 Inhub] Atorvastatin Calcium [Lipitor 40mg 40 mg PO DAILY 07/17/20 10/28/20 History Tab] Tramadol HCl [Tramadol 50mg 50 mg PO QID 08/04/20 10/28/20 History Tab] Finasteride [Proscar] 5 mg PO DAILY 09/04/20 10/28/20 History Tamsulosin HCl [Flomax 0.4mg 0.4 mg PO HS 09/04/20 10/28/20 History capsule] Cholecalciferol (Vitamin D3) 10 mcg PO DAILY 10/28/20 10/28/20 History [Vitamin D3] Fluticasone Propionate [24 Hour 1 spray NOSTRIL-B BID 10/28/20 10/28/20 History Allergy] Meclizine HCl 25 mg PO DAILY 10/28/20 10/28/20 History Spironolactone [Spironolactone 25 mg PO DAILY 10/28/20 10/28/20 History 25mg Tablet] Height: 1.68 m Weight: 63.957 kg Laboratory Results:: Laboratory Results - last 24 hr 10/31/20 11:20: POC Glucose 194 H 10/31/20 16:43: POC Glucose 141 H 10/31/20 16:45: Hgb 8.9 L, Hct 27.5 L 10/31/20 22:24: POC Glucose 126 H 11/01/20 06:20: WBC 15.3 H, RBC 3.21 L, Hgb 9.0 L, Hct 29.4 L, MCV 91.3, MCH 27.9, MCHC 30.6 L, RDW 15.8, Plt Count 229, MPV 6.8 L, Neut % (Auto) 94.5 H, Lymph % (Auto) 1.5 L, [place] % (Auto) 4.0, Eos % (Auto) 0.1, Baso % (Auto) 0.0 L, Neut # (Auto) 14.5 H, Lymph # (Auto) 0.2 L, [place] # (Auto) 0.6, Eos # (Auto) 0.0, Baso # (Auto) 0.0, Total Counted 100, Neutrophils % (Manual) 93 H, Band Neutrophils % 1.0, Lymphocytes % (Manual) 2 L, Monocytes % (Manual) 4, Platelet Estimate Normal, RBC Morphology Normal 11/01/20 06:20: Sodium 135 L, Potassium 4.9, Chloride 99, Carbon Dioxide 17 L, Anion Gap 23.9 H, BUN 78 H, Creatinine 1.90 H, Estimated Creat Clear 30, Estimated GFR 35 L, Est GFR ( Amer) 42 L D, Glucose 88 D, Calcium 7.5 L 11/01/20 08:42: POC Glucose 100 Medical History: Reports:: Aneurysm, Asthma, Cancer (Colon Cancer), Chronic Obstructive Pulmonary Disease (COPD), Coronary Artery Disease, Diabetes Mellitus Type 2, Home Oxygen, Hyperlipidemia, Hypertension, Myocardial Infarction Denies:: Diabetes Mellitus Type 1, Internal Pacemaker, MRSA, Seizures Assessment and Plan (1) Chest pain Status: Acute Qualifiers: Qualified Code(s): R07.1 - Chest pain on breathing Category: Medical Code(s): R07.9 - Chest pain, unspecified (2) Leucocytosis Status: Acute Qualifiers: Qualified Code(s): D72.829 - Elevated white blood cell count, unspecified Category: Medical Code(s): D72.829 - Elevated white blood cell count, unspecified (3) AAA (abdominal aortic aneurysm) Status: Acute Qualifiers: Qualified Code(s): I71.4 - Abdominal aortic aneurysm, without rupture Category: Medical Code(s): I71.4 - Abdominal aortic aneurysm, without rupture (4) Atypical angina Status: Acute Categor
[2020-11-01 17:24] LABS: POC Glucose,Bedside 98 (70-110)
--- NOTE | 2020-11-01 19:49 | PC.NURSE ---
Pt has slept most of this shift. Pt had x1 moderate BM this shift after mag citrate administration. NO other acute changes or complaints, will continue to monitor.
[2020-11-01 19:55] LABS: POC Glucose,Bedside 92 (70-110)
[2020-11-01 19:55] LABS: POC Glucose,Bedside 99 (70-110)
[2020-11-02] VITALS (17 sets, daily range): BP systolic 99–126; BP diastolic 46–77; PULSE 58–85; RESP 18–26; TEMP 33.6–36.6; O2SAT 89–98; BMI 22.6
[2020-11-02 02:05] LABS: POC Glucose,Bedside 115 (70-110)
[2020-11-02 05:48] LABS: POC Glucose,Bedside 85 (70-110)
--- NOTE | 2020-11-02 06:58 | PC.NURSE ---
Patient is alert and oriented x4. He has slept most of this RNs shift. Patient abdomen is still firm and distended. Patient has complaints of feeling miserable he states my legs feel so heavy . Patient does have bilateral pitting edema +2. Audible wheezing is still heard and fine crackles are noted. VSS, call light within reach, will continue to monitor.
[2020-11-02 07:08] LABS: Anion Gap 21.8 mEq/L (5-15); Blood Urea Nitrogen 72 mg/dl (9-20); Calcium 7.7 mg/dl (8.4-10.2); Carbon Dioxide 17 mmol/L (22.0-30.0); Chloride 103 mmol/L (98-107); Creatinine Clearance Estimated 34 mL/min (50-200); Estimated Glomerular Filt Rate 39 ml/min (>60); GFR (African American) 48 ML/MIN (>60); Glucose 89 mg/dl (74-100); Potassium 4.8 mmoL/L (3.5-5.1); Sodium 137 mmol/L (136-145)
--- NOTE | 2020-11-02 08:05 | HMH.GSPN ---
Subjective Narrative: The patient states that he feels better this morning . He is hopeful that he will be going home soon . Progress Note: A&P (1) Chest pain Status: Acute (2) Leucocytosis Status: Acute (3) AAA (abdominal aortic aneurysm) Status: Acute (4) Atypical angina Status: Acute (5) Cardiomyopathy Status: Acute (6) CAD (coronary artery disease) Status: Chronic (7) Chronic obstructive pulmonary disease Status: Chronic (8) Dyspnea Status: Chronic (9) Former smoker Status: Chronic (10) HHD (hypertensive heart disease) Status: Chronic (11) History of coronary artery bypass graft Status: Chronic (12) Compression fracture Status: Acute (13) Pneumonia Status: Acute (14) COPD (chronic obstructive pulmonary disease) Status: Acute (15) Serum potassium elevated Status: Acute (16) Low sodium levels Status: Acute (17) Gastritis Status: Acute (18) Hematemesis Status: Acute (19) Candidal esophagitis Status: Acute Assessment and plan: Continue Diflucan (20) Peptic ulcer Status: Acute Assessment and plan: Continue PPI/Carafate and repeat EGD in 6-8 weeks Exam Vital signs and Labs for Last 24 Hours: Temp Pulse Resp BP Pulse Ox 98 F 58 L 20 110/72 97 11/02/20 04:00 11/02/20 04:00 11/02/20 04:00 11/02/20 04:00 11/02/20 04:00 Laboratory Results - last 24 hr 11/01/20 05:30: POC Glucose 99 11/01/20 06:20: Total Counted 100, Neutrophils % (Manual) 93 H, Band Neutrophils % 1.0, Lymphocytes % (Manual) 2 L, Monocytes % (Manual) 4, Platelet Estimate Normal, RBC Morphology Normal 11/01/20 08:42: POC Glucose 100 11/01/20 12:28: POC Glucose 92 11/01/20 17:13: POC Glucose 98 11/01/20 20:11: POC Glucose 115 H 11/02/20 05:29: POC Glucose 85 11/02/20 06:17: Sodium 137, Potassium 4.8, Chloride 103, Carbon Dioxide 17 L, Anion Gap 21.8 H, BUN 72 H, Creatinine 1.70 H, Estimated Creat Clear 34, Estimated GFR 39 L, Est GFR ( Amer) 48 L, Glucose 89, Calcium 7.7 L I & O for Last 24 hours: Intake & Output 10/30/20 10/31/20 11/01/20 11/02/20 11:59 11:59 11:59 11:59 Intake Total 2890 / 2890 1787 / 1787 2405 / 2405 193 193 Output Total 825 / 825 325 / 325 Balance 5 / 206 1462 / 1462 2405 / 2405 1937 / 1937 Weight 137 lb 9.095 oz 140 lb 8 oz 141 lb 141 lb 1 oz Microbiology Reports for the Last 24 Hours: Microbiology 10/29/20 12:50 Sputum - Expectorated Sputum Gram Stain - Final 10/29/20 12:50 Sputum - Expectorated Sputum Sputum Culture - Final Pseudomonas aeruginosa Enterobacter aerogenes Staphylococcus aureus - Constitutional no acute distress - *Routine Respiratory Exam Absent: respiratory distress - *Routine Cardiovascular Exam Absent: tachycardia - *Routine Neurological Exam Present: alert
--- NOTE | 2020-11-02 09:22 | HMH.PULMPN ---
Internal Medicine - PN: Subj *Date: 11/02/20 *Time: 11:27 Interval history: No acute respiratory vents overnight. Patient denies any worsening respiratory symptoms. He admits near complete resolution of his chest pain Exam - Constitutional Constitutional:: Present: no acute distress, comfortable - HENMT Exam HENMT: Present: normocephalic, atraumatic - Eye Exam Eyes:: Present: normal appearance both eyes and related structures - Neck Exam Neck:: Present: normal visual inspection - Respiratory Exam Respiratory:: Present: able to speak in complete sentences, wheezing - Cardiovascular Exam Cardiac:: Present: S1, S2 - GI Exam GI:: Present: soft - Skin Exam Skin: Present: warm, no rash - Neurological Exam Neurological: Present: alert, awake, normal cognition - Extremities Exam Extremities: Present: no cyanosis, no clubbing, edema Assessment and Plan (1) Chest pain Status: Acute Qualifiers: Chest pain type: chest pain on breathing Qualified Code(s): R07.1 - Chest pain on breathing Category: Medical Code(s): R07.9 - Chest pain, unspecified (2) Leucocytosis Status: Acute Qualifiers: Leukocytosis type: unspecified Qualified Code(s): D72.829 - Elevated white blood cell count, unspecified Category: Medical Code(s): D72.829 - Elevated white blood cell count, unspecified (3) AAA (abdominal aortic aneurysm) Status: Acute Qualifiers: Presence of rupture: without rupture Qualified Code(s): I71.4 - Abdominal aortic aneurysm, without rupture Category: Medical Code(s): I71.4 - Abdominal aortic aneurysm, without rupture (4) Atypical angina Status: Acute Category: Medical Code(s): I20.8 - Other forms of angina pectoris (5) Cardiomyopathy Status: Acute Qualifiers: Cardiomyopathy type: unspecified Qualified Code(s): I42.9 - Cardiomyopathy, unspecified Category: Medical Code(s): I42.9 - Cardiomyopathy, unspecified (6) CAD (coronary artery disease) Status: Chronic Qualifiers: Coronary Disease-Associated Artery/Lesion type: [place] artery [place] vs. transplanted heart: [place] heart Associated angina: with other forms of angina Qualified Code(s): I25.118 - Atherosclerotic heart disease of [place] coronary artery with other forms of angina pectoris Category: Medical Code(s): I25.10 - Atherosclerotic heart disease of [place] coronary artery without angina pectoris (7) Chronic obstructive pulmonary disease Status: Chronic Qualifiers: COPD type: emphysema Emphysema type: unspecified Qualified Code(s): J43.9 - Emphysema, unspecified Category: Medical Code(s): J44.9 - Chronic obstructive pulmonary disease, unspecified (8) Dyspnea Status: Chronic Qualifiers: Dyspnea type: shortness of breath Qualified Code(s): R06.02 - Shortness of breath; R06.00 - Dyspnea, unspecified; R06.01 - Orthopnea Category: Medical Code(s): R06.00 - Dyspnea, unspecified (9) Former smoker Status: Chronic Category: Social Hx Code(s): Z87.891 - Personal history of nicotine dependence (10) HHD (hypertensive heart disease) Status: Chronic Qualifiers: Heart failure presence: without heart failure Qualified Code(s): I11.9 - Hypertensive heart disease without heart failure Category: Medical Code(s): I11.9 - Hypertensive heart disease without heart failure (11) History of coronary artery bypass graft Status: Chronic Category: Surgical Code(s): Z95.1 - Presence of aortocoronary bypass graft (12) Compression fracture Status: Acute Category: Medical (13) Pneumonia Status: Acute Category: Medical Code(s): J18.9 - Pneumonia, unspecified organism (14) COPD (chronic obstructive pulmonary disease) Status: Acute Category: Medical Code(s): J44.9 - Chronic obstructive pulmonary disease, unspecified (15) Serum potassium elevated Status: Acute Category: Medical Code(s): E87.5 - Hyperkale
[2020-11-02 11:01] LABS: POC Glucose,Bedside 181 (70-110)
--- NOTE | 2020-11-02 11:48 | HMH.PTEV ---
Physical Therapy Evaluation Rehab PT IP Evaluation Start: 11/02/20 10:15 Freq: ONCE Status: Active Protocol: Document 11/02/20 11:41 JA (Rec: 11/02/20 11:47 JA [id number]) Subjective/History History History Patient is a 75-year-old white male, patient of Dr. Weldon, who presented to the emergency room with right-sided chest pain, pleuritic in nature. It had the pain since about 8:00 this morning. Patient has a history of coronary artery disease, status post coronary bypass and stenting. He is actively followed by cardiology. He also has a known 4.5 cm abdominal aneurysm is followed with sequential ultrasounds. Patient had recent surgery for a bladder mass. He is actively followed by Dr. Saxena . Patient has longstanding COPD, is oxygen dependent at 2 L/min [id number]. Is prednisone dependent, currently on 20 mg daily. As a result of the prednisone he has osteoporosis, fragile skin , and sustained a significant calcaneal fracture. Patient had a significant elevated white count in the emergency room. No infiltrative process was noted in the chest. The etiology of his leukocytosis is likely peripheral demargination associated with long-term prednisone. Subjective Subjective Pt reports c/o pain in BLE all over from not moving Rehab PT IP Eval Objective Appearance Patient Behavior Fearful,Resistive to Care Patient Orientation Name,Birthday,Year,Situation Difficulty following instructions none Speech Pattern Clear Ambulation Patient Able to Ambulate No Balance Ability to Arise Unable Sitting Balance Steady, safe Standing Balance Unsteady Dynamic Sitting Balance Ability Fair Dynamic Dario
--- NOTE | 2020-11-02 12:39 | HMH.PAINSOAP ---
[facility] Pain Management SOAP Note Subjective:: Patient is a 75-year-old white male who is currently inpatient. We were consulted on the patient. He is a patient within our clinic. Patient has chronic vertebral fractures. According to the patient's imaging his fracture is not new onset. He was referred to Dr. Villar from our clinic for continued vertebral fractures. Patient says that he is managed with oral medications in our clinic, tramadol. He says this has been managing his pain. As result he did not feel the need to follow-up with Dr. Sales. Today, the patient is in the bed and says he is doing well overall with his pain. He denies any pain at this time. He says that he takes tramadol every other day and his pain is a 1 or 2 out of 10. Review of Systems General: No recent weight changes, no fever, no sleep disturbances Respiratory: No cough, no shortness of air, no recurring pulmonary infections Cardiovascular/peripheral vascular: No chest pain, no palpitations, no edema, no shortness of breath Gastrointestinal: No new onset incontinence, normal bowel movements reported Genitourinary: No new onset incontinence Musculoskeletal: Intermittent low back pain Psychiatric: [Normal mood/affect] Neurological: [Denies weakness in extremities], [denies balance issues] Objective:: Physical exam General: Alert and oriented x3, no acute distress, pleasant and cooperative, [on room air] Lungs: Respirations even and unlabored, symmetrical chest expansion Eyes: PERRL Musculoskeletal: Flexion and extension of lumbar [spine] somewhat guarded secondary to pain, strength in upper and lower extremities [5/5], [antalgic gait noted] Neurological: Speech clear, [land economist equal], no gross sensory deficit Assessment:: Degenerative disc disease lumbar spine with lumbar radiculopathy symptoms, chronic lumbar fractures Plan:: Overall, the patient feels he is doing well. He does not need a refill of his tramadol. He says this does manage his pain very well. He denies any significant pain at this time. He has been advised he can contact the clinic for follow-up after discharge. He did not follow-up with Dr. Villar for his vertebral fractures in the past due to pain being managed with oral medications. He has been advised if his pain does worsen we can refer him to neurosurgery. We can also change the patient's pain medication if needed in the future. Patient has been instructed to contact the clinic with any concerns before the next appointment. Dr. Husain has reviewed this note and agrees with this plan of care. This note was dictated using voice recognition software and make contain errors or omissions. [facility] History I have reviewed the patient's past medical history: Yes Medical History: Reports:: Aneurysm, Asthma, Cancer (Colon Cancer), Chronic Obstructive Pulmonary Disease (COPD), Coronary Artery Disease, Diabetes Mellitus Type 2, Home Oxygen, Hyperlipidemia, Hypertension, Myocardial Infarction Denies:: Diabetes Mellitus Type 1, Internal Pacemaker, MRSA, Seizures *Have you ever received a pneumonia vaccine?: Yes *Have you received a flu vaccine this season?: Yes Other Medical History: Reports: Arthritis, Cataracts, Other. Denies: Blood Transfusion Reaction Anesthesia experience/problems:: none Laterality Cases: Left: Arthroscopy Hip Other Surgeries: Yes: No Previous Surgery, CABG, Cancer Surgery, Cardiac Catheterization, Cardiac Surgery, Colonoscopy, Coronary Stent, Open Heart Surgery, Other (ankle surgery (left?)). No: Pacemaker Amputation: No Fractures: Yes (L ankle) - *Social History Last grade of school completed: 9th or 10th Smoking Status: Former smoker Tobacco Type: cigarettes # Packs/Day (cigarettes): 3 #Yrs smoked (if former smoker): 30 Alcohol Intake: current Alcohol Intake Frequency:: a few times a month Substance Use Type: denies use *Occupational Status:: retired Housing: house Household Members: family *Travel in
--- NOTE | 2020-11-02 12:40 | HMH.ACPN2 ---
Internal Medicine - PN: Subj *Date: 11/02/20 *Time: 08:00 Interval history: pt states hes soa today Exam Vital signs and Labs for Last 24 Hours: Temp Pulse Resp BP Pulse Ox 97.8 F 64 25 H 99/64 L 95 11/02/20 11:36 11/02/20 11:36 11/02/20 11:36 11/02/20 11:36 11/02/20 11:36 Laboratory Results - last 24 hr 11/01/20 05:30: POC Glucose 99 11/01/20 12:28: POC Glucose 92 11/01/20 17:13: POC Glucose 98 11/01/20 20:11: POC Glucose 115 H 11/02/20 05:29: POC Glucose 85 11/02/20 06:17: Sodium 137, Potassium 4.8, Chloride 103, Carbon Dioxide 17 L, Anion Gap 21.8 H, BUN 72 H, Creatinine 1.70 H, Estimated Creat Clear 34, Estimated GFR 39 L, Est GFR ( Amer) 48 L, Glucose 89, Calcium 7.7 L 11/02/20 10:48: POC Glucose 181 H I & O for Last 24 hours: Intake & Output 10/31/20 11/01/20 11/02/20 11/03/20 11:59 11:59 11:59 11:59 Intake Total 1787 / 1787 2405 / 2405 2178 / 2178 Output Total 325 / 325 Balance 1462 / 1462 2405 / 2405 2178 / 2178 Weight 140 lb 8 oz 141 lb 141 lb 1 oz - Constitutional no acute distress, chronically ill appearing - *Routine HEENT Exam Head: Present: normocephalic Eye: Present: PERRL ENT: Present: mucous membranes moist - *Routine Neck Exam Present: supple. Absent: lymphadenopathy - *Routine Respiratory Exam Present: wheezes, diminished air movement - *Routine Cardiovascular Exam Present: RRR - *Routine Abdominal Exam Present: soft, normoactive bowel sounds - *Routine Extremities Exam Present: normal capillary refill. Absent: cyanosis, clubbing, edema - *Routine Skin Exam Present: warm. Absent: rash - *Routine Neurological Exam Present: alert, oriented X3 - Routine Psychiatric Exam Present: normal affect Assessment and Plan (1) Chest pain Status: Acute Qualifiers: Chest pain type: chest pain on breathing Qualified Code(s): R07.1 - Chest pain on breathing Category: Medical Code(s): R07.9 - Chest pain, unspecified (2) Leucocytosis Status: Acute Qualifiers: Leukocytosis type: unspecified Qualified Code(s): D72.829 - Elevated white blood cell count, unspecified Category: Medical Code(s): D72.829 - Elevated white blood cell count, unspecified (3) AAA (abdominal aortic aneurysm) Status: Acute Qualifiers: Presence of rupture: without rupture Qualified Code(s): I71.4 - Abdominal aortic aneurysm, without rupture Category: Medical Code(s): I71.4 - Abdominal aortic aneurysm, without rupture (4) Atypical angina Status: Acute Category: Medical Code(s): I20.8 - Other forms of angina pectoris (5) Cardiomyopathy Status: Acute Qualifiers: Cardiomyopathy type: unspecified Qualified Code(s): I42.9 - Cardiomyopathy, unspecified Category: Medical Code(s): I42.9 - Cardiomyopathy, unspecified (6) CAD (coronary artery disease) Status: Chronic Qualifiers: Coronary Disease-Associated Artery/Lesion type: [place] artery [place] vs. transplanted heart: [place] heart Associated angina: with other forms of angina Qualified Code(s): I25.118 - Atherosclerotic heart disease of [place] coronary artery with other forms of angina pectoris Category: Medical Code(s): I25.10 - Atherosclerotic heart disease of [place] coronary artery without angina pectoris (7) Chronic obstructive pulmonary disease Status: Chronic Qualifiers: COPD type: emphysema Emphysema type: unspecified Qualified Code(s): J43.9 - Emphysema, unspecified Category: Medical Code(s): J44.9 - Chronic obstructive pulmonary disease, unspecified (8) Dyspnea Status: Chronic Qualifiers: Dyspnea type: shortness of breath Qualified Code(s): R06.02 - Shortness of breath; R06.00 - Dyspnea, unspecified; R06.01 - Orthopnea Category: Medical Code(s): R06.00 - Dyspnea, unspecified (9) Former smoker Status: Chronic Category: Social Hx Code(s): Z87.891 - Personal history of nicotine dependence
[2020-11-02 13:11] LABS: Basophils % 0.1 % (0.1-2.0); Hematocrit 29.2 % (42.0-52.0); Hemoglobin 9.2 g/dL (14.1-18.0); Lymphocytes # 0.1 K/mm3 (0.7-4.5); Lymphocytes % 1.1 % (10-50); Mean Corpuscular HGB Conc 31.6 g/dL (31.8-35.4); Mean Corpuscular Hemoglobin 29.1 pg (27.0-31.2); Mean Corpuscular Volume 92.2 fl (80-94); Mean Platelet Volume 6.8 fl (7.4-10.4); Monocytes # 0.2 K/mm3 (0.1-1.0); Monocytes % 1.7 % (1.7-9.3); Neutrophils # 12.1 K/mm3 (1.8-7.8); Neutrophils % 97.1 % (37.0-80.0); Platelet Count 247 K/mm3 (142-424); Red Blood Count 3.17 M/mm3 (4.60-6.20); White Blood Count 12.5 K/mm3 (4.8-10.8)
[2020-11-02 13:12] LABS: MANUAL DIFFERENTIAL MANUAL DIFFERENTIAL (MANUAL DIFF)
[2020-11-02 13:42] LABS: Lymphocytes % 1 % (10-50); Neutrophils % 99 % (42-76); Total Cells Counted 100
[2020-11-02 13:43] LABS: Platelet Estimate Normal
--- NOTE | 2020-11-02 13:48 | HMH.OTEV ---
OT Inpatient Evaluation Rehab OT IP Evaluation Start: 11/02/20 10:16 Freq: ONCE Status: Complete Protocol: Document 11/02/20 13:38 [facility] (Rec: 11/02/20 13:48 [facility] [id number]) Rehab OT IP Assessment Subjective History Pt oriented x 3 on arrival. Pt agreeable to engage in therapy evaluation. Pt was admitted via ED on 10/27/20 due to R sided chest pain and elevated WBC (30,000). Pt has a past history of Aneurysm, Asthma, Cancer (bladder), Chronic Obstructive Pulmonary Disease (COPD), Coronary Artery Disease, Home Oxygen, Hyperlipidemia, Hypertension, Myocardial Infarction. Prior to hospitalization he lived with his daughter and granddaughter. Pt claims he was independent with all ADLs and IADLs. However, he did require o2 at all times. Daughter present during therapy evaluation and was agreeable with information provided. Subjective I am having sharp pains in my stomach. Pt resting in bed on arrival. Pt completed bed mobility and went from supine to sitting at eob with min/mod assist. Pt was only able to sit at eob for ~30 seconds before requesting to lay back down due to sharp burning pains in his stomach. Pt refused to stand up or complete functional transfer. Pt required min assist to go from sitting to supine. Pt required max assist to be pulled back up in bed for better positioning. Objective Patient Orientation Person,Place,Birthday Upper Extremity Gross ROM WFL Bed Mobility bed mobility-scooting,bed mobility - supine/sit,bed mobility - rolling Assist Level Maximum x 1 (75% assist) Rehab OT IP prob,g
--- NOTE | 2020-11-02 14:20 | HMH.SLDYSPHA ---
Speech & Language Evaluation Speech/Language Dysphagia Evaluation Start: 11/02/20 14:11 Freq: ONCE Status: Active Protocol: Document 11/02/20 14:11 [facility] (Rec: 11/02/20 14:20 [facility] [id number]) Dysphagia Assess/Goals/Plan Assessment Date of Evaluation: 11/02/20 Evaluation Type Initial Certification Assessment/Problems Dysphagia Does Patient Qualify for Service No Qualify/Failure Comment No signs or symptoms of oral or pharygneal dysphagia noted. Recommendations PHYSICIAN CERTIFICATION: The specified therapy services are required, authorized, and reviewed every 30 days. Diet Recommendations Full liquids Liquid Type Recommendations Normal/Thin SL Swallow Guidelines Standard Aspiration Prec. Crush Meds Crush all meds Dysphagia Swallow Precautions/Strategies Sitting Upright (90 deg), Liquids from Straw,Liquids from Spoon Plan Pt/Guardian verbally ack understanding Yes of dx/prognosis/goals G -code Required No Speech & Language HPI Language Primary Language [place] General Information General Current Food Consistancy Mechanical Soft Oxygen Status Nasal Cannula Facial Symmetry Symmetrical Patient Orientation Person,Place Ability to Follow Directions Excellent Communication Ability No Impairment Dysphagia:Food Presentation Evaluation Food Type Pureed,Mechanical Soft,Liquid, Pudding Dysphagia Evaluation Summary Mr. Piper was given the following consistencies: thins via straw and open cup, pudding, pureed, and mechanical soft. Mr. Piper complained of pain when swallowing and pointed to his chest. He complained with pudding, pureed, and mechanical soft. At this time, the only food/drinks he is able to intake without pain are thins. At this time, it is recommended he be placed on full liquid diet and be re- evaluated as his health improves. Stroke Dysphagia Assessment PHYSICIAN CERTIFICATION: I certify the specified therapy services for Osman Piper SR are required, authorized, and reviewed every 30 days.
--- NOTE | 2020-11-02 14:23 | SW/DCPLANNER ---
Addendum entered by [facility] 11/09/20 09:12: This patient is medically stable for discharge today per Dr Castro. Donya pak [facility] has stated that they can accept this patient today pending negative COVID swab (ordered for this AM). I will fax results from COVID swab and Dr Castro has stated that he will discharge this patient this afternoon. Addendum entered by [facility] 11/06/20 09:31: I have updated Donya w/ [facility] regarding this patient: goal is to re-evaluate first of next week to see if he is medically stable for discharge to [facility]. Addendum entered by [facility] 11/05/20 09:41: Updated patient information has been faxed to Donya at [facility]. Patients daughter has stated they still wanting to discharge to [facility] once medically stable for discharge. Addendum entered by [facility] 11/04/20 10:26: I have updated Donya at [facility] regarding this patient. Patient is not ready for discharge at this time. Addendum entered by [facility] 11/03/20 12:55: Donya pak [facility] has stated that she can accept this patient once medically stable for discharge. I have informed Donya that discharge date is unknown at this time but I will continue to follow up with her. Addendum entered by [facility] 11/03/20 10:23: Per daughter this patient is fully vaccinated w/ Moderna vaccine since April. I have passed this information on to [facility]. Addendum entered by [facility] 11/03/20 09:22: Donya pak [facility] has stated that DON is currently reviewing this patients information. Original Note: I spoke with patients daughter (Teresa) regarding discharge plans for this patient and PT/OT recommending SNF level of care at time of discharge. After a lengthy discussion with Teresa she agreed that patient could benefit from placement. Teresa stated that she is interested in placement for this patient at [facility]. Teresa stated that she will have a conversation with this patient this evening. Patient information has been faxed to Yojana with [facility]. I will follow up with Yojana once patient information is reviewed.
--- NOTE | 2020-11-02 15:00 | PC.NURSE ---
Pt w/ audible wheezes and coarse breath sounds, no changes noted after breathing treatments admin. Pt does reports being a little SOA. O2 did have to be increased to 4 L O2 per nasal cannula to maintain sat > 88%. 1505 - Left message for Dr. Olson w/ [facility],RN, informed of pulm recommendations. 1511 - Received call back, new orders for 80 mg Lasix IV x1 now and CXR. Orders per Dr. Olson, RB+V.
--- NOTE | 2020-11-02 15:12 | XR_ITS ---
PROCEDURE: XR CHEST PORTABLE CLINICAL HISTORY: Wheezing Shortness of air COMPARISON: CR XR CHEST 2V from 02/15/2019 CR XR CHEST PORTABLE from 10/27/[address] ANGIO CHEST PE PROTOCOL from 10/28/2020 CR XR CHEST PORTABLE from 10/28/2020 FINDINGS: There has been a prior median sternotomy. Normal heart size. Increasing consolidation is present in the right upper lobe inferiorly and right lower lobe consistent with worsening pneumonia. COPD changes are also noted. No effusions. Old bilateral rib fractures. IMPRESSION: Worsening right-sided pneumonia with COPD Dictated by: Jamarcus Iraheta MD 11/02/2020 15:37 Jamarcus Iraheta MD in [facility] 11/02/2020 15:37
--- NOTE | 2020-11-02 15:58 | PC.NURSE ---
Deniz Paw placed on patient @ 1350, rectal temp 92.8.
[2020-11-02 17:40] LABS: POC Glucose,Bedside 178 (70-110)
--- NOTE | 2020-11-02 18:31 | PC.NURSE ---
Most recent rectal temp 93.4, kelsy paw remains in place. Pt has been uncooperative w/ wearing bairpaw, staff have had to place it back on patient multiple times.
--- NOTE | 2020-11-02 18:45 | PC.NURSE ---
Addendum entered by Tosha Adkins RN 11/02/20 18:58: 1858 - Dr. Golden called back @ this time. New orders received for 100 mg Lasix IV x 1, Mucomyst breathin treatments TID, 125 mg Solumedrol Iv x1 now. Orders RB+V. Original Note: Wheezing noted to be worse, resp rate 24-26. Lungs noted to be coarse throughout. SPO2 90% on 4 L O2 per nasal cannula. Pt has a very weak cough. Has had minimal UOP, around 200 mls out since having lasix. Dr. Golden (collections analyst) paged @ [phone].
[2020-11-02 23:32] LABS: Microscopic,Cath URINE MICROSCOPIC (MICROSCOPIC)
[2020-11-02 23:34] LABS: Basophils % 0.1 % (0.1-2.0); Eosinophils # 0.2 K/mm3 (0.0-0.4); Eosinophils % 1.2 % (0.1-12.0); Hematocrit 29.1 % (42.0-52.0); Hemoglobin 9.1 g/dL (14.1-18.0); Lymphocytes # 0.7 K/mm3 (0.7-4.5); Lymphocytes % 3.6 % (10-50); Mean Corpuscular HGB Conc 31.3 g/dL (31.8-35.4); Mean Corpuscular Hemoglobin 28.7 pg (27.0-31.2); Mean Corpuscular Volume 91.6 fl (80-94); Mean Platelet Volume 6.5 fl (7.4-10.4); Monocytes # 0.2 K/mm3 (0.1-1.0); Monocytes % 1.1 % (1.7-9.3); Neutrophils # 17.8 K/mm3 (1.8-7.8); Neutrophils % 94.1 % (37.0-80.0); Platelet Count 302 K/mm3 (142-424); Red Blood Count 3.18 M/mm3 (4.60-6.20); Red Cell Distribution Width 15.7 % (11.5-17.5); White Blood Count 18.9 K/mm3 (4.8-10.8)
[2020-11-02 23:37] LABS: Appearance,Urine/Cath CLOUDY (Clear); Bilirubin,Cath Negative (Negative); Blood, Urine/Cath 3+ (Negative); Chloride 101 mmol/L (98-107); Color,Urine/Cath YELLOW (Yellow); Glucose,Urine/Cath (UA) Negative (Negative); Ketones,Urine/Cath TRACE (Negative); Leukocyte Esterase,Cath 1+ (Negative); Nitrate,Cath Negative (Negative); PH,Urine/Cath 5.5 (5.0-8.5); Protein,Urine/Cath Negative (Negative); Sodium 132 mmol/L (136-145); Specific Gravity, Urine/Cath >= 1.030 (1.005-1.030); Urobilinogen,Cath 0.2 EU/dl (0.2)
[2020-11-02 23:38] LABS: MANUAL DIFFERENTIAL MANUAL DIFFERENTIAL (MANUAL DIFF); Potassium 5.5 mmoL/L (3.5-5.1)
[2020-11-02 23:40] LABS: Creatinine Clearance Estimated 30 mL/min (50-200); Estimated Glomerular Filt Rate 35 ml/min (>60); GFR (African American) 42 ML/MIN (>60)
--- NOTE | 2020-11-02 23:40 | XR_ITS ---
PROCEDURE INFORMATION: Exam: XR Chest Exam date and time: 11/02/2020 11:40 PM Age: 75 years old Clinical indication: Shortness of breath; Prior surgery; Patient HX: SOA; Additional info: Rapid response TECHNIQUE: Imaging protocol: XR of the chest. Views: 1 view. COMPARISON: CR XR CHEST PORTABLE 11/02/2020 3:23 PM FINDINGS: Tubes, catheters and devices: Multiple leads overlying the patient. Lungs: Predominantly right-sided ground-glass pulmonary opacity at the right mid lung field, nonspecific, possibly infectious or inflammatory or asymmetric pulmonary edema. Pleural spaces: No significant pleural effusion. No pneumothorax. Heart/Mediastinum: Stable cardiomediastinal silhouette. Bones/joints: Osseous structures stable. Other findings: Median sternotomy. IMPRESSION: Predominantly right-sided ground-glass pulmonary opacity at the right mid lung field, nonspecific, possibly infectious or inflammatory or asymmetric pulmonary edema.
[2020-11-02 23:41] LABS: Anion Gap 17.5 mEq/L (5-15); Calcium 8.1 mg/dl (8.4-10.2); Carbon Dioxide 19 mmol/L (22.0-30.0); Glucose 149 mg/dl (74-100)
[2020-11-02 23:43] LABS: Bacteria,Urine/Cath 2+ /lpf; RBC,Urine/Cath 20-50 # /hpf (0-3)
[2020-11-02 23:44] LABS: Blood Urea Nitrogen 88 mg/dl (9-20)
[2020-11-02 23:52] LABS: Neutrophils % 100 % (42-76); Platelet Estimate Normal; Total Cells Counted 100
[2020-11-02 23:53] LABS: Spherocytes 1+; Troponin I 0.02 ng/ml (0.00-0.034)
[2020-11-03] VITALS (18 sets, daily range): BP systolic 91–138; BP diastolic 55–109; PULSE 75–123; RESP 2–22; TEMP 36.2–36.7; O2SAT 90–100; BMI 22.3
[2020-11-03 00:08] LABS: POC Glucose,Bedside 166 (70-110)
[2020-11-03 00:08] LABS: POC Glucose,Bedside 151 (70-110)
--- NOTE | 2020-11-03 00:12 | HMH.RR ---
Acute Rapid Response Note - Subjective Date Responded: 11/02/20 Time Responded: 23:15 Provider Note: pt with dec loc and low bp this pm - Objective Findings: Vital Signs - Last 4 Hours Temperature 96.0 F L 11/02/20 20:00 Temperature Source Rectal 11/02/20 20:00 Pulse Rate 74 11/02/20 21:09 Respiratory Rate 20 11/02/20 20:00 Blood Pressure 107/46 L 11/02/20 20:00 Blood Pressure Mean 66 11/02/20 20:00 Blood Pressure Source Automatic Cuff 11/02/20 20:00 Blood Pressure Position Supine 11/02/20 20:00 02 Sat by Pulse Oximetry 97 11/02/20 20:00 Oxygen Delivery Method 11/02/20 21:00 Oxygen Flow Rate (LPM) 4 11/02/20 21:00 Lab Results for Past 12 Hours 11/02/20 23:25: Sodium 132 L, Potassium 5.5 H, Chloride 101, Carbon Dioxide 19 L, Anion Gap 17.5 H, BUN 88 H, Creatinine 1.90 H, Estimated Creat Clear 30, Estimated GFR 35 L, Est GFR ( Amer) 42 L, Glucose 149 H D, Calcium 8.1 L, Troponin I 0.02 11/02/20 23:25: Urine Color Yellow, Urine Appearance Cloudy, Urine pH 5.5, Ur Specific [place] >= 1.030, Urine Protein Negative, Urine Glucose (UA) Negative, Urine Ketones Trace, Urine Blood 3+, Urine Nitrate Negative, Urine Bilirubin Negative, Urine Urobilinogen 0.2, Ur Leukocyte Esterase 1+ A, Urine RBC 20-50, Urine WBC 10-20 A, Ur Squamous Epith Cells None, Urine Bacteria 2+ A 11/02/20 23:25: WBC 18.9 H D, RBC 3.18 L, Hgb 9.1 L, Hct 29.1 L, MCV 91.6, MCH 28.7, MCHC 31.3 L, RDW 15.7, Plt Count 302, MPV 6.5 L, Neut % (Auto) 94.1 H, Lymph % (Auto) 3.6 L, [place] % (Auto) 1.1 L, Eos % (Auto) 1.2, Baso % (Auto) 0.1, Neut # (Auto) 17.8 H, Lymph # (Auto) 0.7, [place] # (Auto) 0.2, Eos # (Auto) 0.2, Baso # (Auto) 0.0, Total Counted 100, Neutrophils % (Manual) 100 H, Platelet Estimate Normal, RBC Morphology Not Reportable, Spherocytes 1+ 11/02/20 23:09: POC Glucose 166 H 11/02/20 19:30: POC Glucose 151 H 11/02/20 15:27: POC Glucose 178 H 11/02/20 12:39: WBC 12.5 H, RBC 3.17 L, Hgb 9.2 L, Hct 29.2 L, MCV 92.2, MCH 29.1, MCHC 31.6 L, RDW 16.0, Plt Count 247, MPV 6.8 L, Neut % (Auto) 97.1 H, Lymph % (Auto) 1.1 L, [place] % (Auto) 1.7, Eos % (Auto) 0.0 L, Baso % (Auto) 0.1, Neut # (Auto) 12.1 H, Lymph # (Auto) 0.1 L, [place] # (Auto) 0.2, Eos # (Auto) 0.0, Baso # (Auto) 0.0, Total Counted 100, Neutrophils % (Manual) 99 H, Lymphocytes % (Manual) 1 L, Platelet Estimate Normal My Orders Category Date Time Status Chest XR -- portable [XR chest portable] Stat Exams 11/02/20 23:40 Taken Basic Metabolic Panel Stat Lab 11/02/20 23:25 Completed Complete Blood Count Auto Diff Stat Lab 11/02/20 23:25 Completed Troponin I Stat Lab 11/02/20 23:25 Completed Urinalysis (cathed specimen) Stat Lab 11/02/20 23:25 Completed Pantoprazole Sodium [Protonix 40mg tablet] Med 11/02/20 21:00 Active 40 mg PO BID Urine Culture(cathed specimen) Stat Micro 11/02/20 23:25 Received Rapid Response Exam - General General appearance: lethargic - Head Head exam: normocephalic - Eye Eye exam: Present: PERRL, EOMI. Absent: nystagmus - ENT ENT exam: Present: mucous membranes dry - Neck Neck exam: Present: trachea midline - Respiratory Respiratory exam: Present: wheezes, prolonged expiratory phase - Cardiovascular Cardiovascular exam: Present: tachycardia, systolic murmur - Abdominal Exam Abdominal exam: Present: soft - Extremities Exam Extremities exam: Present: other (positive edema ) - Neurological Exam Neurological exam: Present: other (no posturing ) - Skin Skin exam: Absent: rash RR Procedures/Assess/Plan (1) Chest pain Status: Acute Qualifiers: Chest pain type: chest pain on breathing Qualified Code(s): R07.1 - Chest pain on breathing (2) Leucocytosis Status: Acute Qualifiers: Leukocytosis type: unspecified Qualified Code(s): D72.829 - Elevated white blood cell count, unspecified (3) AAA (abdominal aortic aneurysm) Status: Acute Qualifiers: Presence of rupture: without ruptur
--- NOTE | 2020-11-03 01:33 | PC.NURSE ---
Respiratory Therapist came to RN and stated pt was unresponsive, tried to sternum rub pt and was not getting a response. Called a rapid response at 23:15. Vitals taken @23:15 BP-85/56, Temp rectal-96.4, O2- 92%, HR-81. maris blood gas at 23:23. Blood draw at 23:25 CBC, BMP, Trop. Valenzuela inserted at 23:27 sent UA to lab. 12 lead EKG completed at 23:35. read EKG at 23:37, no ST elevation. Vitals taken at this time B/P- 84/62, HR-95, O2-84% Bicarb given in right IV upper arm infiltrated at 23:37. New IV started in Right Upper arm 23:40. Bi Carb given at 23:42. Blood gas results acidosis rule out respiratory. Patient was becoming more awake at this time, very restless, trying to pull on IV lines, placed mittens on patient. Pt placed on BiPap @ 23:40. Chest x-ray stat ordered 23:45, completed at 23:50. Patient moved to room 219 @ 23:50 with respiratory moving bipap machine. Re checked vitals rectal temp 97.1, B/P- 101/62, HR-91, O2-95% @ 23:55.
[2020-11-03 05:53] LABS: POC Glucose,Bedside 170 (70-110)
[2020-11-03 06:12] LABS: Hematocrit 28.9 % (42.0-52.0); Hemoglobin 9.2 g/dL (14.1-18.0); Lymphocytes # 0.1 K/mm3 (0.7-4.5); Lymphocytes % 0.8 % (10-50); Mean Corpuscular HGB Conc 31.7 g/dL (31.8-35.4); Mean Corpuscular Hemoglobin 28.6 pg (27.0-31.2); Mean Corpuscular Volume 90.2 fl (80-94); Mean Platelet Volume 6.9 fl (7.4-10.4); Monocytes # 0.5 K/mm3 (0.1-1.0); Monocytes % 3.4 % (1.7-9.3); Neutrophils # 14.7 K/mm3 (1.8-7.8); Neutrophils % 95.7 % (37.0-80.0); Platelet Count 272 K/mm3 (142-424); Red Blood Count 3.21 M/mm3 (4.60-6.20); White Blood Count 15.4 K/mm3 (4.8-10.8)
[2020-11-03 06:45] LABS: Anion Gap 19.3 mEq/L (5-15); Calcium 8.2 mg/dl (8.4-10.2); Carbon Dioxide 23 mmol/L (22.0-30.0); Chloride 99 mmol/L (98-107); Creatinine Clearance Estimated 32 mL/min (50-200); Estimated Glomerular Filt Rate 37 ml/min (>60); GFR (African American) 45 ML/MIN (>60); Glucose 169 mg/dl (74-100); Potassium 4.3 mmoL/L (3.5-5.1); Sodium 137 mmol/L (136-145)
[2020-11-03 06:55] LABS: Blood Urea Nitrogen 84 mg/dl (9-20)
--- NOTE | 2020-11-03 10:19 | HMH.ACPN2 ---
Internal Medicine - PN: Subj *Date: 11/03/20 *Time: 15:45 Interval history: 35-year-old male patient sitting up in bed with BiPAP intact. During the night he had increasing respiratory distress and decreased in level consciousness warranting a rapid response. BiPAP was placed chest x-ray revealedI Predominantly right-sided ground-glass pulmonary opacity at the right mid lung field, nonspecific, possibly infectious or inflammatory or asymmetric pulmonary edema. This morning bilateral lower extremities with edema and he does have bibasilar crackles Exam Vital signs and Labs for Last 24 Hours: Temp Pulse Resp BP Pulse Ox 97.5 F L 92 H 16 107/60 L 100 11/03/20 07:54 11/03/20 08:06 11/03/20 07:54 11/03/20 07:54 11/03/20 07:54 Laboratory Results - last 24 hr 11/02/20 10:48: POC Glucose 181 H 11/02/20 12:39: WBC 12.5 H, RBC 3.17 L, Hgb 9.2 L, Hct 29.2 L, MCV 92.2, MCH 29.1, MCHC 31.6 L, RDW 16.0, Plt Count 247, MPV 6.8 L, Neut % (Auto) 97.1 H, Lymph % (Auto) 1.1 L, [place] % (Auto) 1.7, Eos % (Auto) 0.0 L, Baso % (Auto) 0.1, Neut # (Auto) 12.1 H, Lymph # (Auto) 0.1 L, [place] # (Auto) 0.2, Eos # (Auto) 0.0, Baso # (Auto) 0.0, Total Counted 100, Neutrophils % (Manual) 99 H, Lymphocytes % (Manual) 1 L, Platelet Estimate Normal 11/02/20 15:27: POC Glucose 178 H 11/02/20 19:30: POC Glucose 151 H 11/02/20 23:09: POC Glucose 166 H 11/02/20 23:25: WBC 18.9 H D, RBC 3.18 L, Hgb 9.1 L, Hct 29.1 L, MCV 91.6, MCH 28.7, MCHC 31.3 L, RDW 15.7, Plt Count 302, MPV 6.5 L, Neut % (Auto) 94.1 H, Lymph % (Auto) 3.6 L, [place] % (Auto) 1.1 L, Eos % (Auto) 1.2, Baso % (Auto) 0.1, Neut # (Auto) 17.8 H, Lymph # (Auto) 0.7, [place] # (Auto) 0.2, Eos # (Auto) 0.2, Baso # (Auto) 0.0, Total Counted 100, Neutrophils % (Manual) 100 H, Platelet Estimate Normal, RBC Morphology Not Reportable, Spherocytes 1+ 11/02/20 23:25: Urine Color Yellow, Urine Appearance Cloudy, Urine pH 5.5, Ur Specific [place] >= 1.030, Urine Protein Negative, Urine Glucose (UA) Negative, Urine Ketones Trace, Urine Blood 3+, Urine Nitrate Negative, Urine Bilirubin Negative, Urine Urobilinogen 0.2, Ur Leukocyte Esterase 1+ A, Urine RBC 20-50, Urine WBC 10-20 A, Ur Squamous Epith Cells None, Urine Bacteria 2+ A 11/02/20 23:25: Sodium 132 L, Potassium 5.5 H, Chloride 101, Carbon Dioxide 19 L, Anion Gap 17.5 H, BUN 88 H, Creatinine 1.90 H, Estimated Creat Clear 30, Estimated GFR 35 L, Est GFR ( Amer) 42 L, Glucose 149 H D, Calcium 8.1 L, Troponin I 0.02 11/03/20 05:22: POC Glucose 170 H 11/03/20 05:40: WBC 15.4 H, RBC 3.21 L, Hgb 9.2 L, Hct 28.9 L, MCV 90.2, MCH 28.6, MCHC 31.7 L, RDW 16.0, Plt Count 272, MPV 6.9 L, Neut % (Auto) 95.7 H, Lymph % (Auto) 0.8 L, [place] % (Auto) 3.4, Eos % (Auto) 0.0 L, Baso % (Auto) 0.0 L, Neut # (Auto) 14.7 H, Lymph # (Auto) 0.1 L, [place] # (Auto) 0.5, Eos # (Auto) 0.0, Baso # (Auto) 0.0 11/03/20 05:40: Sodium 137, Potassium 4.3 D, Chloride 99, Carbon Dioxide 23, Anion Gap 19.3 H, BUN 84 H, Creatinine 1.80 H, Estimated Creat Clear 32, Estimated GFR 37 L, Est GFR ( Amer) 45 L, Glucose 169 H, Calcium 8.2 L I & O for Last 24 hours: Intake & Output 10/31/20 11/01/20 11/02/20 11/03/20 23:59 23:59 23:59 23:59 Intake Total 1367 / 1727 2105 / 2345 2932 / 2932 300 / 300 Output Total 200 / 200 2550 / 2550 Balance 1367 / 1727 2105 / 2345 2732 / 2732 -2250 / -2250 Weight 140 lb 8 oz 141 lb 141 lb 1.533 oz 138 lb 14.259 oz - Constitutional mild distress, thin - *Routine HEENT Exam Head: Present: normocephalic Eye: Present: EOMI ENT: Present: mucous membranes moist - *Routine Neck Exam Present: trachea midline. Absent: tracheal deviation - *Routine Respiratory Exam Present: rhonchi, crackles. Absent: accessory muscle use - *Routine Cardiovascular Exam Present: RRR - *Routine Abdominal Exam Present: soft, normoactive bowel sounds. Absent: tenderness, firm - *Routine Extremities Exam Present: edema, full ROM, pulses intact. Absent: cyanosis, clubbin
--- NOTE | 2020-11-03 11:58 | HMH.PULMPN ---
Internal Medicine - PN: Subj *Date: 11/03/20 *Time: 11:58 Interval history: Patient explains an episode of hypothermia lung with worsening respiratory distress warranting noninvasive ventilatory support along with a dose of diuretics and steroids yesterday. Exam - Constitutional Constitutional:: Present: comfortable - HENMT Exam HENMT: Present: atraumatic - Eye Exam Eyes:: Present: normal appearance both eyes and related structures - Neck Exam Neck:: Present: normal visual inspection - Respiratory Exam Respiratory:: Present: respiratory distress, crackles, wheezing. Absent: able to speak in complete sentences - Cardiovascular Exam Cardiac:: Present: S1, S2 - GI Exam GI:: Present: soft - Skin Exam Skin: Present: warm, no rash - Neurological Exam Neurological: Present: alert, awake, normal cognition - Extremities Exam Extremities: Present: no cyanosis, no clubbing, edema - Psychiatric Exam Psychiatric: Present: normal affect Assessment and Plan (1) Chest pain Status: Acute Qualifiers: Chest pain type: chest pain on breathing Qualified Code(s): R07.1 - Chest pain on breathing Category: Medical Code(s): R07.9 - Chest pain, unspecified (2) Leucocytosis Status: Acute Qualifiers: Leukocytosis type: unspecified Qualified Code(s): D72.829 - Elevated white blood cell count, unspecified Category: Medical Code(s): D72.829 - Elevated white blood cell count, unspecified (3) AAA (abdominal aortic aneurysm) Status: Acute Qualifiers: Presence of rupture: without rupture Qualified Code(s): I71.4 - Abdominal aortic aneurysm, without rupture Category: Medical Code(s): I71.4 - Abdominal aortic aneurysm, without rupture (4) Atypical angina Status: Acute Category: Medical Code(s): I20.8 - Other forms of angina pectoris (5) Cardiomyopathy Status: Acute Qualifiers: Cardiomyopathy type: unspecified Qualified Code(s): I42.9 - Cardiomyopathy, unspecified Category: Medical Code(s): I42.9 - Cardiomyopathy, unspecified (6) CAD (coronary artery disease) Status: Chronic Qualifiers: Coronary Disease-Associated Artery/Lesion type: [place] artery [place] vs. transplanted heart: [place] heart Associated angina: with other forms of angina Qualified Code(s): I25.118 - Atherosclerotic heart disease of [place] coronary artery with other forms of angina pectoris Category: Medical Code(s): I25.10 - Atherosclerotic heart disease of [place] coronary artery without angina pectoris (7) Chronic obstructive pulmonary disease Status: Chronic Qualifiers: COPD type: emphysema Emphysema type: unspecified Qualified Code(s): J43.9 - Emphysema, unspecified Category: Medical Code(s): J44.9 - Chronic obstructive pulmonary disease, unspecified (8) Dyspnea Status: Chronic Qualifiers: Dyspnea type: shortness of breath Qualified Code(s): R06.02 - Shortness of breath; R06.00 - Dyspnea, unspecified; R06.01 - Orthopnea Category: Medical Code(s): R06.00 - Dyspnea, unspecified (9) Former smoker Status: Chronic Category: Social Hx Code(s): Z87.891 - Personal history of nicotine dependence (10) HHD (hypertensive heart disease) Status: Chronic Qualifiers: Heart failure presence: without heart failure Qualified Code(s): I11.9 - Hypertensive heart disease without heart failure Category: Medical Code(s): I11.9 - Hypertensive heart disease without heart failure (11) History of coronary artery bypass graft Status: Chronic Category: Surgical Code(s): Z95.1 - Presence of aortocoronary bypass graft (12) Compression fracture Status: Acute Category: Medical (13) Pneumonia Status: Acute Qualifiers: Pneumonia type: due to methicillin-resistant Staphylococcus aureus (MRSA) Laterality: bilateral Lung location: unspecified part of lung Qualified Code(s): J15.212 - Pneumonia due to Methicillin resist
[2020-11-03 12:35] LABS: POC Glucose,Bedside 220 (70-110)
[2020-11-03 13:47] LABS: Adenovirus,PCR Not Detected (NotDetected); Bordetella Pertussis Not Detected (NotDetected); Chlamydophila Pneumoniae, PCR Not Detected (NotDetected); Coronavirus 229E Not Detected (NotDetected); Coronavirus NL63 Not Detected (NotDetected); Coronavirus OC43 Not Detected (NotDetected); Coronovirus HKU1,PCR Not Detected (NotDetected); Human Metapneumovirus Not Detected (NotDetected); Influenza A, PCR Not Detected (NotDetected); Influenza AH1, 2009 Not Detected (NotDetected); Influenza AH1, PCR Not Detected (NotDetected); Influenza AH3,PCR Not Detected (NotDetected); Influenza B, PCR Not Detected (NotDetected); Mycoplasma Pneumoniae, PCR Not Detected (NotDetected); Parainfluenza 1, PCR Not Detected (NotDetected); Parainfluenza 2, PCR Not Detected (NotDetected); Parainfluenza 3, PCR Not Detected (NotDetected); Parainfluenza 4, PCR Not Detected (NotDetected); Respiratory Syncytial Virus Not Detected (NotDetected); Rhinovirus/Enterovirus Not Detected (NotDetected)
[2020-11-03 16:49] LABS: POC Glucose,Bedside 406 (70-110)
--- NOTE | 2020-11-03 18:06 | PC.NURSE ---
Pt has been pleasant and cooperative this shift. A&O X4. No complaints of pain. Pt alternates between 4 L NC and BiPap with sats. >90%. Lung sounds reveal expiratory rhonchi, crackles, and wheezing. 2+ pitting edema noted to scrotum. Telemetry reveals NSR, ST, and occasionally atrial flutter. Pt did not get OOB this shift due to being SOA, so pt has been turned/repositioned Q2H. F/C is patent and draining cloudy, dark-yellow urine at bedside to gravity. No BM this shift. Appetite is fair and pt eats about half of all meals. Pt is tolerating a full liquid diet well. 20 G peripheral IV in the RT upper arm is patent and SL. 20 G peripheral IV in the LT forearm is patent and SL. VSS. Call light within reach. Will continue to monitor.
[2020-11-04] VITALS (23 sets, daily range): BP systolic 93–128; BP diastolic 55–86; PULSE 74–101; RESP 12–20; TEMP 36.4–36.7; O2SAT 94–100; BMI 22.6
[2020-11-04 01:01] LABS: POC Glucose,Bedside 327 (70-110)
[2020-11-04 06:17] LABS: POC Glucose,Bedside 288 (70-110)
[2020-11-04 06:26] LABS: Eosinophils % 0.1 % (0.1-12.0); Hematocrit 25.2 % (42.0-52.0); Hemoglobin 8.2 g/dL (14.1-18.0); Lymphocytes # 0.1 K/mm3 (0.7-4.5); Lymphocytes % 0.8 % (10-50); Mean Corpuscular HGB Conc 32.7 g/dL (31.8-35.4); Mean Corpuscular Hemoglobin 29.1 pg (27.0-31.2); Mean Corpuscular Volume 89.2 fl (80-94); Mean Platelet Volume 6.6 fl (7.4-10.4); Monocytes # 0.4 K/mm3 (0.1-1.0); Monocytes % 3.4 % (1.7-9.3); Neutrophils # 11.1 K/mm3 (1.8-7.8); Neutrophils % 95.7 % (37.0-80.0); Platelet Count 214 K/mm3 (142-424); Red Blood Count 2.82 M/mm3 (4.60-6.20); White Blood Count 11.6 K/mm3 (4.8-10.8)
[2020-11-04 06:43] LABS: Anion Gap 10.3 mEq/L (5-15); Blood Urea Nitrogen 76 mg/dl (9-20); Calcium 8.6 mg/dl (8.4-10.2); Carbon Dioxide 31 mmol/L (22.0-30.0); Chloride 95 mmol/L (98-107); Creatinine Clearance Estimated 48 mL/min (50-200); Estimated Glomerular Filt Rate 59 ml/min (>60); GFR (African American) 71 ML/MIN (>60); Glucose 229 mg/dl (74-100); Potassium 3.3 mmoL/L (3.5-5.1); Sodium 133 mmol/L (136-145)
[2020-11-04 06:44] LABS: MANUAL DIFFERENTIAL MANUAL DIFFERENTIAL (MANUAL DIFF)
--- NOTE | 2020-11-04 09:40 | HMH.PULMPN ---
Internal Medicine - PN: Subj *Date: 11/04/20 *Time: 12:10 Interval history: No acute respiratory vents overnight. Patient complains of scrotal swelling and pain. Patient remains on 3 L nasal cannula oxygen supplementation. Exam - Constitutional Constitutional:: Present: no acute distress, comfortable - HENMT Exam HENMT: Present: normocephalic, atraumatic - Eye Exam Eyes:: Present: normal appearance both eyes and related structures - Neck Exam Neck:: Present: normal visual inspection - Respiratory Exam Respiratory:: Present: able to speak in complete sentences, no respiratory distress, crackles, wheezing - Cardiovascular Exam Cardiac:: Present: S1, S2 - GI Exam GI:: Present: soft - Skin Exam Skin: Present: warm, no rash - Neurological Exam Neurological: Present: alert, awake, normal cognition - Extremities Exam Extremities: Present: no cyanosis, no clubbing, edema - Psychiatric Exam Psychiatric: Present: normal affect Assessment and Plan (1) Chest pain Status: Acute Qualifiers: Chest pain type: chest pain on breathing Qualified Code(s): R07.1 - Chest pain on breathing Category: Medical Code(s): R07.9 - Chest pain, unspecified (2) Leucocytosis Status: Acute Qualifiers: Leukocytosis type: unspecified Qualified Code(s): D72.829 - Elevated white blood cell count, unspecified Category: Medical Code(s): D72.829 - Elevated white blood cell count, unspecified (3) AAA (abdominal aortic aneurysm) Status: Acute Qualifiers: Presence of rupture: without rupture Qualified Code(s): I71.4 - Abdominal aortic aneurysm, without rupture Category: Medical Code(s): I71.4 - Abdominal aortic aneurysm, without rupture (4) Atypical angina Status: Acute Category: Medical Code(s): I20.8 - Other forms of angina pectoris (5) Cardiomyopathy Status: Acute Qualifiers: Cardiomyopathy type: unspecified Qualified Code(s): I42.9 - Cardiomyopathy, unspecified Category: Medical Code(s): I42.9 - Cardiomyopathy, unspecified (6) CAD (coronary artery disease) Status: Chronic Qualifiers: Coronary Disease-Associated Artery/Lesion type: [place] artery [place] vs. transplanted heart: [place] heart Associated angina: with other forms of angina Qualified Code(s): I25.118 - Atherosclerotic heart disease of [place] coronary artery with other forms of angina pectoris Category: Medical Code(s): I25.10 - Atherosclerotic heart disease of [place] coronary artery without angina pectoris (7) Chronic obstructive pulmonary disease Status: Chronic Qualifiers: COPD type: emphysema Emphysema type: unspecified Qualified Code(s): J43.9 - Emphysema, unspecified Category: Medical Code(s): J44.9 - Chronic obstructive pulmonary disease, unspecified (8) Dyspnea Status: Chronic Qualifiers: Dyspnea type: shortness of breath Qualified Code(s): R06.02 - Shortness of breath; R06.00 - Dyspnea, unspecified; R06.01 - Orthopnea Category: Medical Code(s): R06.00 - Dyspnea, unspecified (9) Former smoker Status: Chronic Category: Social Hx Code(s): Z87.891 - Personal history of nicotine dependence (10) HHD (hypertensive heart disease) Status: Chronic Qualifiers: Heart failure presence: without heart failure Qualified Code(s): I11.9 - Hypertensive heart disease without heart failure Category: Medical Code(s): I11.9 - Hypertensive heart disease without heart failure (11) History of coronary artery bypass graft Status: Chronic Category: Surgical Code(s): Z95.1 - Presence of aortocoronary bypass graft (12) Compression fracture Status: Acute Category: Medical (13) Pneumonia Status: Acute Qualifiers: Pneumonia type: due to methicillin-resistant Staphylococcus aureus (MRSA) Laterality: bilateral Lung location: unspecified part of lung Qualified Code(s): J15.212 - Pneumonia due to Methicillin resistant S
--- NOTE | 2020-11-04 09:41 | HMH.PULMPN ---
Internal Medicine - PN: Subj *Date: 11/04/20 *Time: 09:41 Assessment and Plan (1) Chest pain Status: Acute Qualifiers: Chest pain type: chest pain on breathing Qualified Code(s): R07.1 - Chest pain on breathing Category: Medical Code(s): R07.9 - Chest pain, unspecified (2) Leucocytosis Status: Acute Qualifiers: Leukocytosis type: unspecified Qualified Code(s): D72.829 - Elevated white blood cell count, unspecified Category: Medical Code(s): D72.829 - Elevated white blood cell count, unspecified (3) AAA (abdominal aortic aneurysm) Status: Acute Qualifiers: Presence of rupture: without rupture Qualified Code(s): I71.4 - Abdominal aortic aneurysm, without rupture Category: Medical Code(s): I71.4 - Abdominal aortic aneurysm, without rupture (4) Atypical angina Status: Acute Category: Medical Code(s): I20.8 - Other forms of angina pectoris (5) Cardiomyopathy Status: Acute Qualifiers: Cardiomyopathy type: unspecified Qualified Code(s): I42.9 - Cardiomyopathy, unspecified Category: Medical Code(s): I42.9 - Cardiomyopathy, unspecified (6) CAD (coronary artery disease) Status: Chronic Qualifiers: Coronary Disease-Associated Artery/Lesion type: [place] artery [place] vs. transplanted heart: [place] heart Associated angina: with other forms of angina Qualified Code(s): I25.118 - Atherosclerotic heart disease of [place] coronary artery with other forms of angina pectoris Category: Medical Code(s): I25.10 - Atherosclerotic heart disease of [place] coronary artery without angina pectoris (7) Chronic obstructive pulmonary disease Status: Chronic Qualifiers: COPD type: emphysema Emphysema type: unspecified Qualified Code(s): J43.9 - Emphysema, unspecified Category: Medical Code(s): J44.9 - Chronic obstructive pulmonary disease, unspecified (8) Dyspnea Status: Chronic Qualifiers: Dyspnea type: shortness of breath Qualified Code(s): R06.02 - Shortness of breath; R06.00 - Dyspnea, unspecified; R06.01 - Orthopnea Category: Medical Code(s): R06.00 - Dyspnea, unspecified (9) Former smoker Status: Chronic Category: Social Hx Code(s): Z87.891 - Personal history of nicotine dependence (10) HHD (hypertensive heart disease) Status: Chronic Qualifiers: Heart failure presence: without heart failure Qualified Code(s): I11.9 - Hypertensive heart disease without heart failure Category: Medical Code(s): I11.9 - Hypertensive heart disease without heart failure (11) History of coronary artery bypass graft Status: Chronic Category: Surgical Code(s): Z95.1 - Presence of aortocoronary bypass graft (12) Compression fracture Status: Acute Category: Medical (13) Pneumonia Status: Acute Qualifiers: Pneumonia type: due to methicillin-resistant Staphylococcus aureus (MRSA) Laterality: bilateral Lung location: unspecified part of lung Qualified Code(s): J15.212 - Pneumonia due to Methicillin resistant Staphylococcus aureus Category: Medical Code(s): J18.9 - Pneumonia, unspecified organism (14) COPD (chronic obstructive pulmonary disease) Status: Acute Qualifiers: COPD type: unspecified COPD Qualified Code(s): J44.9 - Chronic obstructive pulmonary disease, unspecified Category: Medical Code(s): J44.9 - Chronic obstructive pulmonary disease, unspecified (15) Serum potassium elevated Status: Acute Category: Medical Code(s): E87.5 - Hyperkalemia (16) Low sodium levels Status: Acute Category: Medical Code(s): E87.1 - Hypo-osmolality and hyponatremia (17) Gastritis Status: Acute Qualifiers: Gastritis type: unspecified gastritis Chronicity: unspecified Gastritis bleeding: presence of bleeding unspecified Qualified Code(s): K29.70 - Gastritis, unspecified, without bleeding Category: Medical Code(s): K29.70 - Gastritis, unspecified, without b
--- NOTE | 2020-11-04 09:55 | ECG_ITS ---
APPROVED REPORT Exam: Resting ECG HR:98 bpm ECG Measurements Heart Rate 98 AXES MA 180 P QRSd 108 QRS 59 QT 328 T -90 QTc 418 Conclusion Sinus rhythm with premature supraventricular complexes Inferior-posterior infarct, age undetermined Abnormal ECG Electronically signed by : Danielito Golden MD 11/04/2020 20:37:11
--- NOTE | 2020-11-04 10:16 | HMH.PNCARD ---
Subjective Date: 11/04/20 Time: 10:17 Principal diagnosis: arrhythmia Interval history: Asked to see the patient regarding change in rhythm. EKG obtained appears to show atrial fibrillation with a controlled ventricular response. Patient's systolic blood pressure is in the 90s per nurse therefore will discontinue bisoprolol and continue diltiazem at 180 mg twice daily for rate control. Last cardiac catheterization was 06/2019 showing severely diffuse disease but with patent BROOKS to LAD graft along with patent vein graft to right coronary artery. Circumflex was small and nondominant. Ejection fraction was estimated at 40% with echocardiogram thereafter showing ejection fraction of 45% and no evidence of left ventricular thrombus. Exam Vital signs and Labs for Last 24 Hours: Temp Pulse Resp BP Pulse Ox 98.0 F 89 13 93/55 L 96 11/03/20 20:00 11/04/20 08:00 11/04/20 08:00 11/04/20 08:00 11/04/20 08:00 Laboratory Results - last 24 hr 11/03/20 12:14: POC Glucose 220 H 11/03/20 13:45: Chlamy pneumoniae PCR Not detected, Adenovirus (PCR) Not detected, B. pertussis DNA (PCR) Not detected, Coronavirus OC43 (PCR) Not detected, Coronavirus HKU1 (PCR) Not detected, Coronavirus 229E (PCR) Not detected, Coronavirus NL63 (PCR) Not detected, Human Metapneumovir PCR Not detected, Influenza A (H1) PCR Not detected, Influ A (H1N1/09) PCR Not detected, Influenza A (H3) PCR Not detected, Influenza Type A (PCR) Not detected, Influenza Type B (PCR) Not detected, M. pneumoniae (PCR) Not detected, Parainfluenza 1 (PCR) Not detected, Parainfluenza 2 (PCR) Not detected, Parainfluenza 3 (PCR) Not detected, Parainfluenza 4 (PCR) Not detected, RSV (PCR) Not detected, Entero/Rhino (PCR) Not detected 11/03/20 16:16: POC Glucose 406 H* 11/03/20 20:53: POC Glucose 327 H* 11/04/20 05:08: POC Glucose 288 H 11/04/20 05:46: WBC 11.6 H, RBC 2.82 L, Hgb 8.2 L, Hct 25.2 L, MCV 89.2, MCH 29.1, MCHC 32.7, RDW 16.0, Plt Count 214, MPV 6.6 L, Neut % (Auto) 95.7 H, Lymph % (Auto) 0.8 L, [place] % (Auto) 3.4, Eos % (Auto) 0.1, Baso % (Auto) 0.0 L, Neut # (Auto) 11.1 H, Lymph # (Auto) 0.1 L, [place] # (Auto) 0.4, Eos # (Auto) 0.0, Baso # (Auto) 0.0 11/04/20 05:46: Sodium 133 L, Potassium 3.3 L D, Chloride 95 L, Carbon Dioxide 31 H, Anion Gap 10.3, BUN 76 H, Creatinine 1.20 D, Estimated Creat Clear 48, Estimated GFR 59, Est GFR ( Amer) 71 D, Glucose 229 H, Calcium 8.6 I & O for Last 24 hours: Intake & Output 11/01/20 11/02/20 11/03/20 11/04/20 11:59 11:59 11:59 11:59 Intake Total 2405 / 2405 2178 / 2178 1174 / 1174 1620 / 1620 Output Total 2750 / 2750 2950 / 2950 Balance 2405 / 2405 2178 / 2178 -1576 / -1576 -1330 / -1330 Weight 141 lb 141 lb 1 oz 138 lb 14.259 oz 140 lb 14.006 oz Microbiology Reports for the Last 24 Hours: Microbiology 11/02/20 23:25 Urine,Catheterized Urine Culture - Preliminary 10/29/20 10:30 Blood Blood Culture - Final NO GROWTH AFTER 5 DAYS 10/29/20 10:30 Blood Blood Culture - Final NO GROWTH AFTER 5 DAYS - Constitutional no acute distress Comments: Conversational dyspnea noted - *Routine Respiratory Exam Present: decreased breath sounds, diminished air movement - *Routine Cardiovascular Exam Present: RRR, irregularly irregular - *Routine Abdominal Exam Present: tenderness, distended Comments: Markedly hypoactive bowel sounds - *Routine Extremities Exam Present: edema. Absent: cyanosis, clubbing Comments: Edema into the thighs with scrotal swelling noted - *Routine Neurological Exam Present: alert, oriented X3 Progress Note: A&P (1) Chest pain Status: Acute (2) Leucocytosis Status: Acute (3) AAA (abdominal aortic aneurysm) Status: Acute (4) Atypical angina Status: Acute (5) Cardiomyopathy Status: Acute (6) CAD (coronary artery disease) Status: Chronic (7) Chronic obstructive pulmonary disease Status:
--- NOTE | 2020-11-04 10:31 | CT_ITS ---
PROCEDURE: CT ANGIO CHEST PE PROTOCOL CLINCIAL INDICATION: A. fib, COPD, suspected PE COMPARISON: CT CT ANGIO CHEST PE PROTOCOL from 10/28/2020 TECHNIQUE: IV Contrast: 70ML Isovue 370 Axial images obtained with sagittal and coronal reformats. All CT scans at the facility use one or more dose reduction, viz: automated exposure control, ma/kV adjustment per patient size (including targeted exams where dose is matched to indication, i.e. head), or iterative reconstruction technique. FINDINGS: HEART AND MEDIASTINAL STRUCTURES: No evidence of central pulmonary embolus. The peripheral pulmonary arteries are not well delineated due to motion artifact and less than optimal opacification as well as areas of consolidation and atelectasis. No evidence of aortic aneurysm or dissection. There is a small amount mucus in the trachea at the n[place]. Prior CABG LUNGS AND PLEURAL SPACES: COPD with centrilobular emphysema with scattered areas of pulmonary fibrosis. In the right upper lobe posteriorly and superiorly there is increasingly dense consolidation now with an air-fluid level consistent with a pulmonary abscess measuring approximately 2.9 x 2.3 by 2.6 cm. Within the right upper lobe posteriorly there remains consolidation which is very slightly improved. There are small bilateral pleural effusions with bibasilar atelectatic changes. Right lower lobe volume loss has increased. Left lower lobe volume loss is also increased. There has been interval development of a soft tissue density in the left hilum measuring 2 cm consistent with a reactive lymph node. There is now trace left-sided effusion and small right effusion. BONY STRUCTURES: Multiple wedge compression changes of the thoracic spine are once again noted not significantly changed UPPER ABDOMEN: Cholelithiasis ADDITIONAL FINDINGS: No other significant abnormalities. IMPRESSION: 1. No definite evidence of pulmonary embolus. 2. Interval development of abscess in the right upper lobe posteriorly and superiorly 3. Some improvement in the remaining pneumonia in the right upper lobe 4. Small right pleural effusion and trace left effusion with volume loss in the lung bases posteriorly on both sides. Dictated by: Jamarcus Iraheta MD 11/04/2020 13:18 Jamarcus Iraheta MD in [facility] 11/04/2020 13:18
--- NOTE | 2020-11-04 10:32 | CT_ITS ---
PROCEDURE: CT ABDOMEN PELVIS W CON CLINICAL INDICATION: Distended abdomen, LE edema COMPARISON: CT CT ABDOMEN PELVIS W CON from 04/14/2020 MR MR ABDOMEN WO CON from 04/18/[address] ABDOMEN PELVIS WO CON from 05/09/2020 TECHNIQUE: IV Contrast: 75ML Isovue 370 Oral Contrast None Axial images obtained with sagittal and coronal reformats. All CT scans at the facility use one or more dose reduction, viz: automated exposure control, ma/kV adjustment per patient size (including targeted exams where dose is matched to indication, i.e. head), or iterative reconstruction technique. FINDINGS: LOWER THORAX: Please see chest CT report performed on the same setting ABDOMEN & PELVIS: The gallbladder is somewhat distended with a non gravity dependent stone present along the fundus of the gallbladder. This stone measures 12 mm. There is some vicarious excretion of contrast by the gallbladder with an abrupt change in density of the gallbladder and neck of the gallbladder best depicted on coronal image Number 37 series 604. This does raise the question of a stone in the neck of the gallbladder at approximately 12 mm. No focal liver lesion is evident. The spleen, adrenal glands, and pancreas have an unremarkable appearance. There are vascular calcifications of the kidneys. Fusiform aneurysm noted of the infrarenal portion of the abdominal aorta measuring up to 4.7 cm transverse and 4.9 cm AP high slightly larger in the transverse component previously measuring 4.4 x 4.9 cm. There is a moderate amount of mural thrombus with prominent narrowing of the lumen of the abdominal aorta. No evidence of acute retroperitoneal hemorrhage. There is a moderate amount of retained colonic feces. No evidence of appendicitis. There is colonic diverticulosis but no evidence of diverticulitis. Valenzuela catheter is present. There is a moderate amount of truncal edema below the iliac crest region. Scrotal edema with hydroceles are noted. IMPRESSION: 1. Cholelithiasis with mildly distended gallbladder with possible stone in the neck of the gallbladder 2. Abdominal aortic aneurysm 4.9 x 4.7 cm slightly increased in size. No evidence of acute retroperitoneal hemorrhage. 3. Moderate narrowing of the lumen of the abdominal aorta within the aneurysm. 4. Truncal edema below the iliac crest region with bilateral scrotal edema and hydroceles Dictated by: Jamarcus Iraheta MD 11/04/2020 13:32 Jamarcus Iraheta MD in [facility] 11/04/2020 13:32
--- NOTE | 2020-11-04 10:47 | US_ITS ---
PROCEDURE: US TESTICULAR CLINICAL INDICATION: edema Enlarged scrotum COMPARISON: No exams were available for comparison FINDINGS: The right testicle is 4.2 by 3.2 x 3 cm. The epididymis appears somewhat prominent. There is an 11 by 8 mm epididymal cyst. There is a small right hydrocele. No testicular mass is evident. Blood flow is present to the right testicle. The left testicle measures 4 x 3 x 3 cm with mild prominence of the epididymis. Blood flow is present within the left testicle. No obvious testicular mass. There is a small left hydrocele There is prominent scrotal wall edema IMPRESSION: Mildly prominent epididymi which may be seen with epididymitis. No testicular mass. Bilateral testicular blood flow is present There are small bilateral hydroceles with prominent scrotal wall edema. Dictated by: Jamarcus Iraheta MD 11/04/2020 12:54 Jamarcus Iraheta MD in [facility] 11/04/2020 12:54
[2020-11-04 10:49] LABS: Vancomycin,Trough 6.2 ug/mL (5.0-10.0)
[2020-11-04 11:30] LABS: Lymphocytes % 3 % (10-50); Microcytosis 1+; Neutrophils % 97 % (42-76); Platelet Estimate Normal; Total Cells Counted 100
[2020-11-04 11:31] LABS: Hypochromasia 2+
[2020-11-04 12:43] LABS: Magnesium 2.6 mg/dl (1.6-2.3)
--- NOTE | 2020-11-04 14:19 | HMH.ACPN2 ---
Internal Medicine - PN: Subj *Date: 11/04/20 *Time: 08:20 Interval history: pt states he feels better today. sitting up in chair Exam Vital signs and Labs for Last 24 Hours: Temp Pulse Resp BP Pulse Ox 98.1 F 84 20 95/58 L 94 L 11/04/20 12:00 11/04/20 14:06 11/04/20 12:00 11/04/20 12:00 11/04/20 12:00 Laboratory Results - last 24 hr 11/03/20 13:45: Chlamy pneumoniae PCR Not detected, Adenovirus (PCR) Not detected, B. pertussis DNA (PCR) Not detected, Coronavirus OC43 (PCR) Not detected, Coronavirus HKU1 (PCR) Not detected, Coronavirus 229E (PCR) Not detected, Coronavirus NL63 (PCR) Not detected, Human Metapneumovir PCR Not detected, Influenza A (H1) PCR Not detected, Influ A (H1N1/09) PCR Not detected, Influenza A (H3) PCR Not detected, Influenza Type A (PCR) Not detected, Influenza Type B (PCR) Not detected, M. pneumoniae (PCR) Not detected, Parainfluenza 1 (PCR) Not detected, Parainfluenza 2 (PCR) Not detected, Parainfluenza 3 (PCR) Not detected, Parainfluenza 4 (PCR) Not detected, RSV (PCR) Not detected, Entero/Rhino (PCR) Not detected 11/03/20 16:16: POC Glucose 406 H* 11/03/20 20:53: POC Glucose 327 H* 11/04/20 05:08: POC Glucose 288 H 11/04/20 05:46: WBC 11.6 H, RBC 2.82 L, Hgb 8.2 L, Hct 25.2 L, MCV 89.2, MCH 29.1, MCHC 32.7, RDW 16.0, Plt Count 214, MPV 6.6 L, Neut % (Auto) 95.7 H, Lymph % (Auto) 0.8 L, [place] % (Auto) 3.4, Eos % (Auto) 0.1, Baso % (Auto) 0.0 L, Neut # (Auto) 11.1 H, Lymph # (Auto) 0.1 L, [place] # (Auto) 0.4, Eos # (Auto) 0.0, Baso # (Auto) 0.0, Total Counted 100, Neutrophils % (Manual) 97 H, Lymphocytes % (Manual) 3 L, Platelet Estimate Normal, Hypochromasia 2+, Microcytosis 1+ 11/04/20 05:46: Sodium 133 L, Potassium 3.3 L D, Chloride 95 L, Carbon Dioxide 31 H, Anion Gap 10.3, BUN 76 H, Creatinine 1.20 D, Estimated Creat Clear 48, Estimated GFR 59, Est GFR ( Amer) 71 D, Glucose 229 H, Calcium 8.6 11/04/20 05:46: Magnesium 2.6 H 11/04/20 09:54: Vancomycin Trough 6.2 I & O for Last 24 hours: Intake & Output 11/02/20 11/03/20 11/04/20 11/05/20 11:59 11:59 11:59 11:59 Intake Total 2178 / 2178 1174 / 1174 1620 / 1620 Output Total 2750 / 2750 2950 / 2950 Balance 2178 / 2178 -1576 / -1576 -1330 / -1330 Weight 141 lb 1 oz 138 lb 14.259 oz 140 lb 14.006 oz Microbiology Reports for the Last 24 Hours: Microbiology 11/02/20 23:25 Urine,Catheterized Urine Culture - Preliminary 10/29/20 10:30 Blood Blood Culture - Final NO GROWTH AFTER 5 DAYS 10/29/20 10:30 Blood Blood Culture - Final NO GROWTH AFTER 5 DAYS - Constitutional chronically ill appearing - *Routine HEENT Exam Head: Present: normocephalic Eye: Present: PERRL ENT: Present: mucous membranes moist - *Routine Neck Exam Present: supple. Absent: lymphadenopathy - *Routine Respiratory Exam Present: decreased breath sounds, wheezes - *Routine Cardiovascular Exam Present: irregular rhythm - *Routine Abdominal Exam Present: soft, normoactive bowel sounds. Absent: tenderness - *Routine Exam Penile: Present: swelling Testicular: Bilateral swelling Scrotal: Present: swelling Comments: edema to scrotum and test- oneill in place - *Routine Extremities Exam Present: edema, normal capillary refill. Absent: cyanosis, clubbing - *Routine Skin Exam Present: warm. Absent: rash - *Routine Neurological Exam Present: alert, oriented X3 - Routine Psychiatric Exam Present: normal affect Assessment and Plan (1) Chest pain Status: Acute Qualifiers: Chest pain type: chest pain on breathing Qualified Code(s): R07.1 - Chest pain on breathing Category: Medical Code(s): R07.9 - Chest pain, unspecified (2) Leucocytosis Status: Acute Qualifiers: Leukocytosis type: unspecified Qualified Code(s): D72.829 - Elevated white blood cell count, unspecified Category: Medical Code(s): D72.829 - Elevated white blood cell count
--- NOTE | 2020-11-04 14:32 | DIET.NUTRFU ---
Addendum entered by Senia Guerrero 11/06/20 13:16: Pt states he thinks he is doing better, was able to eat more of his lunch today than he has any meal t/o stay. He is sick of full liquids and would like to be advanced, educated on importance slow advancement as tolerated/per [employer]. He continues to drink his BID glucerna. He has had some higher BG in the past few days, >300 at times, avg. 290. Original Note: Pt with severe malnutrition related to COPD as evidenced by PO intakes <50% past 5d, physical signs malnutrition, and fluid accumulation. Diet edu for malnutrition and adequate intakes with SOA as well as painful swallowing provided. Pt on full liquid diet per [employer] dt pain with swallowing. BID supplements and foods of pt's preference on order.
[2020-11-04 16:06] LABS: Vancomycin,Peak 5.8 ug/ml (11-39)
[2020-11-04 17:20] LABS: POC Glucose,Bedside 325 (70-110)
[2020-11-04 22:23] LABS: Hematocrit 29.5 % (42.0-52.0)
[2020-11-04 22:56] LABS: Hemoglobin 9.5 g/dL (14.1-18.0)
[2020-11-05] VITALS (9 sets, daily range): BP systolic 108–132; BP diastolic 56–75; PULSE 60–118; RESP 16–20; TEMP 36.6–37.1; O2SAT 95–98; BMI 22.6
[2020-11-05 00:47] LABS: POC Glucose,Bedside 310 (70-110)
[2020-11-05 00:47] LABS: POC Glucose,Bedside 399 (70-110)
--- NOTE | 2020-11-05 04:39 | PC.NURSE ---
Patient is alert and oriented x4. Patient remains edematous. He has remained on 4LNC this RN's shift. Patient has rested well this shift. No acute changes have occurred this shift. VSS, call light within reach, will continue to monitor.
[2020-11-05 06:24] LABS: Basophils % 0.1 % (0.1-2.0); Eosinophils % 0.2 % (0.1-12.0); Hematocrit 28.9 % (42.0-52.0); Hemoglobin 9.3 g/dL (14.1-18.0); Lymphocytes # 0.2 K/mm3 (0.7-4.5); Lymphocytes % 1.8 % (10-50); Mean Corpuscular HGB Conc 32.2 g/dL (31.8-35.4); Mean Corpuscular Hemoglobin 29.1 pg (27.0-31.2); Mean Corpuscular Volume 90.4 fl (80-94); Mean Platelet Volume 6.6 fl (7.4-10.4); Monocytes # 0.6 K/mm3 (0.1-1.0); Monocytes % 5.6 % (1.7-9.3); Neutrophils % 92.3 % (37.0-80.0); Platelet Count 203 K/mm3 (142-424); Red Blood Count 3.19 M/mm3 (4.60-6.20); Red Cell Distribution Width 15.5 % (11.5-17.5); White Blood Count 10.8 K/mm3 (4.8-10.8)
[2020-11-05 06:34] LABS: Anion Gap 6.6 mEq/L (5-15); Blood Urea Nitrogen 59 mg/dl (9-20); Calcium 8.8 mg/dl (8.4-10.2); Carbon Dioxide 33 mmol/L (22.0-30.0); Chloride 99 mmol/L (98-107); Creatinine Clearance Estimated 58 mL/min (50-200); Estimated Glomerular Filt Rate 82 ml/min (>60); GFR (African American) 100 ML/MIN (>60); Glucose 172 mg/dl (74-100); Potassium 3.6 mmoL/L (3.5-5.1); Sodium 135 mmol/L (136-145)
[2020-11-05 06:45] LABS: MANUAL DIFFERENTIAL MANUAL DIFFERENTIAL (MANUAL DIFF)
[2020-11-05 06:49] LABS: POC Glucose,Bedside 185 (70-110)
[2020-11-05 06:57] LABS: Hypochromasia 1+; Monocytes % 4 % (2-9); Neutrophils % 96 % (42-76); Platelet Estimate Normal; Total Cells Counted 100
--- NOTE | 2020-11-05 08:00 | HMH.PNCARD ---
Subjective Date: 11/05/20 Time: 08:01 Principal diagnosis: arrhythmia Interval history: 75-year-old white male in bed sleeping in no acute distress. Telemetry reveals returned to sinus rhythm. Patient appears less swollen today with good urine output documented. Blood pressure has improved since discontinuing beta-paulie and diltiazem. Rate is controlled with digoxin. Exam Vital signs and Labs for Last 24 Hours: Temp Pulse Resp BP Pulse Ox 98.1 F 79 16 113/61 98 11/05/20 04:00 11/05/20 04:00 11/05/20 04:00 11/05/20 04:00 11/05/20 04:00 Laboratory Results - last 24 hr 11/04/20 05:46: Total Counted 100, Neutrophils % (Manual) 97 H, Lymphocytes % (Manual) 3 L, Platelet Estimate Normal, Hypochromasia 2+, Microcytosis 1+ 11/04/20 05:46: Magnesium 2.6 H 11/04/20 05:46: Blood Type Confirm O Positive 11/04/20 09:54: Vancomycin Trough 6.2 11/04/20 12:00: POC Glucose 325 H* 11/04/20 14:05: Vancomycin Peak 5.8 L 11/04/20 14:45: Blood Type O Positive, Antibody Screen Negative, Crossmatch (AHG) See Detail 11/04/20 17:43: POC Glucose 310 H* 11/04/20 19:36: POC Glucose 399 H* 11/04/20 22:00: Hgb 9.5 L D, Hct 29.5 L 11/05/20 05:32: POC Glucose 185 H 11/05/20 05:37: WBC 10.8, RBC 3.19 L, Hgb 9.3 L, Hct 28.9 L, MCV 90.4, MCH 29.1, MCHC 32.2, RDW 15.5, Plt Count 203, MPV 6.6 L, Neut % (Auto) 92.3 H, Lymph % (Auto) 1.8 L, [place] % (Auto) 5.6, Eos % (Auto) 0.2, Baso % (Auto) 0.1, Neut # (Auto) 10.0 H, Lymph # (Auto) 0.2 L, [place] # (Auto) 0.6, Eos # (Auto) 0.0, Baso # (Auto) 0.0, Total Counted 100, Neutrophils % (Manual) 96 H, Monocytes % (Manual) 4, Platelet Estimate Normal, Hypochromasia 1+ 11/05/20 05:37: Sodium 135 L, Potassium 3.6, Chloride 99, Carbon Dioxide 33 H, Anion Gap 6.6, BUN 59 H, Creatinine 0.90 D, Estimated Creat Clear 58, Estimated GFR 82, Est GFR ( Amer) 100 D, Glucose 172 H D, Calcium 8.8 I & O for Last 24 hours: Intake & Output 11/02/20 11/03/20 11/04/20 11/05/20 11:59 11:59 11:59 11:59 Intake Total 2178 / 2178 1174 / 1174 1620 / 1620 0 / 0 Output Total 2750 / 2750 2950 / 2950 3150 / 3150 Balance 2178 / 2178 -1576 / -1576 -1330 / -1330 -3150 / -3150 Weight 141 lb 1 oz 138 lb 14.259 oz 140 lb 14.006 oz 141 lb Microbiology Reports for the Last 24 Hours: Microbiology 11/02/20 23:25 Urine,Catheterized Urine Culture - Final Yeast - *Routine Respiratory Exam Present: decreased breath sounds, wheezes - *Routine Cardiovascular Exam Present: RRR Progress Note: A&P (1) Chest pain Status: Acute (2) Leucocytosis Status: Acute (3) AAA (abdominal aortic aneurysm) Status: Acute (4) Atypical angina Status: Acute (5) Cardiomyopathy Status: Acute (6) CAD (coronary artery disease) Status: Chronic (7) Chronic obstructive pulmonary disease Status: Chronic (8) Dyspnea Status: Chronic (9) Former smoker Status: Chronic (10) HHD (hypertensive heart disease) Status: Chronic (11) History of coronary artery bypass graft Status: Chronic (12) Compression fracture Status: Acute (13) Pneumonia Status: Acute (14) COPD (chronic obstructive pulmonary disease) Status: Acute (15) Serum potassium elevated Status: Acute (16) Low sodium levels Status: Acute (17) Gastritis Status: Acute (18) Acute urinary retention Status: Acute (19) Respiratory failure with hypercapnia Status: Acute (20) Scrotum swelling Status: Acute (21) Severe protein-calorie malnutrition Status: Acute (22) A-fib Status: Acute Assessment and Plan for All Diagnoses:: 1. Atrial fibrillation, back in sinus rhythm this morning. On Xarelto and digoxin therapy. No evidence of pulmonary embolus on CTA of the chest. 2. Coronary artery disease, clinically stable 3. Chronic lung disease with acute exacerbation 4. Abdominal distention with markedly hypoactive bowel sounds, CT of the abdomen showed st
--- NOTE | 2020-11-05 09:39 | HMH.PULMPN ---
Internal Medicine - PN: Subj *Date: 11/05/20 *Time: 11:52 Interval history: No acute respiratory events overnight. Patient complains of nosebleed. Exam - Constitutional Constitutional:: Present: no acute distress, comfortable - HENMT Exam HENMT: Present: normocephalic - Eye Exam Eyes:: Present: normal appearance both eyes and related structures - Neck Exam Neck:: Present: normal visual inspection - Respiratory Exam Respiratory:: Present: able to speak in complete sentences, normal respiratory effort, wheezing - Cardiovascular Exam Cardiac:: Present: S1, S2 - GI Exam GI:: Present: soft - Skin Exam Skin: Present: warm, no rash - Neurological Exam Neurological: Present: alert, awake, normal cognition - Extremities Exam Extremities: Present: no cyanosis, no clubbing, edema Assessment and Plan (1) Chest pain Status: Acute Qualifiers: Chest pain type: chest pain on breathing Qualified Code(s): R07.1 - Chest pain on breathing Category: Medical Code(s): R07.9 - Chest pain, unspecified (2) Leucocytosis Status: Acute Qualifiers: Leukocytosis type: unspecified Qualified Code(s): D72.829 - Elevated white blood cell count, unspecified Category: Medical Code(s): D72.829 - Elevated white blood cell count, unspecified (3) AAA (abdominal aortic aneurysm) Status: Acute Qualifiers: Presence of rupture: without rupture Qualified Code(s): I71.4 - Abdominal aortic aneurysm, without rupture Category: Medical Code(s): I71.4 - Abdominal aortic aneurysm, without rupture (4) Atypical angina Status: Acute Category: Medical Code(s): I20.8 - Other forms of angina pectoris (5) Cardiomyopathy Status: Acute Qualifiers: Cardiomyopathy type: unspecified Qualified Code(s): I42.9 - Cardiomyopathy, unspecified Category: Medical Code(s): I42.9 - Cardiomyopathy, unspecified (6) CAD (coronary artery disease) Status: Chronic Qualifiers: Coronary Disease-Associated Artery/Lesion type: [place] artery [place] vs. transplanted heart: [place] heart Associated angina: with other forms of angina Qualified Code(s): I25.118 - Atherosclerotic heart disease of [place] coronary artery with other forms of angina pectoris Category: Medical Code(s): I25.10 - Atherosclerotic heart disease of [place] coronary artery without angina pectoris (7) Chronic obstructive pulmonary disease Status: Chronic Qualifiers: COPD type: emphysema Emphysema type: unspecified Qualified Code(s): J43.9 - Emphysema, unspecified Category: Medical Code(s): J44.9 - Chronic obstructive pulmonary disease, unspecified (8) Dyspnea Status: Chronic Qualifiers: Dyspnea type: shortness of breath Qualified Code(s): R06.02 - Shortness of breath; R06.00 - Dyspnea, unspecified; R06.01 - Orthopnea Category: Medical Code(s): R06.00 - Dyspnea, unspecified (9) Former smoker Status: Chronic Category: Social Hx Code(s): Z87.891 - Personal history of nicotine dependence (10) HHD (hypertensive heart disease) Status: Chronic Qualifiers: Heart failure presence: without heart failure Qualified Code(s): I11.9 - Hypertensive heart disease without heart failure Category: Medical Code(s): I11.9 - Hypertensive heart disease without heart failure (11) History of coronary artery bypass graft Status: Chronic Category: Surgical Code(s): Z95.1 - Presence of aortocoronary bypass graft (12) Compression fracture Status: Acute Category: Medical (13) Pneumonia Status: Acute Qualifiers: Pneumonia type: due to methicillin-resistant Staphylococcus aureus (MRSA) Laterality: bilateral Lung location: unspecified part of lung Qualified Code(s): J15.212 - Pneumonia due to Methicillin resistant Staphylococcus aureus Category: Medical Code(s): J18.9 - Pneumonia, unspecified organism (14) COPD (chronic obstructive pulmonary disease) Statu
--- NOTE | 2020-11-05 09:41 | HMH.ACPN2 ---
Internal Medicine - PN: Subj *Date: 11/05/20 *Time: 08:00 Interval history: pt resting in bed.family at bedside Exam Vital signs and Labs for Last 24 Hours: Temp Pulse Resp BP Pulse Ox 98.1 F 79 16 113/61 98 11/05/20 04:00 11/05/20 04:00 11/05/20 04:00 11/05/20 04:00 11/05/20 04:00 Laboratory Results - last 24 hr 11/04/20 05:46: Total Counted 100, Neutrophils % (Manual) 97 H, Lymphocytes % (Manual) 3 L, Platelet Estimate Normal, Hypochromasia 2+, Microcytosis 1+ 11/04/20 05:46: Magnesium 2.6 H 11/04/20 05:46: Blood Type Confirm O Positive 11/04/20 09:54: Vancomycin Trough 6.2 11/04/20 12:00: POC Glucose 325 H* 11/04/20 14:05: Vancomycin Peak 5.8 L 11/04/20 14:45: Blood Type O Positive, Antibody Screen Negative, Crossmatch (AHG) See Detail 11/04/20 17:43: POC Glucose 310 H* 11/04/20 19:36: POC Glucose 399 H* 11/04/20 22:00: Hgb 9.5 L D, Hct 29.5 L 11/05/20 05:32: POC Glucose 185 H 11/05/20 05:37: WBC 10.8, RBC 3.19 L, Hgb 9.3 L, Hct 28.9 L, MCV 90.4, MCH 29.1, MCHC 32.2, RDW 15.5, Plt Count 203, MPV 6.6 L, Neut % (Auto) 92.3 H, Lymph % (Auto) 1.8 L, [place] % (Auto) 5.6, Eos % (Auto) 0.2, Baso % (Auto) 0.1, Neut # (Auto) 10.0 H, Lymph # (Auto) 0.2 L, [place] # (Auto) 0.6, Eos # (Auto) 0.0, Baso # (Auto) 0.0, Total Counted 100, Neutrophils % (Manual) 96 H, Monocytes % (Manual) 4, Platelet Estimate Normal, Hypochromasia 1+ 11/05/20 05:37: Sodium 135 L, Potassium 3.6, Chloride 99, Carbon Dioxide 33 H, Anion Gap 6.6, BUN 59 H, Creatinine 0.90 D, Estimated Creat Clear 58, Estimated GFR 82, Est GFR ( Amer) 100 D, Glucose 172 H D, Calcium 8.8 I & O for Last 24 hours: Intake & Output 11/02/20 11/03/20 11/04/20 11/05/20 11:59 11:59 11:59 11:59 Intake Total 2178 / 2178 1174 / 1174 1620 / 1620 0 / 0 Output Total 2750 / 2750 2950 / 2950 3150 / 3150 Balance 2178 / 2178 -1576 / -1576 -1330 / -1330 -3150 / -3150 Weight 141 lb 1 oz 138 lb 14.259 oz 140 lb 14.006 oz 141 lb Microbiology Reports for the Last 24 Hours: Microbiology 11/02/20 23:25 Urine,Catheterized Urine Culture - Final Yeast - Constitutional no acute distress, chronically ill appearing - *Routine HEENT Exam Head: Present: normocephalic Eye: Present: PERRL ENT: Present: mucous membranes moist - *Routine Neck Exam Present: supple. Absent: lymphadenopathy - *Routine Respiratory Exam Present: wheezes - *Routine Cardiovascular Exam Present: RRR - *Routine Abdominal Exam Present: soft, normoactive bowel sounds. Absent: tenderness - *Routine Exam Penile: Present: swelling Testicular: Bilateral swelling Scrotal: Present: swelling Comments: Truncal edema below the iliac crest with scrotal edema and hydroceles noted - *Routine Extremities Exam Present: edema. Absent: cyanosis, clubbing - *Routine Skin Exam Present: warm. Absent: rash - *Routine Neurological Exam Present: alert, oriented X3 - Routine Psychiatric Exam Present: normal affect Assessment and Plan (1) Chest pain Status: Acute Qualifiers: Qualified Code(s): R07.1 - Chest pain on breathing Category: Medical Code(s): R07.9 - Chest pain, unspecified (2) Leucocytosis Status: Acute Qualifiers: Qualified Code(s): D72.829 - Elevated white blood cell count, unspecified Category: Medical Code(s): D72.829 - Elevated white blood cell count, unspecified (3) AAA (abdominal aortic aneurysm) Status: Acute Qualifiers: Qualified Code(s): I71.4 - Abdominal aortic aneurysm, without rupture Category: Medical Code(s): I71.4 - Abdominal aortic aneurysm, without rupture (4) Atypical angina Status: Acute Category: Medical Code(s): I20.8 - Other forms of angina pectoris (5) Cardiomyopathy Status: Acute Qualifiers: Qualified Code(s): I42.9 - Cardiomyopathy, unspecified Category: Medical Code(s): I42.9 - Cardiomyopathy, unspecified (6) CAD (coronary artery disease)
--- NOTE | 2020-11-05 16:44 | HMH.CONS ---
*Admission Date: 10/27/20 *Reason for consult:: Scrotal edema *History of present illness: Patient is a 75-year-old white male who is known to me. He has a history of bladder cancer and his most recent cystoscopy showed no evidence of recurrence. He was admitted on October 28 with right-sided chest pain and has been followed by pulmonology, cardiology and general surgery during his hospital stay. Patient's white count was elevated on admission and was thought to be due to this prednisone and that has improved during his hospital stay. Patient scrotal edema has been worked up thus far with the scrotal ultrasound on November 04 which showed mildly prominent epididymis which may be seen with epididymitis. There is no evidence of testicular masses or torsion. Small hydroceles are no noted with prominent scrotal wall edema. CT scan also showed scrotal edema with small hydroceles. His renal function is. Recent urine culture showed yeast for which she has been treated. This is a 75-year-old gentleman seen in consultation from Drs. Castro and Whitney for evaluation of hematemesis. He reports hematemesis and possible coughing but this morning. Forwarded from admission H&P: Patient is a 75-year-old white male, patient of Dr. Weldon, who presented to the emergency room with right-sided chest pain, pleuritic in nature. It had the pain since about 8:00 this morning. Patient has a history of coronary artery disease, status post coronary bypass and stenting. He is actively followed by cardiology. He also has a known 4.5 cm abdominal aneurysm is followed with sequential ultrasounds. Patient had recent surgery for a bladder mass. He is actively followed by Dr. Saxena. Patient has longstanding COPD, is oxygen dependent at 2 L/min [id number]. Is prednisone dependent, currently on 20 mg daily. As a result of the prednisone he has osteoporosis, fragile skin, and sustained a significant calcaneal fracture. Patient had a significant elevated white count in the emergency room. No infiltrative process was noted in the chest. The etiology of his leukocytosis is likely peripheral demargination associated with long-term prednisone. Since daughter has been noticing elevations in blood sugar. This is also likely a prednisone effect. Patient has had a cough productive of yellow to green purulence. Forwarded from pulmonology consultation: Mr. Irahtea (sic) is a 75-year-old male prior smoker greater than [id number] smoking cigars a diagnosis COPD on triple inhaler therapy along with chronic prednisone 20 mg, significant complicated osteoporosis and fractures even on this admission having multiple compression fractures of his thoracic spine presented to the hospital with right-sided pleuritic chest pain and pulmonary was called for further management. Forwarded from cardiology evaluation: 75-year-old male admitted with worsening shortness of breath and right-sided chest wall pain 2 days go. Patient states he is feeling much better. Patient states his shortness of breath has improved since being on steroids and antibiotics. This is being managed per pulmonary and PCP. Patient denies chest pain, tightness or pressure. Patient does continue to main on 2 L of O2 by nasal cannula. Patient does deny fever or nausea. Denies palpitations or dizziness. alarm security or surveillance monitor does reveal sinus tachycardia with a heart rate of 109-112bpm. Heart rate does increase with movement. Patient is currently on diltiazem 240 mg p.o. for heart rate and blood pressure control. Unable to start a beta-paulie on this patient due to his severe CO
--- NOTE | 2020-11-05 18:19 | PC.NURSE ---
DR HARRIS WAS PAGED R/T PT TACHYCARDIA AND AFIB ON TELEMETRY, ORDER FOR DILTIAZEM 10MG IV PLACED. THIS RN PULLED DILTIAZEM AND WENT TO PT BED SIDE TO ADMIN MEDICATION BUT PT HAD CONVERTED TO CONTROLLED AFIB ON TELE AND HR HAD RETURNED TO BASELINE WITH HR IN THE 90'S. DILTIAZEM ORDER WAS NOT CHARTED ON APR IN CASE MEDICATION IS NEEDED. WILL CONTINUE TO MONITOR. PT CURRENTLY AFIB ON TELE HR IN THE 90'S.
--- NOTE | 2020-11-05 19:47 | PC.NURSE ---
SPOKE WITH DR VALDIVIA DURING ROUNDS TONIGHT AROUND [id number] AND INFORMED HIM OF PATIENT DEVELOPMENTS. DR VALDIVIA OKAY WITH HOLDING PT [facility].
[2020-11-06] VITALS (12 sets, daily range): BP systolic 106–131; BP diastolic 62–85; PULSE 64–114; RESP 12–20; TEMP 36.6–36.9; O2SAT 93–98; BMI 22.6
[2020-11-06 00:49] LABS: POC Glucose,Bedside 295 (70-110)
[2020-11-06 00:49] LABS: POC Glucose,Bedside 304 (70-110)
[2020-11-06 00:49] LABS: POC Glucose,Bedside 314 (70-110)
[2020-11-06 05:44] LABS: Basophils % 0.2 % (0.1-2.0); Eosinophils # 0.1 K/mm3 (0.0-0.4); Eosinophils % 0.6 % (0.1-12.0); Hematocrit 30.9 % (42.0-52.0); Hemoglobin 9.9 g/dL (14.1-18.0); Lymphocytes # 0.3 K/mm3 (0.7-4.5); Lymphocytes % 2.3 % (10-50); Mean Corpuscular HGB Conc 32.1 g/dL (31.8-35.4); Mean Corpuscular Hemoglobin 28.9 pg (27.0-31.2); Mean Corpuscular Volume 89.9 fl (80-94); Mean Platelet Volume 6.8 fl (7.4-10.4); Monocytes # 0.4 K/mm3 (0.1-1.0); Neutrophils # 11.6 K/mm3 (1.8-7.8); Neutrophils % 93.9 % (37.0-80.0); Platelet Count 208 K/mm3 (142-424); Red Blood Count 3.43 M/mm3 (4.60-6.20); Red Cell Distribution Width 15.7 % (11.5-17.5); White Blood Count 12.4 K/mm3 (4.8-10.8)
[2020-11-06 05:50] LABS: Anion Gap 6.5 mEq/L (5-15); Blood Urea Nitrogen 45 mg/dl (9-20); Calcium 9.2 mg/dl (8.4-10.2); Carbon Dioxide 37 mmol/L (22.0-30.0); Chloride 100 mmol/L (98-107); Creatinine Clearance Estimated 58 mL/min (50-200); Estimated Glomerular Filt Rate 110 ml/min (>60); GFR (African American) 133 ML/MIN (>60); Glucose 175 mg/dl (74-100); Potassium 3.5 mmoL/L (3.5-5.1); Sodium 140 mmol/L (136-145)
[2020-11-06 05:52] LABS: MANUAL DIFFERENTIAL MANUAL DIFFERENTIAL (MANUAL DIFF)
[2020-11-06 07:08] LABS: POC Glucose,Bedside 189 (70-110)
[2020-11-06 07:13] LABS: Lymphocytes % 2 % (10-50); Monocytes % 4 % (2-9); Neutrophils % 94 % (42-76); Platelet Estimate Normal; RBC Morphology Normal; Total Cells Counted 100
--- NOTE | 2020-11-06 09:05 | HMH.PULMPN ---
Internal Medicine - PN: Subj *Date: 11/06/20 *Time: 13:36 Interval history: No acute respiratory events overnight. Exam - Constitutional Constitutional:: Present: no acute distress, comfortable - HENMT Exam HENMT: Present: normocephalic, atraumatic - Eye Exam Eyes:: Present: normal appearance both eyes and related structures - Neck Exam Neck:: Present: normal visual inspection - Respiratory Exam Respiratory:: Present: able to speak in complete sentences, no respiratory distress, wheezing - Cardiovascular Exam Cardiac:: Present: S1, S2 - GI Exam GI:: Present: soft, distended, rigid - Skin Exam Skin: Present: warm - Neurological Exam Neurological: Present: alert, awake, normal cognition - Extremities Exam Extremities: Present: no cyanosis, no clubbing, no edema Assessment and Plan (1) Chest pain Status: Acute Qualifiers: Chest pain type: chest pain on breathing Qualified Code(s): R07.1 - Chest pain on breathing Category: Medical Code(s): R07.9 - Chest pain, unspecified (2) Leucocytosis Status: Acute Qualifiers: Leukocytosis type: unspecified Qualified Code(s): D72.829 - Elevated white blood cell count, unspecified Category: Medical Code(s): D72.829 - Elevated white blood cell count, unspecified (3) AAA (abdominal aortic aneurysm) Status: Acute Qualifiers: Presence of rupture: without rupture Qualified Code(s): I71.4 - Abdominal aortic aneurysm, without rupture Category: Medical Code(s): I71.4 - Abdominal aortic aneurysm, without rupture (4) Atypical angina Status: Acute Category: Medical Code(s): I20.8 - Other forms of angina pectoris (5) Cardiomyopathy Status: Acute Qualifiers: Cardiomyopathy type: unspecified Qualified Code(s): I42.9 - Cardiomyopathy, unspecified Category: Medical Code(s): I42.9 - Cardiomyopathy, unspecified (6) CAD (coronary artery disease) Status: Chronic Qualifiers: Coronary Disease-Associated Artery/Lesion type: [place] artery [place] vs. 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 Emphysema type: unspecified Qualified Code(s): J43.9 - Emphysema, unspecified Category: Medical Code(s): J44.9 - Chronic obstructive pulmonary disease, unspecified (8) Dyspnea Status: Chronic Qualifiers: Dyspnea type: shortness of breath Qualified Code(s): R06.02 - Shortness of breath; R06.00 - Dyspnea, unspecified; R06.01 - Orthopnea Category: Medical Code(s): R06.00 - Dyspnea, unspecified (9) Former smoker Status: Chronic Category: Social Hx Code(s): Z87.891 - Personal history of nicotine dependence (10) HHD (hypertensive heart disease) Status: Chronic Qualifiers: Heart failure presence: without heart failure Qualified Code(s): I11.9 - Hypertensive heart disease without heart failure Category: Medical Code(s): I11.9 - Hypertensive heart disease without heart failure (11) History of coronary artery bypass graft Status: Chronic Category: Surgical Code(s): Z95.1 - Presence of aortocoronary bypass graft (12) Compression fracture Status: Acute Category: Medical (13) Pneumonia Status: Acute Qualifiers: Pneumonia type: due to methicillin-resistant Staphylococcus aureus (MRSA) Laterality: bilateral Lung location: unspecified part of lung Qualified Code(s): J15.212 - Pneumonia due to Methicillin resistant Staphylococcus aureus Category: Medical Code(s): J18.9 - Pneumonia, unspecified organism (14) COPD (chronic obstructive pulmonary disease) Status: Acute
--- NOTE | 2020-11-06 09:19 | HMH.ACPN2 ---
Internal Medicine - PN: Subj *Date: 11/05/20 *Time: 08:00 Interval history: pt laying in bed, increase breathing Exam Vital signs and Labs for Last 24 Hours: Temp Pulse Resp BP Pulse Ox 98.0 F 106 H 20 131/80 96 11/06/20 08:00 11/06/20 08:24 11/06/20 08:00 11/06/20 08:00 11/06/20 08:00 Laboratory Results - last 24 hr 11/05/20 12:34: POC Glucose 295 H 11/05/20 17:10: POC Glucose 304 H* 11/05/20 20:24: POC Glucose 314 H* 11/06/20 05:30: WBC 12.4 H, RBC 3.43 L, Hgb 9.9 L, Hct 30.9 L, MCV 89.9, MCH 28.9, MCHC 32.1, RDW 15.7, Plt Count 208, MPV 6.8 L, Neut % (Auto) 93.9 H, Lymph % (Auto) 2.3 L, [place] % (Auto) 3.0, Eos % (Auto) 0.6, Baso % (Auto) 0.2, Neut # (Auto) 11.6 H, Lymph # (Auto) 0.3 L, [place] # (Auto) 0.4, Eos # (Auto) 0.1, Baso # (Auto) 0.0, Total Counted 100, Neutrophils % (Manual) 94 H, Lymphocytes % (Manual) 2 L, Monocytes % (Manual) 4, Platelet Estimate Normal, RBC Morphology Normal 11/06/20 05:30: Sodium 140, Potassium 3.5, Chloride 100, Carbon Dioxide 37 H, Anion Gap 6.5, BUN 45 H, Creatinine 0.70 D, Estimated Creat Clear 58, Estimated GFR 110, Est GFR ( Amer) 133 D, Glucose 175 H, Calcium 9.2 11/06/20 05:51: POC Glucose 189 H I & O for Last 24 hours: Intake & Output 11/03/20 11/04/20 11/05/20 11/06/20 11:59 11:59 11:59 11:59 Intake Total 1174 / 1174 1620 / 1620 0 / 0 360 / 360 Output Total 2750 / 2750 2950 / 2950 3150 / 3150 3500 / 3500 Balance -1576 / -1576 -1330 / -1330 -3150 / -3150 -3140 / -3140 Weight 138 lb 14.259 oz 140 lb 14.006 oz 141 lb 141 lb 0.017 oz Microbiology Reports for the Last 24 Hours: Microbiology 11/02/20 23:25 Urine,Catheterized Urine Culture - Final Yeast - Constitutional mild distress, chronically ill appearing - *Routine HEENT Exam Head: Present: normocephalic Eye: Present: PERRL ENT: Present: mucous membranes moist - *Routine Neck Exam Present: supple. Absent: lymphadenopathy - *Routine Respiratory Exam Present: decreased breath sounds, wheezes - *Routine Cardiovascular Exam Present: RRR - *Routine Abdominal Exam Present: soft, normoactive bowel sounds. Absent: tenderness - *Routine Exam Penile: Present: swelling Testicular: Bilateral swelling Scrotal: Present: swelling - *Routine Extremities Exam Present: edema. Absent: cyanosis, clubbing - *Routine Skin Exam Present: warm. Absent: rash - *Routine Neurological Exam Present: alert, oriented X3 - Routine Psychiatric Exam Present: normal affect Assessment and Plan (1) Chest pain Status: Acute Qualifiers: Chest pain type: chest pain on breathing Qualified Code(s): R07.1 - Chest pain on breathing Category: Medical Code(s): R07.9 - Chest pain, unspecified (2) Leucocytosis Status: Acute Qualifiers: Leukocytosis type: unspecified Qualified Code(s): D72.829 - Elevated white blood cell count, unspecified Category: Medical Code(s): D72.829 - Elevated white blood cell count, unspecified (3) AAA (abdominal aortic aneurysm) Status: Acute Qualifiers: Presence of rupture: without rupture Qualified Code(s): I71.4 - Abdominal aortic aneurysm, without rupture Category: Medical Code(s): I71.4 - Abdominal aortic aneurysm, without rupture (4) Atypical angina Status: Acute Category: Medical Code(s): I20.8 - Other forms of angina pectoris (5) Cardiomyopathy Status: Acute Qualifiers: Cardiomyopathy type: unspecified Qualified Code(s): I42.9 - Cardiomyopathy, unspecified Category: Medical Code(s): I42.9 - Cardiomyopathy, unspecified (6) CAD (coronary artery disease) Status: Chronic Qualifiers: Coronary Disease-Associated Artery/Lesion type: [place] artery [place] vs. transplanted heart: [place] heart Associated angina: with other forms of angina Qualified Code(s): I25.118 - Atherosclerotic heart disease of [place] coronary artery with other forms of angina pector
--- NOTE | 2020-11-06 12:47 | HMH.PNCARD ---
Subjective Date: 11/06/20 Time: 12:47 Principal diagnosis: arrhythmia Interval history: 75-year-old white male sitting in bedside chair in no acute distress. Appears much more alert today. Lower extremity edema has improved but still present to some degree. Telemetry reveals sinus tachycardia at about 110 bpm. Exam Vital signs and Labs for Last 24 Hours: Temp Pulse Resp BP Pulse Ox 98.3 F 112 H 18 124/72 98 11/06/20 12:00 11/06/20 12:00 11/06/20 12:00 11/06/20 12:00 11/06/20 12:00 Laboratory Results - last 24 hr 11/05/20 12:34: POC Glucose 295 H 11/05/20 17:10: POC Glucose 304 H* 11/05/20 20:24: POC Glucose 314 H* 11/06/20 05:30: WBC 12.4 H, RBC 3.43 L, Hgb 9.9 L, Hct 30.9 L, MCV 89.9, MCH 28.9, MCHC 32.1, RDW 15.7, Plt Count 208, MPV 6.8 L, Neut % (Auto) 93.9 H, Lymph % (Auto) 2.3 L, [place] % (Auto) 3.0, Eos % (Auto) 0.6, Baso % (Auto) 0.2, Neut # (Auto) 11.6 H, Lymph # (Auto) 0.3 L, [place] # (Auto) 0.4, Eos # (Auto) 0.1, Baso # (Auto) 0.0, Total Counted 100, Neutrophils % (Manual) 94 H, Lymphocytes % (Manual) 2 L, Monocytes % (Manual) 4, Platelet Estimate Normal, RBC Morphology Normal 11/06/20 05:30: Sodium 140, Potassium 3.5, Chloride 100, Carbon Dioxide 37 H, Anion Gap 6.5, BUN 45 H, Creatinine 0.70 D, Estimated Creat Clear 58, Estimated GFR 110, Est GFR ( Amer) 133 D, Glucose 175 H, Calcium 9.2 11/06/20 05:51: POC Glucose 189 H I & O for Last 24 hours: Intake & Output 11/04/20 11/05/20 11/06/20 11/07/20 11:59 11:59 11:59 11:59 Intake Total 1620 / 1620 0 / 0 720 / 720 Output Total 2950 / 2950 3150 / 3150 3500 / 3500 Balance -1330 / -1330 -3150 / -3150 -2780 / -2780 Weight 140 lb 14.006 oz 141 lb 141 lb 0.017 oz - Constitutional no acute distress - *Routine HEENT Exam Head: Present: normocephalic Eye: Present: EOMI, PERRL ENT: Present: mucous membranes moist - *Routine Neck Exam Present: supple. Absent: lymphadenopathy - *Routine Respiratory Exam Present: wheezes, diminished air movement - *Routine Cardiovascular Exam Present: RRR, tachycardia - *Routine Abdominal Exam Present: soft, normoactive bowel sounds. Absent: tenderness - *Routine Extremities Exam Absent: cyanosis, clubbing, edema - *Routine Skin Exam Present: warm. Absent: rash - *Routine Neurological Exam Present: alert, oriented X3 Progress Note: A&P (1) Chest pain Status: Acute (2) Leucocytosis Status: Acute (3) AAA (abdominal aortic aneurysm) Status: Acute (4) Atypical angina Status: Acute (5) Cardiomyopathy Status: Acute (6) CAD (coronary artery disease) Status: Chronic (7) Chronic obstructive pulmonary disease Status: Chronic (8) Dyspnea Status: Chronic (9) Former smoker Status: Chronic (10) HHD (hypertensive heart disease) Status: Chronic (11) History of coronary artery bypass graft Status: Chronic (12) Compression fracture Status: Acute (13) Pneumonia Status: Acute (14) COPD (chronic obstructive pulmonary disease) Status: Acute (15) Serum potassium elevated Status: Acute (16) Low sodium levels Status: Acute (17) Gastritis Status: Acute (18) Acute urinary retention Status: Acute (19) Respiratory failure with hypercapnia Status: Acute (20) Scrotum swelling Status: Acute (21) Severe protein-calorie malnutrition Status: Acute (22) A-fib Status: Acute Assessment and Plan for All Diagnoses:: 1. Atrial fibrillation, back in sinus rhythm this morning. On Xarelto and digoxin therapy. No evidence of pulmonary embolus on CTA of the chest. Will restart low-dose beta-paulie therapy to maintain sinus rhythm and improve rate. 2. Coronary artery disease, clinically stable 3. Chronic lung disease with acute exacerbation, defer to Dr. Linn 4. Abdominal distention with markedly hypoactive bowel sounds, CT of the abdomen showed stable AAA and evidence of cholelithiasis with a gallst
--- NOTE | 2020-11-06 13:06 | PC.NURSE ---
PT IS SITTING UP IN THE CHAIR. ALERT AND ORIENTED X4. PT PARTICIPATED WITH PHYSICAL THERAPY THIS AFTERNOON. O2 SATURATION HAS MAINTAINED 92-96% ON 2 L NC. LUNG SOUNDS HAVE SCATTERED WHEEZES. ABDOMEN FIRM/DISTENDED/EDEMATOUS WITH HYPOACTIVE BOWEL SOUNDS. 3+ PITTING EDEMA NOTED TO BLE. SCATTERED BRUISING NOTED. PT HAS A SKIN TEAR NOTED AT THE LFA IV SITE. AREA WAS CLEANED AND REDRESSED. VSS. WILL CONTINUE TO MONITOR.
--- NOTE | 2020-11-06 14:01 | HMH.ACPN2 ---
Internal Medicine - PN: Subj *Date: 11/06/20 *Time: 08:40 Interval history: pt laying in bed states breathing improved pt states he did not get oob yesterday due to pain in his groin from edema Exam Vital signs and Labs for Last 24 Hours: Temp Pulse Resp BP Pulse Ox 98.3 F 112 H 18 124/72 98 11/06/20 12:00 11/06/20 12:00 11/06/20 12:00 11/06/20 12:00 11/06/20 12:00 Laboratory Results - last 24 hr 11/05/20 12:34: POC Glucose 295 H 11/05/20 17:10: POC Glucose 304 H* 11/05/20 20:24: POC Glucose 314 H* 11/06/20 05:30: WBC 12.4 H, RBC 3.43 L, Hgb 9.9 L, Hct 30.9 L, MCV 89.9, MCH 28.9, MCHC 32.1, RDW 15.7, Plt Count 208, MPV 6.8 L, Neut % (Auto) 93.9 H, Lymph % (Auto) 2.3 L, [place] % (Auto) 3.0, Eos % (Auto) 0.6, Baso % (Auto) 0.2, Neut # (Auto) 11.6 H, Lymph # (Auto) 0.3 L, [place] # (Auto) 0.4, Eos # (Auto) 0.1, Baso # (Auto) 0.0, Total Counted 100, Neutrophils % (Manual) 94 H, Lymphocytes % (Manual) 2 L, Monocytes % (Manual) 4, Platelet Estimate Normal, RBC Morphology Normal 11/06/20 05:30: Sodium 140, Potassium 3.5, Chloride 100, Carbon Dioxide 37 H, Anion Gap 6.5, BUN 45 H, Creatinine 0.70 D, Estimated Creat Clear 58, Estimated GFR 110, Est GFR ( Amer) 133 D, Glucose 175 H, Calcium 9.2 11/06/20 05:51: POC Glucose 189 H I & O for Last 24 hours: Intake & Output 11/04/20 11/05/20 11/06/20 11/07/20 11:59 11:59 11:59 11:59 Intake Total 1620 / 1620 0 / 0 720 / 720 960 / 960 Output Total 2950 / 2950 3150 / 3150 4700 / 4700 Balance -1330 / -1330 -3150 / -3150 -3980 / -3980 960 / 960 Weight 140 lb 14.006 oz 141 lb 141 lb 0.017 oz - Constitutional chronically ill appearing - *Routine HEENT Exam Head: Present: normocephalic Eye: Present: PERRL ENT: Present: mucous membranes moist - *Routine Neck Exam Present: supple. Absent: lymphadenopathy - *Routine Respiratory Exam Present: wheezes - *Routine Cardiovascular Exam Present: RRR - *Routine Abdominal Exam Present: soft, normoactive bowel sounds. Absent: tenderness - *Routine Exam Penile: Present: swelling Testicular: Bilateral swelling Scrotal: Present: swelling Comments: swelling - *Routine Extremities Exam Present: edema. Absent: cyanosis, clubbing - *Routine Skin Exam Present: warm. Absent: rash - *Routine Neurological Exam Present: alert, oriented X3 - Routine Psychiatric Exam Present: normal affect Assessment and Plan (1) Chest pain Status: Acute Qualifiers: Chest pain type: chest pain on breathing Qualified Code(s): R07.1 - Chest pain on breathing Category: Medical Code(s): R07.9 - Chest pain, unspecified (2) Leucocytosis Status: Acute Qualifiers: Leukocytosis type: unspecified Qualified Code(s): D72.829 - Elevated white blood cell count, unspecified Category: Medical Code(s): D72.829 - Elevated white blood cell count, unspecified (3) AAA (abdominal aortic aneurysm) Status: Acute Qualifiers: Presence of rupture: without rupture Qualified Code(s): I71.4 - Abdominal aortic aneurysm, without rupture Category: Medical Code(s): I71.4 - Abdominal aortic aneurysm, without rupture (4) Atypical angina Status: Acute Category: Medical Code(s): I20.8 - Other forms of angina pectoris (5) Cardiomyopathy Status: Acute Qualifiers: Cardiomyopathy type: unspecified Qualified Code(s): I42.9 - Cardiomyopathy, unspecified Category: Medical Code(s): I42.9 - Cardiomyopathy, unspecified (6) CAD (coronary artery disease) Status: Chronic Qualifiers: Coronary Disease-Associated Artery/Lesion type: [place] artery [place] vs. transplanted heart: [place] heart Associated angina: with other forms of angina Qualified Code(s): I25.118 - Atherosclerotic heart disease of [place] coronary artery with other forms of angina pectoris Category: Medical Code(s): I25.10 - Atherosclerotic heart disease of [place] coronary artery without angina pectoris
--- NOTE | 2020-11-06 16:22 | HMH.CONFU ---
Internal Medicine - PN: Subj *Date: 11/06/20 *Time: 16:22 Interval history: Patient seen in consultation yesterday for penoscrotal edema. He has multiple other medical problems and scrotal elevation has been recommended. Exam Vital signs and Labs for Last 24 Hours: Temp Pulse Resp BP Pulse Ox 98.3 F 112 H 18 124/72 98 11/06/20 12:00 11/06/20 12:00 11/06/20 12:00 11/06/20 12:00 11/06/20 12:00 Laboratory Results - last 24 hr 11/05/20 12:34: POC Glucose 295 H 11/05/20 17:10: POC Glucose 304 H* 11/05/20 20:24: POC Glucose 314 H* 11/06/20 05:30: WBC 12.4 H, RBC 3.43 L, Hgb 9.9 L, Hct 30.9 L, MCV 89.9, MCH 28.9, MCHC 32.1, RDW 15.7, Plt Count 208, MPV 6.8 L, Neut % (Auto) 93.9 H, Lymph % (Auto) 2.3 L, [place] % (Auto) 3.0, Eos % (Auto) 0.6, Baso % (Auto) 0.2, Neut # (Auto) 11.6 H, Lymph # (Auto) 0.3 L, [place] # (Auto) 0.4, Eos # (Auto) 0.1, Baso # (Auto) 0.0, Total Counted 100, Neutrophils % (Manual) 94 H, Lymphocytes % (Manual) 2 L, Monocytes % (Manual) 4, Platelet Estimate Normal, RBC Morphology Normal 11/06/20 05:30: Sodium 140, Potassium 3.5, Chloride 100, Carbon Dioxide 37 H, Anion Gap 6.5, BUN 45 H, Creatinine 0.70 D, Estimated Creat Clear 58, Estimated GFR 110, Est GFR ( Amer) 133 D, Glucose 175 H, Calcium 9.2 11/06/20 05:51: POC Glucose 189 H I & O for Last 24 hours: Intake & Output 11/03/20 11/04/20 11/05/20 11/06/20 23:59 23:59 23:59 23:59 Intake Total 1440 / 1440 480 / 480 360 / 360 1320 / 1320 Output Total 4500 / 4500 3200 / 4150 3650 / 3650 1999 / 1999 Balance -3060 / -3060 -2720 / -3670 -3290 / -3290 -680 / -680 Weight 63 kg 63.9 kg 63.957 kg 63.957 kg - Constitutional no acute distress - *Routine HEENT Exam Head: Present: normocephalic Eye: Present: EOMI, PERRL ENT: Present: mucous membranes moist - *Routine Neck Exam Present: supple. Absent: lymphadenopathy - *Routine Respiratory Exam Absent: accessory muscle use - *Routine Cardiovascular Exam Absent: JVD - *Routine Abdominal Exam Present: soft. Absent: tenderness - *Routine Exam Scrotal: Present: swelling, tenderness - *Routine Extremities Exam Absent: calf tenderness, tenderness - *Routine Skin Exam Present: warm. Absent: rash - *Routine Neurological Exam Present: alert, oriented X3 Assessment and Plan (1) Chest pain Status: Acute Qualifiers: Chest pain type: chest pain on breathing Qualified Code(s): R07.1 - Chest pain on breathing Category: Medical Code(s): R07.9 - Chest pain, unspecified (2) Leucocytosis Status: Acute Qualifiers: Leukocytosis type: unspecified Qualified Code(s): D72.829 - Elevated white blood cell count, unspecified Category: Medical Code(s): D72.829 - Elevated white blood cell count, unspecified (3) AAA (abdominal aortic aneurysm) Status: Acute Qualifiers: Presence of rupture: without rupture Qualified Code(s): I71.4 - Abdominal aortic aneurysm, without rupture Category: Medical Code(s): I71.4 - Abdominal aortic aneurysm, without rupture (4) Atypical angina Status: Acute Category: Medical Code(s): I20.8 - Other forms of angina pectoris (5) Cardiomyopathy Status: Acute Qualifiers: Cardiomyopathy type: unspecified Qualified Code(s): I42.9 - Cardiomyopathy, unspecified Category: Medical Code(s): I42.9 - Cardiomyopathy, unspecified (6) CAD (coronary artery disease) Status: Chronic Qualifiers: Coronary Disease-Associated Artery/Lesion type: [place] artery [place] vs. 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
[2020-11-06 17:33] LABS: POC Glucose,Bedside 249 (70-110)
[2020-11-06 17:33] LABS: POC Glucose,Bedside 330 (70-110)
[2020-11-06 21:54] LABS: POC Glucose,Bedside 237 (70-110)
[2020-11-07] VITALS (15 sets, daily range): BP systolic 107–131; BP diastolic 66–91; PULSE 80–117; RESP 14–24; TEMP 36.4–37.1; O2SAT 95–97; BMI 22.6
[2020-11-07 06:53] LABS: POC Glucose,Bedside 125 (70-110)
[2020-11-07 07:45] LABS: Basophils % 0.1 % (0.1-2.0); Eosinophils % 0.1 % (0.1-12.0); Hematocrit 32.1 % (42.0-52.0); Hemoglobin 10.2 g/dL (14.1-18.0); Lymphocytes # 0.4 K/mm3 (0.7-4.5); Lymphocytes % 2.1 % (10-50); Mean Corpuscular HGB Conc 31.7 g/dL (31.8-35.4); Mean Corpuscular Hemoglobin 28.9 pg (27.0-31.2); Mean Corpuscular Volume 91.1 fl (80-94); Mean Platelet Volume 6.8 fl (7.4-10.4); Monocytes # 0.5 K/mm3 (0.1-1.0); Monocytes % 2.7 % (1.7-9.3); Neutrophils # 16.2 K/mm3 (1.8-7.8); Neutrophils % 94.9 % (37.0-80.0); Platelet Count 199 K/mm3 (142-424); Red Blood Count 3.52 M/mm3 (4.60-6.20); Red Cell Distribution Width 15.7 % (11.5-17.5)
[2020-11-07 07:46] LABS: MANUAL DIFFERENTIAL MANUAL DIFFERENTIAL (MANUAL DIFF)
[2020-11-07 07:55] LABS: Anion Gap 6.3 mEq/L (5-15); Blood Urea Nitrogen 33 mg/dl (9-20); Calcium 9.4 mg/dl (8.4-10.2); Carbon Dioxide 38 mmol/L (22.0-30.0); Chloride 99 mmol/L (98-107); Creatinine Clearance Estimated 58 mL/min (50-200); Estimated Glomerular Filt Rate 162 ml/min (>60); GFR (African American) 196 ML/MIN (>60); Glucose 116 mg/dl (74-100); Potassium 3.3 mmoL/L (3.5-5.1); Sodium 140 mmol/L (136-145)
[2020-11-07 08:43] LABS: Lymphocytes % 2 % (10-50); Neutrophils % 98 % (42-76); Platelet Estimate Normal; Total Cells Counted 100
--- NOTE | 2020-11-07 11:20 | HMH.ACPN2 ---
Internal Medicine - PN: Subj *Date: 11/08/20 *Time: 00:55 Interval history: pt with slow improvement and has some blood from nares Exam Vital signs and Labs for Last 24 Hours: Temp Pulse Resp BP Pulse Ox 97.6 F 80 22 111/70 95 11/07/20 08:00 11/07/20 10:41 11/07/20 08:00 11/07/20 08:00 11/07/20 08:00 Laboratory Results - last 24 hr 11/06/20 10:29: POC Glucose 249 H 11/06/20 16:59: POC Glucose 330 H* 11/06/20 21:47: POC Glucose 237 H 11/07/20 06:26: WBC 17.0 H D, RBC 3.52 L, Hgb 10.2 L, Hct 32.1 L, MCV 91.1, MCH 28.9, MCHC 31.7 L, RDW 15.7, Plt Count 199, MPV 6.8 L, Neut % (Auto) 94.9 H, Lymph % (Auto) 2.1 L, [place] % (Auto) 2.7, Eos % (Auto) 0.1, Baso % (Auto) 0.1, Neut # (Auto) 16.2 H, Lymph # (Auto) 0.4 L, [place] # (Auto) 0.5, Eos # (Auto) 0.0, Baso # (Auto) 0.0, Total Counted 100, Neutrophils % (Manual) 98 H, Lymphocytes % (Manual) 2 L, Platelet Estimate Normal 11/07/20 06:26: Sodium 140, Potassium 3.3 L, Chloride 99, Carbon Dioxide 38 H, Anion Gap 6.3, BUN 33 H D, Creatinine 0.50 L D, Estimated Creat Clear 58, Estimated GFR 162, Est GFR ( Amer) 196 D, Glucose 116 H, Calcium 9.4 11/07/20 06:35: POC Glucose 125 H I & O for Last 24 hours: Intake & Output 11/04/20 11/05/20 11/06/20 11/07/20 11:59 11:59 11:59 11:59 Intake Total 1620 / 1620 0 / 0 720 / 720 1560 / 1560 Output Total 2950 / 2950 3150 / 3150 4700 / 4700 1075 / 1075 Balance -1330 / -1330 -3150 / -3150 -3980 / -3980 485 / 485 Weight 140 lb 14.006 oz 141 lb 141 lb 0.017 oz 141 lb 0.017 oz - Constitutional no acute distress - *Routine HEENT Exam Head: Present: normocephalic Eye: Present: EOMI, PERRL ENT: Present: mucous membranes dry - *Routine Neck Exam Absent: JVD - *Routine Respiratory Exam Present: decreased breath sounds - *Routine Cardiovascular Exam Present: murmur, irregular rhythm - *Routine Abdominal Exam Present: distended. Absent: guarding - *Routine Extremities Exam Absent: calf tenderness - *Routine Skin Exam Present: intact - *Routine Neurological Exam Present: alert, CN II-XII intact - Routine Psychiatric Exam Present: normal affect Assessment and Plan (1) Chest pain Status: Acute Qualifiers: Chest pain type: chest pain on breathing Qualified Code(s): R07.1 - Chest pain on breathing Category: Medical Code(s): R07.9 - Chest pain, unspecified (2) Leucocytosis Status: Acute Qualifiers: Leukocytosis type: unspecified Qualified Code(s): D72.829 - Elevated white blood cell count, unspecified Category: Medical Code(s): D72.829 - Elevated white blood cell count, unspecified (3) AAA (abdominal aortic aneurysm) Status: Acute Qualifiers: Presence of rupture: without rupture Qualified Code(s): I71.4 - Abdominal aortic aneurysm, without rupture Category: Medical Code(s): I71.4 - Abdominal aortic aneurysm, without rupture (4) Atypical angina Status: Acute Category: Medical Code(s): I20.8 - Other forms of angina pectoris (5) Cardiomyopathy Status: Acute Qualifiers: Cardiomyopathy type: unspecified Qualified Code(s): I42.9 - Cardiomyopathy, unspecified Category: Medical Code(s): I42.9 - Cardiomyopathy, unspecified (6) CAD (coronary artery disease) Status: Chronic Qualifiers: Coronary Disease-Associated Artery/Lesion type: [place] artery [place] vs. 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
[2020-11-07 11:42] LABS: POC Glucose,Bedside 207 (70-110)
--- NOTE | 2020-11-07 17:08 | HMH.ACPN ---
Internal Medicine - PN: Subj *Date: 11/07/20 *Time: 17:08 Exam Vital signs and Labs for Last 24 Hours: Temp Pulse Resp BP Pulse Ox 97.7 F 116 H 20 111/83 95 11/07/20 12:00 11/07/20 12:00 11/07/20 12:00 11/07/20 12:00 11/07/20 12:00 Laboratory Results - last 24 hr 11/06/20 10:29: POC Glucose 249 H 11/06/20 16:59: POC Glucose 330 H* 11/06/20 21:47: POC Glucose 237 H 11/07/20 06:26: WBC 17.0 H D, RBC 3.52 L, Hgb 10.2 L, Hct 32.1 L, MCV 91.1, MCH 28.9, MCHC 31.7 L, RDW 15.7, Plt Count 199, MPV 6.8 L, Neut % (Auto) 94.9 H, Lymph % (Auto) 2.1 L, [place] % (Auto) 2.7, Eos % (Auto) 0.1, Baso % (Auto) 0.1, Neut # (Auto) 16.2 H, Lymph # (Auto) 0.4 L, [place] # (Auto) 0.5, Eos # (Auto) 0.0, Baso # (Auto) 0.0, Total Counted 100, Neutrophils % (Manual) 98 H, Lymphocytes % (Manual) 2 L, Platelet Estimate Normal 11/07/20 06:26: Sodium 140, Potassium 3.3 L, Chloride 99, Carbon Dioxide 38 H, Anion Gap 6.3, BUN 33 H D, Creatinine 0.50 L D, Estimated Creat Clear 58, Estimated GFR 162, Est GFR ( Amer) 196 D, Glucose 116 H, Calcium 9.4 11/07/20 06:35: POC Glucose 125 H 11/07/20 11:18: POC Glucose 207 H I & O for Last 24 hours: Intake & Output 11/04/20 11/05/20 11/06/20 11/07/20 23:59 23:59 23:59 23:59 Intake Total 480 / 480 360 / 360 1800 / 1800 180 / 180 Output Total 3200 / 4150 3650 / 3650 2775 / 3075 1450 / 1450 Balance -2720 / -3670 -3290 / -3290 -975 / -1275 -1270 / -1270 Weight 63.9 kg 63.957 kg 63.957 kg 63.957 kg Assessment and Plan (1) Chest pain Status: Acute Qualifiers: Chest pain type: chest pain on breathing Qualified Code(s): R07.1 - Chest pain on breathing Category: Medical Code(s): R07.9 - Chest pain, unspecified (2) Leucocytosis Status: Acute Qualifiers: Leukocytosis type: unspecified Qualified Code(s): D72.829 - Elevated white blood cell count, unspecified Category: Medical Code(s): D72.829 - Elevated white blood cell count, unspecified (3) AAA (abdominal aortic aneurysm) Status: Acute Qualifiers: Presence of rupture: without rupture Qualified Code(s): I71.4 - Abdominal aortic aneurysm, without rupture Category: Medical Code(s): I71.4 - Abdominal aortic aneurysm, without rupture (4) Atypical angina Status: Acute Category: Medical Code(s): I20.8 - Other forms of angina pectoris (5) Cardiomyopathy Status: Acute Qualifiers: Cardiomyopathy type: unspecified Qualified Code(s): I42.9 - Cardiomyopathy, unspecified Category: Medical Code(s): I42.9 - Cardiomyopathy, unspecified (6) CAD (coronary artery disease) Status: Chronic Qualifiers: Coronary Disease-Associated Artery/Lesion type: [place] artery [place] vs. transplanted heart: [place] heart Associated angina: with other forms of angina Qualified Code(s): I25.118 - Atherosclerotic heart disease of [place] coronary artery with other forms of angina pectoris Category: Medical Code(s): I25.10 - Atherosclerotic heart disease of [place] coronary artery without angina pectoris (7) Chronic obstructive pulmonary disease Status: Chronic Qualifiers: COPD type: emphysema Emphysema type: unspecified Qualified Code(s): J43.9 - Emphysema, unspecified Category: Medical Code(s): J44.9 - Chronic obstructive pulmonary disease, unspecified (8) Dyspnea Status: Chronic Qualifiers: Dyspnea type: shortness of breath Qualified Code(s): R06.02 - Shortness of breath; R06.00 - Dyspnea, unspecified; R06.01 - Orthopnea Category: Medical Code(s): R06.00 - Dyspnea, unspecified (9) Former smoker Status: Chronic Category: Social Hx Code(s): Z87.891 - Personal history of nicotine dependence (10) HHD (hypertensive heart disease) Status: Chronic Qualifiers: Heart failure presence: without heart failure Qualified Code(s): I11.9 - Hypertensive heart disease without heart failure Category: Medical Code(s): I11.9 - Hypertensive heart diseas
[2020-11-07 18:00] LABS: POC Glucose,Bedside 202 (70-110)
[2020-11-07 22:11] LABS: POC Glucose,Bedside 135 (70-110)
[2020-11-08] VITALS (16 sets, daily range): BP systolic 91–119; BP diastolic 53–75; PULSE 81–123; RESP 16–24; TEMP 36.4–36.8; O2SAT 90–100; BMI 23.5
--- NOTE | 2020-11-08 03:25 | PC.NURSE ---
No acute changes t/o shift. Pt is A/O x4. Pt has rested on and off t/o night. 3+ pitting edema noted to BLE. Pt denies pain t/o shift. Admin meds per APR. Pt remains on 2L NC with stats in the high 90%. VSS, call light within reach, will continue to monitor.
[2020-11-08 05:58] LABS: POC Glucose,Bedside 163 (70-110)
[2020-11-08 06:30] LABS: Basophils % 0.1 % (0.1-2.0); Hemoglobin 9.3 g/dL (14.1-18.0); Lymphocytes # 0.5 K/mm3 (0.7-4.5); Lymphocytes % 3.1 % (10-50); Mean Corpuscular HGB Conc 31.7 g/dL (31.8-35.4); Mean Corpuscular Hemoglobin 28.6 pg (27.0-31.2); Mean Corpuscular Volume 90.1 fl (80-94); Mean Platelet Volume 6.9 fl (7.4-10.4); Monocytes # 0.5 K/mm3 (0.1-1.0); Monocytes % 2.9 % (1.7-9.3); Neutrophils # 16.1 K/mm3 (1.8-7.8); Neutrophils % 93.8 % (37.0-80.0); Platelet Count 166 K/mm3 (142-424); Red Blood Count 3.27 M/mm3 (4.60-6.20); White Blood Count 17.1 K/mm3 (4.8-10.8)
[2020-11-08 06:37] LABS: Hematocrit 29.4 % (42.0-52.0)
[2020-11-08 06:38] LABS: Anion Gap 11.3 mEq/L (5-15); Blood Urea Nitrogen 37 mg/dl (9-20); Calcium 9.2 mg/dl (8.4-10.2); Carbon Dioxide 35 mmol/L (22.0-30.0); Chloride 97 mmol/L (98-107); Creatinine Clearance Estimated 60 mL/min (50-200); Estimated Glomerular Filt Rate 131 ml/min (>60); GFR (African American) 159 ML/MIN (>60); Glucose 137 mg/dl (74-100); MANUAL DIFFERENTIAL MANUAL DIFFERENTIAL (MANUAL DIFF); Potassium 3.3 mmoL/L (3.5-5.1); Sodium 140 mmol/L (136-145)
[2020-11-08 06:51] LABS: Anisocytosis 1+; Lymphocytes % 3 % (10-50); Neutrophils % 90 % (42-76); Platelet Estimate Normal; Total Cells Counted 100
--- NOTE | 2020-11-08 11:24 | HMH.ACPN2 ---
Internal Medicine - PN: Subj *Date: 11/08/20 *Time: 11:24 Interval history: pt is doing better but still weak Exam Vital signs and Labs for Last 24 Hours: Temp Pulse Resp BP Pulse Ox 97.9 F 111 H 24 98/56 L 90 L 11/08/20 08:00 11/08/20 10:47 11/08/20 08:00 11/08/20 08:00 11/08/20 09:45 Laboratory Results - last 24 hr 11/07/20 11:18: POC Glucose 207 H 11/07/20 17:10: POC Glucose 202 H 11/07/20 22:01: POC Glucose 135 H 11/08/20 05:40: POC Glucose 163 H 11/08/20 05:45: WBC 17.1 H, RBC 3.27 L, Hgb 9.3 L, Hct 29.4 L, MCV 90.1, MCH 28.6, MCHC 31.7 L, RDW 16.0, Plt Count 166, MPV 6.9 L, Neut % (Auto) 93.8 H, Lymph % (Auto) 3.1 L, [place] % (Auto) 2.9, Eos % (Auto) 0.0 L, Baso % (Auto) 0.1, Neut # (Auto) 16.1 H, Lymph # (Auto) 0.5 L, [place] # (Auto) 0.5, Eos # (Auto) 0.0, Baso # (Auto) 0.0, Total Counted 100, Neutrophils % (Manual) 90 H, Band Neutrophils % 7.0, Lymphocytes % (Manual) 3 L, Platelet Estimate Normal, Anisocytosis 1+ 11/08/20 05:45: Sodium 140, Potassium 3.3 L, Chloride 97 L, Carbon Dioxide 35 H, Anion Gap 11.3, BUN 37 H, Creatinine 0.60 L, Estimated Creat Clear 60, Estimated GFR 131, Est GFR ( Amer) 159, Glucose 137 H, Calcium 9.2 I & O for Last 24 hours: Intake & Output 11/05/20 11/06/20 11/07/20 11/08/20 11:59 11:59 11:59 11:59 Intake Total 0 / 0 720 / 720 1560 / 1560 660 / 660 Output Total 3150 / 3150 4700 / 4700 1075 / 1075 1175 / 1175 Balance -3150 / -3150 -3980 / -3980 485 / 485 -515 / -515 Weight 141 lb 141 lb 0.017 oz 141 lb 0.017 oz 146 lb 3 oz - Constitutional no acute distress - *Routine HEENT Exam Head: Present: normocephalic Eye: Present: EOMI, PERRL ENT: Present: mucous membranes dry - *Routine Neck Exam Absent: JVD - *Routine Respiratory Exam Present: decreased breath sounds - *Routine Cardiovascular Exam Present: RRR - *Routine Abdominal Exam Present: soft - *Routine Extremities Exam Present: edema - *Routine Skin Exam Present: intact - *Routine Neurological Exam Present: alert, CN II-XII intact - Routine Psychiatric Exam Present: cooperative Assessment and Plan (1) Chest pain Status: Acute Qualifiers: Chest pain type: chest pain on breathing Qualified Code(s): R07.1 - Chest pain on breathing Category: Medical Code(s): R07.9 - Chest pain, unspecified (2) Leucocytosis Status: Acute Qualifiers: Leukocytosis type: unspecified Qualified Code(s): D72.829 - Elevated white blood cell count, unspecified Category: Medical Code(s): D72.829 - Elevated white blood cell count, unspecified (3) AAA (abdominal aortic aneurysm) Status: Acute Qualifiers: Presence of rupture: without rupture Qualified Code(s): I71.4 - Abdominal aortic aneurysm, without rupture Category: Medical Code(s): I71.4 - Abdominal aortic aneurysm, without rupture (4) Atypical angina Status: Acute Category: Medical Code(s): I20.8 - Other forms of angina pectoris (5) Cardiomyopathy Status: Acute Qualifiers: Cardiomyopathy type: unspecified Qualified Code(s): I42.9 - Cardiomyopathy, unspecified Category: Medical Code(s): I42.9 - Cardiomyopathy, unspecified (6) CAD (coronary artery disease) Status: Chronic Qualifiers: Coronary Disease-Associated Artery/Lesion type: [place] artery [place] vs. transplanted heart: [place] heart Associated angina: with other forms of angina Qualified Code(s): I25.118 - Atherosclerotic heart disease of [place] coronary artery with other forms of angina pectoris Category: Medical Code(s): I25.10 - Atherosclerotic heart disease of [place] coronary artery without angina pectoris (7) Chronic obstructive pulmonary disease Status: Chronic Qualifiers: COPD type: emphysema Emphysema type: unspecified Qualified Code(s): J43.9 - Emphysema, unspecified Category: Medical Code(s): J44.9 - Chronic obstructive pulmonary disease, unspecified (8) Dyspnea Status: Chr
[2020-11-08 12:45] LABS: POC Glucose,Bedside 181 (70-110)
[2020-11-08 16:52] LABS: POC Glucose,Bedside 153 (70-110)
--- NOTE | 2020-11-08 18:40 | PC.NURSE ---
PT IS RESTING IN BED. PT'S BOWELS HAVE MOVED 4X THIS SHIFT. USING THE URINAL TO VOID. PT DID NOT FEEL UP TO GETTING UP TO THE CHAIR THIS SHIFT. LUNG SOUNDS DIMINISHED WITH SCATTERED WHEEZES. ABDOMEN IS STILL DISTENDED WITH HYPOACTIVE BOWEL SOUNDS. 3+ PITTING EDEMA NOTED TO BLE. WILL CONTINUE TO MONITOR.
[2020-11-08 22:29] LABS: POC Glucose,Bedside 140 (70-110)
[2020-11-09] VITALS (11 sets, daily range): BP systolic 89–122; BP diastolic 54–76; PULSE 80–114; RESP 19–20; TEMP 36.8–37.1; O2SAT 92–100; BMI 23.6
--- NOTE | 2020-11-09 05:13 | PC.NURSE ---
No acute changes t/o shift. Pt is A/O x4. Pt remains on 2L NC. IV dressing has been changed this shift. Admin meds per APR. VSS, call light within reach, will continue to monitor.
[2020-11-09 05:59] LABS: POC Glucose,Bedside 106 (70-110)
[2020-11-09 06:41] LABS: Eosinophils % 0.1 % (0.1-12.0); Lymphocytes # 0.3 K/mm3 (0.7-4.5); Lymphocytes % 3.4 % (10-50); Mean Corpuscular HGB Conc 32.4 g/dL (31.8-35.4); Mean Corpuscular Hemoglobin 29.4 pg (27.0-31.2); Mean Corpuscular Volume 90.9 fl (80-94); Monocytes # 0.3 K/mm3 (0.1-1.0); Neutrophils # 8.3 K/mm3 (1.8-7.8); Neutrophils % 93.5 % (37.0-80.0); Platelet Count 137 K/mm3 (142-424); Red Blood Count 2.78 M/mm3 (4.60-6.20); Red Cell Distribution Width 16.4 % (11.5-17.5); White Blood Count 8.9 K/mm3 (4.8-10.8)
[2020-11-09 06:46] LABS: Hematocrit 25.2 % (42.0-52.0); Hemoglobin 8.2 g/dL (14.1-18.0)
[2020-11-09 06:48] LABS: MANUAL DIFFERENTIAL MANUAL DIFFERENTIAL (MANUAL DIFF)
[2020-11-09 06:49] LABS: Anion Gap 8.1 mEq/L (5-15); Blood Urea Nitrogen 35 mg/dl (9-20); Calcium 8.9 mg/dl (8.4-10.2); Carbon Dioxide 38 mmol/L (22.0-30.0); Chloride 94 mmol/L (98-107); Creatinine Clearance Estimated 60 mL/min (50-200); Estimated Glomerular Filt Rate 110 ml/min (>60); GFR (African American) 133 ML/MIN (>60); Glucose 103 mg/dl (74-100); Potassium 3.1 mmoL/L (3.5-5.1); Sodium 137 mmol/L (136-145)
[2020-11-09 06:56] LABS: Lymphocytes % 6 % (10-50); Neutrophils % 88 % (42-76); Total Cells Counted 100
[2020-11-09 06:57] LABS: Platelet Estimate Slight Decrease; RBC Morphology Normal
[2020-11-09 08:04] LABS: Coronavirus 19, PCR Not Detected (NotDetected); Influenza A, PCR Not Detected (NotDetected); Influenza B, PCR Not Detected (NotDetected)
[2020-11-09 09:09] LABS: Occult Blood,Stool Positive (Negative)
[2020-11-09 09:10] LABS: Occult Blood,Gastric Fluid Positive (Negative)
--- NOTE | 2020-11-09 11:14 | HMH.PULMPN ---
Internal Medicine - PN: Subj *Date: 11/09/20 *Time: 15:01 Interval history: No acute respiratory events over the weekend. Exam - Constitutional Constitutional:: Present: no acute distress, comfortable - HENMT Exam HENMT: Present: normocephalic, moist mucous membranes - Eye Exam Eyes:: Present: normal appearance both eyes and related structures - Neck Exam Neck:: Present: normal visual inspection - Respiratory Exam Respiratory:: Present: able to speak in complete sentences, crackles - Cardiovascular Exam Cardiac:: Present: S1, S2 - GI Exam GI:: Present: soft, distended - Skin Exam Skin: Present: warm, no rash - Neurological Exam Neurological: Present: alert, awake, normal cognition - Extremities Exam Extremities: Present: no cyanosis, no clubbing, edema - Psychiatric Exam Psychiatric: Present: normal affect Assessment and Plan (1) Chest pain Status: Acute Qualifiers: Chest pain type: chest pain on breathing Qualified Code(s): R07.1 - Chest pain on breathing Category: Medical Code(s): R07.9 - Chest pain, unspecified (2) Leucocytosis Status: Acute Qualifiers: Leukocytosis type: unspecified Qualified Code(s): D72.829 - Elevated white blood cell count, unspecified Category: Medical Code(s): D72.829 - Elevated white blood cell count, unspecified (3) AAA (abdominal aortic aneurysm) Status: Acute Qualifiers: Presence of rupture: without rupture Qualified Code(s): I71.4 - Abdominal aortic aneurysm, without rupture Category: Medical Code(s): I71.4 - Abdominal aortic aneurysm, without rupture (4) Atypical angina Status: Acute Category: Medical Code(s): I20.8 - Other forms of angina pectoris (5) Cardiomyopathy Status: Acute Qualifiers: Cardiomyopathy type: unspecified Qualified Code(s): I42.9 - Cardiomyopathy, unspecified Category: Medical Code(s): I42.9 - Cardiomyopathy, unspecified (6) CAD (coronary artery disease) Status: Chronic Qualifiers: Coronary Disease-Associated Artery/Lesion type: [place] artery [place] vs. transplanted heart: [place] heart Associated angina: with other forms of angina Qualified Code(s): I25.118 - Atherosclerotic heart disease of [place] coronary artery with other forms of angina pectoris Category: Medical Code(s): I25.10 - Atherosclerotic heart disease of [place] coronary artery without angina pectoris (7) Chronic obstructive pulmonary disease Status: Chronic Qualifiers: COPD type: emphysema Emphysema type: unspecified Qualified Code(s): J43.9 - Emphysema, unspecified Category: Medical Code(s): J44.9 - Chronic obstructive pulmonary disease, unspecified (8) Dyspnea Status: Chronic Qualifiers: Dyspnea type: shortness of breath Qualified Code(s): R06.02 - Shortness of breath; R06.00 - Dyspnea, unspecified; R06.01 - Orthopnea Category: Medical Code(s): R06.00 - Dyspnea, unspecified (9) Former smoker Status: Chronic Category: Social Hx Code(s): Z87.891 - Personal history of nicotine dependence (10) HHD (hypertensive heart disease) Status: Chronic Qualifiers: Heart failure presence: without heart failure Qualified Code(s): I11.9 - Hypertensive heart disease without heart failure Category: Medical Code(s): I11.9 - Hypertensive heart disease without heart failure (11) History of coronary artery bypass graft Status: Chronic Category: Surgical Code(s): Z95.1 - Presence of aortocoronary bypass graft (12) Compression fracture Status: Acute Category: Medical (13) Pneumonia Status: Acute Qualifiers: Pneumonia type: due to methicillin-resistant Staphylococcus aureus (MRSA) Laterality: bilateral Lung location: unspecified part of lung Qualified Code(s): J15.212 - Pneumonia due to Methicillin resistant Staphylococcus aureus Category: Medical Code(s): J18.9 - Pneumonia, unspecified organism (14) 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
[2020-11-09 11:49] LABS: POC Glucose,Bedside 186 (70-110)
--- NOTE | 2020-11-09 12:46 | HMH.DCSUM ---
General - General Admission date:: 10/28/20 Discharge date: 11/09/20 HPI HPI: Patient is a 75-year-old white male, patient of Dr. Weldon, who presented to the emergency room with right-sided chest pain, pleuritic in nature. It had the pain since about 8:00 this morning. Patient has a history of coronary artery disease, status post coronary bypass and stenting. He is actively followed by cardiology. He also has a known 4.5 cm abdominal aneurysm is followed with sequential ultrasounds. Patient had recent surgery for a bladder mass. He is actively followed by Dr. Saxena. Patient has longstanding COPD, is oxygen dependent at 2 L/min [id number]. Is prednisone dependent, currently on 20 mg daily. As a result of the prednisone he has osteoporosis, fragile skin, and sustained a significant calcaneal fracture. Patient had a significant elevated white count in the emergency room. No infiltrative process was noted in the chest. The etiology of his leukocytosis is likely peripheral demargination associated with long-term prednisone. Since daughter has been noticing elevations in blood sugar. This is also likely a prednisone effect. Patient has had a cough productive of yellow to green purulence. Hospital Course Hospital Course: this patient had a long and complex in-patient stay- he was admitted with resp and card acute issues -75-year-old male presented to ED with worsening shortness of breath and right-sided chest wall pain. Patient states the worsening shortness of breath and right-sided chest wall pain began a few days ago. Patient is on supplemental oxygen at 2 L continuously due to COPD. Patient states he just has not felt like doing his daily activities such as bathing due to weakness in the right sided chest pain. Patient states since arriving to the emergency room his shortness of breath has improved. Patient does complain of a productive cough with describing his sputum as green. Patient does deny fever or nausea. Patient is known to be a heavy smoker of 1 to 2 packs of cigarettes per day. Patient states he has smoked most of his life. Patient is noncompliant with medications. Patient does have history of coronary artery disease. History of CABG and April 2018. Last heart catheterization was in June 2019 which revealed severely diffusely diseased LAD with patent small BROOKS graft, mild pulmonary hypertension and mildly elevated left-sided filling pressures. At that time it was felt that he could have an organized thrombosis in his apex, this was later ruled out by limited echocardiogram which revealed no thrombosis and no pericardial effusion noted. Echocardiogram from June 2019 did reveal EF 45% with segmental wall motion abnormality. Patient denies swelling of the lower extremities. EKG reveals sinus rhythm with a heart rate of 99 bpm. Chest x-ray revealed no acute findings. Lab work did reveal WBCs greater than 30,000. Serial troponins have been drawn. Troponin x1 was negative. Patient noted to have hyperkalemia. This is being managed by PCP. 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 Mid abdominal aneurysm noted at 4.5 cm. This is being monitored by PCP. Patient of has history of PAD. Patient does have chronic claudication. Patient is currently on pain medications which is managed by pain management. Patient also is currently being treated by urology for possible bladder mass. Mr. Piper is 75-year-old male prior smoker COPD on triple inhaler fAND ALSO chronic steroid therapy with multiple complicated osteoporosis and compression fractures presented to the hospital with right-sided pleuritic chest pain. Patient also admits subjective fevers and chills, denies any worsening productive phlegm. CTA did not show any evidence of pulmonary embolism however showed right upper lobe pneumonia ALONG WITH EMPHYSEMATOUS CHANGED AND PULMONARY NODULES. Signi
--- NOTE | 2020-11-09 14:46 | PC.NURSE ---
1430 Discharge education provided to pt and family.
--- NOTE | 2020-11-09 15:59 | PC.NURSE ---
1500 EMS present for transfer to [facility]2 Pt leaving department 1505 Detailed report given to RANDAL Nair at [facility]
[2020-11-16 15:38] LABS: ABG HCO3 18.2 mmhg (22.0-26.0); ABG PCO2 57.4 mmhg (35.0-45.0); ABG PH 7.11 mmol/L (7.35-7.45); ABG PO2 83.3 mmhg (80-100)
[2020-11-16 15:39] LABS: ABG Base Excess -10.9 mmol/L (-2.4-2.3); ABG Oxygen Saturation 92 % (90-100); ABG TCO2 20 mmhg (23-27); Allen's Test ACCEPTABLE; Oxygen 4 LPM %; Source L RADIAL
== END 2020-11-09 15:02 | DRG 177 ==
LOC: ER 14:33 → 2ND 15:21
PROVIDERS: Emergency Medicine; Nurse Practitioner Family; Physician Assistant; Surgery; Admitting Provider Family Medicine; Emergency Provider Emergency Medicine; PCP Internal Medicine; Visit Provider Family Medicine
PROC: 0DJ08ZZ Inspection of Upper Intestinal Tract, Via Natural or Artificial Opening Endoscopic (ICD-10-PCS; CPT 43235; principal; 2020-11-01 07:30)
DX: J15.212 Pneumonia due to Methicillin resistant Staphylococcus aureus (principal); J96.22 Acute and chronic respiratory failure with hypercapnia; E43 Unspecified severe protein-calorie malnutrition; K29.71 Gastritis, unspecified, with bleeding; I42.9 Cardiomyopathy, unspecified; E87.1 Hypo-osmolality and hyponatremia; B37.81 Candidal esophagitis; M80.08XA Age-related osteoporosis with current pathological fracture, vertebra(e), initial encounter for fracture; J15.6 Pneumonia due to other Gram-negative bacteria; Z95.1 Presence of aortocoronary bypass graft; Z99.81 Dependence on supplemental oxygen; Z20.822 Contact with and (suspected) exposure to COVID-19; I71.4 Abdominal aortic aneurysm, without rupture; Z68.22 Body mass index [BMI] 22.0-22.9, adult; J15.1 Pneumonia due to Pseudomonas; Z85.51 Personal history of malignant neoplasm of bladder; E78.5 Hyperlipidemia, unspecified; I10 Essential (primary) hypertension; I25.2 Old myocardial infarction; M19.90 Unspecified osteoarthritis, unspecified site; Z87.891 Personal history of nicotine dependence; E87.5 Hyperkalemia; J43.9 Emphysema, unspecified; I25.118 Atherosclerotic heart disease of native coronary artery with other forms of angina pectoris; R33.9 Retention of urine, unspecified; Z79.52 Long term (current) use of systemic steroids; Z85.038 Personal history of other malignant neoplasm of large intestine; E11.51 Type 2 diabetes mellitus with diabetic peripheral angiopathy without gangrene; I48.91 Unspecified atrial fibrillation; Z68.23 Body mass index [BMI] 23.0-23.9, adult; N50.89 Other specified disorders of the male genital organs
CPT/HCPCS: 43239; 36415; 71045; 71275; 74021; 74177; 76870; 80048; 80053; 80202; 81001; 82272; 82803; 82947; 82962; 83735; 84443; 84484; 85007; 85014; 85018; 85025; 85651; 86140; 86850; 87040; 87070; 87077; 87081; 87086; 87186; 87205; 87486; 87581; 87633; 87798; 88305; 88313; 92610; 93005; 93306; 94640; 94660; 94760; 94761; 97110; 97163; 97166; 97530; 99284; C9803; G0328; G0378; J0456; J0692; J1956; J2020; J3370; P9016; P9047; Q9967; U0003; U0005

== ENCOUNTER 2020-11-13 23:29 | Emergency (ER) | payer MEDICARE, BC, SELFPAY ==
[2020-11-13 23:28] VITALS: BP 125/70; PULSE 79; RESP 18; TEMP 36.9; O2SAT 96; BMI 21.7
[2020-11-14] VITALS (58 sets, daily range): BP systolic 91–144; BP diastolic 54–91; PULSE 71–110; RESP 16–28; TEMP 36.5–37.2; O2SAT 87–100
--- NOTE | 2020-11-14 00:06 | CT_ITS ---
PROCEDURE INFORMATION: Exam: CT Cervical Spine Without Contrast Exam date and time: 11/14/2020 12:06 AM Age: 75 years old Clinical indication: Injury or trauma; Fall; Blunt trauma; Injury date: 11/14/2020; Injury details: Fell out of bed TECHNIQUE: Imaging protocol: Computed tomography images of the cervical spine without contrast. Radiation optimization: All CT scans at this facility use at least one of these dose optimization techniques: automated exposure control; mA and/or kV adjustment per patient size (includes targeted exams where dose is matched to clinical indication); or iterative reconstruction. COMPARISON: CT CERVICAL SPINE WO CON 01/04/2019 1:14 AM FINDINGS: Bones/joints: No acute fracture. Normal alignment. Discs/Spinal canal/Neural foramina: No significant disc protrusion. No severe spinal canal stenosis. No significant neural foraminal narrowing. Lungs: In the left lung apex there is partially imaged cavitary area of consolidation concerning for possible cavitary pneumonia. Emphysema. Soft tissues: Unremarkable. IMPRESSION: 1. No acute fracture or malalignment. 2. In the left lung apex there is partially imaged cavitary area of consolidation concerning for possible cavitary pneumonia
--- NOTE | 2020-11-14 00:07 | CT_ITS ---
PROCEDURE INFORMATION: Exam: CT Head Without Contrast Exam date and time: 11/14/2020 12:07 AM Age: 75 years old Clinical indication: Injury or trauma; Fall; Blunt trauma (contusions or hematomas); Without loss of consciousness; Injury date: 11/14/2020; Injury details: Fell out ofbed TECHNIQUE: Imaging protocol: Computed tomography of the head without contrast. 3D rendering (Not supervised by radiologist): MIP and/or 3D reconstructed images were created by the technologist. Radiation optimization: All CT scans at this facility use at least one of these dose optimization techniques: automated exposure control; mA and/or kV adjustment per patient size (includes targeted exams where dose is matched to clinical indication); or iterative reconstruction. COMPARISON: CT HEAD/BRAIN WO CON 01/04/2019 1:11 AM FINDINGS: Brain: Atrophy and chronic small vessel ischemic changes. No hemorrhage. No mass effect or midline shift. Cerebral ventricles: No ventriculomegaly. Paranasal sinuses: Visualized sinuses are unremarkable. No fluid levels. Mastoid air cells: Visualized mastoid air cells are well aerated. Bones/joints: Unremarkable. No acute fracture. Soft tissues: Unremarkable. IMPRESSION: Chronic changes in the brain but no acute intracranial abnormality.
--- NOTE | 2020-11-14 00:08 | XR_ITS ---
PROCEDURE INFORMATION: Exam: XR Pelvis Exam date and time: 11/14/2020 12:08 AM Age: 75 years old Clinical indication: Injury or trauma; Fall; Blunt trauma (contusions or hematomas); Bilateral; Pelvic region; Injury date: 11/14/2020; Injury details: Fell out of bed TECHNIQUE: Imaging protocol: XR pelvis. Views: 1 or 2 view. Total images: 1 COMPARISON: CT ABDOMEN PELVIS W CON 11/04/2020 12:15 PM FINDINGS: Bones/joints: Osteopenia. No acute fractures are identified. Hyperdense fusion elements along the left SI joint grossly unchanged from CT 11/04/2020. Hip joint spaces are well maintained and well aligned. Soft tissues: Unremarkable. Vasculature: Severe calcific atherosclerosis with calcified aneurysm involving the distal abdominal aorta measuring about 4.8 cm transverse on recent CT 11/04/2020. IMPRESSION: 1. No fractures are identified. 2. Osteopenia. 3. Abdominal aortic aneurysm grossly unchanged from 11/04/2020.
--- NOTE | 2020-11-14 00:09 | XR_ITS ---
PROCEDURE INFORMATION: Exam: XR Lumbosacral Spine Exam date and time: 11/14/2020 12:09 AM Age: 75 years old Clinical indication: Injury or trauma; Fall; Blunt trauma (contusions or hematomas); Injury date: 11/14/2020; Injury details: Fell out of bed TECHNIQUE: Imaging protocol: XR of the lumbosacral spine. Views: 2 or 3 views. COMPARISON: CT LUMBAR SPINE WO CON 03/07/2019 1:55 PM FINDINGS: Bones/joints: Chronic fracture of L1. No acute fracture. Multilevel facet joint arthropathy. No acute fracture. Normal alignment. Soft tissues: Abdominal aortic aneurysm measuring 5.6 cm. IMPRESSION: No acute findings. 5.6 cm abdominal aortic aneurysm. Chronic fracture of L1.
--- NOTE | 2020-11-14 00:09 | XR_ITS ---
PROCEDURE INFORMATION: Exam: XR Chest Exam date and time: 11/14/2020 12:09 AM Age: 75 years old Clinical indication: Injury or trauma; Fall; Blunt trauma (contusions or hematomas); Injury date: 11/14/2020; Patient HX: Fell out of bed TECHNIQUE: Imaging protocol: XR of the chest. Views: 1 view. COMPARISON: CR XR CHEST PORTABLE 11/02/2020 11:45 PM FINDINGS: Lungs: Interstitial prominence could reflect interstitial pneumonia. Granulomatous change. Pleural spaces: Unremarkable. No pleural effusion. No pneumothorax. Heart/Mediastinum: Unremarkable. No cardiomegaly. Bones/joints: Midline sternotomy. IMPRESSION: Interstitial pneumonia cannot be ruled out.
--- NOTE | 2020-11-14 00:10 | XR_ITS ---
PROCEDURE INFORMATION: Exam: XR Thoracic Spine Exam date and time: 11/14/2020 12:10 AM Age: 75 years old Clinical indication: Injury or trauma; Fall; Blunt trauma (contusions or hematomas); Injury date: 11/14/2020; Injury details: Fell out of bed TECHNIQUE: Imaging protocol: XR of the thoracic spine. Views: 3 views. COMPARISON: MR THORACIC SPINE WO CON 07/16/2020 3:17 PM FINDINGS: Bones/joints: Chronic fractures of T4 through T8. No acute fracture or malalignment. Soft tissues: Unremarkable. IMPRESSION: No acute findings.
--- NOTE | 2020-11-14 00:53 | HMH.EDFALL ---
ED Disposition Clinical Impression: Lumbar radiculopathy, Multiple contusions Fall Qualifiers: Encounter type: initial encounter Qualified Code(s): W19.XXXA - Unspecified fall, initial encounter Concussion without loss of consciousness Qualifiers: Encounter type: initial encounter Qualified Code(s): S06.0X0A - Concussion without loss of consciousness, initial encounter AAA (abdominal aortic aneurysm) Qualifiers: Presence of rupture: without rupture Qualified Code(s): I71.4 - Abdominal aortic aneurysm, without rupture Anemia Qualifiers: Anemia type: unspecified type Qualified Code(s): D64.9 - Anemia, unspecified Disposition: Home, Self-Care Condition on Discharge: Good Instructions: How to Prevent Falls Additional Instructions: stop xarelto and asa Referrals: Ham Weldon [Primary Care Provider] - - Critical Care Critical Care Time: No Attestation: On 11/13/20, the high probability of a clinically significant, sudden or life threatening deterioration of the following system(s) required my full and direct attention, intervention and personal management. The time I documented below is in addition to time spent performing reported procedures but includes the following listed in this critical care notation. Medical Decision Making - Medical Records Medical records reviewed: Yes: I reviewed the patient's medical records. - Jermain Inquiry Pt receiving controlled substance: No Vital Signs: 11/13/20 23:28 11/14/20 04:07 11/14/20 04:09 Temperature 98.5 F 97.8 F 98.0 F Temperature Source Oral Oral Oral Pulse Rate 99 H 98 H Pulse Rate [Right Brachial] 79 Respiratory Rate 18 24 26 H TAR Vitals Timing Pre-Blood Vitals Start Vitals Blood Pressure 106/72 L 109/76 L Blood Pressure [Right Arm] 125/70 Blood Pressure Mean 83 87 Blood Pressure Mean [Right Arm] 88 Blood Pressure Source Automatic Cuff Blood Pressure Source [Right Arm] Automatic Cuff Blood Pressure Position Sitting Blood Pressure Position [Right Arm] Sitting 02 Sat by Pulse Oximetry 96 97 100 Oxygen Delivery Method Room Air 11/14/20 04:14 11/14/20 04:19 11/14/20 04:24 Temperature 98.0 F 97.8 F 98.2 F Temperature Source Oral Oral Oral Pulse Rate 98 H 95 H 92 H Pulse Rate [Right Brachial] Respiratory Rate 25 H 25 H 20 TAR Vitals Timing 5 Minute 10 Minute 15 Minute Blood Pressure 110/75 120/76 109/90 L Blood Pressure [Right Arm] Blood Pressure Mean 86 90 96 Blood Pressure Mean [Right Arm] Blood Pressure Source Automatic Cuff Automatic Cuff Automatic Cuff Blood Pressure Source [Right Arm] Blood Pressure Position Sitting Sitting Sitting Blood Pressure Position [Right Arm] 02 Sat by Pulse Oximetry 100 100 100 Oxygen Delivery Method 11/14/20 04:39 11/14/20 04:54 11/14/20 05:09 Temperature 98.2 F 98.2 F 97.9 F Temperature Source Oral Oral Oral Pulse Rate 91 H 96 H 89 Pulse Rate [Right Brachial] Respiratory Rate 17 19 18 TAR Vitals Timing 30 Minute 45 Minute Completion Vitals Blood Pressure 115/71 115/65 110/65 Blood Pressure [Right Arm] Blood Pressure Mean 85 81 80 Blood Pressure Mean [Right Arm] Blood Pressure Source Automatic Cuff Automatic Cuff Automatic Cuff Blood Pressure Source [Right Arm] Blood Pressure Position Sitting Sitting Sitting Blood Pressure Position [Right Arm] 02 Sat by Pulse Oximetry 100 100 100 Oxygen Delivery Method 11/14/20 06:09 11/14/20 06:17 11/14/20 06:34 Temperature 98.0 F 97.8 F Temperature Source Oral Oral Pulse Rate 90 100 H Pulse Rate [Right Brachial] Respiratory Rate 21 20 TAR Vitals Timing 1 Hour Post Infusion 1 Hour Post Infusion Pre-Blood Vitals Blood Pressure 112/65 119/80 Blood Pressure [Right Arm] Blood Pressure Mean 80 93 Blood Pressure Mean [Right Arm] Blood Pressure Source Automatic Cuff Automatic Cuff Blood Pressure Source [Right Arm] Blood Pressure Position Sitting Supine Blood Pressure Position [Right Arm
[2020-11-14 01:47] LABS: Chloride 94 mmol/L (98-107); Sodium 139 mmol/L (136-145)
[2020-11-14 01:50] LABS: Alanine Aminotransferase 32 U/L (12-78); Alkaline Phosphatase 75 U/L (38-126); Aspartate Amino Transferase 32 U/L (17-59); Bilirubin,Direct 0.3 mg/dl (0.0-0.4); Bilirubin,Total 0.3 mg/dl (0.2-1.3); Blood Urea Nitrogen 24 mg/dl (9-20); Calcium 8.9 mg/dl (8.4-10.2); Carbon Dioxide 39 mmol/L (22.0-30.0); Creatinine Clearance Estimated 68 mL/min (50-200); Estimated Glomerular Filt Rate 73 ml/min (>60); GFR (African American) 88 ML/MIN (>60)
[2020-11-14 01:51] LABS: Albumin Level 2.4 g/dl (3.5-5.0); Total Protein,Serum 4.5 g/dl (6.3-8.2)
[2020-11-14 01:52] LABS: Glucose 131 mg/dl (74-100)
[2020-11-14 01:53] LABS: Eosinophils % 0.1 % (0.1-12.0); Lymphocytes # 0.3 K/mm3 (0.7-4.5); Lymphocytes % 7.1 % (10-50); Mean Corpuscular HGB Conc 32.1 g/dL (31.8-35.4); Mean Corpuscular Hemoglobin 28.7 pg (27.0-31.2); Mean Corpuscular Volume 89.7 fl (80-94); Mean Platelet Volume 8.6 fl (7.4-10.4); Monocytes # 0.1 K/mm3 (0.1-1.0); Neutrophils # 3.6 K/mm3 (1.8-7.8); Neutrophils % 89.8 % (37.0-80.0); Platelet Count 122 K/mm3 (142-424); Red Blood Count 1.99 M/mm3 (4.60-6.20); Red Cell Distribution Width 16.8 % (11.5-17.5)
[2020-11-14 01:55] LABS: Hematocrit 17.9 % (42.0-52.0); Hemoglobin 5.7 g/dL (14.1-18.0)
[2020-11-14 01:57] LABS: MANUAL DIFFERENTIAL MANUAL DIFFERENTIAL (MANUAL DIFF)
[2020-11-14 02:45] LABS: Lymphocytes % 7 % (10-50); Neutrophils % 90 % (42-76); Platelet Estimate Slight Decrease; Total Cells Counted 100
[2020-11-14 02:46] LABS: Anisocytosis 1+; Poikilocytosis 1+; Rouleaux 1+
--- NOTE | 2020-11-14 06:40 | PC.NURSE ---
second unit infusing at this time via 18g left AC Iv. pt is alert, oriented, denies complaints of chest pain or dyspnea. vss and monitored per TAR. pt eating ice chips at this time.
--- NOTE | 2020-11-14 07:59 | PC.NURSE ---
Blood hanging at bedside. VSS. Offered breakfast tray, patient declined at this time. No other needs voiced.
[2020-11-14 10:09] LABS: Hematocrit 22.2 % (42.0-52.0)
[2020-11-14 10:15] LABS: Hemoglobin 7.6 g/dL (14.1-18.0)
--- NOTE | 2020-11-14 11:30 | PC.NURSE ---
Blood initiated at this time. RN at the bedside
--- NOTE | 2020-11-14 11:58 | PC.NURSE ---
Pt resting comfortably in bed. Blood hanging at bedside.
--- NOTE | 2020-11-14 13:05 | PC.NURSE ---
tolerated first unit of blood well. second bag initiated. RN at bedside
--- NOTE | 2020-11-14 14:23 | XR_ITS ---
PROCEDURE INFORMATION: Exam: XR Chest Exam date and time: 11/14/2020 2:23 PM Age: 75 years old Clinical indication: Shortness of breath; Prior surgery; Surgery date: 6+ months; Patient HX: Patient short of breath; Additional info: SOB TECHNIQUE: Imaging protocol: XR of the chest. Views: 1 view. COMPARISON: CR XR CHEST PORTABLE 11/14/2020 1:13 AM FINDINGS: Lungs: Opacities in the right upper lobe and left base may represent atelectasis or pneumonia.. Pleural spaces: Unremarkable. No pleural effusion. No pneumothorax. Heart/Mediastinum: Unremarkable. No cardiomegaly. Bones/joints: Median sternotomy. Degenerative changes in the glenohumeral joints IMPRESSION: Opacities in the right upper lobe and left base may represent atelectasis or pneumonia..
--- NOTE | 2020-11-14 15:07 | PC.NURSE ---
assessed lung sounds- bilateral wheezes. Albuterol order obtained.
[2020-11-14 15:39] LABS: Hematocrit 32.8 % (42.0-52.0)
[2020-11-14 15:44] LABS: Hemoglobin 11.6 g/dL (14.1-18.0)
== END 2020-11-14 18:22 | disposition home or self-care (01) ==
PROVIDERS: Emergency Provider Emergency Medicine; PCP Internal Medicine
DX: S06.0X0A Concussion without loss of consciousness, initial encounter (principal); T07.XXXA Unspecified multiple injuries, initial encounter; W01.0XXA Fall on same level from slipping, tripping and stumbling without subsequent striking against object, initial encounter; Y92.129 Unspecified place in nursing home as the place of occurrence of the external cause; M54.16 Radiculopathy, lumbar region; I71.4 Abdominal aortic aneurysm, without rupture; D64.9 Anemia, unspecified; J44.9 Chronic obstructive pulmonary disease, unspecified; I25.10 Atherosclerotic heart disease of native coronary artery without angina pectoris; I25.2 Old myocardial infarction; E11.9 Type 2 diabetes mellitus without complications; E78.5 Hyperlipidemia, unspecified; I10 Essential (primary) hypertension; Z87.891 Personal history of nicotine dependence
CPT/HCPCS: 70450; 71045; 72072; 72100; 72125; 72170; 80048; 80076; 80162; 85007; 85014; 85018; 85025; 86850; 96365; 96367; 96375; 99283; P9016

== ENCOUNTER 2020-11-17 16:14 | Emergency (ER) | payer MEDICARE, BC, SELFPAY ==
[2020-11-17 16:04] VITALS: BP 98/64; PULSE 103; RESP 21; TEMP 36.7; O2SAT 99; BMI 18.7
--- NOTE | 2020-11-17 16:16 | XR_ITS ---
PROCEDURE INFORMATION: Exam: XR Chest Exam date and time: 11/17/20 04:16 PM Age: 75 years old Clinical indication: Other: Generalized weakness; Additional info: Fatigue TECHNIQUE: Imaging protocol: XR of the chest. Views: 1 view. COMPARISON: CR XR CHEST PORTABLE 11/14/20 03:36 PM FINDINGS: Lungs: Right perihilar infiltrate versus mass approximately 6 cm. Appears increased in size since comparison CT 11/04/2020. Pleural spaces: Unremarkable. No pleural effusion. No pneumothorax. Heart/Mediastinum: Unremarkable. No cardiomegaly. Bones/joints: Median sternotomy. IMPRESSION: Right perihilar infiltrate versus mass approximately 6 cm. Appears increased in size since comparison CT 11/04/2020.
[2020-11-17 16:49] LABS: Basophils % 0.3 % (0.1-2.0); Eosinophils % 1.7 % (0.1-12.0); Hematocrit 32.8 % (42.0-52.0); Lymphocytes # 0.3 K/mm3 (0.7-4.5); Lymphocytes % 13.3 % (10-50); Mean Corpuscular HGB Conc 33.6 g/dL (31.8-35.4); Mean Corpuscular Hemoglobin 30.1 pg (27.0-31.2); Mean Corpuscular Volume 89.7 fl (80-94); Mean Platelet Volume 9.3 fl (7.4-10.4); Monocytes # 0.1 K/mm3 (0.1-1.0); Monocytes % 3.3 % (1.7-9.3); Neutrophils % 81.5 % (37.0-80.0); Platelet Count 63 K/mm3 (142-424); Red Blood Count 3.66 M/mm3 (4.60-6.20); Red Cell Distribution Width 15.7 % (11.5-17.5); White Blood Count 2.5 K/mm3 (4.8-10.8)
--- NOTE | 2020-11-17 16:49 | HMH.EDGENADL ---
ED Disposition Clinical Impression: Generalized weakness Pneumonia involving right lung Qualifiers: Pneumonia type: due to unspecified organism Lung location: middle lobe of lung Qualified Code(s): J18.9 - Pneumonia, unspecified organism Disposition: Xfer [facility] Not MCR Cert Condition on Discharge: Fair Instructions: DI for Pneumonia -- Adult, DI for Muscle Weakness Referrals: Provider,Referral, [Referring] - Fracisco Castro MD [Staff Physician] - Larry Linn MD [Physician] - Time of Disposition: 19:52 - Critical Care Critical Care Time: No Attestation: On 11/17/20, the high probability of a clinically significant, sudden or life threatening deterioration of the following system(s) required my full and direct attention, intervention and personal management. The time I documented below is in addition to time spent performing reported procedures but includes the following listed in this critical care notation. Medical Decision Making - Medical Records Medical records reviewed: Yes: I reviewed the patient's medical records. - Jermain Inquiry Pt receiving controlled substance: No Vital Signs: 11/17/20 16:04 11/17/20 17:30 Temperature 98.1 F Temperature Source Oral Pulse Rate 107 H Pulse Rate [Right Radial] 103 H Respiratory Rate 21 24 Blood Pressure 88/62 L Blood Pressure [Right Arm] 98/64 L Blood Pressure Mean 69 Blood Pressure Mean [Right Arm] 75 Blood Pressure Source [Right Arm] Automatic Cuff Blood Pressure Position [Right Arm] Sitting 02 Sat by Pulse Oximetry 99 98 Oxygen Delivery Method Nasal Cannula Oxygen Flow Rate (LPM) 3 - Lab Data Lab Results 11/17/20 16:19: WBC 2.5 L, RBC 3.66 L, Hgb 11.0 L, Hct 32.8 L, MCV 89.7, MCH 30.1, MCHC 33.6, RDW 15.7, Plt Count 63 L D, MPV 9.3, Neut % (Auto) 81.5 H, Lymph % (Auto) 13.3, [place] % (Auto) 3.3, Eos % (Auto) 1.7, Baso % (Auto) 0.3, Neut # (Auto) 2.0, Lymph # (Auto) 0.3 L, [place] # (Auto) 0.1, Eos # (Auto) 0.0, Baso # (Auto) 0.0 11/17/20 16:19: Sodium 138, Potassium 3.5, Chloride 98, Carbon Dioxide 35 H, Anion Gap 8.5, BUN 15, Creatinine 0.70, Estimated Creat Clear 48, Estimated GFR 110, Est GFR ( Amer) 133, Glucose 100, Calcium 8.3 L, Total Bilirubin 0.7, AST 26, ALT 25, Alkaline Phosphatase 81, Troponin I 0.04 H, Total Protein 4.5 L, Albumin 2.3 L, Globulin 2.2, Albumin/Globulin Ratio 1.0 L 11/17/20 16:29: Blood Type O Positive, Antibody Screen Negative 11/17/20 17:10: SARS-CoV-2 (PCR) Not detected, Influenza A Untype (PCR) Not detected, Influenza Type B (PCR) Not detected 11/17/20 18:46: Troponin I 0.04 H Result diagrams: 11/17/20 16:19 11/17/20 16:19 Orders (Tests/Meds): ED MEDICATIONS Generic Name Dose Route Start Last Admin Trade Name Freq PRN Reason Stop Dose Admin Sodium Chloride 1,000 mls @ 999 mls/hr 11/17/20 19:00 11/17/20 19:35 Sod Chlor 0.9% 1000ml Bag IV 11/17/20 20:00 999 mls/hr .Q1H1M DIMAS Administration ORDERS Category Date Time Status Lactic Acid Stat Lab 11/17/20 18:55 Ordered Troponin I Q3H Lab 11/17/20 22:30 Ordered Blood Culture Stat Micro 11/17/20 18:55 Ordered ECG Request by /Aramis Stat Y 11/17/20 16:16 Ordered Medical Decision Narrative: In summary this is a 75-year-old male presenting to the emergency department with generalized weakness, anemia. Patient clinically stable on arrival. Blood pressure is soft at 95/55. Borderline tachycardic at 105. Patient is conversational and in no distress. Concern for symptomatic anemia. Will obtain CBC, CMP, type and screen, chest x-ray, EKG, troponin profile. Initial laboratory results show stable hemoglobin and hematocrit, increased from patient's recent hospitalization. He does have evidence of pancytopenia with decreased white blood cell count and decreased platelets. Chest x-ray is concerning for worsening right-sided opacity. This was noticed on patient's CT angiography from 10/27/2020. At that time the CT read said a
[2020-11-17 16:58] LABS: Chloride 98 mmol/L (98-107); Potassium 3.5 mmoL/L (3.5-5.1); Sodium 138 mmol/L (136-145)
[2020-11-17 17:00] LABS: Blood Urea Nitrogen 15 mg/dl (9-20); Creatinine Clearance Estimated 48 mL/min (50-200); Estimated Glomerular Filt Rate 110 ml/min (>60); GFR (African American) 133 ML/MIN (>60)
[2020-11-17 17:01] LABS: Alanine Aminotransferase 25 U/L (12-78); Albumin Level 2.3 g/dl (3.5-5.0); Alkaline Phosphatase 81 U/L (38-126); Anion Gap 8.5 mEq/L (5-15); Aspartate Amino Transferase 26 U/L (17-59); Bilirubin,Total 0.7 mg/dl (0.2-1.3); Calcium 8.3 mg/dl (8.4-10.2); Carbon Dioxide 35 mmol/L (22.0-30.0); Globulin 2.2 g/dL (1.3-3.2); Glucose 100 mg/dl (74-100); Total Protein,Serum 4.5 g/dl (6.3-8.2)
[2020-11-17 17:13] LABS: Troponin I 0.04 ng/ml (0.00-0.034)
[2020-11-17 17:17] LABS: Coronavirus 19, PCR Not Detected (NotDetected); Influenza A, PCR Not Detected (NotDetected); Influenza B, PCR Not Detected (NotDetected)
[2020-11-17 17:30] VITALS: BP 88/62; PULSE 107; RESP 24; O2SAT 98
[2020-11-17 19:37] LABS: Troponin I 0.04 ng/ml (0.00-0.034)
--- NOTE | 2020-11-17 20:39 | PC.NURSE ---
Attempting to call report to [place] with no answer
[2020-11-17 21:10] VITALS: BP 100/64; PULSE 100; RESP 18; TEMP 36.7; O2SAT 99
== END 2020-11-17 21:22 ==
PROVIDERS: Emergency Provider Emergency Medicine; PCP Internal Medicine
DX: J18.9 Pneumonia, unspecified organism (principal); Z20.822 Contact with and (suspected) exposure to COVID-19; K21.00 Gastro-esophageal reflux disease with esophagitis, without bleeding; D64.9 Anemia, unspecified; I25.10 Atherosclerotic heart disease of native coronary artery without angina pectoris; E78.5 Hyperlipidemia, unspecified
CPT/HCPCS: 71045; 80053; 84484; 85025; 86850; 96365; 99284; C9803; U0003; U0005

== ENCOUNTER 2020-11-28 08:35 | Emergency (ER) | payer MEDICARE, BC, SELFPAY ==
[2020-11-28] VITALS (12 sets, daily range): BP systolic 76–98; BP diastolic 58–67; PULSE 81–95; RESP 13–18; TEMP 36.6–37.1; O2SAT 94–100; BMI 22.8
--- NOTE | 2020-11-28 08:42 | HMH.EDGENADL ---
ED Disposition Clinical Impression: Hallucinations Hypotension Qualifiers: Hypotension type: unspecified hypotension type Qualified Code(s): I95.9 - Hypotension, unspecified Disposition: Home, Self-Care Condition on Discharge: Good Additional Instructions: Continue normal saline at 50 cc/h until tomorrow morning at 8 AM. Decreased dose of spironolactone to 12.5 mg/day. Decreased dose of Lasix to 20 mg/day. Call Dr. Castro for further care. Referrals: Provider,Referral, [Referring] - - Critical Care Critical Care Time: No Attestation: On , the high probability of a clinically significant, sudden or life threatening deterioration of the following system(s) required my full and direct attention, intervention and personal management. The time I documented below is in addition to time spent performing reported procedures but includes the following listed in this critical care notation. Medical Decision Making - Jermain Inquiry Pt receiving controlled substance: No Vital Signs: 11/28/20 08:36 11/28/20 09:00 11/28/20 09:38 Temperature 98.8 F Temperature Source Oral Pulse Rate 95 H 81 Pulse Rate [Radial] 92 H Respiratory Rate 16 17 14 Blood Pressure 84/64 L 96/67 L Blood Pressure [Right Arm] 89/58 L Blood Pressure Mean 68 77 Blood Pressure Mean [Right Arm] 68 Blood Pressure Position Blood Pressure Position [Right Arm] Sitting 02 Sat by Pulse Oximetry 94 L 98 100 Oxygen Delivery Method Nasal Cannula Nasal Cannula Nasal Cannula Oxygen Flow Rate (LPM) 2 11/28/20 09:41 11/28/20 10:00 Temperature Temperature Source Pulse Rate 93 H 93 H Pulse Rate [Radial] Respiratory Rate 18 15 Blood Pressure 96/67 L 83/58 L Blood Pressure [Right Arm] Blood Pressure Mean 66 Blood Pressure Mean [Right Arm] Blood Pressure Position Sitting Blood Pressure Position [Right Arm] 02 Sat by Pulse Oximetry 94 L 100 Oxygen Delivery Method Nasal Cannula Nasal Cannula Oxygen Flow Rate (LPM) 2 - Lab Data Lab Results 11/28/20 08:55: WBC 8.9, RBC 3.62 L, Hgb 10.6 L, Hct 30.8 L, MCV 85.3, MCH 29.2, MCHC 34.2, RDW 17.1, Plt Count 390, MPV 7.5, Neut % (Auto) 69.8, Lymph % (Auto) 22.5, [place] % (Auto) 5.8, Eos % (Auto) 1.2, Baso % (Auto) 0.8, Neut # (Auto) 6.2, Lymph # (Auto) 2.0, [place] # (Auto) 0.5, Eos # (Auto) 0.1, Baso # (Auto) 0.1 11/28/20 08:55: Urine Color Yellow, Urine Appearance Clear, Urine pH 6.5, Ur Specific [place] 1.015, Urine Protein 1+, Urine Glucose (UA) Negative, Urine Ketones Negative, Urine Blood 2+, Urine Nitrate Negative, Urine Bilirubin Negative, Urine Urobilinogen 0.2, Ur Leukocyte Esterase 1+ A, Urine RBC 5-10, Urine WBC 3-5, Ur Squamous Epith Cells 3-5 11/28/20 08:55: Sodium 134 L, Potassium 3.5 D, Chloride 90 L, Carbon Dioxide 39 H, Anion Gap 8.5, BUN 16, Creatinine 1.00, Estimated Creat Clear 61, Estimated GFR 73, Est GFR ( Amer) 88, Glucose 127 H D, Calcium 8.4, Total Bilirubin 0.9, AST 26, ALT 14, Alkaline Phosphatase 144 H, Troponin I 0.03, Total Protein 5.0 L, Albumin 2.7 L, Globulin 2.3, Albumin/Globulin Ratio 1.2 11/28/20 08:55: Lactate 0.9 Result diagrams: 11/28/20 08:55 11/28/20 08:55 Orders (Tests/Meds): ED MEDICATIONS Discontinued Medications Generic Name Dose Route Start Last Admin Trade Name Freq PRN Reason Stop Dose Admin Dexamethasone Sodium Phosphate 10 mg 11/28/20 10:24 11/28/20 10:38 Dexamethasone 4mg/Ml 1ml Vial IV 11/28/20 10:25 10 mg ONCE ONE Administration ORDERS Category Date Time Status Digoxin Stat Lab 11/28/20 08:55 Received Troponin I Q3H Lab 11/28/20 12:15 Ordered Troponin I Q3H Lab 11/28/20 15:15 Ordered Blood Culture Stat Micro 11/28/20 08:55 Received Urine Culture(cathed specimen) Stat Micro 11/28/20 08:55 Received - Radiology Data #1 Image(s): Chest Image Reviewed: Yes I reviewed the patient's radiology image, Yes I have reviewed radiologist's interpretation PROCEDURE INFORMATIO
--- NOTE | 2020-11-28 08:50 | ECG_ITS ---
APPROVED REPORT Exam: Resting ECG HR:101 bpm ECG Measurements Heart Rate 101 AXES NJ 140 P 32 QRSd 78 QRS 72 QT 346 T -27 QTc 448 Conclusion Sinus tachycardia with premature atrial complexes and premature ventricular complexes or fusion complexes ST & T wave abnormality, consider inferior ischemia Abnormal ECG Electronically signed by : Danielito Golden MD 11/30/2020 21:25:19
--- NOTE | 2020-11-28 09:05 | CT_ITS ---
PROCEDURE INFORMATION: Exam: CT Head Without Contrast Exam date and time: 11/28/2020 9:05 AM Age: 75 years old Clinical indication: Altered mental status/memory loss; Age related cognitive decline; Additional info: AMS TECHNIQUE: Imaging protocol: Computed tomography of the head without contrast. 3D rendering (Not supervised by radiologist): MIP and/or 3D reconstructed images were created by the technologist. Radiation optimization: All CT scans at this facility use at least one of these dose optimization techniques: automated exposure control; mA and/or kV adjustment per patient size (includes targeted exams where dose is matched to clinical indication); or iterative reconstruction. COMPARISON: CT HEAD/BRAIN WO CON 11/14/2020 12:55 AM FINDINGS: Brain: Prominent sulci. Patchy hypodensity of the cerebral white matter which are nonspecific but likely secondary to microangiopathic changes. Cerebral ventricles: The ventricles are prominent secondary to diffuse volume loss/atrophy. Paranasal sinuses: Mild mucoperiosteal thickening of the paranasal sinuses. Mastoid air cells: Visualized mastoid air cells are well aerated. Bones/joints: Unremarkable. No acute fracture. Soft tissues: Unremarkable. IMPRESSION: Chronic age related changes but no evidence of acute intracranial pathology.
[2020-11-28 09:10] LABS: Microscopic,Cath URINE MICROSCOPIC (MICROSCOPIC)
--- NOTE | 2020-11-28 09:11 | XR_ITS ---
PROCEDURE INFORMATION: Exam: XR Chest Exam date and time: 11/28/2020 9:11 AM Age: 75 years old Clinical indication: Shortness of breath; Prior surgery; Surgery date: 6+ months; Surgery type: Open heart; Additional info: AMS TECHNIQUE: Imaging protocol: XR of the chest. Views: 1 view. COMPARISON: CR XR CHEST PORTABLE 11/17/2020 4:50 PM FINDINGS: Tubes, catheters and devices: Right PICC line is appearing with tip in the superior vena cava. Lungs: Stable appearance of right upper lobe mass/masslike infiltrate. Pleural spaces: Unremarkable. No pleural effusion. No pneumothorax. Heart/Mediastinum: Unremarkable. No cardiomegaly. Vasculature: There is mild tortuosity of the thoracic aorta. Bones/joints: Mild degenerative changes of the shoulder joints. Sternotomy wires are present. IMPRESSION: 1. Stable appearance of right upper lobe mass/masslike infiltrate. 2. Right PICC line is appearing with tip in the superior vena cava. 3. Remainder of findings as described above.
[2020-11-28 09:12] LABS: Basophils # 0.1 K/mm3 (0-0.2); Basophils % 0.8 % (0.1-2.0); Chloride 90 mmol/L (98-107); Eosinophils # 0.1 K/mm3 (0.0-0.4); Eosinophils % 1.2 % (0.1-12.0); Hematocrit 30.8 % (42.0-52.0); Hemoglobin 10.6 g/dL (14.1-18.0); Lymphocytes % 22.5 % (10-50); Mean Corpuscular HGB Conc 34.2 g/dL (31.8-35.4); Mean Corpuscular Hemoglobin 29.2 pg (27.0-31.2); Mean Corpuscular Volume 85.3 fl (80-94); Mean Platelet Volume 7.5 fl (7.4-10.4); Monocytes # 0.5 K/mm3 (0.1-1.0); Monocytes % 5.8 % (1.7-9.3); Neutrophils # 6.2 K/mm3 (1.8-7.8); Neutrophils % 69.8 % (37.0-80.0); Platelet Count 390 K/mm3 (142-424); Red Blood Count 3.62 M/mm3 (4.60-6.20); Red Cell Distribution Width 17.1 % (11.5-17.5); White Blood Count 8.9 K/mm3 (4.8-10.8)
[2020-11-28 09:13] LABS: Potassium 3.5 mmoL/L (3.5-5.1); Sodium 134 mmol/L (136-145)
[2020-11-28 09:15] LABS: Alanine Aminotransferase 14 U/L (12-78); Aspartate Amino Transferase 26 U/L (17-59); Blood Urea Nitrogen 16 mg/dl (9-20); Creatinine Clearance Estimated 61 mL/min (50-200); Estimated Glomerular Filt Rate 73 ml/min (>60); GFR (African American) 88 ML/MIN (>60)
[2020-11-28 09:16] LABS: Albumin Level 2.7 g/dl (3.5-5.0); Albumin/Globulin Ratio 1.2 (1.1-1.8); Alkaline Phosphatase 144 U/L (38-126); Anion Gap 8.5 mEq/L (5-15); Bilirubin,Total 0.9 mg/dl (0.2-1.3); Calcium 8.4 mg/dl (8.4-10.2); Carbon Dioxide 39 mmol/L (22.0-30.0); Globulin 2.3 g/dL (1.3-3.2); Glucose 127 mg/dl (74-100)
[2020-11-28 09:22] LABS: Appearance,Urine/Cath CLEAR (Clear); Bilirubin,Cath Negative (Negative); Blood, Urine/Cath 2+ (Negative); Color,Urine/Cath YELLOW (Yellow); Glucose,Urine/Cath (UA) Negative (Negative); Ketones,Urine/Cath Negative (Negative); Leukocyte Esterase,Cath 1+ (Negative); Nitrate,Cath Negative (Negative); PH,Urine/Cath 6.5 (5.0-8.5); Protein,Urine/Cath 1+ (Negative); Specific Gravity, Urine/Cath 1.015 (1.005-1.030); Urobilinogen,Cath 0.2 EU/dl (0.2)
[2020-11-28 09:28] LABS: Troponin I 0.03 ng/ml (0.00-0.034)
--- NOTE | 2020-11-28 09:35 | PC.NURSE ---
Pt. back from CT.
[2020-11-28 09:44] LABS: Lactic Acid 0.9 mmol/L (0.7-2.1)
--- NOTE | 2020-11-28 11:45 | PC.NURSE ---
report called to [facility] [place]
== END 2020-11-28 11:45 | disposition home or self-care (01) ==
PROVIDERS: Emergency Provider Emergency Medicine; PCP Internal Medicine
DX: R44.3 Hallucinations, unspecified; I95.9 Hypotension, unspecified; I72.9 Aneurysm of unspecified site; J45.909 Unspecified asthma, uncomplicated; J44.9 Chronic obstructive pulmonary disease, unspecified; I25.10 Atherosclerotic heart disease of native coronary artery without angina pectoris; E11.9 Type 2 diabetes mellitus without complications; E78.5 Hyperlipidemia, unspecified; I10 Essential (primary) hypertension; I25.2 Old myocardial infarction; R82.90 Unspecified abnormal findings in urine; Z85.038 Personal history of other malignant neoplasm of large intestine; Z99.81 Dependence on supplemental oxygen
CPT/HCPCS: 70450; 71045; 80053; 80162; 81001; 83605; 84484; 85025; 87040; 87086; 93005; 96374; 99284

== ENCOUNTER → 2020-11-30 13:04 | Outpatient (CLI) | payer MEDICARE, BC, SELFPAY ==
--- NOTE | 2020-11-30 13:13 | CT_ITS ---
PROCEDURE: CT CHEST WO CON CLINICAL INDICATION: pulmonary nodule COMPARISON: CT CT ANGIO CHEST PE PROTOCOL from 10/28/[address] ANGIO CHEST PE PROTOCOL from 11/04/2020 TECHNIQUE: Axial images obtained with sagittal and coronal reformats. All CT scans at the facility use one or more dose reduction, viz: automated exposure control, ma/kV adjustment per patient size (including targeted exams where dose is matched to indication, i.e. head), or iterative reconstruction technique. FINDINGS: HEART AND MEDIASTINAL STRUCTURES: There has been a prior median sternotomy. No mediastinal or hilar mass is evident. Diffuse coronary artery calcifications and/or stents noted. There is fluid present throughout the esophagus with an air-fluid level in the mid esophageal region which may be seen with reflux. LUNGS AND PLEURAL SPACES: Dense consolidation is present in the right upper lobe posteriorly and medially. This area measures approximately 4.4 by 2.5 by 6 cm. There is an air-fluid level anteriorly and superiorly within this area of consolidation suggesting a small abscess. The area of consolidation has shown some improvement since the previous exam with decrease amount of air in this region suggesting some improvement in the pulmonary abscess. There are COPD changes with centrilobular emphysema. There has been improvement in the small bilateral pleural effusions. The previously noted opacity in the left lower lobe which may have been due to an enlarged lymph node has also decreased in size. The airspace disease/volume loss in the right lung base has improved. There is evidence of old granulomatous disease. There is trace left-sided effusion. There is some volume loss in the superior segment of the left lower lobe. Some minor atelectatic change or scarring is present in the right upper lobe centrally. The pneumonia in the right lower lobe has improved. BONY STRUCTURES: Multiple wedge compression changes of the thoracic spine once again noted unchanged UPPER ABDOMEN: Distended gallbladder with overall increased density of the gallbladder similar to the previous exam with a floating stone anteriorly. The most inferior image of the abdomen demonstrates aneurysmal dilatation of the abdominal aorta measuring approximately 3 cm. This is incompletely imaged. ADDITIONAL FINDINGS: No other significant abnormalities. IMPRESSION: 1. Overall, the abscess in the right upper lobe with phlegmonous changes has shown some improvement. Persistent consolidation is present in the right upper lobe posteriorly with gas anteriorly consistent with residual abscess with consolidation/volume loss. 2. Improvement in right upper and right lower lobe pneumonia with decrease in size in the left infrahilar lymph node and decreasing bilateral pleural effusions. 3. Distended gallbladder with cholelithiasis Dictated by: Jamarcus Iraheta MD 12/01/2020 13:41 Jamarcus Iraheta MD in [place] 12/01/2020 13:41
== END ==
PROVIDERS: PCP Internal Medicine; Visit Provider Internal Medicine Pulmonary Disease
DX: J15.6 Pneumonia due to other Gram-negative bacteria (principal)
CPT/HCPCS: 71250

== ENCOUNTER 2020-12-02 10:08 | Emergency (ER) | payer MEDICARE, BC, SELFPAY ==
[2020-12-02] VITALS (8 sets, daily range): BP systolic 79–105; BP diastolic 55–75; PULSE 92–113; RESP 14–20; TEMP 36.7–36.8; O2SAT 94–99; BMI 16.5
--- NOTE | 2020-12-02 10:24 | XR_ITS ---
PROCEDURE: XR CHEST PORTABLE CLINICAL HISTORY: infectious workup COMPARISON: CR XR CHEST PORTABLE from 11/14/2020 CR XR CHEST PORTABLE from 11/17/2020 CR XR CHEST PORTABLE from 11/28/[address] CHEST WO CON from 11/30/2020 FINDINGS: Prior CABG with epicardial pacer wires present. Persistent triangular-shaped area of opacification noted in the right suprahilar region unchanged. The remaining lungs are clear. Right upper extremity PICC line is present with tip in the region the SVC. Bilateral subacromial stenosis with high-riding humeral heads right greater than left consistent with rotator cuff tear on. IMPRESSION: No change consolidation in the right upper lobe consistent with pneumonia. Dictated by: Jamarcus Iraheta MD 12/02/2020 11:05 Jamarcus Iraheta MD in [place] 12/02/2020 11:05
--- NOTE | 2020-12-02 10:28 | HMH.EDGENADL ---
ED Disposition Clinical Impression: Dehydration Disposition: Xfer [facility] Hospital Condition on Discharge: Good Referrals: Fracisco Castro MD [Primary Care Provider] - - Critical Care Critical Care Time: No Attestation: On , the high probability of a clinically significant, sudden or life threatening deterioration of the following system(s) required my full and direct attention, intervention and personal management. The time I documented below is in addition to time spent performing reported procedures but includes the following listed in this critical care notation. Medical Decision Making - Medical Records Medical records reviewed: Yes: I reviewed the patient's medical records. - Jermain Inquiry Pt receiving controlled substance: No Vital Signs: 12/02/20 10:09 12/02/20 10:45 12/02/20 11:30 Temperature 98.1 F Temperature Source Oral Pulse Rate 104 H 92 H Pulse Rate [Apical] 113 H Respiratory Rate 20 17 14 Blood Pressure 80/60 L 85/65 L Blood Pressure [Left Arm] 79/62 L Blood Pressure Mean Blood Pressure Mean [Left Arm] 67 Blood Pressure Source [Left Arm] Automatic Cuff Blood Pressure Position [Left Arm] Sitting 02 Sat by Pulse Oximetry 98 95 94 L Oxygen Delivery Method Nasal Cannula Nasal Cannula Nasal Cannula Oxygen Flow Rate (LPM) 2 3 3 12/02/20 12:00 12/02/20 13:00 12/02/20 13:30 Temperature Temperature Source Pulse Rate 99 H 95 H Pulse Rate [Apical] Respiratory Rate 15 18 Blood Pressure 105/69 L 105/75 L 94/58 L Blood Pressure [Left Arm] Blood Pressure Mean 77 70 Blood Pressure Mean [Left Arm] Blood Pressure Source [Left Arm] Blood Pressure Position [Left Arm] 02 Sat by Pulse Oximetry 96 97 Oxygen Delivery Method Nasal Cannula Nasal Cannula Oxygen Flow Rate (LPM) 3 2 12/02/20 14:00 Temperature Temperature Source Pulse Rate 97 H Pulse Rate [Apical] Respiratory Rate 16 Blood Pressure 90/55 L Blood Pressure [Left Arm] Blood Pressure Mean 66 Blood Pressure Mean [Left Arm] Blood Pressure Source [Left Arm] Blood Pressure Position [Left Arm] 02 Sat by Pulse Oximetry 97 Oxygen Delivery Method Nasal Cannula Oxygen Flow Rate (LPM) 2 - Lab Data Lab Results 12/02/20 10:28: WBC 16.5 H, RBC 4.08 L, Hgb 11.7 L, Hct 35.7 L, MCV 87.5, MCH 28.6, MCHC 32.7, RDW 16.9, Plt Count 453 H, MPV 7.5, Neut % (Auto) 83.7 H, Lymph % (Auto) 10.6, [place] % (Auto) 4.4, Eos % (Auto) 0.4, Baso % (Auto) 0.9, Neut # (Auto) 13.8 H, Lymph # (Auto) 1.8, [place] # (Auto) 0.7, Eos # (Auto) 0.1, Baso # (Auto) 0.2, Total Counted 100, Neutrophils % (Manual) 78 H, Lymphocytes % (Manual) 19, Monocytes % (Manual) 3, Platelet Estimate Normal, RBC Morphology Not Reportable, Hypochromasia 1+, Anisocytosis 1+, Microcytosis 1+ 12/02/20 10:28: Sodium 135 L, Potassium 3.7, Chloride 95 L, Carbon Dioxide 33 H, Anion Gap 10.7, BUN 14, Creatinine 1.20, Estimated GFR 59, Est GFR ( Amer) 71, Glucose 181 H, Calcium 8.7, Total Bilirubin 1.7 H, AST 31, ALT 18, Alkaline Phosphatase 154 H, Troponin I 0.04 H, Total Protein 6.2 L, Albumin 3.4 L, Globulin 2.8, Albumin/Globulin Ratio 1.2 12/02/20 10:28: Lactate 2.2 H 12/02/20 10:28: Phosphorus 3.6, Magnesium 1.7 12/02/20 12:31: Urine Color Straw, Urine Appearance Sl cloudy, Urine pH 7.5, Ur Specific Funk 1.010, Urine Protein Negative, Urine Glucose (UA) Negative, Urine Ketones Negative, Urine Blood 3+, Urine Nitrate Negative, Urine Bilirubin Negative, Urine Urobilinogen 0.2, Ur Leukocyte Esterase 1+ A, Urine RBC Occasional, Urine WBC 3-5, Ur Squamous Epith Cells 3-5, Urine Bacteria 1+ 12/02/20 13:44: Troponin I 0.03 Result diagrams: 12/02/20 10:28 12/02/20 10:28 Orders (Tests/Meds): ED MEDICATIONS Discontinued Medications Generic Name Dose Route Start Last Admin Trade Name Freq PRN Reason Stop Dose Admin Lactated Ringer's 500 mls @ 999 mls/hr 12/02/20 10:30 12/02/20 10:38 Lactated Ringer's 1000 Ml Bag IV 12/02/20 11:00 999
--- NOTE | 2020-12-02 10:30 | ECG_ITS ---
APPROVED REPORT Exam: Resting ECG HR:108 bpm ECG Measurements Heart Rate 108 AXES MN 140 P 26 QRSd 74 QRS 74 QT 306 T -39 QTc 410 Conclusion Sinus tachycardia T wave abnormality, consider inferior ischemia Abnormal ECG Electronically signed by : Danielito Golden MD 12/02/2020 21:16:44
[2020-12-02 10:45] LABS: Basophils # 0.2 K/mm3 (0-0.2); Basophils % 0.9 % (0.1-2.0); Eosinophils # 0.1 K/mm3 (0.0-0.4); Eosinophils % 0.4 % (0.1-12.0); Hematocrit 35.7 % (42.0-52.0); Hemoglobin 11.7 g/dL (14.1-18.0); Lymphocytes # 1.8 K/mm3 (0.7-4.5); Lymphocytes % 10.6 % (10-50); Mean Corpuscular HGB Conc 32.7 g/dL (31.8-35.4); Mean Corpuscular Hemoglobin 28.6 pg (27.0-31.2); Mean Corpuscular Volume 87.5 fl (80-94); Mean Platelet Volume 7.5 fl (7.4-10.4); Monocytes # 0.7 K/mm3 (0.1-1.0); Monocytes % 4.4 % (1.7-9.3); Neutrophils # 13.8 K/mm3 (1.8-7.8); Neutrophils % 83.7 % (37.0-80.0); Platelet Count 453 K/mm3 (142-424); Red Blood Count 4.08 M/mm3 (4.60-6.20); Red Cell Distribution Width 16.9 % (11.5-17.5); White Blood Count 16.5 K/mm3 (4.8-10.8)
[2020-12-02 10:48] LABS: MANUAL DIFFERENTIAL MANUAL DIFFERENTIAL (MANUAL DIFF)
[2020-12-02 10:59] LABS: Alanine Aminotransferase 18 U/L (12-78); Albumin Level 3.4 g/dl (3.5-5.0); Albumin/Globulin Ratio 1.2 (1.1-1.8); Alkaline Phosphatase 154 U/L (38-126); Anion Gap 10.7 mEq/L (5-15); Aspartate Amino Transferase 31 U/L (17-59); Bilirubin,Total 1.7 mg/dl (0.2-1.3); Blood Urea Nitrogen 14 mg/dl (9-20); Calcium 8.7 mg/dl (8.4-10.2); Carbon Dioxide 33 mmol/L (22.0-30.0); Chloride 95 mmol/L (98-107); Estimated Glomerular Filt Rate 59 ml/min (>60); GFR (African American) 71 ML/MIN (>60); Globulin 2.8 g/dL (1.3-3.2); Glucose 181 mg/dl (74-100); Lactic Acid 2.2 mmol/L (0.7-2.1); Magnesium 1.7 mg/dl (1.6-2.3); Phosphorous 3.6 mg/dl (2.5-4.5); Potassium 3.7 mmoL/L (3.5-5.1); Sodium 135 mmol/L (136-145); Total Protein,Serum 6.2 g/dl (6.3-8.2)
[2020-12-02 11:11] LABS: Troponin I 0.04 ng/ml (0.00-0.034)
[2020-12-02 11:12] LABS: Anisocytosis 1+; Hypochromasia 1+; Lymphocytes % 19 % (10-50); Microcytosis 1+; Monocytes % 3 % (2-9); Neutrophils % 78 % (42-76); Platelet Estimate Normal; Total Cells Counted 100
--- NOTE | 2020-12-02 12:53 | US_ITS ---
PROCEDURE: US ABDOMEN LIMITED CLINICAL INDICATION: Eval of gallbladder COMPARISON: US US ABDOMEN COMPLETE from 04/16/2020 FINDINGS: PANCREAS: Unremarkable. No obvious mass or abnormal fluid collection. No ductal dilatation LIVER: No focal liver lesions demonstrated. Homogeneous echogenicity. No intrahepatic biliary ductal dilatation evident. There is appropriate direction of blood flow within a non dilated portal vein RIGHT KIDNEY: Unremarkable. Normal size and echogenicity. No hydronephrosis GALLBLADDER: Gallbladder sludge is noted with a least 1 gallstone. No gallbladder wall thickening, pericholecystic fluid, or biliary dilatation. IMPRESSION: Cholelithiasis with gallbladder sludge. Dictated by: Jamarcus Iraheta MD 12/02/2020 14:04 Jamarcus Iraheta MD in [place] 12/02/2020 14:04
[2020-12-02 14:19] LABS: Troponin I 0.03 ng/ml (0.00-0.034)
[2020-12-02 14:35] LABS: Microscopic, Urine URINE MICROSCOPIC (MICROSCOPIC)
[2020-12-02 14:39] LABS: Appearance,Urine SL CLOUDY (Clear); Bilirubin,Urine Negative (Negative); Blood, Urine 3+ (Negative); Color,Urine STRAW (Yellow); Glucose,Urine (UA) Negative (Negative); Ketones,Urine Negative (Negative); Leukocyte Esterase,Urine 1+ (Negative); Nitrate,Urine Negative (Negative); PH,Urine 7.5 (5.0-8.5); Protein,Urine Negative (Negative); Urobilinogen,Urine 0.2 EU/dl (0.2)
[2020-12-02 14:41] LABS: Reflex Lactic Add Lactic Reflex
[2020-12-02 15:01] LABS: Bacteria,Urine 1+ /lpf; RBC,Urine Occasional #/hpf (0-3)
--- NOTE | 2020-12-02 15:45 | PC.NURSE ---
report called to raj at [facility] at this time.
== END 2020-12-02 15:38 ==
PROVIDERS: Emergency Provider Student in an Organized Health Care Education/Training Program; PCP Emergency Medicine
DX: E86.0 Dehydration (principal); I25.10 Atherosclerotic heart disease of native coronary artery without angina pectoris; J44.9 Chronic obstructive pulmonary disease, unspecified; C67.9 Malignant neoplasm of bladder, unspecified; I42.9 Cardiomyopathy, unspecified; E78.5 Hyperlipidemia, unspecified; I10 Essential (primary) hypertension; I25.2 Old myocardial infarction; I71.4 Abdominal aortic aneurysm, without rupture; Z99.81 Dependence on supplemental oxygen; Z79.899 Other long term (current) drug therapy; Z87.891 Personal history of nicotine dependence
CPT/HCPCS: 71045; 76705; 80053; 81001; 83605; 83735; 84100; 84484; 85007; 85025; 87040; 87086; 93005; 93041; 96365; 99284

== ENCOUNTER 2020-12-05 09:27 | Emergency (ER) | payer MEDICARE, BC, SELFPAY ==
[2020-12-05] VITALS (9 sets, daily range): BP systolic 90–108; BP diastolic 58–71; PULSE 76–102; RESP 15–18; TEMP 36.7; O2SAT 93–99; BMI 16.5
--- NOTE | 2020-12-05 09:34 | HMH.EDGENADL ---
ED Disposition Clinical Impression: PIC line (peripherally inserted central catheter) removal, Yeast cystitis, Atypical chest pain Disposition: Home, Self-Care Condition on Discharge: Fair Instructions: DI for Atypical Chest Pain Additional Instructions: Theresa Jones NP for Dr. Castro will see the patient on . Call her or Dr. Castro for further care. Referrals: Provider,Referral, [Primary Care Provider] - - Critical Care Critical Care Time: No Attestation: On 12/05/20, the high probability of a clinically significant, sudden or life threatening deterioration of the following system(s) required my full and direct attention, intervention and personal management. The time I documented below is in addition to time spent performing reported procedures but includes the following listed in this critical care notation. Medical Decision Making - Medical Records Medical records reviewed: Yes: I reviewed the patient's medical records. MR Comment: Reviewed recent emergency department visits, cardiology and surgery office visits. Patient seen by me in this emergency department on 11/28/2020 for visual hallucinations. Found to be hypotensive. Seen by his primary care doctor, Dr. Castro, in the emergency department. Patient treated with IV fluids in the emergency department and continued infusion via IV at the skilled nursing. Diuretic dosages decreased. Seen by cardiology on 11/30/2020. Digoxin held for slightly elevated digoxin level. Seen by surgery on 12/02/2020 for follow-up of EGD performed on recent hospital admission. Noted to be hypotensive and bradycardic and sent back to the emergency department. Emergency department record of 12/02/2020 reviewed. Blood and urine culture results from those emergency department visits have been negative. Recent admission here 10/28/2020 through 11/09/2020. Discharge summary reviewed. - Jermain Inquiry Pt receiving controlled substance: No Vital Signs: 12/05/20 09:28 12/05/20 10:31 12/05/20 11:00 Temperature 98.0 F Temperature Source Oral Pulse Rate Pulse Rate [Left Radial] 102 H Respiratory Rate 18 Blood Pressure 103/69 L 91/69 L Blood Pressure [Right Arm] 91/58 L Blood Pressure Mean 80 74 Blood Pressure Mean [Right Arm] 69 Blood Pressure Source [Right Arm] Automatic Cuff Blood Pressure Position [Right Arm] Sitting 02 Sat by Pulse Oximetry 99 Oxygen Delivery Method Nasal Cannula Oxygen Flow Rate (LPM) 2 12/05/20 11:30 12/05/20 12:00 12/05/20 12:30 Temperature Temperature Source Pulse Rate Pulse Rate [Left Radial] Respiratory Rate Blood Pressure 108/71 L 90/59 L 99/63 L Blood Pressure [Right Arm] Blood Pressure Mean 78 69 72 Blood Pressure Mean [Right Arm] Blood Pressure Source [Right Arm] Blood Pressure Position [Right Arm] 02 Sat by Pulse Oximetry Oxygen Delivery Method Oxygen Flow Rate (LPM) 12/05/20 13:26 12/05/20 13:30 Temperature Temperature Source Pulse Rate 76 88 Pulse Rate [Left Radial] Respiratory Rate 15 Blood Pressure 91/69 L 94/65 L Blood Pressure [Right Arm] Blood Pressure Mean 74 72 Blood Pressure Mean [Right Arm] Blood Pressure Source [Right Arm] Blood Pressure Position [Right Arm] 02 Sat by Pulse Oximetry 93 L 99 Oxygen Delivery Method Oxygen Flow Rate (LPM) - Lab Data Lab Results 12/05/20 09:48: WBC 11.9 H D, RBC 3.55 L, Hgb 10.2 L, Hct 31.1 L, MCV 87.6, MCH 28.7, MCHC 32.8, RDW 17.0, Plt Count 364, MPV 7.9, Neut % (Auto) 74.9, Lymph % (Auto) 16.6, [place] % (Auto) 6.8, Eos % (Auto) 0.7, Baso % (Auto) 1.0, Neut # (Auto) 8.9 H, Lymph # (Auto) 2.0, [place] # (Auto) 0.8, Eos # (Auto) 0.1, Baso # (Auto) 0.1 12/05/20 09:48: Sodium 135 L, Potassium 3.0 L, Chloride 94 L, Carbon Dioxide 36 H, Anion Gap 8.0, BUN 15, Creatinine 1.00, Estimated Creat Clear 42, Estimated GFR 73, Est GFR ( Amer) 88 D, Glucose 161 H, Calcium 8.0 L, Total Bilirubin 0.9, AST 2
--- NOTE | 2020-12-05 09:39 | XR_ITS ---
PROCEDURE INFORMATION: Exam: XR Chest Exam date and time: 12/05/2020 9:39 AM Age: 75 years old Clinical indication: Shortness of breath; Prior surgery; Surgery date: 6+ months; Surgery type: Open heart; Additional info: Dizziness, chronic copd and SOB TECHNIQUE: Imaging protocol: XR of the chest. Views: 1 view. COMPARISON: CR XR CHEST PORTABLE 12/02/2020 10:51 AM FINDINGS: Tubes, catheters and devices: Interval removal of right-sided PICC line. Lungs: Continued opacity within the medial right upper lobe. Recommend continued follow-up to resolution. Pleural spaces: Unremarkable. No pleural effusion. No pneumothorax. Heart/Mediastinum: Unremarkable. No cardiomegaly. Bones/joints: Stable median sternotomy wires. IMPRESSION: 1. Continued opacity within the medial right upper lobe. Recommend continued follow-up to resolution. 2. Interval removal of right-sided PICC line.
--- NOTE | 2020-12-05 09:54 | ECG_ITS ---
APPROVED REPORT Exam: Resting ECG HR:99 bpm ECG Measurements Heart Rate 99 AXES VA 146 P 15 QRSd 78 QRS 73 QT 304 T -56 QTc 390 Conclusion Sinus rhythm with premature atrial complexes ST & T wave abnormality, consider inferior ischemia ST & T wave abnormality, consider anterolateral ischemia Abnormal ECG Electronically signed by : Danielito Golden MD 12/07/2020 18:00:49
[2020-12-05 09:56] LABS: Basophils # 0.1 K/mm3 (0-0.2); Eosinophils # 0.1 K/mm3 (0.0-0.4); Eosinophils % 0.7 % (0.1-12.0); Hematocrit 31.1 % (42.0-52.0); Hemoglobin 10.2 g/dL (14.1-18.0); Lymphocytes % 16.6 % (10-50); Mean Corpuscular HGB Conc 32.8 g/dL (31.8-35.4); Mean Corpuscular Hemoglobin 28.7 pg (27.0-31.2); Mean Corpuscular Volume 87.6 fl (80-94); Mean Platelet Volume 7.9 fl (7.4-10.4); Monocytes # 0.8 K/mm3 (0.1-1.0); Monocytes % 6.8 % (1.7-9.3); Neutrophils # 8.9 K/mm3 (1.8-7.8); Neutrophils % 74.9 % (37.0-80.0); Platelet Count 364 K/mm3 (142-424); Red Blood Count 3.55 M/mm3 (4.60-6.20); White Blood Count 11.9 K/mm3 (4.8-10.8)
[2020-12-05 09:59] LABS: Microscopic, Urine URINE MICROSCOPIC (MICROSCOPIC)
[2020-12-05 09:59] LABS: Chloride 94 mmol/L (98-107)
[2020-12-05 10:00] LABS: Sodium 135 mmol/L (136-145)
[2020-12-05 10:01] LABS: Appearance,Urine CLEAR (Clear); Bilirubin,Urine Negative (Negative); Blood, Urine 1+ (Negative); Color,Urine YELLOW (Yellow); Glucose,Urine (UA) Negative (Negative); Ketones,Urine Negative (Negative); Leukocyte Esterase,Urine 1+ (Negative); Nitrate,Urine Negative (Negative); Protein,Urine 1+ (Negative); Specific Gravity, Urine 1.015 (1.005-1.030); Urobilinogen,Urine 0.2 EU/dl (0.2)
[2020-12-05 10:02] LABS: Alanine Aminotransferase 12 U/L (12-78); Alkaline Phosphatase 122 U/L (38-126); Aspartate Amino Transferase 23 U/L (17-59); Bilirubin,Total 0.9 mg/dl (0.2-1.3); Blood Urea Nitrogen 15 mg/dl (9-20); Creatinine Clearance Estimated 42 mL/min (50-200); Estimated Glomerular Filt Rate 73 ml/min (>60); GFR (African American) 88 ML/MIN (>60)
[2020-12-05 10:03] LABS: Albumin Level 2.8 g/dl (3.5-5.0); Albumin/Globulin Ratio 1.2 (1.1-1.8); Carbon Dioxide 36 mmol/L (22.0-30.0); Globulin 2.4 g/dL (1.3-3.2); Glucose 161 mg/dl (74-100); Total Protein,Serum 5.2 g/dl (6.3-8.2)
[2020-12-05 10:08] LABS: Amorphous Sediment,Urine 1+ /lpf; Squamous Epithelial Cell,Urine Occasional #/hpf (0-5); Yeast,Urine 2+ /lpf
[2020-12-05 10:15] LABS: Troponin I 0.02 ng/ml (0.00-0.034)
--- NOTE | 2020-12-05 10:15 | PC.NURSE ---
Spoke with Annabelle in regards to pt IV abx and PICC line. Pt Gentamycin order ended on 12/01, they have no new orders for pt to have another IV abx. Spoke with Esdras Jones at 1005 who states that it is not necessary for the pt to have a PICC line reinserted at this time. Dr Parks aware
[2020-12-05 12:55] LABS: Troponin I 0.02 ng/ml (0.00-0.034)
--- NOTE | 2020-12-05 13:39 | PC.NURSE ---
Report called to Erica at [place]
== END 2020-12-05 14:55 | disposition home or self-care (01) ==
PROVIDERS: Emergency Provider Emergency Medicine
DX: B37.41 Candidal cystitis and urethritis (principal); Z45.2 Encounter for adjustment and management of vascular access device; I95.9 Hypotension, unspecified; R82.90 Unspecified abnormal findings in urine
CPT/HCPCS: 71045; 80053; 81001; 84484; 85025; 87086; 93005; 96374; 99284; J2405

== ENCOUNTER → 2020-12-09 11:50 | Outpatient (CLI) | payer MEDICARE, BC, SELFPAY ==
[2020-12-09 12:16] LABS: ABG Base Excess 3.9 mmol/L (-2.4-2.3); ABG HCO3 27.4 mmhg (22.0-26.0); ABG Oxygen Saturation 90 % (90-100); ABG PCO2 37.7 mmhg (35.0-45.0); ABG PH 7.48 mmol/L (7.35-7.45); ABG PO2 53.9 mmhg (80-100); ABG TCO2 28.5 mmhg (23-27)
[2020-12-09 12:18] LABS: Allen's Test acceptable; Oxygen 2.5 %
== END ==
PROVIDERS: PCP Internal Medicine; Visit Provider Internal Medicine Pulmonary Disease
DX: J44.9 Chronic obstructive pulmonary disease, unspecified (principal)
CPT/HCPCS: 82803

== ENCOUNTER 2020-12-14 09:01 | Emergency (ER) | payer MEDICARE, BC, SELFPAY ==
--- NOTE | 2020-12-14 09:10 | HMH.EDCPR ---
ED Disposition Clinical Impression: Cardiac arrest Acute respiratory failure Qualifiers: Respiratory failure complication: unspecified whether with hypoxia or hypercapnia Qualified Code(s): J96.00 - Acute respiratory failure, unspecified whether with hypoxia or hypercapnia Disposition: Condition on Discharge: Referrals: Osman Goodwin MD [Primary Care Provider] - - Critical Care Critical Care Time: No Attestation: On 12/14/20, the high probability of a clinically significant, sudden or life threatening deterioration of the following system(s) required my full and direct attention, intervention and personal management. The time I documented below is in addition to time spent performing reported procedures but includes the following listed in this critical care notation. [facility] Code Documentation - Arrest Information Outside of Hospital The Code Document Section documentation for [id number] Osman Piper SR was populated with data that defaulted in from the apparel trimmings sales representative in the Code Assessment on f_Reg Service Date] to provide within this report, the status and treatment of the patient in the ED during a Code. This documentation will be supplemented with my direct findings within the body of the report. Treatment Initiated By: EMS Location of Arrest: snf Arrest Witnessed: No - ALS Code Inititation ALS Initiated By: EMS ALS Type: ACLS - Patient Condition At Code Start Condition of Patient at Start of Code: Pulseless, Apneic Monitoring Devices: ECG Monitor, Pulse Oximeter - Circulation Initial Cardiac Rhythm: Asystole - Oxygenation Oxygen Breathing Status: Assisted Oxygen Delivery Method: Bag-Valve Mask - Code End Time Code Ended: 08:56 Patient Successfully Resuscitated: No Reason Code Ended: - Efforts Terminated Family Members Present During Code: No - Patient Expiration Date: 12/14/20 Expiration Time: 08:56 Pronounced by: Buddy Time Pronounced: 08:56 Post Mortem Care Provided: Yes Next of Kin Notified: yes Organ Donor: No Dion Notified: Yes Earth Mover Case: No Earth Mover Notified: Yes Medical Decision Making - Medical Records Medical records reviewed: Yes: I reviewed the patient's medical records. - Jermain Inquiry Pt receiving controlled substance: No Medical Decision Narrative: 75-year-old male presented to the emergency department in cardiac arrest. Initial rhythm on evaluation was asystole. Intraosseous line was established. ACLS protocols were followed. Patient was provided multiple rounds of CPR as well as ACLS medications. After numerous attempts, patient remained in asystole. Bedside cardiac ultrasound revealed no cardiac motion. Resuscitation was proved to be futile at this moment. All members of the code team were in agreement. Time of was called at 08:56. Next kin was notified. CPR HPI - General Chief Complaint: Cardiac Arrest/CPR Stated Complaint: cardiac arrest Time Seen by Provider: 12/14/20 09:05 Mode of Arrival: EMS Source of Information: EMS Limitations: Altered Mental Status - History of Present Illness HPI narrative: 75-year-old male with longstanding history of COPD presented to the emergency department with CPR in progress. Patient is a senior care resident. Apparently they were called out for some low oxygen saturations earlier this morning. However by the time EMS arrived this was changed to an unresponsive patient. There is no witnessed syncope or collapse. CPR was started by EMS on arrival. Initial rhythm was PEA. No pulse obtained. CPR was continued patient was transferred to ER for treatment - Related Data Home Medications Medication Instructions Recorded Confirmed alendronate 70 mg tablet 70 mg PO WEEKLY 09/18/18 12/09/20 potassium chloride 10 mEq 20 meq PO DAILY cap 09/18/18 12/09/20 capsule,extended release Tiotropium Belcher [Spiriva 1 cap INHALATION DAILY 05/07/20 12/09/20 18m
--- NOTE | 2020-12-14 09:18 | PC.NURSE ---
Ems arrived to ed at 0847. Active cpr in progress on arrival. Md at the bedside. Ems reports being called to the scene for a male patient with low o2 saturation, fever, and shortness of breath. When ems arrived on scene at approximately 0828, halfway staff was initiating cpr. Ems performed cpr in route to [facility] with no success at getting a pulse. Pulse check was performed on arrival (0847) and again at 0849- pt asystole. IO inserted at 0851 for access. Pulse check performed at this time-pt still asystole. 1mg of epi was administered at 0852. An additional 1mg of epi was administered at 0855 with no success. MD at the bedside for u/s. Resuscitation efforts were terminated per md at 0856.
[2020-12-14 14:03] VITALS: BP 0/0; PULSE 0; RESP 0; TEMP -17.7; TEMP 0; O2SAT 0
== END 2020-12-14 14:06 | disposition expired ==
PROVIDERS: Emergency Provider Emergency Medicine; PCP Emergency Medicine
DX: I46.9 Cardiac arrest, cause unspecified (principal); J96.00 Acute respiratory failure, unspecified whether with hypoxia or hypercapnia; I25.10 Atherosclerotic heart disease of native coronary artery without angina pectoris; J44.9 Chronic obstructive pulmonary disease, unspecified; E11.9 Type 2 diabetes mellitus without complications; Z99.81 Dependence on supplemental oxygen; E78.5 Hyperlipidemia, unspecified; I10 Essential (primary) hypertension; I25.2 Old myocardial infarction
CPT/HCPCS: 92950; 99283